=== PATIENT | female | born 1965 | race Caucasian/White ===

== ENCOUNTER 2016-12-22 22:51 | Emergency (ER) | payer MEDICAID ==
--- NOTE | 2016-12-22 22:54 | EDM.PDOC ---
ED HPI GENERAL MEDICAL PROBLEM - General Stated Complaint: PAIN LT EYE Time Seen by Provider: 12/22/16 23:05 Source of Information: Reports: Patient History Limitations: Reports: No Limitations - History of Present Illness INITIAL COMMENTS - FREE TEXT/NARRATIVE: HISTORY AND PHYSICAL: History of present illness: [51-year-old patient complaining of left eye foreign body sensation. She was driving earlier today when she opened a window and something flew in her eye. A cluster immediate discomfort and since that time has felt like something is in her eye. Tetanus is not up-to-date. She has normal vision changes at her baseline. No other complaint] Review of systems: As per history of present illness and below otherwise all systems reviewed and negative. Past medical history: As per history of present illness and as reviewed below otherwise noncontributory. Surgical history: As per history of present illness and as reviewed below otherwise noncontributory. Social history: No reported history of drug or alcohol abuse. Family history: As per history of present illness and as reviewed below otherwise noncontributory. Physical exam: Eye exam: Right eye normal. Left eye normal-appearing grossly. Normal anterior chamber. Pupils equally round reactive light accommodation. Positive relief with Alcaine. Floor seen dye applied with positive uptake upper medial quadrant of cornea. No dye uptake over the pupil. Normal anterior chamber with no hyphema. No visible foreign body. Lids everted with no foreign body or other visible abnormality HEENT: Normocephalic, atraumatic, pupils normal and symmetrical, supple neck, no meningismus, normal color Lungs: Normal and symmetrical chest wall excursion bilateral with no tachypnea or increased work of breathing, grossly normal chest exam Heart: No tachycardia in triage Abdomen: Normal-appearing, nondistended, no visible mass or asymmetry Pelvis: Normal-appearing Genitourinary: Deferred Rectal exam: Deferred Extremities: Atraumatic, normal use and range of motion, no visible evidence of gross neurovascular compromise Neuro: Awake, alert, oriented. Normal and appropriate mental status. Cranial nerves grossly unremarkable. Motor function normal. Nonfocal neurologic exam. Diagnostics: [] Therapeutics: [Erythromycin ophthalmic ointment instilled] Impression: [] Plan: [Signs and symptoms consistent with corneal abrasion confirmed by dye uptake and slit-lamp exam the ER M.D. No visible foreign body. Patient is aware the possibility of occult foreign body. Tetanus given. Patient will follow-up with ophthalmology use ointment as prescribed and return immediately for new severe or worsening symptoms.] Definitive disposition and diagnosis as appropriate pending reevaluation and review of above. Left Eye Pain Score (Numeric/FACES): 8 - Related Data Allergies Allergy/AdvReac Type Severity Reaction Status Date / Time amoxicillin [Amoxicillin] Allergy Hives Verified 12/22/16 23:00 fexofenadine HCl Allergy Hives Verified 12/22/16 23:00 [From Jesenia] loratadine [From Claritin] Allergy Hives Verified 12/22/16 23:00 naproxen sodium [From Aleve] Allergy Hives Verified 12/22/16 23:00 tramadol Allergy Hives Verified 12/22/16 23:00 Home Meds: Home Meds Montelukast [Singulair] 10 mg PO DAILY 11/15/13 [History] Omeprazole [Prilosec] 20 mg PO DAILY 11/15/13 [History] Pirbuterol [Maxair Autohaler] 14 gm IH ASDIRECTED PRN 11/15/13 [History] lamoTRIgine [LaMICtal] 150 mg PO BEDTIME 11/15/13 [History] Lurasidone HCl [Latuda] 80 mg PO DAILY 07/23/14 [History] Meloxicam 1 tab PO DAILY 05/20/15 [History] Levofloxacin [Levaquin] 250 mg PO Q24H #7 tablet 04/23/16 [Rx] Phenazopyridine HCl [Pyridium] 100 mg PO TID #9 tablet 04/23/16 [Rx] Erythromycin Base [Erythromycin 0.5% Ophth Oint] 1 applic OP Q4HR #1 tube [Rx] Past Medical History Other HEENT History: nasal reconstruction Genitourinary History: Reports: Urinary Incontinence, UTI, 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: Endocrine/Metabolic History: Reports: Diabetes, Type II - Past Surgical History GI Surgical History: Reports: Bariatric Procedure, Cholecystectomy Female Surgical History: Reports: Section Social & Family History - Family History Family Medical History: Noncontributory - Tobacco Use Smoking Status *Q: Never Smoker Years of Tobacco use: 1 Used Tobacco, but Quit: Yes Month Tobacco Last Used: 1984 Second Hand Smoke Exposure: No - Caffeine Use Caffeine Use: Reports: Coffee - Alcohol Use Days Per Week of Alcohol Use: 0 Number of Drinks Per Day: 3 Total Drinks Per Week: 0 - Recreational Drug Use Recreational Drug Use: No ED ROS GENERAL - Review of Systems Review Of Systems: See Below (History of present illness) ED EXAM, GENERAL - Physical Exam Exam: See Below (History of present illness) Course - Vital Signs Last Recorded V/S: Last Vital Signs Temp 36.6 C 12/22/16 23:00 Pulse 77 12/22/16 23:00 Resp 16 12/22/16 23:00 BP 122/51 L 12/22/16 23:00 Pulse Ox 99 12/22/16 23:00 - Orders/Labs/Meds Orders: Active Orders 24 hr Category Date Time Status Vaccines to be Administered [RC] PER UNIT ROUTINE Care 12/23/16 00:08 Active Meds: Medications Discontinued Medications Generic Name Dose Route Start Last Admin Trade Name Freq PRN Reason Stop Dose Admin Diphtheria/Tetanus/Acell Pertussis 0.5 ml 12/23/16 00:08 12/23/16 00:38 Adacel IM 12/23/16 00:09 0.5 ml .ONCE ONE Administration Erythromycin 1 gm 12/23/16 00:44 Erythromycin 0.5% Ophth Oint EYEBOTH 12/23/16 00:45 ONETIME ONE Proparacaine HCl 3 ml 12/22/16 23:19 12/22/16 23:44 Proparacaine 0.5% Ophth Soln EYELF 12/22/16 23:20 3 ml ONETIME ONE Administration Departure - Departure Time of Disposition: 00:34 Disposition: Home, Self-Care 01 Condition: Good Clinical Impression: Corneal abrasion, left, Tetanus-diphtheria vaccination administered at current visit - Discharge Information Prescriptions: Erythromycin Base [Erythromycin 0.5% Ophth Oint] 1 applic OP Q4HR #1 tube Instructions: Corneal Abrasion, [id number] Referrals: Jason Wick MD [Primary Care Provider] - Forms: ED Department Discharge Additional Instructions: You have suffered a corneal abrasion of your left eye today. Your tetanus shot has been updated. Use ointment 4 times a day and at bedtime as discussed. Follow -up with the eye doctor, Dr Red, as directed in one day. Take Motrin Tylenol as needed for pain and return immediately for new severe or worsening symptoms - My Orders Last 24 Hours: My Active Orders 12/23/16 00:08 Vaccines to be Administered [RC] PER UNIT ROUTINE - Assessment/Plan Last 24 Hours: My Active Orders 12/23/16 00:08 Vaccines to be Administered [RC] PER UNIT ROUTINE
[2016-12-22] MEDS ORDERED: Proparacaine 0.5% Ophth Soln 15 ML Bottle EYELF ONE (23:19)
[2016-12-23] MEDS ORDERED: Diphtheria,Pertussis(Acell),Tetanus Vaccine 0.5 ML Syringe IM ONE (00:08)
[2016-12-23] MEDS ORDERED: Erythromycin Base 0.5% Ophth Oint 1 GM Tube EYEBOTH ONE (00:44)
[2016-12-23 02:28] VITALS: BP 126/61
== END 2016-12-23 01:00 | disposition home or self-care (01) ==
LOC: MW.ED 22:51
DX: S05.02XA Injury of conjunctiva and corneal abrasion without foreign body, left eye, initial encounter (principal); E11.9 Type 2 diabetes mellitus without complications; Z90.49 Acquired absence of other specified parts of digestive tract; Z98.84 Bariatric surgery status; Z87.891 Personal history of nicotine dependence; Z79.899 Other long term (current) drug therapy; Z88.1 Allergy status to other antibiotic agents; Z88.5 Allergy status to narcotic agent; Z88.8 Allergy status to other drugs, medicaments and biological substances; X58.XXXA Exposure to other specified factors, initial encounter; Z23 Encounter for immunization
CPT/HCPCS: 90471; 90715; 99283; A9270

== ENCOUNTER 2017-04-12 20:46 | Emergency (ER) | payer MEDICAID ==
[2017-04-12] MEDS ORDERED: Sodium Chloride 0.9% 10 ML Syringe FLUSH PRN (21:18)
[2017-04-12] MEDS ORDERED: Sodium Chloride 0.9% 2.5 ML Syringe FLUSH PRN (21:18)
--- NOTE | 2017-04-12 21:21 | EDM.PDOC ---
ED HPI GENERAL MEDICAL PROBLEM - General Chief Complaint: ENT Problem Stated Complaint: PAIN THROAT/LT SIDE Time Seen by Provider: 04/12/17 21:13 Source of Information: Reports: Patient History Limitations: Reports: No Limitations - History of Present Illness INITIAL COMMENTS - FREE TEXT/NARRATIVE: HISTORY AND PHYSICAL: []52-year-old female presenting with left-sided neck pain extending down to her shoulder History of Present Illness: []Denies any injury she states this is the fourth time in a month she was seen by Dr. Wick and told it was a muscle. She is teary-eyed and worried that it's her heart. Patient has known history of diabetes mellitus UTI Cystitis Bipolar disorder Review of Systems: As per history of present illness and below otherwise all systems reviewed and negative. Past medical history: As per history of present illness and as reviewed below otherwise noncontributory. Surgical history: As per history of present illness and as reviewed below otherwise noncontributory. Social history: No reported history of drug or alcohol abuse. Family history: As per history of present illness and as reviewed below otherwise noncontributory. Physical exam: Alert and oriented female who speaks in full sentences without any difficulty she does have difficulty opening her mouth. She is nontoxic in appearance HEENT: Atraumatic, normocehpalic, pupils reactive, negative for conjunctival pallor or scleral icterus, mucous membranes moist, throat clear, neck supple, nontender, trachea midline. Edema is noted to the left lateral neck tender with palpation no bruit is noted. Lungs: Clear to auscultation, breath sounds equal bilaterally, chest non tender. Heart: S1S2, regular, negative for clicks, rubs, or JVD. Abdomen: Soft, nondistended, nontender. Negative for masses or hepatossplenmegaly. Negative for costovertebral tenderness. Pelvis: Stable nontender. Genitourinary: Deferred. Rectal: Deferred Extremities: Atraumatic, negative for cords or calf pain. Mild tenderness is noted to the anterior shoulder. No gross abnormalities were noted on examination full range of motion is noted. Neurovascular unremarkable. Neuro: Awake, alert, oriented. Cranial nerves II through XII unremarkable. Cerebellum unremarkable. Motor and sensory unremarkable throughout. Exam nonfocal. Diagnostics: [Carotid ultrasound] HCG urine Therapeutics: []Norflex Toradol Impression: []Neck pain/muscle strain Plan: [Discharged to home Tylenol for discomfort Warm packs to neck comfort follow up with Dr. Wick] Definitive disposition and diagnosis as appropriate pending reevaluation and review of above. Left Throat Pain Score (Numeric/FACES): 9 - Related Data Allergies Allergy/AdvReac Type Severity Reaction Status Date / Time amoxicillin [Amoxicillin] Allergy Hives Verified 12/22/16 23:00 fexofenadine HCl Allergy Hives Verified 12/22/16 23:00 [From Jesenia] loratadine [From Claritin] Allergy Hives Verified 12/22/16 23:00 naproxen sodium [From Aleve] Allergy Hives Verified 12/22/16 23:00 tramadol Allergy Hives Verified 12/22/16 23:00 Home Meds: Home Meds Montelukast [Singulair] 10 mg PO DAILY 11/15/13 [History] Pirbuterol [Maxair Autohaler] 14 gm IH ASDIRECTED PRN 11/15/13 [History] lamoTRIgine [LaMICtal] 75 mg PO BID 11/15/13 [History] Lurasidone HCl [Latuda] 80 mg PO DAILY 07/23/14 [History] Meloxicam 7.5 mg PO DAILY 05/20/15 [History] Pantoprazole [ProTONIX] 20 mg PO DAILY 04/12/17 [History] Past Medical History Other HEENT History: nasal reconstruction Genitourinary History: Reports: Urinary Incontinence, UTI, 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: Psychiatric History: Reports: None Endocrine/Metabolic History: Reports: Diabetes, Type II - Infectious Disease History Infectious Disease History: Reports: Chicken Pox - Past Surgical History GI Surgical History: Reports: Bariatric Procedure, Cholecystectomy Female Surgical History: Reports: Section Social & Family History - Family History Family Medical History: Noncontributory - Tobacco Use Smoking Status *Q: Never Smoker Years of Tobacco use: 1 Used Tobacco, but Quit: Yes Month Tobacco Last Used: 1984 Second Hand Smoke Exposure: No - Caffeine Use Caffeine Use: Reports: Coffee - Alcohol Use Days Per Week of Alcohol Use: 0 Number of Drinks Per Day: 3 Total Drinks Per Week: 0 - Recreational Drug Use Recreational Drug Use: No ED ROS ENT - Review of Systems Review Of Systems: ROS reveals no pertinent complaints other than HPI. ED EXAM, ENT - Physical Exam Exam: See Below (See dictation) Course - Vital Signs Last Recorded V/S: Last Vital Signs Temp 36.9 C 04/12/17 21:11 Pulse 70 04/12/17 21:11 Resp 18 04/12/17 21:11 BP 124/58 L 04/12/17 21:11 Pulse Ox 96 04/12/17 21:11 - Orders/Labs/Meds Orders: Active Orders 24 hr Category Date Time Status Carotid Blood Flow Comp [US] Stat Exams 04/12/17 21:18 Taken Orphenadrine [Norflex] Med 04/12/17 21:30 Active 60 mg IM Q12H Sodium Chloride 0.9% [Saline Flush] Med 04/12/17 21:18 Active 10 ml FLUSH ASDIRECTED PRN Sodium Chloride 0.9% [Saline Flush] Med 04/12/17 21:18 Active 2.5 ml FLUSH ASDIRECTED PRN Saline Lock Insert [OM.PC] Stat Oth 04/12/17 21:18 Ordered Medication Orders Orphenadrine Citrate (Norflex) 60 mg IM Q12H GEN Last Admin: 04/12/17 21:30 Dose: 60 mg Sodium Chloride (Saline Flush) 10 ml FLUSH ASDIRECTED PRN PRN Reason: Keep Vein Open Sodium Chloride (Saline Flush) 2.5 ml FLUSH ASDIRECTED PRN PRN Reason: Keep Vein Open Labs: Laboratory Tests 04/12/17 04/12/17 Range/Units 21:26 21:36 WBC 5.63 (4.0-11.0) K/uL RBC 4.32 (4.30-5.90) M/uL Hgb 10.5 L (12.0-16.0) g/dL Hct 34.1 L (36.0-46.0) % MCV 78.9 L (80.0-98.0) fL MCH 24.3 L (27.0-32.0) pg MCHC 30.8 L (31.0-37.0) g/dL RDW Std Deviation 46.2 (28.0-62.0) fl RDW Coeff of Haris 16 H (11.0-15.0) % Plt Count 268 (150-400) K/uL MPV 8.50 (7.40-12.00) fL Neut % (Auto) 57.9 (48.0-80.0) % Lymph % (Auto) 31.8 (16.0-40.0) % [place] % (Auto) 8.3 (0.0-15.0) % Eos % (Auto) 1.6 (0.0-7.0) % Baso % (Auto) 0.4 (0.0-1.5) % Neut # (Auto) 3.3 (1.4-5.7) K/uL Lymph # (Auto) 1.8 (0.6-2.4) K/uL [place]mer # (Auto) 0.5 (0.0-0.8) K/uL Eos # (Auto) 0.1 (0.0-0.7) K/uL Baso # (Auto) 0.0 (0.0-0.1) K/uL Nucleated RBC % 0.0 /100WBC Nucleated RBCs # 0 K/uL Urine Color YELLOW Urine Appearance CLEAR Urine pH 6.0 (5.0-8.0) Ur Specific [place] 1.015 (1.001-1.035) Urine Protein NEGATIVE (NEGATIVE) mg/dL Urine Glucose (UA) NEGATIVE (NEGATIVE) mg/dL Urine Ketones NEGATIVE (NEGATIVE) mg/dL Urine Occult Blood NEGATIVE (NEGATIVE) Urine Nitrite NEGATIVE (NEGATIVE) Urine Bilirubin NEGATIVE (NEGATIVE) Urine Urobilinogen 0.2 (<2.0) EU/dL Ur Leukocyte Esterase TRACE (NEGATIVE) Urine RBC 0-1 (0-2/HPF) Urine WBC 0-3 (0-5/HPF) Ur Epithelial Cells FEW (NONE-FEW) Urine Bacteria FEW (NEGATIVE) Meds: Medications Generic Name Dose Route Start Last Admin Trade Name Freq PRN Reason Stop Dose Admin Orphenadrine Citrate 60 mg 04/12/17 21:30 04/12/17 21:30 Norflex IM 60 mg Q12H GEN Administration Sodium Chloride 10 ml 04/12/17 21:18 Saline Flush FLUSH ASDIRECTED PRN Keep Vein Open Sodium Chloride 2.5 ml 04/12/17 21:18 Saline Flush FLUSH ASDIRECTED PRN Keep Vein Open Discontinued Medications Generic Name Dose Route Start Last Admin Trade Name Freq PRN Reason Stop Dose Admin Ketorolac Tromethamine 30 mg 04/12/17 21:24 04/12/17 21:31 Toradol IVPUSH 04/12/17 21:25 30 mg ONETIME ONE Administration Departure - Departure Time of Disposition: 22:06 Disposition: Home, Self-Care 01 Condition: Good Clinical Impression: Neck pain on left side - Discharge Information Referrals: Jason Wick MD [Primary Care Provider] - Forms: ED Department Discharge Additional Instructions: The following information is given to patients seen in the emergency department who are being discharged to home. This information is to outline your options for follow-up care. We provide all patients seen in our emergency department with a follow-up referral. The need for follow-up, as well as the timing and circumstances, are variable depending upon the specifics of your emergency department visit. If you don't have a primary care physician on staff, we will provide you with a referral. We always advise you to contact your personal physician following an emergency department visit to inform them of the circumstance of the visit and for follow-up with them and/or the need for any referrals to a consulting specialist. The emergency department will also refer you to a specialist when appropriate. This referral assures that you have the opportunity for followup care with a specialist. All of these measure are taken in an effort to provide you with optimal care, which includes your followup. Under all circumstances we always encourage you to contact your private physician who remains a resource for coordinating your care. When calling for followup care, please make the office aware that this follow-up is from your recent emergency room visit. If for any reason you are refused follow-up, please contact the [facility] emergency department at and asked to speak to the emergency department charge nurse. Warm packs for discomfort The counter Tylenol for pain Follow-up with Dr. Wick - My Orders Last 24 Hours: My Active Orders 04/12/17 21:18 Carotid Blood Flow Comp [US] Stat Sodium Chloride 0.9% [Saline Flush] 10 ml FLUSH ASDIRECTED PRN Sodium Chloride 0.9% [Saline Flush] 2.5 ml FLUSH ASDIRECTED PRN Saline Lock Insert [OM.PC] Stat 04/12/17 21:30 Orphenadrine [Norflex] 60 mg IM Q12H - Assessment/Plan Last 24 Hours: My Active Orders 04/12/17 21:18 Carotid Blood Flow Comp [US] Stat Sodium Chloride 0.9% [Saline Flush] 10 ml FLUSH ASDIRECTED PRN Sodium Chloride 0.9% [Saline Flush] 2.5 ml FLUSH ASDIRECTED PRN Saline Lock Insert [OM.PC] Stat 04/12/17 21:30 Orphenadrine [Norflex] 60 mg IM Q12H
[2017-04-12] MEDS ORDERED: Ketorolac 30 MG/ML SDV IVPUSH ONE (21:24)
[2017-04-12 22:46] VITALS: BP 113/74
--- NOTE | 2017-04-13 13:32 | US ---
EXAM DATE: 04/12/17 PATIENT'S AGE: 52 Patient: YUDY BROTHERS Facility: [place], [place] Site . Site : [id number] Study: US Neck Angio [id number] 10:00:46 PM Ordering Physician: Doctor Sparks Final Report: INDICATION: Neck pain. TECHNIQUE: Ultrasound carotid bilateral arterial duplex with dixon-scale imaging, color Doppler and spectral Doppler analysis. COMPARISON: None FINDINGS: RIGHT: The common carotid is normal on grayscale and color Doppler images. Duplex Doppler waveforms of the common carotid (CCA), internal carotid (ICA), and external carotid arteries (ECA) are normal in appearance. Normal anterograde flow is seen in the vertebral artery. The peak systolic velocity ( PSV) of the ICA is 124 cm/sec with ICA/CCA ratio of 1.3. The PSV of the ECA is within normal limits. LEFT: The common carotid is normal on grayscale and color Doppler images. Duplex Doppler waveforms of the common carotid (CCA), internal carotid (ICA), and external carotid arteries (ECA) are normal in appearance. Normal anterograde flow is seen in the vertebral artery. The peak systolic velocity ( PSV) of the ICA is 156 cm/sec with ICA/CCA ratio of 1.3. The PSV of the ECA is within normal limits. IMPRESSION: 1. No significant stenosis seen in the common or internal carotid arteries bilaterally. 2. Normal anterograde flow noted in the vertebral arteries. Dictated by Salvatore Myles MD @ 04/12/2017 10:29:25 PM Dictated by: Salvatore Myles MD @ 04/12/2017 22:29:31 (Electronic Signature) Report Signed by Proxy. ROMAN
== END 2017-04-12 22:43 | disposition home or self-care (01) ==
LOC: MW.ED 20:46
DX: S16.1XXA Strain of muscle, fascia and tendon at neck level, initial encounter (principal); E11.9 Type 2 diabetes mellitus without complications; Z87.440 Personal history of urinary (tract) infections; Z79.899 Other long term (current) drug therapy; Z88.1 Allergy status to other antibiotic agents; Z88.8 Allergy status to other drugs, medicaments and biological substances; Z88.5 Allergy status to narcotic agent; Z90.49 Acquired absence of other specified parts of digestive tract; Z87.891 Personal history of nicotine dependence
CPT/HCPCS: 36415; 81001; 85025; 93880; 96372; 96374; 99284; J1885; J2360; 99283

== ENCOUNTER 2017-06-30 20:53 | Emergency (ER) | payer MEDICAID ==
[2017-06-30 21:04] VITALS: BP 111/60
[2017-06-30] MEDS ORDERED: Ketorolac 60 MG/2 ML SDV IM ONE (21:09)
--- NOTE | 2017-06-30 21:18 | EDM.PDOC ---
ED HPI GENERAL MEDICAL PROBLEM - General Chief Complaint: Upper Extremity Injury/Pain Stated Complaint: HURT SHOULDER Time Seen by Provider: 06/30/17 20:58 Source of Information: Reports: Patient History Limitations: Reports: No Limitations - History of Present Illness INITIAL COMMENTS - FREE TEXT/NARRATIVE: HISTORY AND PHYSICAL: History of present illness: Patient is a 52-year-old female who presents to the emergency room today with complaints of left shoulder pain that started this morning. She states that she "might have slept on it wrong". Denies any recent injury or trauma. Denies any previous complications or surgeries without extremity. Denies any fever, chills, chest pain or shortness of breath. No numbness or tingling to the affected extremity. Reports increased pain with range of motion. Review of systems: As per history of present illness and below otherwise all systems reviewed and negative. Past medical history: As per history of present illness and as reviewed below otherwise noncontributory. Surgical history: As per history of present illness and as reviewed below otherwise noncontributory. Social history: No reported history of drug or alcohol abuse. Family history: As per history of present illness and as reviewed below otherwise noncontributory. Physical exam: General: Well-developed and well-nourished 52-year-old female. Alert and oriented. Flat affect, appears in no acute distress, nontoxic appearing. HEENT: Atraumatic, normocephalic, pupils reactive, negative for conjunctival pallor or scleral icterus, mucous membranes moist, throat clear, neck supple, nontender, trachea midline. Lungs: Clear to auscultation, breath sounds equal bilaterally, chest nontender. Heart: S1S2, regular rate and rhythm without overt murmurs Abdomen: Soft, nondistended, nontender. Negative for masses or hepatosplenomegaly. Negative for costovertebral tenderness. Pelvis: Stable nontender. Genitourinary: Deferred. Rectal: Deferred. Extremities: Atraumatic, moves all extremities per self. Increased pain with range of motion of the left shoulder. Negative supraspinatus exam/ empty can test. Strong radial pulses bilaterally. Capillary refill less than 3 seconds. Tenderness with palpation of the medial deltoid. No pain or tenderness with palpation of the clavicle, scapula, bicep, tricep, elbow, forearm, wrist or hand. Neurovascular unremarkable. Neuro: Awake, alert, oriented. Cranial nerves II through XII unremarkable. Cerebellum unremarkable. Motor and sensory unremarkable throughout. Exam nonfocal. Discussed with the patient the x-ray that will be ordered. Her physical exam and interview, the pain sounds muscular. Informed her that she will likely need a CT or MRI if she continues to have the worsening shoulder pain. Informed her she will need to follow-up with an orthopedic provider. She voices understanding and is agreeable to plan of care. Place the patient in a sling for comfort measures. Patient denies any further questions at this time. Diagnostics: X-ray Therapeutics: Toradol, sling Impression: Shoulder pain, Left Plan: 1. Please review the sling as needed for comfort. 2. Flexeril has been prescribed for night time use. May take Tylenol as needed for pain. Ice alternated with heat. 3. Follow-up with the orthopedic provider as we discussed. Please return to the ED as needed and as discussed. Definitive disposition and diagnosis as appropriate pending reevaluation and review of above. Onset: Today Duration: Hour(s): Location: Reports: Upper Extremity, Left Associated Symptoms: Reports: No Other Symptoms left shoulder Pain Score (Numeric/FACES): 10 - Related Data Allergies Allergy/AdvReac Type Severity Reaction Status Date / Time amoxicillin [Amoxicillin] Allergy Hives Verified 06/30/17 21:02 fexofenadine HCl Allergy Hives Verified 06/30/17 21:02 [From Jesenia] loratadine [From Claritin] Allergy Hives Verified 06/30/17 21:02 naproxen sodium [From Aleve] Allergy Hives Verified 06/30/17 21:02 tramadol Allergy Hives Verified 06/30/17 21:02 Home Meds: Home Meds Montelukast [Singulair] 10 mg PO DAILY 11/15/13 [History] Pirbuterol [Maxair Autohaler] 14 gm IH ASDIRECTED PRN 11/15/13 [History] lamoTRIgine [LaMICtal] 75 mg PO BID 11/15/13 [History] Lurasidone HCl [Latuda] 80 mg PO DAILY 07/23/14 [History] Meloxicam 7.5 mg PO DAILY 05/20/15 [History] Pantoprazole [ProTONIX] 20 mg PO DAILY 04/12/17 [History] Cyclobenzaprine [Flexeril] 10 mg PO BEDTIME PRN #10 tablet 06/30/17 [Rx] Past Medical History Other HEENT History: nasal reconstruction Cardiovascular History: Reports: None Respiratory History: Reports: Asthma Gastrointestinal History: Reports: None Genitourinary History: Reports: Urinary Incontinence, UTI, Recurrent 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: Musculoskeletal History: Reports: None Neurological History: Reports: None Psychiatric History: Reports: Anxiety, Depression Endocrine/Metabolic History: Reports: Diabetes, Type II Hematologic History: Reports: None Immunologic History: Reports: None Oncologic (Cancer) History: Reports: None Dermatologic History: Reports: None - Infectious Disease History Infectious Disease History: Reports: Chicken Pox Other Infectious Disease History: hay fever - Past Surgical History Respiratory Surgical History: Reports: None GI Surgical History: Reports: Bariatric Procedure, Cholecystectomy Female Surgical History: Reports: Section Other Musculoskeletal Surgeries/Procedures:: arm surgery Social & Family History - Family History Family Medical History: Noncontributory - Tobacco Use Smoking Status *Q: Never Smoker Years of Tobacco use: 1 Used Tobacco, but Quit: Yes Month Tobacco Last Used: 1984 Second Hand Smoke Exposure: No - Caffeine Use Caffeine Use: Reports: Coffee - Alcohol Use Days Per Week of Alcohol Use: 0 Number of Drinks Per Day: 3 Total Drinks Per Week: 0 - Recreational Drug Use Recreational Drug Use: No Review of Systems - Review of Systems Review Of Systems: ROS reveals no pertinent complaints other than HPI. ED EXAM, GENERAL - Physical Exam Exam: See Below (See dictation) Course - Vital Signs Last Recorded V/S: Last Vital Signs Temp 97.3 F 06/30/17 21:02 Pulse 66 06/30/17 21:02 Resp 18 06/30/17 21:02 BP 111/60 06/30/17 21:02 Pulse Ox 98 06/30/17 21:02 - Orders/Labs/Meds Orders: Active Orders 24 hr Category Date Time Status Shoulder Comp Lt [CR] Stat Exams 06/30/17 21:09 Ordered DME for Discharge [COMM] Stat Oth 06/30/17 21:09 Ordered Meds: Medications Discontinued Medications Generic Name Dose Route Start Last Admin Trade Name Freq PRN Reason Stop Dose Admin Ketorolac Tromethamine 60 mg 06/30/17 21:09 06/30/17 21:14 Toradol IM 06/30/17 21:10 60 mg ONETIME ONE Administration Departure - Departure Time of Disposition: 21:52 Disposition: Home, Self-Care 01 Clinical Impression: Shoulder pain, left Qualifiers: Chronicity: acute Qualified Code(s): M25.512 - Pain in left shoulder - Discharge Information Prescriptions: Cyclobenzaprine [Flexeril] 10 mg PO BEDTIME PRN #10 tablet PRN Reason: Muscle Spasm Referrals: Jason Wick MD [Primary Care Provider] - Forms: ED Department Discharge Additional Instructions: My general discharge The following information is given to patients seen in the emergency department who are being discharged to home. This information is to outline your options for follow-up care. We provide all patients seen in our emergency department with a follow-up referral. The need for follow-up, as well as the timing and circumstances, are variable depending upon the specifics of your emergency department visit. If you don't have a primary care physician on staff, we will provide you with a referral. We always advise you to contact your personal physician following an emergency department visit to inform them of the circumstance of the visit and for follow-up with them and/or the need for any referrals to a consulting specialist. The emergency department will also refer you to a specialist when appropriate. This referral assures that you have the opportunity for follow-up care with a specialist. All of these measure are taken in an effort to provide you with optimal care, which includes your follow-up. Under all circumstances we always encourage you to contact your private physician who remains a resource for coordinating your care. When calling for follow-up care, please make the office aware that this follow-up is from your recent emergency room visit. If for any reason you are refused follow-up, please contact the [facility] Emergency Department at and asked to speak to the emergency department charge nurse. [facility] - [facility] Professional Building [address] [place] [address], [address] [place] [address] 1. Please review the sling as needed for comfort. 2. Flexeril has been prescribed for night time use. May take Tylenol as needed for pain. Ice alternated with heat. 3. Follow-up with the orthopedic provider as we discussed. Please return to the ED as needed and as discussed. - My Orders Last 24 Hours: My Active Orders 06/30/17 21:09 Shoulder Comp Lt [CR] Stat DME for Discharge [COMM] Stat - Assessment/Plan Last 24 Hours: My Active Orders 06/30/17 21:09 Shoulder Comp Lt [CR] Stat DME for Discharge [COMM] Stat
--- NOTE | 2017-07-04 13:13 | CR ---
EXAM DATE: 06/30/17 PATIENT'S AGE: 52 Patient: YUDY BROTHERS Facility: [place], [place] Site . Site : 1965 Study: XRay Shoulder Left [id number] 9:47:52 PM Ordering Physician: Doctor Sparks Final Report: Indication: Pain Technique: Three views of the left shoulder Comparison: 01/10/2011 Findings: Bones: Alignment is normal. No fractures or bone lesions. Joint spaces: Unremarkable. Soft tissues: Unremarkable. Impression: Negative. Dictated by Viraj Yun MD @ 06/30/2017 10:22:59 PM Dictated by: Viraj Yun MD @ 06/30/2017 22:23:07 (Electronic Signature) Report Signed by Proxy. [facility]ITAL[facility]
== END 2017-06-30 22:20 | disposition home or self-care (01) ==
LOC: MW.ED 20:53
DX: M25.512 Pain in left shoulder (principal); F32.9 Major depressive disorder, single episode, unspecified; E11.9 Type 2 diabetes mellitus without complications; Z87.891 Personal history of nicotine dependence; Z79.899 Other long term (current) drug therapy; Z88.1 Allergy status to other antibiotic agents; Z88.5 Allergy status to narcotic agent; Z88.8 Allergy status to other drugs, medicaments and biological substances
CPT/HCPCS: 73030; 96372; 99283; J1885; A4566

== ENCOUNTER 2017-09-03 12:41 | Emergency (ER) | payer MEDICAID ==
--- NOTE | 2017-09-03 13:29 | EDM.PDOC ---
ED HPI GENERAL MEDICAL PROBLEM - General Stated Complaint: COLD Time Seen by Provider: 09/03/17 13:25 Source of Information: Reports: Patient History Limitations: Reports: No Limitations - History of Present Illness INITIAL COMMENTS - FREE TEXT/NARRATIVE: HISTORY AND PHYSICAL: []52-year-old female presenting with a cough for the last 2 days History of Present Illness: []She has had some chills Review of Systems: As per history of present illness and below otherwise all systems reviewed and negative. Past medical history: As per history of present illness and as reviewed below otherwise noncontributory. Surgical history: As per history of present illness and as reviewed below otherwise noncontributory. Social history: No reported history of drug or alcohol abuse. Family history: As per history of present illness and as reviewed below otherwise noncontributory. Physical exam: Alert and oriented female answering questions appropriately in full sentences but has to cough after speaking in summary words. SHe was pale hot and moist HEENT: Atraumatic, normocehpalic, pupils reactive, negative for conjunctival pallor or scleral icterus, mucous membranes moist, throat clear, neck supple, nontender, trachea midline. Dull light reflex to bilateral tympanic membranes Lungs: Mild crackles on auscultation, breath sounds equal bilaterally, chest non tender. Heart: S1S2, regular, negative for clicks, rubs, or JVD. Abdomen: Soft, nondistended, nontender. Negative for masses or hepatossplenmegaly. Negative for costovertebral tenderness. Pelvis: Stable nontender. Genitourinary: Deferred. Rectal: Deferred Extremities: Atraumatic, negative for cords or calf pain. Neurovascular unremarkable. Neuro: Awake, alert, oriented. Cranial nerves II through XII unremarkable. Cerebellum unremarkable. Motor and sensory unremarkable throughout. Exam nonfocal. His chest with the patient and her son the diagnosis and treatments they verbalized understanding. Diagnostics: [] Therapeutics: [] Impression: [Influenza] Plan: []Discharged to home Tamiflu 75 mg twice daily 5 days Tylenol for discomfort and fever Follow-up with your primary care in 2 days Definitive disposition and diagnosis as appropriate pending reevaluation and review of above. Onset: Sudden Duration: Day(s): (2) Location: Reports: Head, Chest - Related Data Allergies Allergy/AdvReac Type Severity Reaction Status Date / Time amoxicillin [Amoxicillin] Allergy Hives Verified 06/30/17 21:02 fexofenadine HCl Allergy Hives Verified 06/30/17 21:02 [From Jesenia] loratadine [From Claritin] Allergy Hives Verified 06/30/17 21:02 naproxen sodium [From Aleve] Allergy Hives Verified 06/30/17 21:02 tramadol Allergy Hives Verified 06/30/17 21:02 Home Meds: Home Meds Montelukast [Singulair] 10 mg PO DAILY 11/15/13 [History] Pirbuterol [Maxair Autohaler] 14 gm IH ASDIRECTED PRN 11/15/13 [History] lamoTRIgine [LaMICtal] 75 mg PO BID 11/15/13 [History] Lurasidone HCl [Latuda] 80 mg PO DAILY 07/23/14 [History] Meloxicam 7.5 mg PO DAILY 05/20/15 [History] Pantoprazole [ProTONIX] 20 mg PO DAILY 04/12/17 [History] Cyclobenzaprine [Flexeril] 10 mg PO BEDTIME PRN #10 tablet 06/30/17 [Rx] Oseltamivir [Tamiflu] 75 mg PO BID #10 cap 09/03/17 [Rx] Past Medical History Other HEENT History: nasal reconstruction Cardiovascular History: Reports: None Respiratory History: Reports: Asthma Gastrointestinal History: Reports: None Genitourinary History: Reports: Urinary Incontinence, UTI, Recurrent 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: Musculoskeletal History: Reports: None Neurological History: Reports: None Psychiatric History: Reports: Anxiety, Depression Endocrine/Metabolic History: Reports: Diabetes, Type II Hematologic History: Reports: None Immunologic History: Reports: None Oncologic (Cancer) History: Reports: None Dermatologic History: Reports: None - Infectious Disease History Infectious Disease History: Reports: Chicken Pox Other Infectious Disease History: hay fever - Past Surgical History Respiratory Surgical History: Reports: None GI Surgical History: Reports: Bariatric Procedure, Cholecystectomy Female Surgical History: Reports: Section Other Musculoskeletal Surgeries/Procedures:: arm surgery Social & Family History - Family History Family Medical History: Noncontributory - Tobacco Use Smoking Status *Q: Never Smoker Years of Tobacco use: 1 Used Tobacco, but Quit: Yes Month Tobacco Last Used: 1984 Second Hand Smoke Exposure: No - Caffeine Use Caffeine Use: Reports: Coffee - Alcohol Use Days Per Week of Alcohol Use: 0 Number of Drinks Per Day: 3 Total Drinks Per Week: 0 - Recreational Drug Use Recreational Drug Use: No ED ROS GENERAL - Review of Systems Review Of Systems: ROS reveals no pertinent complaints other than HPI. ED EXAM, GENERAL - Physical Exam Exam: See Below (see dictation) Departure - Departure Time of Disposition: 13:27 Disposition: Home, Self-Care 01 Condition: Good Clinical Impression: Influenza - Discharge Information Prescriptions: Oseltamivir [Tamiflu] 75 mg PO BID #10 cap Referrals: Jason Wick MD [Primary Care Provider] - Additional Instructions: The following information is given to patients seen in the emergency department who are being discharged to home. This information is to outline your options for follow-up care. We provide all patients seen in our emergency department with a follow-up referral. The need for follow-up, as well as the timing and circumstances, are variable depending upon the specifics of your emergency department visit. If you don't have a primary care physician on staff, we will provide you with a referral. We always advise you to contact your personal physician following an emergency department visit to inform them of the circumstance of the visit and for follow-up with them and/or the need for any referrals to a consulting specialist. The emergency department will also refer you to a specialist when appropriate. This referral assures that you have the opportunity for followup care with a specialist. All of these measure are taken in an effort to provide you with optimal care, which includes your followup. Under all circumstances we always encourage you to contact your private physician who remains a resource for coordinating your care. When calling for followup care, please make the office aware that this follow-up is from your recent emergency room visit. If for any reason you are refused follow-up, please contact the [facility] emergency department at and asked to speak to the emergency department charge nurse. Your found have the flu well in the emergency department You were prescribed Tamiflu 75 mg 1 capsule twice daily 5 days Tylenol for discomfort and fever Follow-up with your primary care in 2 days
[2017-09-03 16:56] VITALS: BP 133/58
== END 2017-09-03 14:15 | disposition home or self-care (01) ==
LOC: MW.ED 12:41
DX: J11.1 Influenza due to unidentified influenza virus with other respiratory manifestations (principal); J45.909 Unspecified asthma, uncomplicated; F32.9 Major depressive disorder, single episode, unspecified; E11.9 Type 2 diabetes mellitus without complications; Z87.891 Personal history of nicotine dependence; Z79.899 Other long term (current) drug therapy; Z88.5 Allergy status to narcotic agent; Z88.8 Allergy status to other drugs, medicaments and biological substances; Z88.1 Allergy status to other antibiotic agents
CPT/HCPCS: 99282

== ENCOUNTER 2017-12-26 21:17 | Emergency (ER) | payer MEDICAID ==
--- NOTE | 2017-12-26 21:31 | EDM.PDOC ---
ED HPI GENERAL MEDICAL PROBLEM - General Chief Complaint: Gastrointestinal Problem Stated Complaint: NAUSEOUS, ABDOMINAL PAIN Time Seen by Provider: 12/26/17 21:30 Source of Information: Reports: Patient History Limitations: Reports: No Limitations - History of Present Illness INITIAL COMMENTS - FREE TEXT/NARRATIVE: HISTORY AND PHYSICAL: History of present illness: 52-year-old female presenting to emergency department with nausea 3-4 days with past medical history of bipolar disorder and diabetes. Patient states that for the past 3-4 days she has had some nausea without vomiting, she is felt generally tired but today felt more weak and dizzy. States that she is keeping down fluids but has had a decreased appetite. She denies any diarrhea, fever, sore throat, chest pain, shortness of breath, syncopal episodes, or focal neurologic deficits. Did have some mild crampy abdominal pain generally but only intermittently and none today. Denies any bloody stool, dark tarry stool, recent foreign travel, recent camping, or change in diet. No other close contacts have similar symptoms. Review of systems: As per history of present illness and below otherwise all systems reviewed and negative. Past medical history: As per history of present illness and as reviewed below otherwise noncontributory. Surgical history: As per history of present illness and as reviewed below otherwise noncontributory. Social history: No reported history of drug or alcohol abuse. Family history: As per history of present illness and as reviewed below otherwise noncontributory. Physical exam: HEENT: Atraumatic, normocephalic, pupils reactive, negative for conjunctival pallor or scleral icterus, mucous membranes moist, throat clear, neck supple, nontender, trachea midline. Lungs: Clear to auscultation, breath sounds equal bilaterally, chest nontender. Heart: S1S2, regular, negative for clicks, rubs, or JVD. Abdomen: Soft, nondistended, nontender, obese. Negative for masses or hepatosplenomegaly. Negative for costovertebral tenderness. Pelvis: Stable nontender. Genitourinary: Deferred. Rectal: Deferred. Extremities: Atraumatic, negative for cords or calf pain. Neurovascular unremarkable. Neuro: Awake, alert, oriented. Cranial nerves II through XII unremarkable. Cerebellum unremarkable. Motor and sensory unremarkable throughout. Exam nonfocal. Diagnostics: UA/UC, urine hCG call Therapeutics: 1 L normal saline, Zofran IV 4 mg 1, Zofran ODT 4 mg by mouth every 6 hours when necessary nausea Impression: Viral gastroenteritis Nausea without vomiting Plan: Patient most likely has viral gastroenteritis. UA and urine hCG were unremarkable. Patient was instructed to follow-up with primary care provider and return to emergency department if she had any new or worsening symptoms. She should continue pushing fluids as well as slowly increase her diet from bland foods. - Related Data Allergies Allergy/AdvReac Type Severity Reaction Status Date / Time amoxicillin [Amoxicillin] Allergy Hives Verified 09/03/17 16:53 fexofenadine HCl Allergy Hives Verified 09/03/17 16:53 [From Jesenia] loratadine [From Claritin] Allergy Hives Verified 09/03/17 16:53 naproxen sodium [From Aleve] Allergy Hives Verified 09/03/17 16:53 tramadol Allergy Hives Verified 09/03/17 16:53 Home Meds: Home Meds Montelukast [Singulair] 10 mg PO DAILY 11/15/13 [History] Pirbuterol [Maxair Autohaler] 14 gm IH ASDIRECTED PRN 11/15/13 [History] lamoTRIgine [LaMICtal] 75 mg PO BID 11/15/13 [History] Lurasidone HCl [Latuda] 80 mg PO DAILY 07/23/14 [History] Meloxicam 7.5 mg PO DAILY 05/20/15 [History] Pantoprazole [ProTONIX] 20 mg PO DAILY 04/12/17 [History] Cyclobenzaprine [Flexeril] 10 mg PO BEDTIME PRN #10 tablet 06/30/17 [Rx] Oseltamivir [Tamiflu] 75 mg PO BID #10 cap 09/03/17 [Rx] Past Medical History HEENT History: Reports: Other (See Below) Other HEENT History: nasal reconstruction Cardiovascular History: Reports: None Respiratory History: Reports: Asthma Gastrointestinal History: Reports: None Genitourinary History: Reports: Urinary Incontinence, UTI, Recurrent SURGERY CONSULTANT History: Reports: Musculoskeletal History: Reports: None Neurological History: Reports: None Psychiatric History: Reports: Anxiety, Depression Endocrine/Metabolic History: Reports: Diabetes, Type II Hematologic History: Reports: None Immunologic History: Reports: None Oncologic (Cancer) History: Reports: None Dermatologic History: Reports: None - Infectious Disease History Infectious Disease History: Reports: Chicken Pox Other Infectious Disease History: hay fever - Past Surgical History Head Surgeries/Procedures: Reports: None HEENT Surgical History: Reports: None Cardiovascular Surgical History: Reports: None Respiratory Surgical History: Reports: None GI Surgical History: Reports: Bariatric Procedure, Cholecystectomy Female Surgical History: Reports: Section Other Musculoskeletal Surgeries/Procedures:: arm surgery Oncologic Surgical History: Reports: None Social & Family History - Family History Family Medical History: Noncontributory - Tobacco Use Smoking Status *Q: Never Smoker - Caffeine Use Caffeine Use: Reports: None - Recreational Drug Use Recreational Drug Use: No ED ROS GENERAL - Review of Systems Review Of Systems: ROS reveals no pertinent complaints other than HPI. ED EXAM, GENERAL - Physical Exam Exam: See Below Course - Vital Signs Last Recorded V/S: Last Vital Signs Temp 97.4 F 12/26/17 21:30 Pulse 82 12/26/17 21:30 Resp 18 12/26/17 21:30 BP 148/100 H 12/26/17 21:30 Pulse Ox 97 12/26/17 21:30 - Orders/Labs/Meds Orders: Active Orders 24 hr Category Date Time Status CULTURE URINE [RM] Stat Lab 12/26/17 21:35 Received HCG QUALITATIVE,URINE [URCHEM] Stat Lab 12/26/17 21:35 Ordered UA W/MICROSCOPIC [URIN] Stat Lab 12/26/17 21:35 Ordered Labs: Laboratory Tests 12/26/17 12/26/17 Range/Units 21:35 21:35 Urine Color YELLOW Urine Appearance CLEAR Urine pH 6.0 (5.0-8.0) Ur Specific [place] <= 1.005 (1.001-1.035) Urine Protein NEGATIVE (NEGATIVE) mg/dL Urine Glucose (UA) NEGATIVE (NEGATIVE) mg/dL Urine Ketones NEGATIVE (NEGATIVE) mg/dL Urine Occult Blood TRACE-LYSED (NEGATIVE) Urine Nitrite NEGATIVE (NEGATIVE) Urine Bilirubin NEGATIVE (NEGATIVE) Urine Urobilinogen 0.2 (<2.0) EU/dL Ur Leukocyte Esterase NEGATIVE (NEGATIVE) Urine RBC 0-2 (0-2/HPF) Urine WBC 0-2 (0-5/HPF) Ur Epithelial Cells OCCASIONAL (NONE-FEW) Urine Bacteria RARE (NEGATIVE) Urine HCG, Qual NEGATIVE (NEGATIVE) Meds: Medications Discontinued Medications Generic Name Dose Route Start Last Admin Trade Name Freq PRN Reason Stop Dose Admin Sodium Chloride 1,000 mls @ 999 mls/hr 12/26/17 22:04 12/26/17 22:06 Normal Saline IV 12/26/17 23:04 999 mls/hr .Bolus ONE Administration Ondansetron HCl 4 mg 12/26/17 22:12 12/26/17 22:33 Zofran IVPUSH 12/26/17 22:13 4 mg ONETIME ONE Administration Departure - Departure Time of Disposition: 23:06 Disposition: Home, Self-Care 01 Condition: Good Clinical Impression: Viral gastroenteritis - Discharge Information Referrals: Jason Wick MD [Primary Care Provider] - Forms: ED Department Discharge Additional Instructions: My general discharge The following information is given to patients seen in the emergency department who are being discharged to home. This information is to outline your options for follow-up care. We provide all patients seen in our emergency department with a follow-up referral. The need for follow-up, as well as the timing and circumstances, are variable depending upon the specifics of your emergency department visit. If you don't have a primary care physician on staff, we will provide you with a referral. We always advise you to contact your personal physician following an emergency department visit to inform them of the circumstance of the visit and for follow-up with them and/or the need for any referrals to a consulting specialist. The emergency department will also refer you to a specialist when appropriate. This referral assures that you have the opportunity for follow-up care with a specialist. All of these measure are taken in an effort to provide you with optimal care, which includes your follow-up. Under all circumstances we always encourage you to contact your private physician who remains a resource for coordinating your care. When calling for follow-up care, please make the office aware that this follow-up is from your recent emergency room visit. If for any reason you are refused follow-up, please contact the [facility] Emergency Department at and asked to speak to the emergency department charge nurse. [address] [address] Follow-up with her primary care provider Dr. Wick. Continue to push fluid intake as well as bland diet. Take medication as prescribed. Return emergency department if any new or worsening symptoms. - My Orders Last 24 Hours: My Active Orders 12/26/17 21:35 CULTURE URINE [RM] Stat HCG QUALITATIVE,URINE [URCHEM] Stat UA W/MICROSCOPIC [URIN] Stat - Assessment/Plan Last 24 Hours: My Active Orders 12/26/17 21:35 CULTURE URINE [RM] Stat HCG QUALITATIVE,URINE [URCHEM] Stat UA W/MICROSCOPIC [URIN] Stat
[2017-12-26] MEDS ORDERED: Sodium Chloride 0.9% 1,000 ML IV ONE (22:04)
[2017-12-26] MEDS ORDERED: Ondansetron 4 MG/2 ML SDV IVPUSH ONE (22:12)
[2017-12-26 23:29] VITALS: BP 135/61
== END 2017-12-26 23:27 | disposition home or self-care (01) ==
LOC: MW.ED 21:17
DX: A08.4 Viral intestinal infection, unspecified (principal); J45.909 Unspecified asthma, uncomplicated; F41.9 Anxiety disorder, unspecified; F32.9 Major depressive disorder, single episode, unspecified; Z79.899 Other long term (current) drug therapy; Z88.1 Allergy status to other antibiotic agents; Z88.5 Allergy status to narcotic agent; Z88.8 Allergy status to other drugs, medicaments and biological substances
CPT/HCPCS: 81001; 81025; 87086; 96361; 96374; 99283; J2405; J7040

== ENCOUNTER 2017-12-30 16:56 | Emergency (ER) | payer MEDICAID ==
[2017-12-30] MEDS ORDERED: Sodium Chloride 0.9% 10 ML Syringe FLUSH PRN (17:21)
[2017-12-30] MEDS ORDERED: Sodium Chloride 0.9% 1,000 ML IV ONE (17:21)
[2017-12-30] MEDS ORDERED: Sodium Chloride 0.9% 2.5 ML Syringe FLUSH PRN (17:21)
--- NOTE | 2017-12-30 17:21 | EDM.PDOC ---
ED HPI GENERAL MEDICAL PROBLEM - General Chief Complaint: Abdominal Pain Stated Complaint: STOMACH PAIN Time Seen by Provider: 12/30/17 17:01 Source of Information: Reports: Patient History Limitations: Reports: No Limitations - History of Present Illness INITIAL COMMENTS - FREE TEXT/NARRATIVE: HISTORY AND PHYSICAL: History of present illness: [Radha is a 52-year-old female here with complaint of headache and abdominal pain. She was in the ED 2 days ago for similar complaints. She states abdominal pain bothers her more than headache. She has history of migraines, states this headache is no worse than her usual headaches. She denies any photophobia/phonophobia, change in vision. She has some nausea but no vomiting. Pain in the abdomen is all over. No diarrhea, constipation, heartburn, blood in stool, dark/tarry stool, dysuria, hematuria. Past history of gastric bypass surgery and cholecystectomy. ] Review of systems: As per history of present illness and below otherwise all systems reviewed and negative. Past medical history: As per history of present illness and as reviewed below otherwise noncontributory. Surgical history: As per history of present illness and as reviewed below otherwise noncontributory. Social history: No reported history of drug or alcohol abuse. Family history: As per history of present illness and as reviewed below otherwise noncontributory. Physical exam: HEENT: Atraumatic, normocephalic, pupils reactive, negative for conjunctival pallor or scleral icterus, mucous membranes moist, throat clear, neck supple, nontender, trachea midline. Lungs: Clear to auscultation, breath sounds equal bilaterally, chest nontender. Heart: S1S2, regular, negative for clicks, rubs, or JVD. Abdomen: Mild, diffuse tenderness of the abdomen. Negative schwartz's, rovsings, mcburneys. Negative for masses or hepatosplenomegaly. Negative for costovertebral tenderness. Pelvis: Stable nontender. Genitourinary: Deferred. Rectal: Deferred. Extremities: Atraumatic, negative for cords or calf pain. Neurovascular unremarkable. Neuro: Awake, alert, oriented. Cranial nerves II through XII unremarkable. Cerebellum unremarkable. Motor and sensory unremarkable throughout. Exam nonfocal. Notes: Patient complained of worsening abdominal pain, located more periumbilical. CT scan of the abdomen ordered to r/o early appendicitis. Patient reports she has taken ketorolac in the past without any adverse reactions. 193: patient reports pain not much improved, now pointing to epigastric area. 30mg Ketorolac given along with famotidine 20mg. Diagnostics: [CBC, CMP, lipase, UA CT abdomen] Therapeutics: [IV fluids Ketorolac 30mg IV x 2 Famotidine 20mg IV ] Impression: [Abdominal pain] Plan: [CT abdomen and labs unremarkable. Advised patient to follow up with her primary care provider for further evaluation. Return to ED as needed as discussed. ] Definitive disposition and diagnosis as appropriate pending reevaluation and review of above. Abdominal Pain Score (Numeric/FACES): 9 headache Pain Score (Numeric/FACES): 10 - Related Data Allergies Allergy/AdvReac Type Severity Reaction Status Date / Time amoxicillin [Amoxicillin] Allergy Hives Verified 12/30/17 17:03 fexofenadine HCl Allergy Hives Verified 12/30/17 17:03 [From Jesenia] loratadine [From Claritin] Allergy Hives Verified 12/30/17 17:03 naproxen sodium [From Aleve] Allergy Hives Verified 12/30/17 17:03 tramadol Allergy Hives Verified 12/30/17 17:03 Home Meds: Home Meds Montelukast [Singulair] 10 mg PO DAILY 11/15/13 [History] Pirbuterol [Maxair Autohaler] 14 gm IH ASDIRECTED PRN 11/15/13 [History] lamoTRIgine [LaMICtal] 75 mg PO BID 11/15/13 [History] Lurasidone HCl [Latuda] 80 mg PO DAILY 07/23/14 [History] RX: Meloxicam 7.5 mg PO DAILY 05/20/15 [History] RX: Pantoprazole [ProTONIX] 20 mg PO DAILY 04/12/17 [History] Cyclobenzaprine [Flexeril] 10 mg PO BEDTIME PRN #10 tablet 06/30/17 [Rx] Dicyclomine [Bentyl] 20 mg PO TID #10 tablet 12/30/17 [Rx] RX: Benztropine [Cogentin] 0.5 mg PO DAILY 12/30/17 [History] buPROPion [Wellbutrin] 150 mg PO DAILY 12/30/17 [History] Past Medical History HEENT History: Reports: Other (See Below) Other HEENT History: nasal reconstruction Cardiovascular History: Reports: None Respiratory History: Reports: Asthma Gastrointestinal History: Reports: None Genitourinary History: Reports: Urinary Incontinence, UTI, Recurrent SIGHT EFFECTS SPECIALIST History: Reports: Musculoskeletal History: Reports: None Neurological History: Reports: None Psychiatric History: Reports: Anxiety, Depression Endocrine/Metabolic History: Reports: Diabetes, Type II Hematologic History: Reports: None Immunologic History: Reports: None Oncologic (Cancer) History: Reports: None Dermatologic History: Reports: None - Infectious Disease History Infectious Disease History: Reports: Chicken Pox Other Infectious Disease History: hay fever - Past Surgical History Head Surgeries/Procedures: Reports: None HEENT Surgical History: Reports: None Cardiovascular Surgical History: Reports: None Respiratory Surgical History: Reports: None GI Surgical History: Reports: Bariatric Procedure, Cholecystectomy Female Surgical History: Reports: Breast Reduction, Section, Cystectomy Musculoskeletal Surgical History: Reports: Other (See Below) Other Musculoskeletal Surgeries/Procedures:: arm surgery-plate left arm Oncologic Surgical History: Reports: None Social & Family History - Family History Family Medical History: Noncontributory - Tobacco Use Smoking Status *Q: Never Smoker Second Hand Smoke Exposure: No - Caffeine Use Caffeine Use: Reports: Coffee Caffeine Use Comment: 2 cups/day - Recreational Drug Use Recreational Drug Use: No ED ROS GENERAL - Review of Systems Review Of Systems: ROS reveals no pertinent complaints other than HPI. ED EXAM, GI/ABD - Physical Exam Exam: See Below (see dictation) Course - Vital Signs Last Recorded V/S: Last Vital Signs Temp 37.0 C 12/30/17 17:05 Pulse 79 12/30/17 17:05 Resp 16 12/30/17 17:05 BP 133/88 12/30/17 17:05 Pulse Ox 99 12/30/17 17:05 - Orders/Labs/Meds Orders: Active Orders 24 hr Category Date Time Status Abdomen Pelvis wo Cont [CT] Stat Exams 12/30/17 18:14 Taken HCG QUALITATIVE,URINE [URCHEM] Stat Lab 12/30/17 17:30 Ordered UA W/MICROSCOPIC [URIN] Stat Lab 12/30/17 17:30 Ordered Sodium Chloride 0.9% [Saline Flush] Med 12/30/17 17:21 Active 10 ml FLUSH ASDIRECTED PRN Sodium Chloride 0.9% [Saline Flush] Med 12/30/17 17:21 Active 2.5 ml FLUSH ASDIRECTED PRN Saline Lock Insert [OM.PC] Stat Oth 12/30/17 17:21 Ordered Medication Orders Sodium Chloride (Saline Flush) 10 ml FLUSH ASDIRECTED PRN PRN Reason: Keep Vein Open Sodium Chloride (Saline Flush) 2.5 ml FLUSH ASDIRECTED PRN PRN Reason: Keep Vein Open Labs: Laboratory Tests 12/30/17 12/30/17 12/30/17 Range/Units 17:30 17:30 17:30 WBC 7.80 (4.0-11.0) K/uL RBC 4.07 L (4.30-5.90) M/uL Hgb 11.7 L (12.0-16.0) g/dL Hct 36.3 (36.0-46.0) % MCV 89.2 (80.0-98.0) fL MCH 28.7 (27.0-32.0) pg MCHC 32.2 (31.0-37.0) g/dL RDW Std Deviation 49.9 (28.0-62.0) fl RDW Coeff of Haris 16 H (11.0-15.0) % Plt Count 284 (150-400) K/uL MPV 8.80 (7.40-12.00) fL Neut % (Auto) 67.8 (48.0-80.0) % Lymph % (Auto) 23.8 (16.0-40.0) % [place] % (Auto) 6.9 (0.0-15.0) % Eos % (Auto) 1.2 (0.0-7.0) % Baso % (Auto) 0.3 (0.0-1.5) % Neut # (Auto) 5.3 (1.4-5.7) K/uL Lymph # (Auto) 1.9 (0.6-2.4) K/uL [place] # (Auto) 0.5 (0.0-0.8) K/uL Eos # (Auto) 0.1 (0.0-0.7) K/uL Baso # (Auto) 0.0 (0.0-0.1) K/uL Nucleated RBC % 0.0 /100WBC Nucleated RBCs # 0 K/uL Sodium 139 (136-145) mmol/L Potassium 3.5 (3.5-5.1) mmol/L Chloride 104 (98-107) mmol/L Carbon Dioxide 24.7 (21.0-32.0) mmol/L BUN 11 (7.0-18.0) mg/dL Creatinine 1.2 H (0.6-1.0) mg/dL Est Cr Clr Drug Dosing 51.92 mL/min Estimated GFR (MDRD) 47.4 ml/min Glucose 111 H (74-106) mg/dL Calcium 8.1 L (8.5-10.1) mg/dL Total Bilirubin 0.3 (0.2-1.0) mg/dL AST 43 H (15-37) IU/L ALT 43 (14-63) IU/L Alkaline Phosphatase 91 (46-116) U/L Total Protein 7.0 (6.4-8.2) g/dL Albumin 3.4 (3.4-5.0) g/dL Globulin 3.6 H (2.0-3.5) g/dL Albumin/Globulin Ratio 0.9 L (1.3-2.8) Lipase 186 (73-393) U/L Urine Color YELLOW Urine Appearance CLEAR Urine pH 7.0 (5.0-8.0) Ur Specific [place] 1.015 (1.001-1.035) Urine Protein NEGATIVE (NEGATIVE) mg/dL Urine Glucose (UA) NEGATIVE (NEGATIVE) mg/dL Urine Ketones TRACE H (NEGATIVE) mg/dL Urine Occult Blood NEGATIVE (NEGATIVE) Urine Nitrite NEGATIVE (NEGATIVE) Urine Bilirubin NEGATIVE (NEGATIVE) Urine Urobilinogen 4.0 H (<2.0) EU/dL Ur Leukocyte Esterase NEGATIVE (NEGATIVE) Urine RBC 1-2 (0-2/HPF) Urine WBC 0-2 (0-5/HPF) Ur Epithelial Cells FEW (NONE-FEW) Urine Bacteria FEW (NEGATIVE) Urine HCG, Qual (NEGATIVE) 12/30/17 Range/Units 17:30 WBC (4.0-11.0) K/uL RBC (4.30-5.90) M/uL Hgb (12.0-16.0) g/dL Hct (36.0-46.0) % MCV (80.0-98.0) fL MCH (27.0-32.0) pg MCHC (31.0-37.0) g/dL RDW Std Deviation (28.0-62.0) fl RDW Coeff of Haris (11.0-15.0) % Plt Count (150-400) K/uL MPV (7.40-12.00) fL Neut % (Auto) (48.0-80.0) % Lymph % (Auto) (16.0-40.0) % [place] % (Auto) (0.0-15.0) % Eos % (Auto) (0.0-7.0) % Baso % (Auto) (0.0-1.5) % Neut # (Auto) (1.4-5.7) K/uL Lymph # (Auto) (0.6-2.4) K/uL [place] # (Auto) (0.0-0.8) K/uL Eos # (Auto) (0.0-0.7) K/uL Baso # (Auto) (0.0-0.1) K/uL Nucleated RBC % /100WBC Nucleated RBCs # K/uL Sodium (136-145) mmol/L Potassium (3.5-5.1) mmol/L Chloride (98-107) mmol/L Carbon Dioxide (21.0-32.0) mmol/L BUN (7.0-18.0) mg/dL Creatinine (0.6-1.0) mg/dL Est Cr Clr Drug Dosing mL/min Estimated GFR (MDRD) ml/min Glucose (74-106) mg/dL Calcium (8.5-10.1) mg/dL Total Bilirubin (0.2-1.0) mg/dL AST (15-37) IU/L ALT (14-63) IU/L Alkaline Phosphatase (46-116) U/L Total Protein (6.4-8.2) g/dL Albumin (3.4-5.0) g/dL Globulin (2.0-3.5) g/dL Albumin/Globulin Ratio (1.3-2.8) Lipase (73-393) U/L Urine Color Urine Appearance Urine pH (5.0-8.0) Ur Specific [place] (1.001-1.035) Urine Protein (NEGATIVE) mg/dL Urine Glucose (UA) (NEGATIVE) mg/dL Urine Ketones (NEGATIVE) mg/dL Urine Occult Blood (NEGATIVE) Urine Nitrite (NEGATIVE) Urine Bilirubin (NEGATIVE) Urine Urobilinogen (<2.0) EU/dL Ur Leukocyte Esterase (NEGATIVE) Urine RBC (0-2/HPF) Urine WBC (0-5/HPF) Ur Epithelial Cells (NONE-FEW) Urine Bacteria (NEGATIVE) Urine HCG, Qual NEGATIVE (NEGATIVE) Meds: Medications Generic Name Dose Route Start Last Admin Trade Name Freq PRN Reason Stop Dose Admin Sodium Chloride 10 ml 12/30/17 17:21 Saline Flush FLUSH ASDIRECTED PRN Keep Vein Open Sodium Chloride 2.5 ml 12/30/17 17:21 Saline Flush FLUSH ASDIRECTED PRN Keep Vein Open Discontinued Medications Generic Name Dose Route Start Last Admin Trade Name Freq PRN Reason Stop Dose Admin Famotidine 20 mg 12/30/17 19:34 Pepcid IVPUSH 12/30/17 19:35 ONETIME ONE Sodium Chloride 1,000 mls @ 999 mls/hr 12/30/17 17:21 12/30/17 17:40 Normal Saline IV 12/30/17 18:21 999 mls/hr STAT ONE Administration Ketorolac Tromethamine 30 mg 12/30/17 18:17 12/30/17 18:28 Toradol IVPUSH 12/30/17 18:18 30 mg ONETIME ONE Administration Ketorolac Tromethamine 30 mg 12/30/17 19:27 12/30/17 19:36 Toradol IVPUSH 12/30/17 19:28 30 mg ONETIME ONE Administration Departure - Departure Time of Disposition: 19:57 Disposition: Home, Self-Care 01 Condition: Good Clinical Impression: Abdominal pain - Discharge Information Prescriptions: Dicyclomine [Bentyl] 20 mg PO TID #10 tablet Referrals: PCP,None [Primary Care Provider] - Forms: ED Department Discharge Additional Instructions: The following information is given to patients seen in the emergency department who are being discharged to home. This information is to outline your options for follow-up care. We provide all patients seen in our emergency department with a follow-up referral. The need for follow-up, as well as the timing and circumstances, are variable depending upon the specifics of your emergency department visit. If you don't have a primary care physician on staff, we will provide you with a referral. We always advise you to contact your personal physician following an emergency department visit to inform them of the circumstance of the visit and for follow-up with them and/or the need for any referrals to a consulting specialist. The emergency department will also refer you to a specialist when appropriate. This referral assures that you have the opportunity for follow-up care with a specialist. All of these measure are taken in an effort to provide you with optimal care, which includes your follow-up. Under all circumstances we always encourage you to contact your private physician who remains a resource for coordinating your care. When calling for follow-up care, please make the office aware that this follow-up is from your recent emergency room visit. If for any reason you are refused follow-up, please contact the [facility] Emergency Department at and asked to speak to the emergency department charge nurse. [address] [address] #1 Take bentyl as prescribed for abdominal pain #2 Follow up with your primary care provider for further evaluation #3 Return to ED as needed as discussed - My Orders Last 24 Hours: My Active Orders 12/30/17 17:21 Sodium Chloride 0.9% [Saline Flush] 10 ml FLUSH ASDIRECTED PRN Sodium Chloride 0.9% [Saline Flush] 2.5 ml FLUSH ASDIRECTED PRN Saline Lock Insert [OM.PC] Stat 12/30/17 17:30 HCG QUALITATIVE,URINE [URCHEM] Stat UA W/MICROSCOPIC [URIN] Stat 12/30/17 18:14 Abdomen Pelvis wo Cont [CT] Stat - Assessment/Plan Last 24 Hours: My Active Orders 12/30/17 17:21 Sodium Chloride 0.9% [Saline Flush] 10 ml FLUSH ASDIRECTED PRN Sodium Chloride 0.9% [Saline Flush] 2.5 ml FLUSH ASDIRECTED PRN Saline Lock Insert [OM.PC] Stat 12/30/17 17:30 HCG QUALITATIVE,URINE [URCHEM] Stat UA W/MICROSCOPIC [URIN] Stat 12/30/17 18:14 Abdomen Pelvis wo Cont [CT] Stat
[2017-12-30] MEDS ORDERED: Ketorolac 30 MG/ML SDV IVPUSH ONE ×2 (18:17→19:27)
[2017-12-30] MEDS ORDERED: Famotidine 20 MG/2 ML SDV IVPUSH ONE (19:34)
[2017-12-30 20:26] VITALS: BP 128/64
--- NOTE | 2018-01-01 14:20 | CT ---
EXAM DATE: 12/30/17 PATIENT'S AGE: 52 Patient: YUDY BROTHERS Facility: [place], [place] Site . Site : [id number] Study: CT Abdomen/Pelvis WO CONT [id number] 7:09:43 PM Ordering Physician: Doctor Sparks Final Report: INDICATION: Abdominal pain. TECHNIQUE: CT of abdomen and pelvis performed without IV or oral contrast. COMPARISON: CT 07/01/2007. Findings : Mild scoliosis. Moderate degenerative changes in the spine. Postsurgical changes of gastric bypass surgery and cholecystectomy stable. Postsurgical changes involving the small bowel is stable and related to the gastric bypass surgery. Degenerative disc disease L5 interspace. Moderate osteopenia. Mild anterior subluxation of L4 on L5. Small bleb in the left lower lobe. The appendix is normal. Remainder negative. IMPRESSION: 1. No acute disease in abdomen or pelvis. 2. Postsurgical changes in the abdomen stable as described above. Other findings as above. Please note that all CT scans at this facility use dose modulation, iterative reconstruction, and/or weight-based dosing when appropriate to reduce radiation dose to as low as reasonably achievable. Dictated by John Tabor MD @ Dec 30 2017 7:21PM (Electronic Signature) Report Signed by Proxy. ROMAN
== END 2017-12-30 20:24 | disposition home or self-care (01) ==
LOC: MW.ED 16:56
DX: R10.9 Unspecified abdominal pain (principal); R51 Headache; E11.9 Type 2 diabetes mellitus without complications; Z88.1 Allergy status to other antibiotic agents; Z88.8 Allergy status to other drugs, medicaments and biological substances
CPT/HCPCS: 36415; 74176; 80053; 81001; 81025; 83690; 85025; 96361; 96374; 96375; 96376; 99284; J1885; J7040

== ENCOUNTER 2018-02-26 02:37 | Emergency (ER) | payer MEDICAID ==
[2018-02-26] MEDS ORDERED: Ondansetron 4 MG/2 ML SDV IVPUSH ONE (02:51)
--- NOTE | 2018-02-26 02:54 | EDM.PDOC ---
ED HPI GENERAL MEDICAL PROBLEM - General Chief Complaint: Chest Pain Stated Complaint: VOMITING, CHEST PAIN, LEFT ARM PAIN Time Seen by Provider: 02/26/18 02:52 - History of Present Illness INITIAL COMMENTS - FREE TEXT/NARRATIVE: HISTORY AND PHYSICAL: History of present illness: Patient 52-year-old white female percent since her chest pain is vaguely described without associated shortness of breath diaphoresis or palpitations patient did have nausea vomiting there is no clear palliating or aggravating factors. Review of systems: As per history of present illness and below otherwise all systems reviewed and negative. Past medical history: As per history of present illness and as reviewed below otherwise noncontributory. Surgical history: As per history of present illness and as reviewed below otherwise noncontributory. Social history: No reported history of drug or alcohol abuse. Family history: As per history of present illness and as reviewed below otherwise noncontributory. Physical exam: HEENT: Atraumatic, normocephalic, pupils reactive, negative for conjunctival pallor or scleral icterus, mucous membranes moist, throat clear, neck supple, nontender, trachea midline. Lungs: Clear to auscultation, breath sounds equal bilaterally, chest nontender. Heart: S1S2, regular, negative for clicks, rubs, or JVD. Abdomen: Soft, nondistended, nontender. Negative for masses or hepatosplenomegaly. Negative for costovertebral tenderness. Pelvis: Stable nontender. Genitourinary: Deferred. Rectal: Deferred. Extremities: Atraumatic, negative for cords or calf pain. Neurovascular unremarkable. Neuro: Awake, alert, oriented. Cranial nerves II through XII unremarkable. Cerebellum unremarkable. Motor and sensory unremarkable throughout. Exam nonfocal. Diagnostics: CBC CMP troponin PT/INR chest x-ray EKG Therapeutics: IV O2 monitor Zofran 4 mg IV Impression: #1 atypical chest pain #2 vomiting Definitive disposition and diagnosis as appropriate pending reevaluation and review of above. Chest Pain Score (Numeric/FACES): 8 - Related Data Allergies Allergy/AdvReac Type Severity Reaction Status Date / Time amoxicillin [Amoxicillin] Allergy Hives Verified 02/10/18 14:17 erythromycin base Allergy Hives Verified 02/26/18 02:46 fexofenadine HCl Allergy Hives Verified 02/10/18 14:17 [From Jesenia] loratadine [From Claritin] Allergy Hives Verified 02/10/18 14:17 naproxen sodium [From Aleve] Allergy Hives Verified 02/10/18 14:17 tramadol Allergy Hives Verified 02/10/18 14:17 Home Meds: Home Meds Montelukast [Singulair] 10 mg PO DAILY 11/15/13 [History] Pirbuterol [Maxair Autohaler] 14 gm IH ASDIRECTED PRN 11/15/13 [History] lamoTRIgine [LaMICtal] 75 mg PO BID 11/15/13 [History] Lurasidone HCl [Latuda] 80 mg PO DAILY 07/23/14 [History] Meloxicam 7.5 mg PO DAILY 05/20/15 [History] Pantoprazole [ProTONIX] 20 mg PO DAILY 04/12/17 [History] Cyclobenzaprine [Flexeril] 10 mg PO BEDTIME PRN #10 tablet 06/30/17 [Rx] Benztropine [Cogentin] 0.5 mg PO DAILY 12/30/17 [History] buPROPion [Wellbutrin] 150 mg PO DAILY 12/30/17 [History] Topiramate [Topamax] 50 mg PO BID 02/10/18 [History] Past Medical History HEENT History: Reports: Other (See Below) Other HEENT History: nasal reconstruction Cardiovascular History: Reports: None Respiratory History: Reports: Asthma Gastrointestinal History: Reports: None Genitourinary History: Reports: Urinary Incontinence, UTI, 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: Musculoskeletal History: Reports: None Neurological History: Reports: None Psychiatric History: Reports: Anxiety, Depression Endocrine/Metabolic History: Reports: Diabetes, Type II Hematologic History: Reports: None Immunologic History: Reports: None Oncologic (Cancer) History: Reports: None Dermatologic History: Reports: None - Infectious Disease History Infectious Disease History: Reports: Chicken Pox Other Infectious Disease History: hay fever - Past Surgical History Head Surgeries/Procedures: Reports: None HEENT Surgical History: Reports: None Cardiovascular Surgical History: Reports: None Respiratory Surgical History: Reports: None GI Surgical History: Reports: Bariatric Procedure, Cholecystectomy Female Surgical History: Reports: Breast Reduction, Section, Cystectomy Musculoskeletal Surgical History: Reports: Other (See Below) Other Musculoskeletal Surgeries/Procedures:: arm surgery-plate left arm Oncologic Surgical History: Reports: None Social & Family History - Family History Family Medical History: Noncontributory - Tobacco Use Smoking Status *Q: Former Smoker Used Tobacco, but Quit: Yes Month/Year Tobacco Last Used: 1984 - Caffeine Use Caffeine Use: Reports: Coffee Caffeine Use Comment: 2 cups/day - Recreational Drug Use Recreational Drug Use: No ED ROS GENERAL - Review of Systems Review Of Systems: ROS reveals no pertinent complaints other than HPI. ED EXAM, GENERAL - Physical Exam Exam: See Below (See dictation) Course - Vital Signs Text/Narrative:: Patient's emergency department course unremarkable I discussed with patient admission for observation patient finds be discharged home to follow-up with private medical doctor she is to return as needed as discussed Last Recorded V/S: Last Vital Signs Temp 36.1 C 02/26/18 02:42 Pulse 73 02/26/18 03:40 Resp 18 02/26/18 03:40 BP 107/62 02/26/18 03:40 Pulse Ox 98 02/26/18 03:40 - Orders/Labs/Meds Orders: Active Orders 24 hr Category Date Time Status EKG Documentation Completion [RC] STAT Care 02/26/18 02:51 Active Chest 1V Frontal [CR] Stat Exams 02/26/18 02:51 Taken Labs: Laboratory Tests 02/26/18 02/26/18 02/26/18 Range/Units 02:45 02:45 02:45 WBC 6.81 (4.0-11.0) K/uL RBC 4.43 (4.30-5.90) M/uL Hgb 13.0 (12.0-16.0) g/dL Hct 39.4 (36.0-46.0) % MCV 88.9 (80.0-98.0) fL MCH 29.3 (27.0-32.0) pg MCHC 33.0 (31.0-37.0) g/dL RDW Std Deviation 45.5 (28.0-62.0) fl RDW Coeff of Haris 14 (11.0-15.0) % Plt Count 276 (150-400) K/uL MPV 9.20 (7.40-12.00) fL Neut % (Auto) 60.4 (48.0-80.0) % Lymph % (Auto) 28.2 (16.0-40.0) % [place] % (Auto) 7.0 (0.0-15.0) % Eos % (Auto) 4.1 (0.0-7.0) % Baso % (Auto) 0.3 (0.0-1.5) % Neut # (Auto) 4.1 (1.4-5.7) K/uL Lymph # (Auto) 1.9 (0.6-2.4) K/uL [place] # (Auto) 0.5 (0.0-0.8) K/uL Eos # (Auto) 0.3 (0.0-0.7) K/uL Baso # (Auto) 0.0 (0.0-0.1) K/uL Nucleated RBC % 0.0 /100WBC Nucleated RBCs # 0 K/uL INR 1.02 Sodium 140 (136-145) mmol/L Potassium 3.6 (3.5-5.1) mmol/L Chloride 106 (98-107) mmol/L Carbon Dioxide 29.6 (21.0-32.0) mmol/L BUN 11 (7.0-18.0) mg/dL Creatinine 1.1 H (0.6-1.0) mg/dL Est Cr Clr Drug Dosing 56.64 mL/min Estimated GFR (MDRD) 52.4 ml/min Glucose 96 (74-106) mg/dL Calcium 8.8 (8.5-10.1) mg/dL Total Bilirubin 0.3 (0.2-1.0) mg/dL AST 43 H (15-37) IU/L ALT 61 (14-63) IU/L Alkaline Phosphatase 124 H (46-116) U/L Troponin I < 0.050 (0.000-0.056) ng/mL Total Protein 7.4 (6.4-8.2) g/dL Albumin 3.9 (3.4-5.0) g/dL Globulin 3.5 (2.0-3.5) g/dL Albumin/Globulin Ratio 1.1 L (1.3-2.8) Meds: Medications Discontinued Medications Generic Name Dose Route Start Last Admin Trade Name Freq PRN Reason Stop Dose Admin Ondansetron HCl 4 mg 02/26/18 02:51 02/26/18 02:55 Zofran IVPUSH 02/26/18 02:52 4 mg ONETIME ONE Administration Departure - Departure Time of Disposition: 03:45 Disposition: Home, Self-Care 01 Condition: Good Clinical Impression: Atypical chest pain - Discharge Information *PRESCRIPTION DRUG MONITORING PROGRAM REVIEWED*: Not Applicable *COPY OF PRESCRIPTION DRUG MONITORING REPORT IN PATIENT [place]: Not Applicable Referrals: PCP,None [Primary Care Provider] - Forms: ED Department Discharge Additional Instructions: The following information is given to patients seen in the emergency department who are being discharged to home. This information is to outline your options for follow-up care. We provide all patients seen in our emergency department with a follow-up referral. The need for follow-up, as well as the timing and circumstances, are variable depending upon the specifics of your emergency department visit. If you don't have a primary care physician on staff, we will provide you with a referral. We always advise you to contact your personal physician following an emergency department visit to inform them of the circumstance of the visit and for follow-up with them and/or the need for any referrals to a consulting specialist. The emergency department will also refer you to a specialist when appropriate. This referral assures that you have the opportunity for followup care with a specialist. All of these measure are taken in an effort to provide you with optimal care, which includes your followup. Under all circumstances we always encourage you to contact your private physician who remains a resource for coordinating your care. When calling for followup care, please make the office aware that this follow-up is from your recent emergency room visit. If for any reason you are refused follow-up, please contact the [facility] emergency department at and asked to speak to the emergency department charge nurse. [facility] [address] [place] [id number] Follow-up primary medical doctor and her clinical bulb as needed as discussed return as needed as discussed - My Orders Last 24 Hours: My Active Orders 02/26/18 02:51 EKG Documentation Completion [RC] STAT Chest 1V Frontal [CR] Stat - Assessment/Plan Last 24 Hours: My Active Orders 02/26/18 02:51 EKG Documentation Completion [RC] STAT Chest 1V Frontal [CR] Stat
[2018-02-26 03:15] LABS: CHLORIDE,CL 106 mmol/L (98-107); SODIUM,NA 140 mmol/L (136-145)
[2018-02-26 03:41] VITALS: BP 107/62
--- NOTE | 2018-02-26 14:54 | CR ---
EXAM DATE: 02/26/18 PATIENT'S AGE: 52 Patient: YUDY BROTHERS Facility: [place], [place] Site . Site : [id number] Study: XRay Chest [id number]/[id number] 3:25:49 AM Ordering Physician: Abel Varma Final Report: INDICATION: chest pain TECHNIQUE: Chest 1 view. COMPARISON: 05/20/15 FINDINGS: Cardiovascular and mediastinum: Heart size and vasculature are normal in caliber and appearance. Mediastinum is within normal limits. Lungs and pleural space: Lungs are clear. No sign of infiltrate or mass. No sign of pleural effusion. No pneumothorax. Bones and soft tissues: No significant findings. IMPRESSION: Unremarkable chest. Dictated by: Joce Monreal MD @ 02/26/2018 03:31:10 (Electronic Signature) Report Signed by Proxy. J[facility] CENTEREliz
== END 2018-02-26 03:59 | disposition home or self-care (01) ==
LOC: MW.ED 02:37
DX: R07.89 Other chest pain (principal); R11.2 Nausea with vomiting, unspecified; E11.9 Type 2 diabetes mellitus without complications; Z87.891 Personal history of nicotine dependence; Z88.1 Allergy status to other antibiotic agents; Z88.5 Allergy status to narcotic agent; Z88.8 Allergy status to other drugs, medicaments and biological substances; Z79.899 Other long term (current) drug therapy
CPT/HCPCS: 36415; 71045; 80053; 84484; 85025; 85610; 93005; 96374; 99285; J2405

== ENCOUNTER 2018-03-11 01:00 | Emergency (ER) | payer MEDICAID ==
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
[2018-03-11 01:34] VITALS: BP 136/84
== END 2018-03-11 01:34 | disposition home or self-care (01) ==
LOC: MW.ED 01:00
DX: S09.90XA Unspecified injury of head, initial encounter (principal); S50.812A Abrasion of left forearm, initial encounter; E11.9 Type 2 diabetes mellitus without complications; Z88.1 Allergy status to other antibiotic agents; Z88.5 Allergy status to narcotic agent; Z79.899 Other long term (current) drug therapy; Z87.891 Personal history of nicotine dependence; Z88.8 Allergy status to other drugs, medicaments and biological substances; Y04.2XXA Assault by strike against or bumped into by another person, initial encounter
CPT/HCPCS: 99284

== ENCOUNTER 2019-01-26 17:15 | Emergency (ER) | payer MEDICAID ==
--- NOTE | 2019-01-26 17:30 | EDM.PDOC ---
ED HPI GENERAL MEDICAL PROBLEM - General Chief Complaint: Lower Extremity Injury/Pain Stated Complaint: SWOLLEN FEET AND PAIN IN CALF Time Seen by Provider: 01/26/19 17:23 - History of Present Illness INITIAL COMMENTS - FREE TEXT/NARRATIVE: HISTORY AND PHYSICAL: History of present illness: Patient 53-year-old white female presents with a concern of lower extremity edema she's had no chest pain shortness of breath no history of DVT PE no trauma no fever chills nausea vomiting or other complaints. Review of systems: As per history of present illness and below otherwise all systems reviewed and negative. Past medical history: As per history of present illness and as reviewed below otherwise noncontributory. Surgical history: As per history of present illness and as reviewed below otherwise noncontributory. Social history: No reported history of drug or alcohol abuse. Family history: As per history of present illness and as reviewed below otherwise noncontributory. Physical exam: HEENT: Atraumatic, normocephalic, pupils reactive, negative for conjunctival pallor or scleral icterus, mucous membranes moist, throat clear, neck supple, nontender, trachea midline. Lungs: Clear to auscultation, breath sounds equal bilaterally, chest nontender. Heart: S1S2, regular, negative for clicks, rubs, or JVD. Abdomen: Soft, nondistended, nontender. Negative for masses or hepatosplenomegaly. Negative for costovertebral tenderness. Pelvis: Stable nontender. Genitourinary: Deferred. Rectal: Deferred. Extremities: Atraumatic, negative for cords or calf pain. Neurovascular unremarkable. Neuro: Awake, alert, oriented. Cranial nerves II through XII unremarkable. Cerebellum unremarkable. Motor and sensory unremarkable throughout. Exam nonfocal. Diagnostics: CBC CMP UA BNP Therapeutics: None Impression: #1 medical screening exam Definitive disposition and diagnosis as appropriate pending reevaluation and review of above. Bilateral Foot Pain Score (Numeric/FACES): 9 - Related Data Allergies Allergy/AdvReac Type Severity Reaction Status Date / Time amoxicillin [Amoxicillin] Allergy Hives Verified 01/26/19 17:25 erythromycin base Allergy Hives Verified 01/26/19 17:25 fexofenadine HCl Allergy Hives Verified 01/26/19 17:25 [From Jesenia] loratadine [From Claritin] Allergy Hives Verified 01/26/19 17:25 naproxen sodium [From Aleve] Allergy Hives Verified 01/26/19 17:25 tramadol Allergy Hives Verified 01/26/19 17:25 Home Meds: Home Meds Montelukast [Singulair] 10 mg PO DAILY 11/15/13 [History] Pirbuterol [Maxair Autohaler] 14 gm IH ASDIRECTED PRN 11/15/13 [History] lamoTRIgine [LaMICtal] 75 mg PO BID 11/15/13 [History] Lurasidone HCl [Latuda] 80 mg PO DAILY 07/23/14 [History] Meloxicam 15 mg PO DAILY 05/20/15 [History] Pantoprazole [ProTONIX] 20 mg PO DAILY 04/12/17 [History] Cyclobenzaprine [Flexeril] 10 mg PO BEDTIME PRN #10 tablet 06/30/17 [Rx] Benztropine [Cogentin] 0.5 mg PO DAILY 12/30/17 [History] buPROPion [Wellbutrin] 150 mg PO DAILY 12/30/17 [History] Topiramate [Topamax] 50 mg PO BID 02/10/18 [History] Past Medical History HEENT History: Reports: Other (See Below) Other HEENT History: nasal reconstruction Cardiovascular History: Reports: None Respiratory History: Reports: Asthma Gastrointestinal History: Reports: None Genitourinary History: Reports: Urinary Incontinence, UTI, Recurrent [employer] SECR[employer]ARY History: Reports: Musculoskeletal History: Reports: None Neurological History: Reports: None Psychiatric History: Reports: Anxiety, Depression Endocrine/Metabolic History: Reports: Diabetes, Type II Hematologic History: Reports: None Immunologic History: Reports: None Oncologic (Cancer) History: Reports: None Dermatologic History: Reports: None - Infectious Disease History Infectious Disease History: Reports: Chicken Pox Other Infectious Disease History: hay fever - Past Surgical History Head Surgeries/Procedures: Reports: None HEENT Surgical History: Reports: None Cardiovascular Surgical History: Reports: None Respiratory Surgical History: Reports: None GI Surgical History: Reports: Bariatric Procedure, Cholecystectomy Female Surgical History: Reports: Breast Reduction, Section, Cystectomy Musculoskeletal Surgical History: Reports: Other (See Below) Other Musculoskeletal Surgeries/Procedures:: arm surgery-plate left arm Oncologic Surgical History: Reports: None Social & Family History - Family History Family Medical History: Noncontributory - Caffeine Use Caffeine Use: Reports: Coffee Caffeine Use Comment: 2 cups/day Review of Systems - Review of Systems Review Of Systems: ROS reveals no pertinent complaints other than HPI. ED EXAM, GENERAL - Physical Exam Exam: See Below (See dictation) Course - Vital Signs Last Recorded V/S: Last Vital Signs Temp 36.8 C 01/26/19 17:24 Pulse 83 01/26/19 17:24 Resp 18 01/26/19 17:24 BP 91/45 L 01/26/19 17:24 Pulse Ox 99 01/26/19 17:24 - Orders/Labs/Meds Labs: Laboratory Tests 01/26/19 01/26/19 01/26/19 Range/Units 17:38 17:38 17:38 WBC 6.46 (4.0-11.0) K/uL RBC 4.39 (4.30-5.90) M/uL Hgb 13.0 (12.0-16.0) g/dL Hct 40.7 (36.0-46.0) % MCV 92.7 (80.0-98.0) fL MCH 29.6 (27.0-32.0) pg MCHC 31.9 (31.0-37.0) g/dL RDW Std Deviation 45.0 (28.0-62.0) fl RDW Coeff of Haris 13 (11.0-15.0) % Plt Count 227 (150-400) K/uL MPV 8.90 (7.40-12.00) fL Neut % (Auto) 67.9 (48.0-80.0) % Lymph % (Auto) 25.7 (16.0-40.0) % Travis % (Auto) 5.6 (0.0-15.0) % Eos % (Auto) 0.5 (0.0-7.0) % Baso % (Auto) 0.3 (0.0-1.5) % Neut # (Auto) 4.4 (1.4-5.7) K/uL Lymph # (Auto) 1.7 (0.6-2.4) K/uL Travis # (Auto) 0.4 (0.0-0.8) K/uL Eos # (Auto) 0.0 (0.0-0.7) K/uL Baso # (Auto) 0.0 (0.0-0.1) K/uL Nucleated RBC % 0.0 /100WBC Nucleated RBCs # 0 K/uL Sodium 141 (136-145) mmol/L Potassium 3.8 (3.5-5.1) mmol/L Chloride 107 (98-107) mmol/L Carbon Dioxide 27.6 (21.0-32.0) mmol/L BUN 10 (7.0-18.0) mg/dL Creatinine 1.0 (0.6-1.0) mg/dL Est Cr Clr Drug Dosing 61.61 mL/min Estimated GFR (MDRD) 58.2 ml/min Glucose 103 (74-106) mg/dL Calcium 9.2 (8.5-10.1) mg/dL Total Bilirubin 0.3 (0.2-1.0) mg/dL AST 51 H (15-37) IU/L ALT 80 H (14-63) IU/L Alkaline Phosphatase 166 H (46-116) U/L B-Natriuretic Peptide 14 (<100) PG/ML Total Protein 7.6 (6.4-8.2) g/dL Albumin 4.0 (3.4-5.0) g/dL Globulin 3.6 (2.6-4.0) g/dL Albumin/Globulin Ratio 1.1 (0.9-1.6) Urine Color Urine Appearance Urine pH (5.0-8.0) Ur Specific [place] (1.001-1.035) Urine Protein (NEGATIVE) mg/dL Urine Glucose (UA) (NEGATIVE) mg/dL Urine Ketones (NEGATIVE) mg/dL Urine Occult Blood (NEGATIVE) Urine Nitrite (NEGATIVE) Urine Bilirubin (NEGATIVE) Urine Urobilinogen (<2.0) EU/dL Ur Leukocyte Esterase (NEGATIVE) Urine RBC (0-2/HPF) Urine WBC (0-5/HPF) Ur Epithelial Cells (NONE-FEW) Urine Bacteria (NEGATIVE) 01/26/19 Range/Units 17:45 WBC (4.0-11.0) K/uL RBC (4.30-5.90) M/uL Hgb (12.0-16.0) g/dL Hct (36.0-46.0) % MCV (80.0-98.0) fL MCH (27.0-32.0) pg MCHC (31.0-37.0) g/dL RDW Std Deviation (28.0-62.0) fl RDW Coeff of Haris (11.0-15.0) % Plt Count (150-400) K/uL MPV (7.40-12.00) fL Neut % (Auto) (48.0-80.0) % Lymph % (Auto) (16.0-40.0) % Travis % (Auto) (0.0-15.0) % Eos % (Auto) (0.0-7.0) % Baso % (Auto) (0.0-1.5) % Neut # (Auto) (1.4-5.7) K/uL Lymph # (Auto) (0.6-2.4) K/uL Travis # (Auto) (0.0-0.8) K/uL Eos # (Auto) (0.0-0.7) K/uL Baso # (Auto) (0.0-0.1) K/uL Nucleated RBC % /100WBC Nucleated RBCs # K/uL Sodium (136-145) mmol/L Potassium (3.5-5.1) mmol/L Chloride (98-107) mmol/L Carbon Dioxide (21.0-32.0) mmol/L BUN (7.0-18.0) mg/dL Creatinine (0.6-1.0) mg/dL Est Cr Clr Drug Dosing mL/min Estimated GFR (MDRD) ml/min Glucose (74-106) mg/dL Calcium (8.5-10.1) mg/dL Total Bilirubin (0.2-1.0) mg/dL AST (15-37) IU/L ALT (14-63) IU/L Alkaline Phosphatase (46-116) U/L B-Natriuretic Peptide (<100) PG/ML Total Protein (6.4-8.2) g/dL Albumin (3.4-5.0) g/dL Globulin (2.6-4.0) g/dL Albumin/Globulin Ratio (0.9-1.6) Urine Color YELLOW Urine Appearance HAZY Urine pH 5.5 (5.0-8.0) Ur Specific [place] <= 1.005 (1.001-1.035) Urine Protein NEGATIVE (NEGATIVE) mg/dL Urine Glucose (UA) NEGATIVE (NEGATIVE) mg/dL Urine Ketones NEGATIVE (NEGATIVE) mg/dL Urine Occult Blood NEGATIVE (NEGATIVE) Urine Nitrite NEGATIVE (NEGATIVE) Urine Bilirubin NEGATIVE (NEGATIVE) Urine Urobilinogen 0.2 (<2.0) EU/dL Ur Leukocyte Esterase SMALL H (NEGATIVE) Urine RBC 0-2 (0-2/HPF) Urine WBC 0-3 (0-5/HPF) Ur Epithelial Cells FEW (NONE-FEW) Urine Bacteria FEW (NEGATIVE) Departure - Departure Time of Disposition: 18:31 Disposition: Home, Self-Care 01 Condition: Good Clinical Impression: Encounter for medical screening examination - Discharge Information Referrals: PCP,Unknown [Primary Care Provider] - Forms: ED Department Discharge Additional Instructions: The following information is given to patients seen in the emergency department who are being discharged to home. This information is to outline your options for follow-up care. We provide all patients seen in our emergency department with a follow-up referral. The need for follow-up, as well as the timing and circumstances, are variable depending upon the specifics of your emergency department visit. If you don't have a primary care physician on staff, we will provide you with a referral. We always advise you to contact your personal physician following an emergency department visit to inform them of the circumstance of the visit and for follow-up with them and/or the need for any referrals to a consulting specialist. The emergency department will also refer you to a specialist when appropriate. This referral assures that you have the opportunity for followup care with a specialist. All of these measure are taken in an effort to provide you with optimal care, which includes your followup. Under all circumstances we always encourage you to contact your private physician who remains a resource for coordinating your care. When calling for followup care, please make the office aware that this follow-up is from your recent emergency room visit. If for any reason you are refused follow-up, please contact the [facility] emergency department at and asked to speak to the emergency department charge nurse. Follow-up primary medical doctor as discussed return as needed as discussed
[2019-01-26 18:46] VITALS: BP 90/51
== END 2019-01-26 18:46 | disposition home or self-care (01) ==
LOC: MW.ED 17:15
DX: Z13.9 Encounter for screening, unspecified (principal); E11.9 Type 2 diabetes mellitus without complications; Z79.899 Other long term (current) drug therapy
CPT/HCPCS: 36415; 80053; 81001; 83880; 85025; 99283

== ENCOUNTER 2019-02-18 10:47 | Emergency (ER) | payer MEDICAID ==
--- NOTE | 2019-02-18 10:58 | EDM.PDOC ---
ED HPI GENERAL MEDICAL PROBLEM - General Chief Complaint: Genitourinary Problem Stated Complaint: UTI Time Seen by Provider: 02/18/19 10:48 Source of Information: Reports: Patient History Limitations: Reports: No Limitations - History of Present Illness INITIAL COMMENTS - FREE TEXT/NARRATIVE: HISTORY AND PHYSICAL: History of present illness: Patient is a 53-year-old female who presents to the emergency room with complaints of dysuria and frequency 4 days. Concerned she may have a urinary tract infection, as similar symptoms are noted from previous UTIs. She has been taking an [id number] medication to help alleviate her discomfort, but not finding any relief. Patient denies any fever, chills, headache, change in vision, syncope or near syncope. Denies any chest pain, back pain, shortness of breath or cough. Denies any abdominal pain, nausea, vomiting, diarrhea, constipation or blood in urine or stools. She denies any vaginal discharge or concerns of STDs. Patient has been eating and drinking appropriately. Review of systems: As per history of present illness and below otherwise all systems reviewed and negative. Past medical history: As per history of present illness and as reviewed below otherwise noncontributory. Surgical history: As per history of present illness and as reviewed below otherwise noncontributory. Social history: See social history for further information Family history: As per history of present illness and as reviewed below otherwise noncontributory. Physical exam: General: Well-developed and well-nourished 53-year-old female. Alert and oriented. Nontoxic appearing and in no acute distress. HEENT: Atraumatic, normocephalic, pupils equal and reactive bilaterally, negative for conjunctival pallor or scleral icterus, mucous membranes moist, trachea midline. No drooling or trismus noted. No meningeal signs. No hot potato voice noted. Lungs: Clear to auscultation, breath sounds equal bilaterally, chest nontender. Heart: S1S2, regular rate and rhythm without overt murmur Abdomen: Soft, nondistended, nontender. Negative for masses. Negative for costovertebral tenderness. Pelvis: Stable nontender. Genitourinary/Rectal: Deferred. Skin: Intact, warm, dry. No lesions or rashes noted. Extremities: Atraumatic, moves all extremities per self without difficulty or deficits. Neurovascular unremarkable. Neuro: Awake, alert, oriented. Cranial nerves II through XII unremarkable. Cerebellum unremarkable. Motor and sensory unremarkable throughout. Exam nonfocal. Notes: Urinalysis is negative. Supportive care measures were reviewed and discussed. Voices understanding and is agreeable to plan of care. Denies any further questions or concerns at this time. Diagnostics: UA Therapeutics: None Impression: Dysuria Plan: 1. Please take the antibiotic as prescribed 2. Increase your oral fluids. 3. Follow up with your primary care provider as discussed. Return to the ED as needed and as discussed. Definitive disposition and diagnosis as appropriate pending reevaluation and review of above. Lower Back Pain Score (Numeric/FACES): 9 - Related Data Allergies Allergy/AdvReac Type Severity Reaction Status Date / Time amoxicillin [Amoxicillin] Allergy Hives Verified 02/18/19 10:53 erythromycin base Allergy Hives Verified 02/18/19 10:53 fexofenadine HCl Allergy Hives Verified 02/18/19 10:53 [From Jesenia] loratadine [From Claritin] Allergy Hives Verified 02/18/19 10:53 naproxen sodium [From Aleve] Allergy Hives Verified 02/18/19 10:53 tramadol Allergy Hives Verified 02/18/19 10:53 Home Meds: Home Meds Montelukast [Singulair] 10 mg PO DAILY 11/15/13 [History] Pirbuterol [Maxair Autohaler] 14 gm IH ASDIRECTED PRN 11/15/13 [History] lamoTRIgine [LaMICtal] 75 mg PO BID 11/15/13 [History] Lurasidone HCl [Latuda] 80 mg PO DAILY 07/23/14 [History] Meloxicam 15 mg PO DAILY 05/20/15 [History] Pantoprazole [ProTONIX] 20 mg PO DAILY 04/12/17 [History] Cyclobenzaprine [Flexeril] 10 mg PO BEDTIME PRN #10 tablet 06/30/17 [Rx] Benztropine [Cogentin] 0.5 mg PO DAILY 12/30/17 [History] buPROPion [Wellbutrin] 150 mg PO DAILY 12/30/17 [History] Topiramate [Topamax] 50 mg PO BID 02/10/18 [History] Past Medical History HEENT History: Reports: Other (See Below) Other HEENT History: nasal reconstruction Cardiovascular History: Reports: None Respiratory History: Reports: Asthma Gastrointestinal History: Reports: None Genitourinary History: Reports: Urinary Incontinence, UTI, 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: Musculoskeletal History: Reports: None Neurological History: Reports: None Psychiatric History: Reports: Anxiety, Depression Endocrine/Metabolic History: Reports: Diabetes, Type II Hematologic History: Reports: None Immunologic History: Reports: None Oncologic (Cancer) History: Reports: None Dermatologic History: Reports: None - Infectious Disease History Infectious Disease History: Reports: Chicken Pox Other Infectious Disease History: hay fever - Past Surgical History Head Surgeries/Procedures: Reports: None HEENT Surgical History: Reports: None Cardiovascular Surgical History: Reports: None Respiratory Surgical History: Reports: None GI Surgical History: Reports: Bariatric Procedure, Cholecystectomy Female Surgical History: Reports: Breast Reduction, Section, Cystectomy Musculoskeletal Surgical History: Reports: Other (See Below) Other Musculoskeletal Surgeries/Procedures:: arm surgery-plate left arm Oncologic Surgical History: Reports: None Social & Family History - Family History Family Medical History: Noncontributory - Caffeine Use Caffeine Use: Reports: Coffee Caffeine Use Comment: 2 cups/day ED ROS GENERAL - Review of Systems Review Of Systems: ROS reveals no pertinent complaints other than HPI. ED EXAM, RENAL/ - Physical Exam Exam: See Below (See dictation) Course - Vital Signs Last Recorded V/S: Last Vital Signs Temp 97.2 F 02/18/19 10:53 Pulse 72 02/18/19 10:53 Resp 16 02/18/19 10:53 BP 107/73 02/18/19 10:53 Pulse Ox 97 02/18/19 10:53 - Orders/Labs/Meds Labs: Laboratory Tests 02/18/19 Range/Units 10:58 Urine Color YELLOW Urine Appearance CLEAR Urine pH 7.5 (5.0-8.0) Ur Specific [place] <= 1.005 (1.001-1.035) Urine Protein NEGATIVE (NEGATIVE) mg/dL Urine Glucose (UA) NEGATIVE (NEGATIVE) mg/dL Urine Ketones NEGATIVE (NEGATIVE) mg/dL Urine Occult Blood NEGATIVE (NEGATIVE) Urine Nitrite NEGATIVE (NEGATIVE) Urine Bilirubin NEGATIVE (NEGATIVE) Urine Urobilinogen 0.2 (<2.0) EU/dL Ur Leukocyte Esterase NEGATIVE (NEGATIVE) Departure - Departure Time of Disposition: 11:33 Disposition: Home, Self-Care 01 Clinical Impression: Dysuria - Discharge Information Instructions: Dysuria Referrals: PCP,Unknown [Primary Care Provider] - Forms: ED Department Discharge Additional Instructions: The following information is given to patients seen in the emergency department who are being discharged to home. This information is to outline your options for follow-up care. We provide all patients seen in our emergency department with a follow-up referral. The need for follow-up, as well as the timing and circumstances, are variable depending upon the specifics of your emergency department visit. If you don't have a primary care physician on staff, we will provide you with a referral. We always advise you to contact your personal physician following an emergency department visit to inform them of the circumstance of the visit and for follow-up with them and/or the need for any referrals to a consulting specialist. The emergency department will also refer you to a specialist when appropriate. This referral assures that you have the opportunity for follow-up care with a specialist. All of these measure are taken in an effort to provide you with optimal care, which includes your follow-up. Under all circumstances we always encourage you to contact your private physician who remains a resource for coordinating your care. When calling for follow-up care, please make the office aware that this follow-up is from your recent emergency room visit. If for any reason you are refused follow-up, please contact the [facility] Emergency Department at and asked to speak to the emergency department charge nurse. [facility] [address] [place] [id number] [facility] [address] [place] [id number] 1. Please take the antibiotic as prescribed 2. Increase your oral fluids. 3. Follow up with your primary care provider as discussed. Return to the ED as needed and as discussed.
[2019-02-18 11:49] VITALS: BP 104/66; PULSE 64
== END 2019-02-18 11:40 | disposition home or self-care (01) ==
LOC: MW.ED 10:47
DX: R30.0 Dysuria (principal); R35.0 Frequency of micturition; F41.9 Anxiety disorder, unspecified; F32.9 Major depressive disorder, single episode, unspecified; E11.9 Type 2 diabetes mellitus without complications; Z98.84 Bariatric surgery status; Z90.49 Acquired absence of other specified parts of digestive tract; Z88.1 Allergy status to other antibiotic agents; Z88.5 Allergy status to narcotic agent; Z79.899 Other long term (current) drug therapy
CPT/HCPCS: 81003; 99283

== ENCOUNTER 2019-03-28 07:06 | Emergency (ER) | payer MEDICAID ==
[2019-03-28] MEDS ORDERED: Ondansetron 4 MG Tab.DIS PO ONE (07:40)
[2019-03-28] MEDS ORDERED: Sodium Chloride 0.9% 1,000 ML IV ONE (07:41)
[2019-03-28] MEDS ORDERED: Sodium Chloride 0.9% 2.5 ML Syringe FLUSH PRN (07:41)
[2019-03-28] MEDS ORDERED: Sodium Chloride 0.9% 10 ML Syringe FLUSH PRN (07:41)
--- NOTE | 2019-03-28 07:45 | EDM.PDOC ---
ED HPI GENERAL MEDICAL PROBLEM - General Chief Complaint: Abdominal Pain Stated Complaint: ABD PAIN,DIZZINESS Time Seen by Provider: 03/28/19 07:16 Source of Information: Reports: Patient History Limitations: Reports: No Limitations - History of Present Illness INITIAL COMMENTS - FREE TEXT/NARRATIVE: History of present illness: []Patient was eating breakfast this morning and started having diffuse stomach pain with nausea, sweating and felt like she was given a pass out. Patient had had a normal bowel movement this morning states she does not have diarrhea, chest pain, shortness of breath, vomiting or headache. She has had gastric bypass approximately 12 years ago and does have a history of low blood sugar. She denies any recent illnesses. Review of systems: As per history of present illness and below otherwise all systems reviewed and negative. Past medical history: As per history of present illness and as reviewed below otherwise noncontributory. Surgical history: As per history of present illness and as reviewed below otherwise noncontributory. Social history: No reported history of drug or alcohol abuse. Family history: As per history of present illness and as reviewed below otherwise noncontributory. Physical exam: General: Well developed, well nourished in NAD HEENT: Atraumatic, normocephalic, pupils reactive, negative for conjunctival pallor or scleral icterus, mucous membranes moist, throat clear, neck supple, nontender, trachea midline. Lungs: Clear to auscultation, breath sounds equal bilaterally, chest nontender. Heart: S1S2, regular, negative for clicks, rubs, or JVD. Abdomen: NABS, Soft, nondistended, nontender. Negative for masses or hepatosplenomegaly. Negative for costovertebral tenderness. Pelvis: Stable nontender. Genitourinary: Deferred. Rectal: Deferred. Extremities: Atraumatic, negative for cords or calf pain. Neurovascular unremarkable. Neuro: Awake, alert, oriented. Cranial nerves II through XII unremarkable. Cerebellum unremarkable. Motor and sensory unremarkable throughout. Exam nonfocal. Skin:warm and dry Diagnostics: Bedside glucose 47, CBC, chemistry, UA Therapeutics: 50 g of D50, IV hydration and Zofran ED Course: Impression: Prescriptions: Plan: Definitive disposition and diagnosis as appropriate pending reevaluation and review of above. Abdominal Pain Score (Numeric/FACES): 10 - Related Data Allergies Allergy/AdvReac Type Severity Reaction Status Date / Time amoxicillin [Amoxicillin] Allergy Hives Verified 03/28/19 07:23 erythromycin base Allergy Hives Verified 03/28/19 07:23 fexofenadine HCl Allergy Hives Verified 03/28/19 07:23 [From Jesenia] loratadine [From Claritin] Allergy Hives Verified 03/28/19 07:23 naproxen sodium [From Aleve] Allergy Hives Verified 03/28/19 07:23 tramadol Allergy Hives Verified 03/28/19 07:23 Home Meds: Home Meds Montelukast [Singulair] 10 mg PO DAILY 11/15/13 [History] lamoTRIgine [LaMICtal] 50 mg PO BID 11/15/13 [History] Lurasidone HCl [Latuda] 40 mg PO BID 07/23/14 [History] Meloxicam 15 mg PO DAILY 05/20/15 [History] Pantoprazole [ProTONIX] 40 mg PO DAILY 04/12/17 [History] Benztropine [Cogentin] 0.5 mg PO DAILY 12/30/17 [History] buPROPion [Wellbutrin] 50 mg PO DAILY 12/30/17 [History] Topiramate [Topamax] 50 mg PO BID 02/10/18 [History] Cetirizine [ZyrTEC] 10 mg PO DAILY 03/28/19 [History] Ferrous Sulfate 325 mg PO DAILY 03/28/19 [History] Nortriptyline HCl [Pamelor] 25 mg PO DAILY 03/28/19 [History] Past Medical History HEENT History: Reports: Other (See Below) Other HEENT History: nasal reconstruction Cardiovascular History: Reports: None Respiratory History: Reports: Asthma Gastrointestinal History: Reports: None Genitourinary History: Reports: Urinary Incontinence, UTI, Recurrent ENDOSCOPY NURSE History: Reports: Musculoskeletal History: Reports: None Neurological History: Reports: None Psychiatric History: Reports: Anxiety, Depression Endocrine/Metabolic History: Reports: Diabetes, Type II Hematologic History: Reports: None Immunologic History: Reports: None Oncologic (Cancer) History: Reports: None Dermatologic History: Reports: None - Infectious Disease History Infectious Disease History: Reports: Chicken Pox, MRSA Other Infectious Disease History: hay fever - Past Surgical History Head Surgeries/Procedures: Reports: None HEENT Surgical History: Reports: None Cardiovascular Surgical History: Reports: None Respiratory Surgical History: Reports: None GI Surgical History: Reports: Bariatric Procedure, Cholecystectomy Female Surgical History: Reports: Breast Reduction, Section, Cystectomy Musculoskeletal Surgical History: Reports: Other (See Below) Other Musculoskeletal Surgeries/Procedures:: arm surgery-plate left arm Oncologic Surgical History: Reports: None Social & Family History - Family History Family Medical History: Noncontributory - Tobacco Use Smoking Status *Q: Never Smoker - Caffeine Use Caffeine Use: Reports: Coffee, Soda Caffeine Use Comment: 2 cups/day - Recreational Drug Use Recreational Drug Use: No ED ROS GENERAL - Review of Systems Review Of Systems: See Below ED EXAM, GI/ABD - Physical Exam Exam: See Below Course - Vital Signs Last Recorded V/S: Last Vital Signs Temp 97.2 F 03/28/19 07:20 Pulse 78 03/28/19 07:20 Resp 16 03/28/19 07:20 BP 106/59 L 03/28/19 07:20 Pulse Ox 97 03/28/19 07:20 - Orders/Labs/Meds Orders: Active Orders 24 hr Category Date Time Status Blood Glucose Check, Bedside [RC] ONETIME Care 03/28/19 07:40 Active Sodium Chloride 0.9% [Saline Flush] Med 03/28/19 07:41 Active 10 ml FLUSH ASDIRECTED PRN Sodium Chloride 0.9% [Saline Flush] Med 03/28/19 07:41 Active 2.5 ml FLUSH ASDIRECTED PRN Saline Lock Insert [OM.PC] Stat Oth 03/28/19 07:41 Ordered Medication Orders Sodium Chloride (Saline Flush) 10 ml FLUSH ASDIRECTED PRN PRN Reason: Keep Vein Open Sodium Chloride (Saline Flush) 2.5 ml FLUSH ASDIRECTED PRN PRN Reason: Keep Vein Open Labs: Laboratory Tests 03/28/19 03/28/19 03/28/19 Range/Units 07:50 08:00 08:00 WBC 5.35 (4.0-11.0) K/uL RBC 4.26 L (4.30-5.90) M/uL Hgb 12.8 (12.0-16.0) g/dL Hct 40.3 (36.0-46.0) % MCV 94.6 (80.0-98.0) fL MCH 30.0 (27.0-32.0) pg MCHC 31.8 (31.0-37.0) g/dL RDW Std Deviation 48.0 (28.0-62.0) fl RDW Coeff of Haris 14 (11.0-15.0) % Plt Count 239 (150-400) K/uL MPV 8.90 (7.40-12.00) fL Neut % (Auto) 71.3 (48.0-80.0) % Lymph % (Auto) 18.3 (16.0-40.0) % Dawson % (Auto) 7.9 (0.0-15.0) % Eos % (Auto) 2.1 (0.0-7.0) % Baso % (Auto) 0.4 (0.0-1.5) % Neut # (Auto) 3.8 (1.4-5.7) K/uL Lymph # (Auto) 1.0 (0.6-2.4) K/uL Dawson # (Auto) 0.4 (0.0-0.8) K/uL Eos # (Auto) 0.1 (0.0-0.7) K/uL Baso # (Auto) 0.0 (0.0-0.1) K/uL Nucleated RBC % 0.0 /100WBC Nucleated RBCs # 0 K/uL Sodium 142 (136-145) mmol/L Potassium 3.7 (3.5-5.1) mmol/L Chloride 106 (98-107) mmol/L Carbon Dioxide 26.7 (21.0-32.0) mmol/L BUN 8 (7.0-18.0) mg/dL Creatinine 1.0 (0.6-1.0) mg/dL Est Cr Clr Drug Dosing 59.22 mL/min Estimated GFR (MDRD) 58.2 ml/min Glucose 51 L (74-106) mg/dL POC Glucose (60-110) mg/dL Calcium 9.3 (8.5-10.1) mg/dL Total Bilirubin 0.4 (0.2-1.0) mg/dL AST 61 H (15-37) IU/L ALT 80 H (14-63) IU/L Alkaline Phosphatase 143 H (46-116) U/L Total Protein 7.2 (6.4-8.2) g/dL Albumin 3.8 (3.4-5.0) g/dL Globulin 3.4 (2.6-4.0) g/dL Albumin/Globulin Ratio 1.1 (0.9-1.6) Urine Color YELLOW Urine Appearance CLEAR Urine pH 6.0 (5.0-8.0) Ur Specific Pateros <= 1.005 (1.001-1.035) Urine Protein NEGATIVE (NEGATIVE) mg/dL Urine Glucose (UA) NEGATIVE (NEGATIVE) mg/dL Urine Ketones NEGATIVE (NEGATIVE) mg/dL Urine Occult Blood LARGE H (NEGATIVE) Urine Nitrite NEGATIVE (NEGATIVE) Urine Bilirubin NEGATIVE (NEGATIVE) Urine Urobilinogen 0.2 (<2.0) EU/dL Ur Leukocyte Esterase NEGATIVE (NEGATIVE) Urine RBC 0-3 (0-2/HPF) Urine WBC 0-2 (0-5/HPF) Ur Epithelial Cells OCCASIONAL (NONE-FEW) Urine Bacteria RARE (NEGATIVE) 03/28/19 03/28/19 Range/Units 08:02 08:31 WBC (4.0-11.0) K/uL RBC (4.30-5.90) M/uL Hgb (12.0-16.0) g/dL Hct (36.0-46.0) % MCV (80.0-98.0) fL MCH (27.0-32.0) pg MCHC (31.0-37.0) g/dL RDW Std Deviation (28.0-62.0) fl RDW Coeff of Haris (11.0-15.0) % Plt Count (150-400) K/uL MPV (7.40-12.00) fL Neut % (Auto) (48.0-80.0) % Lymph % (Auto) (16.0-40.0) % Dawson % (Auto) (0.0-15.0) % Eos % (Auto) (0.0-7.0) % Baso % (Auto) (0.0-1.5) % Neut # (Auto) (1.4-5.7) K/uL Lymph # (Auto) (0.6-2.4) K/uL Dawson # (Auto) (0.0-0.8) K/uL Eos # (Auto) (0.0-0.7) K/uL Baso # (Auto) (0.0-0.1) K/uL Nucleated RBC % /100WBC Nucleated RBCs # K/uL Sodium (136-145) mmol/L Potassium (3.5-5.1) mmol/L Chloride (98-107) mmol/L Carbon Dioxide (21.0-32.0) mmol/L BUN (7.0-18.0) mg/dL Creatinine (0.6-1.0) mg/dL Est Cr Clr Drug Dosing mL/min Estimated GFR (MDRD) ml/min Glucose (74-106) mg/dL POC Glucose 47 L 131 H (60-110) mg/dL Calcium (8.5-10.1) mg/dL Total Bilirubin (0.2-1.0) mg/dL AST (15-37) IU/L ALT (14-63) IU/L Alkaline Phosphatase (46-116) U/L Total Protein (6.4-8.2) g/dL Albumin (3.4-5.0) g/dL Globulin (2.6-4.0) g/dL Albumin/Globulin Ratio (0.9-1.6) Urine Color Urine Appearance Urine pH (5.0-8.0) Ur Specific Pateros (1.001-1.035) Urine Protein (NEGATIVE) mg/dL Urine Glucose (UA) (NEGATIVE) mg/dL Urine Ketones (NEGATIVE) mg/dL Urine Occult Blood (NEGATIVE) Urine Nitrite (NEGATIVE) Urine Bilirubin (NEGATIVE) Urine Urobilinogen (<2.0) EU/dL Ur Leukocyte Esterase (NEGATIVE) Urine RBC (0-2/HPF) Urine WBC (0-5/HPF) Ur Epithelial Cells (NONE-FEW) Urine Bacteria (NEGATIVE) Meds: Medications Generic Name Dose Route Start Last Admin Trade Name Freq PRN Reason Stop Dose Admin Sodium Chloride 10 ml 03/28/19 07:41 Saline Flush FLUSH ASDIRECTED PRN Keep Vein Open Sodium Chloride 2.5 ml 03/28/19 07:41 Saline Flush FLUSH ASDIRECTED PRN Keep Vein Open Discontinued Medications Generic Name Dose Route Start Last Admin Trade Name Freq PRN Reason Stop Dose Admin Dextrose/Water 50 ml 03/28/19 08:05 03/28/19 08:14 Dextrose 50% In Water IVPUSH 03/28/19 08:06 50 ml ONETIME ONE Administration Dextrose/Water Confirm 03/28/19 08:04 03/28/19 08:18 Dextrose 50% In Water Administered 03/28/19 08:05 Not Given Dose 50 ml .ROUTE .STK-MED ONE Sodium Chloride 1,000 mls @ 999 mls/hr 03/28/19 07:41 03/28/19 08:14 Normal Saline IV 03/28/19 08:41 999 mls/hr .Bolus ONE Administration Ondansetron HCl 4 mg 03/28/19 07:40 03/28/19 08:23 Zofran Odt PO 03/28/19 07:41 Not Given ONETIME ONE Ondansetron HCl 4 mg 03/28/19 07:52 03/28/19 08:14 Zofran IVPUSH 03/28/19 07:53 4 mg ONETIME ONE Administration Departure - Departure Time of Disposition: 09:11 Disposition: Home, Self-Care 01 Condition: Good Clinical Impression: Hypoglycemia, Chronic abdominal pain - Discharge Information *PRESCRIPTION DRUG MONITORING PROGRAM REVIEWED*: Not Applicable *COPY OF PRESCRIPTION DRUG MONITORING REPORT IN PATIENT MSAON: Not Applicable Referrals: Jason Wick MD [Primary Care Provider] - 1 Week (Please keep follow up appointment with Dr. Wick for MondayApril 03 at 2:00pm) Forms: ED Department Discharge Additional Instructions: The following information is given to patients seen in the emergency department who are being discharged to home. This information is to outline your options for follow-up care. We provide all patients seen in our emergency department with a follow-up referral. The need for follow-up, as well as the timing and circumstances, are variable depending upon the specifics of your emergency department visit. If you don't have a primary care physician on staff, we will provide you with a referral. We always advise you to contact your personal physician following an emergency department visit to inform them of the circumstance of the visit and for follow-up with them and/or the need for any referrals to a consulting specialist. The emergency department will also refer you to a specialist when appropriate. This referral assures that you have the opportunity for follow-up care with a specialist. All of these measure are taken in an effort to provide you with optimal care, which includes your follow-up. Under all circumstances we always encourage you to contact your private physician who remains a resource for coordinating your care. When calling for follow-up care, please make the office aware that this follow-up is from your recent emergency room visit. If for any reason you are refused follow-up, please contact the [facility] at and asked to speak to the emergency department charge nurse. Take meds as directed, follow up with your primary care physician, return to ER if symptoms worsen or change. [facility] [address] [place] [id number] - My Orders Last 24 Hours: My Active Orders 03/28/19 07:40 Blood Glucose Check, Bedside [RC] ONETIME 03/28/19 07:41 Sodium Chloride 0.9% [Saline Flush] 10 ml FLUSH ASDIRECTED PRN Sodium Chloride 0.9% [Saline Flush] 2.5 ml FLUSH ASDIRECTED PRN Saline Lock Insert [OM.PC] Stat - Assessment/Plan Last 24 Hours: My Active Orders 03/28/19 07:40 Blood Glucose Check, Bedside [RC] ONETIME 03/28/19 07:41 Sodium Chloride 0.9% [Saline Flush] 10 ml FLUSH ASDIRECTED PRN Sodium Chloride 0.9% [Saline Flush] 2.5 ml FLUSH ASDIRECTED PRN Saline Lock Insert [OM.PC] Stat
[2019-03-28] MEDS ORDERED: Ondansetron 4 MG/2 ML SDV IVPUSH ONE (07:52)
[2019-03-28] MEDS ORDERED: 50% Dextrose in Water 50 ML Syringe ONE (08:04)
[2019-03-28] MEDS ORDERED: 50% Dextrose in Water 50 ML Syringe IVPUSH ONE (08:05)
[2019-03-28 08:48] LABS: CARBON DIOXIDE,CO2 26.7 mmol/L (21.0-32.0); POTASSIUM,K 3.7 mmol/L (3.5-5.1)
[2019-03-28 09:37] VITALS: BP 114/72; PULSE 59
== END 2019-03-28 09:25 | disposition home or self-care (01) ==
LOC: MW.ED 07:06
DX: E11.649 Type 2 diabetes mellitus with hypoglycemia without coma (principal); R10.84 Generalized abdominal pain; F41.9 Anxiety disorder, unspecified; F32.9 Major depressive disorder, single episode, unspecified; J45.909 Unspecified asthma, uncomplicated; Z79.899 Other long term (current) drug therapy; Z88.1 Allergy status to other antibiotic agents; Z88.8 Allergy status to other drugs, medicaments and biological substances; Z88.6 Allergy status to analgesic agent
CPT/HCPCS: 36415; 80053; 81001; 82962; 85025; 96361; 96374; 99284; J2405; J7040; J7060

== ENCOUNTER 2019-08-17 20:02 | Emergency (ER) | payer MEDICAID ==
--- NOTE | 2019-08-17 21:05 | CR ---
Indication: Pain. Status post fall. Technique: Three views of the right knee. Comparison: None Findings: Moderate narrowing in the medial lateral compartments are identified. Spurring of the tibial spines identified. Narrowing of patellofemoral articulation is identified. A joint effusion is identified. A well corticated calcific density is identified within the joint effusion. Impression: Degenerative change. Dictated by Melly Darby MD @ Aug 17 2019 9:04PM Signed by Dr. Melly Darby @ Aug 17 2019 9:05PM
--- NOTE | 2019-08-17 21:11 | EDM.PDOC ---
ED HPI GENERAL MEDICAL PROBLEM - General Chief Complaint: Lower Extremity Injury/Pain Stated Complaint: RIGHT LEG PAIN FROM KNEE TO FOOT Time Seen by Provider: 08/17/19 20:02 - History of Present Illness INITIAL COMMENTS - FREE TEXT/NARRATIVE: HPI 54-year-old female with a history of DM, bipolar disorder, and chronic abdominal pain presents for evaluation of ~14 days of right knee pain that began when she bumped her knee on a piece of furniture home, pain worsened this evening when she was twisting/pushing her leg to operate the gas pedal in her car. ROS with no recent constitutional symptoms. Triage note: Pt states that she has had knee pain in her right knee for the last 14 days. Exam HR 76, RR 16, BP 124/72, T 35.9C, SaO2 99% on room air. Gen: Pleasant, nontoxic-appearing, resting comfortably. HEENT: NC, AT, PEERL, EOMI. Resp: Unlabored respirations with a normal work of breathing. Card: Extremities warm and well perfused. GI: Non-distended. : Deferred MSK: right knee with full functional range of motion, no tenderness to palpation over the patella, fibular head, or joint line. No MCL or LCL tenderness to palpation, negative Janna and posterior drawer test. No tenderness to palpation on the quadriceps or patellar tendon, both tendons intact on knee extension. No swelling, ecchymosis or effusion. Calf without visible or palpable trauma, muscle compartments soft and non-tender to palpation. Gait - Patient able to take four steps with a minimally antalgic gait. Both calves of equal size bilaterally without tenderness to palpation. Right popliteal area without tenderness palpation or swelling. Neuro: alert and oriented 3, no facial asymmetry, vision and hearing WNL. Heme/Lymph: Deferred Skin: Normal color with no visible lesions (other than noted above). Psych: markedly unusual mood and affect Imaging: XR R Knee: degenerative change. MDM Previous chart, nursing note, and vitals reviewed. A: 54-year-old female with a history of DM, bipolar disorder, and chronic abdominal pain presents for evaluation of ~14 days of right knee pain that began when she bumped her knee on a piece of furniture home, pain worsened this evening when she was twisting/pushing her leg to operate the gas pedal in her car. DDx & Evaluation: 1. Fracture no evidence by imaging or exam. 2. Ligamentous or meniscal injury no clinically significant ligamentous or meniscal injury appreciated on exam. 3. Arthropathy no effusion, erythema, fluctuance, or further features suggestive of a crystalline or bacterial process. 4. Bakers cyst no popliteal tenderness or swelling. 5. DVT - no suggestive features on history or exam to warrant further evaluation; consider this to be clinically excluded. 6. Contusion / Strain - history consistent with a contusion. Recommend trial of ibuprofen and acetaminophen, PCP follow-up in 3-4 days as needed. Impression: right knee contusion. Right Knee Pain Score (Numeric/FACES): 10 - Related Data Allergies Allergy/AdvReac Type Severity Reaction Status Date / Time amoxicillin [Amoxicillin] Allergy Hives Verified 08/17/19 20:13 erythromycin base Allergy Hives Verified 08/17/19 20:13 fexofenadine HCl Allergy Hives Verified 08/17/19 20:13 [From Jesenia] loratadine [From Claritin] Allergy Hives Verified 08/17/19 20:13 naproxen sodium [From Aleve] Allergy Hives Verified 08/17/19 20:13 tramadol Allergy Hives Verified 08/17/19 20:13 Home Meds: Home Meds Montelukast [Singulair] 10 mg PO DAILY 11/15/13 [History] lamoTRIgine [LaMICtal] 50 mg PO BID 11/15/13 [History] Lurasidone HCl [Latuda] 40 mg PO BID 07/23/14 [History] Meloxicam 15 mg PO DAILY 05/20/15 [History] Pantoprazole [ProTONIX] 40 mg PO DAILY 04/12/17 [History] Benztropine [Cogentin] 0.5 mg PO DAILY 12/30/17 [History] buPROPion [Wellbutrin] 50 mg PO DAILY 12/30/17 [History] Topiramate [Topamax] 50 mg PO BID 02/10/18 [History] Cetirizine [ZyrTEC] 10 mg PO DAILY 03/28/19 [History] Ferrous Sulfate 325 mg PO DAILY 03/28/19 [History] Nortriptyline HCl [Pamelor] 25 mg PO DAILY 03/28/19 [History] Past Medical History HEENT History: Reports: Other (See Below) Other HEENT History: nasal reconstruction Cardiovascular History: Reports: None Respiratory History: Reports: Asthma Gastrointestinal History: Reports: None Genitourinary History: Reports: Urinary Incontinence, UTI, 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: Musculoskeletal History: Reports: None Neurological History: Reports: None Psychiatric History: Reports: Anxiety, Depression Endocrine/Metabolic History: Reports: Diabetes, Type II Hematologic History: Reports: None Immunologic History: Reports: None Oncologic (Cancer) History: Reports: None Dermatologic History: Reports: None - Infectious Disease History Infectious Disease History: Reports: None Other Infectious Disease History: hay fever - Past Surgical History Head Surgeries/Procedures: Reports: None HEENT Surgical History: Reports: None Cardiovascular Surgical History: Reports: None Respiratory Surgical History: Reports: None GI Surgical History: Reports: Bariatric Procedure, Cholecystectomy Female Surgical History: Reports: Breast Reduction, Section, Cystectomy Musculoskeletal Surgical History: Reports: Other (See Below) Other Musculoskeletal Surgeries/Procedures:: arm surgery-plate left arm Oncologic Surgical History: Reports: None Social & Family History - Family History Family Medical History: Noncontributory - Tobacco Use Smoking Status *Q: Never Smoker Second Hand Smoke Exposure: No - Caffeine Use Caffeine Use: Reports: None Caffeine Use Comment: 2 cups/day - Recreational Drug Use Recreational Drug Use: No Review of Systems - Review of Systems Review Of Systems: See Below ED EXAM, GENERAL - Physical Exam Exam: See Below Course - Vital Signs Last Recorded V/S: Last Vital Signs Temp 35.9 C 08/17/19 20:13 Pulse 76 08/17/19 20:13 Resp 16 08/17/19 20:13 BP 124/72 08/17/19 20:13 Pulse Ox 99 08/17/19 20:13 Departure - Departure Time of Disposition: 21:11 Disposition: Home, Self-Care 01 Clinical Impression: Knee contusion - Discharge Information Referrals: Jason Wick MD [Primary Care Provider] - Additional Instructions: You were in seen in the [facility] Emergency Department for evaluation of right knee pain, the time of your evaluation your symptoms are believed to be due to a contusion of your knee. You may take ibuprofen and acetaminophen instructed below for treatment of pain. Please read and follow all of the instructions below. Please follow up with your primary care physician and 3-4 days if you have any further ongoing symptoms. When calling for follow-up care, please make the office aware that this follow-up is from your recent emergency room visit. If for any reason you are refused follow-up, please contact the [facility] Emergency Department at and asked to speak to the emergency department charge nurse. Your care today was limited to identifying and treating emergent medical problems only. Many people have subtle differences in their test results that require follow up with their outpatient physician(s) to correctly determine if this represents a normal variation or concerning abnormality with respect to your specific health. The care given to you today was limited to identifying and treating emergent medical problems - you need to request a copy of all of your medical records from today's visit and follow up with your outpatient physician(s) to review both today's visit and your overall health. If you have any new symptoms or if you are at all concerned about your health please return immediately to the emergency department. You make take over the counter Acetaminophen (Tylenol) and Ibuprofen (Motrin or Aleve) as directed below for relief of pain. Take 600 mg of ibuprofen (three 200 mg tablets) with a glass of water every 6-8 hours as needed for pain or fever. Do not take if you have ulcers, GI bleeding, are , or are allergic to ibuprofen. Take 1,000 mg of acetaminophen (two 500 mg tablets) with a glass of water every 6-8 hours as needed for pain. Do not take if you are allergic to acetaminophen. If you have liver disease, please reduce your dose to a maximum of 2,000 mg per day. You can take these medications at the same time or on separate schedules. Do not take for more than 10 days. Do not take with alcohol or other acetaminophen containing medications. This medication may cause a mildly upset stomach, if so take it with a small snack. Stop taking it if you have persistent abdominal pain, heartburn, or any stomach pain. Do not take this medication if you have known ulcers. Please read the warnings at the end of this document regarding these medications. IBUPROFEN WARNING: This drug may infrequently cause serious (rarely fatal) bleeding from the stomach or intestines. Also, related drugs rarely have caused blood clots to form, resulting in heart attacks and strokes. This medication might also rarely cause similar problems. Talk to your doctor or pharmacist about the benefits and risks of treatment, as well as other possible medication choices. If you notice any of the following rare but very serious side effects, stop taking ibuprofen and seek immediate medical attention: black stools, persistent stomach/abdominal pain, vomit that looks like coffee grounds, chest pain, weakness on one side of the body, sudden vision changes, slurred speech. IBUPROFEN SIDE EFFECTS: Upset stomach, nausea, vomiting, heartburn, headache, diarrhea, constipation, drowsiness, and dizziness may occur. If any of these effects persist or worsen, notify your doctor or pharmacist promptly. If your doctor has directed you to use this medication, remember that he or she has judged that the benefit to you is greater than the risk of side effects. Many people using this medication do not have serious side effects. Tell your doctor immediately if any of these serious side effects occur: stomach pain, swelling of the hands or feet, sudden or unexplained weight gain, ringing in the ears ( tinnitus). Tell your doctor immediately if any of these unlikely but serious side effects occur: vision changes, rapid or pounding heartbeat, easy bruising or bleeding, difficult/painful swallowing. Tell your doctor immediately if any of these highly unlikely but very serious side effects occur: change in amount of urine, severe headache, very stiff neck, mental/mood changes, persistent sore throat or fever. This drug may rarely cause serious (possibly fatal) liver disease. If you notice any of the following highly unlikely but very serious side effects, stop taking ibuprofen and consult your doctor or pharmacist immediately: yellowing eyes and skin, dark urine, unusual/extreme tiredness. An allergic reaction to this drug is unlikely, but seek immediate medical attention if it occurs. Symptoms of an allergic reaction include: rash, itching/ swelling (especially of the face/tongue/throat), severe dizziness, trouble breathing. This is not a complete list of possible side effects. ACETAMINOPHEN SIDE EFFECTS: This drug usually has no side effects. If you do not have liver problems, the maximum dose of acetaminophen for adults is 4 grams per day (4000 milligrams). Taking more than the maximum daily amount may cause serious (possibly fatal) liver damage. Get medical help right away if you have any of the following symptoms of liver damage: persistent nausea/vomiting, extreme tiredness, stomach/abdominal pain, yellowing eyes/skin, dark urine. If you have liver problems, consult your doctor or pharmacist for a safe dosage of this medication. A very serious allergic reaction to this drug is rare. However , get medical help right away if you notice any symptoms of a serious allergic reaction, including: rash, itching/swelling (especially of the face/tongue/ throat), severe dizziness, trouble breathing. This is not a complete list of possible side effects. If you notice other effects not listed above, contact your doctor or pharmacist. DRUG INTERACTIONS: Your healthcare professionals (e.g., doctor or pharmacist) may already be aware of any possible drug interactions and may be monitoring you for it. Do not start, stop or change the dosage of any medicine before checking with them first. This drug should not be used with the following medications because very serious interactions may occur: cidofovir, ketorolac. If you are currently using any of these medications listed above, tell your doctor or pharmacist before starting ibuprofen. Before using this medication, tell your doctor or pharmacist of all prescription and nonprescription/herbal products you may use, especially of: anti-platelet drugs (e.g., cilostazol, clopidogrel), oral bisphosphonates (e.g., alendronate), other medications for arthritis (e.g., aspirin, methotrexate), "blood thinners" (e.g., enoxaparin, heparin, warfarin), corticosteroids (e.g., prednisone), cyclosporine, desmopressin, high blood pressure drugs (including BHARAT inhibitors such as captopril, angiotensin II receptor antagonists such as losartan, and beta- blockers such as metoprolol), lithium, pemetrexed, "water pills" (diuretics such as furosemide, hydrochlorothiazide, triamterene). Check all prescription and nonprescription medicine labels carefully for other pain/fever drugs ( NSAIDs such as aspirin, celecoxib, naproxen). These drugs are similar to ibuprofen, so taking one of these drugs while also taking ibuprofen may increase your risk of side effects. Consult your doctor or pharmacist for more details. However, if your doctor has prescribed low doses of aspirin to prevent heart attack or stroke (usually at dosages of 81-325 milligrams a day), you should continue to take the aspirin. Daily use of ibuprofen may decrease aspirin 's ability to prevent heart attack/stroke. Talk to your doctor about using a different medication (e.g., acetaminophen) to treat pain/fever. If you must take ibuprofen, talk to your doctor about possibly taking immediate-release aspirin (not enteric-coated) while also taking the ibuprofen dose apart from your aspirin dose. Do not increase your daily dose of aspirin or change the way you take aspirin/other medications without your doctor's approval. This document does not contain all possible interactions. Therefore, before using this product, tell your doctor or pharmacist of all the products you use. Keep a list of all your medications with you, and share the list with your doctor and pharmacist. Prescriptions: If you are uninsured or have financial difficulties with filling your prescription(s), you may consider using a free pharmacy discount service such as [employer] ([employer]) or [employer] ([employer]). These services allow you to search for a medication on your phone (or computer) and obtain a coupon that usually has a significant discount from the list manjarrez at a pharmacy. Your physician as well as [facility] does not have a financial relationship with either of these services. You may also wish to speak with your physician to determine if lower cost prescriptions are possible. Obtaining primary care: 1. [facility] provides pediatrics (children), family medicine (children, adults, and some obstetrical care), and internal medicine (adults). Further specialty care is also available. Same day appointments are available. They may be contacted at [phone] and are open Monday through Monday 8 AM to [address] [facility] are located at [facility], [address] [place] [address]. 2. [facility] offers family medicine, internal medicine, womens health, and further specialty care. [facility] may be contacted at [phone]. [facility] is located at [facility] [place], [address]. 3. If you have health insurance, please also contact your insurer for a list of accepting providers under your policy, you may contact these providers for further health care. Occupational health: Work related injuries may consider following up with [facility], . Occupational health services are located at [address] [place] [address] and are open Monday through Monday from 7: 30 am to 5:00 pm. Obstetrical and Gynecological Care: [facility], , Monday through Monday 8 AM to 5 PM. [address], [place] [address]. Eyecare: If you have an eye injury you should follow up with your mechanic chief or with [facility], at [phone] or [phone] , they are located at [address] [place] [address]. Dental Care Roberto Carlos Maradiaga DDS. [address] [place], [place]. Ph. [phone] Carl Maradiaga DDS [place]. [address] [facility] [address], [place], [place]. Ph. Damion Darby DDS. 10 07/[address] [place] [address]. Ph. [phone] Butch Nolan DDS. [address] [facility] [address] [place], [place]. Ph. [phone] [facility]. [address] [facility] [address] [place], [place]. Ph. [phone] Jacob Booker DDS. [address] [facility]. Ph. [phone] [facility]. [address] [place], [place]. Ph. [phone] [facility]. [address] [place] [address], [place], [place]. Ph. [phone] [facility] [address] [place] [address]. Ph. [phone] [facility]. [address] [place] [address] [address] [place]. Ph. [phone] [facility]. [address] [place], [place]. Ph. Sepsis Event Note - Evaluation Sepsis Screening Result: No Definite Risk - Focused Exam Vital Signs: Vital Signs Temp Pulse Resp BP Pulse Ox 08/17/19 20:13 35.9 C 76 16 124/72 99 Date Exam was Performed: 08/17/19 Time Exam was Performed: 21:10
[2019-08-17 21:49] VITALS: BP 135/79; PULSE 68
== END 2019-08-17 21:41 | disposition home or self-care (01) ==
LOC: MW.ED 20:02
DX: S80.01XA Contusion of right knee, initial encounter (principal); E11.9 Type 2 diabetes mellitus without complications; I10 Essential (primary) hypertension; J45.909 Unspecified asthma, uncomplicated; F41.9 Anxiety disorder, unspecified; F31.9 Bipolar disorder, unspecified; Z79.899 Other long term (current) drug therapy; Z88.8 Allergy status to other drugs, medicaments and biological substances; Z88.1 Allergy status to other antibiotic agents; Z88.6 Allergy status to analgesic agent; W22.8XXA Striking against or struck by other objects, initial encounter
CPT/HCPCS: 73562-26-RT; 73562-RT; 99283; 99283-25

== ENCOUNTER 2020-01-29 19:55 | Emergency (ER) | payer MEDICAID ==
[2020-01-29 20:26] VITALS: BP 130/64; PULSE 76
--- NOTE | 2020-01-29 21:07 | EDM.PDOC ---
ED HPI GENERAL MEDICAL PROBLEM - General Chief Complaint: Skin Complaint Stated Complaint: POSSIBLE SPIDER BITE Time Seen by Provider: 01/29/20 20:51 - History of Present Illness INITIAL COMMENTS - FREE TEXT/NARRATIVE: History of present illness: Patient presents with a red area on her anterior abdomen that is been present for 3 days she thinks she may have been bit by some sort of insect she does not recall an insect she said started out itchy now is becoming somewhat painful there is a small punctate pustule with surrounding cellulitis no focal abscess no fluid collection she denies any fever chills there is not been any other symptoms nothing seems to make it better or worse. Review of systems: As per history of present illness and below otherwise all systems reviewed and negative. Past medical history: As per history of present illness and as reviewed below otherwise noncontributory. Surgical history: As per history of present illness and as reviewed below otherwise noncontributory. Social history: No reported history of drug or alcohol abuse. Family history: As per history of present illness and as reviewed below otherwise noncontributory. Physical exam: HEENT: Atraumatic, normocephalic, pupils reactive, negative for conjunctival pallor or scleral icterus, mucous membranes moist, throat clear, neck supple, nontender, trachea midline. Lungs: Clear to auscultation, breath sounds equal bilaterally, chest nontender. Heart: S1S2, regular, negative for clicks, rubs, or JVD. Abdomen: Soft, nondistended, nontender. Negative for masses or hepatosplenomegaly. Negative for costovertebral tenderness. Pelvis: Stable nontender. Genitourinary: Deferred. Rectal: Deferred. Extremities: Atraumatic, negative for cords or calf pain. Neurovascular unremarkable. Neuro: Awake, alert, oriented. Cranial nerves II through XII unremarkable. Cerebellum unremarkable. Motor and sensory unremarkable throughout. Exam nonfocal. Skin: 3 x 4 area of cellulitis that is not raised there is 1 pustule in the center of this lesion that does not present with any induration or fluid collection. Diagnostics: [] Therapeutics: [] Impression: Cellulitis [] Plan: The area will be dressed the lesion was unroofed gently bluntly she will be placed on Bactrim. [] Definitive disposition and diagnosis as appropriate pending reevaluation and review of above. left abdomen Pain Score (Numeric/FACES): 8 - Related Data Allergies Allergy/AdvReac Type Severity Reaction Status Date / Time amoxicillin [Amoxicillin] Allergy Hives Verified 01/29/20 20:24 erythromycin base Allergy Hives Verified 01/29/20 20:24 fexofenadine HCl Allergy Hives Verified 01/29/20 20:24 [From Jesenia] loratadine [From Claritin] Allergy Hives Verified 01/29/20 20:24 naproxen sodium [From Aleve] Allergy Hives Verified 01/29/20 20:24 tramadol Allergy Hives Verified 01/29/20 20:24 Home Meds: Home Meds Montelukast [Singulair] 10 mg PO DAILY 11/15/13 [History] lamoTRIgine [LaMICtal] 50 mg PO BID 11/15/13 [History] Lurasidone HCl [Latuda] 40 mg PO BID 07/23/14 [History] Meloxicam 15 mg PO DAILY 05/20/15 [History] Pantoprazole [ProTONIX] 40 mg PO DAILY 04/12/17 [History] Benztropine [Cogentin] 0.5 mg PO DAILY 12/30/17 [History] buPROPion [Wellbutrin] 50 mg PO DAILY 12/30/17 [History] Topiramate [Topamax] 50 mg PO BID 02/10/18 [History] Cetirizine [ZyrTEC] 10 mg PO DAILY 03/28/19 [History] Ferrous Sulfate 325 mg PO DAILY 03/28/19 [History] Nortriptyline HCl [Pamelor] 25 mg PO DAILY 03/28/19 [History] Sulfamethoxazole/Trimethoprim [Bactrim Ds Tablet] 1 each PO BID #20 tablet 01/29/20 [Rx] Past Medical History HEENT History: Reports: Other (See Below) Other HEENT History: nasal reconstruction Cardiovascular History: Reports: None Respiratory History: Reports: Asthma Gastrointestinal History: Reports: None Genitourinary History: Reports: Urinary Incontinence, UTI, Recurrent 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: Musculoskeletal History: Reports: None Neurological History: Reports: None Psychiatric History: Reports: Anxiety, Depression Endocrine/Metabolic History: Reports: Diabetes, Type II Insulin Pump Model and Drug Clerk: None Hematologic History: Reports: None Immunologic History: Reports: None Oncologic (Cancer) History: Reports: None Dermatologic History: Reports: None - Infectious Disease History Infectious Disease History: Reports: None Other Infectious Disease History: hay fever - Past Surgical History Head Surgeries/Procedures: Reports: None HEENT Surgical History: Reports: None Cardiovascular Surgical History: Reports: None Respiratory Surgical History: Reports: None GI Surgical History: Reports: Bariatric Procedure, Cholecystectomy Female Surgical History: Reports: Breast Reduction, Section, Cystectomy Musculoskeletal Surgical History: Reports: Other (See Below) Other Musculoskeletal Surgeries/Procedures:: arm surgery-plate left arm Oncologic Surgical History: Reports: None Social & Family History - Family History Family Medical History: Noncontributory - Tobacco Use Smoking Status *Q: Never Smoker - Caffeine Use Caffeine Use: Reports: Coffee Caffeine Use Comment: 2 cups/day - Recreational Drug Use Recreational Drug Use: No ED ROS GENERAL - Review of Systems Review Of Systems: See Below ED EXAM, SKIN/RASH Exam: See Below Course - Vital Signs Text/Narrative:: Patient is a small spot of cellulitis that could have been a bug bite or other injury no focal abscess is noted we will start her on some Bactrim due to her allergies follow-up with primary care. Last Recorded V/S: Last Vital Signs Temp 36.9 C 01/29/20 20:24 Pulse 76 01/29/20 20:24 Resp 18 01/29/20 20:24 BP 130/64 01/29/20 20:24 Pulse Ox 99 01/29/20 20:24 Departure - Departure Time of Disposition: 21:05 Disposition: Home, Self-Care 01 Condition: Good Clinical Impression: Cellulitis - Discharge Information *PRESCRIPTION DRUG MONITORING PROGRAM REVIEWED*: Not Applicable *COPY OF PRESCRIPTION DRUG MONITORING REPORT IN PATIENT [place]: Not Applicable Prescriptions: Sulfamethoxazole/Trimethoprim [Bactrim Ds Tablet] 1 each PO BID #20 tablet Instructions: Cellulitis, Adult Referrals: PCP,None [Primary Care Provider] - Additional Instructions: The following information is given to patients seen in the emergency department who are being discharged to home. This information is to outline your options for follow-up care. We provide all patients seen in our emergency department with a follow-up referral. The need for follow-up, as well as the timing and circumstances, are variable depending upon the specifics of your emergency department visit. If you don't have a primary care physician on staff, we will provide you with a referral. We always advise you to contact your personal physician following an emergency department visit to inform them of the circumstance of the visit and for follow-up with them and/or the need for any referrals to a consulting specialist. The emergency department will also refer you to a specialist when appropriate. This referral assures that you have the opportunity for follow-up care with a specialist. All of these measure are taken in an effort to provide you with optimal care, which includes your follow-up. Under all circumstances we always encourage you to contact your private physician who remains a resource for coordinating your care. When calling for follow-up care, please make the office aware that this follow-up is from your recent emergency room visit. If for any reason you are refused follow-up, please contact the [facility] Emergency Department at and asked to speak to the emergency department charge nurse. [facility] [address] [place] [id number] [facility] [address] [place] [id number] Sepsis Event Note (ED) - Evaluation Sepsis Screening Result: No Definite Risk - Focused Exam Vital Signs: Vital Signs Temp Pulse Resp BP Pulse Ox 01/29/20 20:24 36.9 C 76 18 130/64 99
== END 2020-01-29 21:15 | disposition home or self-care (01) ==
LOC: MW.ED 19:55
DX: L03.311 Cellulitis of abdominal wall (principal); J45.909 Unspecified asthma, uncomplicated; F41.9 Anxiety disorder, unspecified; F32.9 Major depressive disorder, single episode, unspecified; E11.9 Type 2 diabetes mellitus without complications; Z88.1 Allergy status to other antibiotic agents; Z88.8 Allergy status to other drugs, medicaments and biological substances; Z88.5 Allergy status to narcotic agent; Z79.899 Other long term (current) drug therapy
CPT/HCPCS: 99282; 99283

== ENCOUNTER 2020-06-24 06:36 | Inpatient (IN) | payer MEDICAID ==
[~2020-06-24 06:36] MED LIST: Famotidine 20 MG/2 ML SDV IVPUSH SCH; Ropivacaine 49.25 ML, Ketorolac 30 MG, EPINEPHrine 0.5 MG, cloNIDine 80 MCG in Sodium C... INJECT SCH; Scopolamine 1.5 MG Transdermal Patch TRDERM SCH
[2020-06-24] MEDS: Lactated Ringers 1,000 ML IV SCH ×2 (07:04→18:50)
[2020-06-24] MEDS ORDERED: Bupivacaine 0.5% 30 ML SDV ONE (07:10)
[2020-06-24] MEDS ORDERED: Ondansetron 4 MG/2 ML SDV ONE (07:12)
[2020-06-24] MEDS ORDERED: fentaNYL 100 MCG/2 ML SDV ONE (07:12)
[2020-06-24] MEDS ORDERED: Midazolam 1 MG/ML 2 ML SDV ONE (07:12)
[2020-06-24] MEDS ORDERED: Propofol 200 MG/20 ML SDV ONE ×3 (07:12→10:14)
[2020-06-24] MEDS ORDERED: ePHEDrine 50 MG/ML SDV ONE (07:13)
[2020-06-24] MEDS ORDERED: Dexamethasone 4 MG/ML 5 ML MDV ONE (07:13)
[2020-06-24] MEDS ORDERED: Sodium Chloride 0.9% 20 ML ONE (07:13)
--- NOTE | 2020-06-24 07:18 | PCM.PREANE ---
Preanesthetic Assessment - Anesthesia/Transfusion/Family Hx Anesthesia History: Prior Anesthesia Without Reaction Family History of Anesthesia Reaction: No Transfusion History: No Prior Transfusion(s) Intubation History: Unknown - Review of Systems General: No Symptoms Pulmonary: No Symptoms Cardiovascular: No Symptoms Gastrointestinal: No Symptoms Neurological: No Symptoms Other: Reports: None - Physical Assessment Height: 5 ft 4 in Weight: 108.862 kg ASA Class: 3 Mental Status: Alert & Oriented x3 Airway Class: Mallampati = 2 Dentition: Reports: Normal Dentition Thyro-Mental Finger Breadths: 3 Mouth Opening Finger Breadths: 3 ROM/Head Extension: Full Lungs: Clear to Auscultation, Normal Respiratory Effort Cardiovascular: Regular Rate, Regular Rhythm - Allergies Allergies/Adverse Reactions: Allergies Allergy/AdvReac Type Severity Reaction Status Date / Time amoxicillin [Amoxicillin] Allergy Hives Verified 06/18/20 08:35 erythromycin base Allergy Hives Verified 06/18/20 08:35 fexofenadine HCl Allergy Hives Verified 06/18/20 08:35 [From Jesenia] loratadine [From Claritin] Allergy Hives Verified 06/18/20 08:35 naproxen sodium [From Aleve] Allergy Hives Verified 06/18/20 08:35 tramadol Allergy Hives Verified 06/18/20 08:35 - Blood Blood Available: No - Anesthesia Plan Pre-Op Medication Ordered: None - Acknowledgements Anesthesia Type Planned: Spinal (general anesthesia back-up plan) Pt an Appropriate Candidate for the Planned Anesthesia: Yes Alternatives and Risks of Anesthesia Discussed w Pt/Guardian: Yes Pt/Guardian Understands and Agrees with Anesthesia Plan: Yes PreAnesthesia Questionnaire HEENT History: Reports: Other (See Below) Other HEENT History: nasal reconstruction Cardiovascular History: Reports: None Respiratory History: Reports: Asthma (moderate) Gastrointestinal History: Reports: GERD Other Gastrointestinal History: states has occasional heartburn Genitourinary History: Reports: Urinary Incontinence, UTI, Recurrent 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: Musculoskeletal History: Reports: Arthritis Other Musculoskeletal History: fractured left upper arm Neurological History: Reports: Migraines Psychiatric History: Reports: Anxiety, Bipolar, Depression, Schizophrenia Endocrine/Metabolic History: Reports: Diabetes, Type II (BMI 41.2) Other Endocrine/Metabolic History: hypoglycemia Hematologic History: Reports: None Immunologic History: Reports: None Other Immunologic History: states had MRSA in 2000 after alexa surgery but since has been cleared Oncologic (Cancer) History: Reports: None Dermatologic History: Reports: None - Infectious Disease History Infectious Disease History: Reports: None Other Infectious Disease History: hay fever - Past Surgical History HEENT Surgical History: Reports: Naso-Sinus Surgery GI Surgical History: Reports: Bariatric Procedure, Cholecystectomy Female Surgical History: Reports: Breast Reduction, Cystectomy, Section Other Musculoskeletal Surgeries/Procedures:: arm surgery-plate left arm Oncologic Surgical History: Reports: Other (See Below) (breast reduction) - SUBSTANCE USE Tobacco Use Status *Q: Former Tobacco User - HOME MEDS Home Medications: Home Meds Montelukast [Singulair] 10 mg PO DAILY 11/15/13 [History] lamoTRIgine [LaMICtal] 50 mg PO BID 11/15/13 [History] Lurasidone [Latuda] 40 mg PO BID 07/23/14 [History] Pantoprazole [ProTONIX] 40 mg PO DAILY 04/12/17 [History] Cetirizine [ZyrTEC] 10 mg PO DAILY 03/28/19 [History] Nortriptyline HCl [Pamelor] 25 mg PO DAILY 03/28/19 [History] Albuterol Sulfate [Proair Hfa] 2 puff INH ASDIRECTED PRN 06/18/20 [History] Benztropine Mesylate 1 tab PO DAILY 06/18/20 [History] Calc/D3/Mag/Zn/Last/[place] [Calcium 600 MG Plus Vit D] 1 tab PO DAILY 06/18/20 [History] Cyanocobalamin (Vitamin B-12) [Vitamin B-12] 1 tab PO ASDIRECTED 06/18/20 [History] Fluticasone Propionate [Flovent HFA 110 MCG] 2 puff INH BID 06/18/20 [History] Lactobacillus Acidophilus [Acidophilus] 1 tab PO DAILY 06/18/20 [History] Multivitamin [Multi-Vitamin Daily] 1 tab PO DAILY 06/18/20 [History] Rosuvastatin [Crestor] 1 tab PO DAILY 06/18/20 [History] - CURRENT (IN HOUSE) MEDS Current Meds: Current Medications Famotidine (Pepcid) 40 mg IVPUSH ONARRIVE GEN Tranexamic Acid 1,000 mg/ (Sodium Chloride) 110 mls @ 600 mls/hr IV ASDIRECTED ONE Stop: 06/24/20 08:10 Ropivacaine 49.25 ml/Ketorolac Tromethamine 30 mg/Epinephrine HCl 0.5 mg/Clonidine HCl 80 mcg/ Sodium Chloride 75 mls @ 50 mls/sec INJECT ASDIRECTED GEN Cefazolin Sodium/Dextrose 2 gm (/ Premix) 50 mls @ 100 mls/hr IV ONCALL GEN Lactated Ringer's (Ringers, Lactated) 1,000 mls @ 100 mls/hr IV ASDIRECTED GEN Last Admin: 06/24/20 07:04 Dose: 100 mls/hr Documented by: Scopolamine (Transderm-Scop) 1.5 mg TRDERM ONARRIVE [facility] Last Admin: 06/24/20 07:06 Dose: 1.5 mg Documented by: Discontinued Medications Bupivacaine HCl (Marcaine 0.5%) Confirm Administered Dose 30 ml .ROUTE .STK-MED ONE Stop: 06/24/20 07:11 Acetaminophen (Ofirmev) Confirm Administered Dose 100 mls @ as directed .ROUTE .STK-MED ONE Stop: 06/24/20 07:11
[2020-06-24] MEDS ORDERED: Clindamycin Phosphate in D5W 50 ML ONE (07:39)
[2020-06-24] MEDS ORDERED: Famotidine 20 MG/2 ML SDV IVPUSH ONE (07:45)
[2020-06-24] MEDS ORDERED: ceFAZolin 2 GM in Premix Bag 1 BAG IV SCH (08:00)
[2020-06-24] MEDS ORDERED: Tranexamic Acid 1,000 MG in Sodium Chloride 0.9% 100 ML IV ONE (08:00)
[2020-06-24] MEDS ORDERED: Vancomycin 1 GM SDV ONE (08:33)
[2020-06-24] MEDS ORDERED: Morphine 10 MG/ML Syringe IVPUSH ONE (09:48)
--- NOTE | 2020-06-24 11:44 | PCM.POSTAN ---
POST ANESTHESIA ASSESSMENT - MENTAL STATUS Mental Status: Alert, Oriented - VITAL SIGNS Vital Signs: Last Vital Signs Temp 36.5 C 06/24/20 11:00 Pulse 55 L 06/24/20 11:35 Resp 13 06/24/20 11:35 BP 94/51 L 06/24/20 11:35 Pulse Ox 97 06/24/20 11:35 - RESPIRATORY Respiratory Status: Respiratory Rate WNL, Airway Patent, O2 Saturation Stable - CARDIOVASCULAR CV Status: Pulse Rate WNL, Blood Pressure Stable - GASTROINTESTINAL GI Status: No Symptoms - PAIN Pain Score: 0 - POST OP HYDRATION Hydration Status: Adequate & Stable - OBSERVATIONS Free Text/Narrative:: No anesthesia problems
--- NOTE | 2020-06-24 12:27 | CR ---
Indication: Status post total knee arthroplasty Technique: Two views of the right knee were obtained Comparison: A preoperative study of September 24, 2019 Findings: Status post right knee arthroplasty. Impression: Expected immediate postoperative appearance of the right knee status post arthroplasty. There are no unexpected findings Dictated by Ranjith Ordoñez MD @ Jun 24 2020 12:25PM Signed by Dr. Ranjith Ordoñez @ Jun 24 2020 12:26PM
[2020-06-24] MEDS ORDERED: Albuterol HFA 18 Gm Inhaler INH PRN (12:55)
[2020-06-24] MEDS ORDERED: Albuterol/Ipratropium 3.0-0.5 MG/3 ML Neb Soln NEB PRN (12:57)
[2020-06-24] MEDS ORDERED: 50% Dextrose in Water 50 ML Syringe IV PRN (12:57)
[2020-06-24] MEDS ORDERED: Glucagon,Human Recombinant 1 MG Vial IM PRN (12:57)
--- NOTE | 2020-06-24 12:58 | PCM.CONS ---
H&P History of Present Illness - General Date of Service: 06/24/20 Admit Problem/Dx: Admission Diagnosis/Problem Admission Diagnosis/Problem Knee pain Source of Information: Patient History Limitations: Reports: No Limitations - History of Present Illness Initial Comments - Free Text/Narative: This 55-year-old female with past medical history of COPD/asthma, GERD, DM type II not currently treated, anxiety, bipolar disorder, and MATHIEU presented today for right TKA with Dr. Falcon. Hospitalist service consulted for management of comorbidities. Radha arrived to [facility], alert and oriented. Reports she is slowly regaining sensation to her right leg. She denies any chest pain shortness of breath or palpitations. No fevers chills cough or sinus congestion. She overall is feeling good. Denies any nausea vomiting. She reports she is doing well prior to surgery. Reports she has a history of significant hypoglycemia since having gastric bypass. She reports she terrance stically drops to the 30s becomes diaphoretic confused and shaky. She is very anxious about having snacks by her in this case she also has glucose tablets in the purse. She does not take any medications for diabetes any longer and has not for many years. She reports anxiety and bipolar disorder which she takes several psychiatric medications for. She denies history of schizophrenia. She also reports history of COPD/asthma and does take inhalers as needed. She denies any history of CAD or HTN. Does have a history of MATHIEU which is well controlled. Has had no history of difficulties with surgical procedures.\ PCP Dr. Wick - Related Data Allergies/Adverse Reactions: Allergies Allergy/AdvReac Type Severity Reaction Status Date / Time amoxicillin [Amoxicillin] Allergy Hives Verified 06/24/20 08:17 erythromycin base Allergy Hives Verified 06/24/20 08:17 fexofenadine HCl Allergy Hives Verified 06/24/20 08:17 [From Jesenia] loratadine [From Claritin] Allergy Hives Verified 06/24/20 08:17 naproxen sodium [From Aleve] Allergy Hives Verified 06/24/20 08:17 tramadol Allergy Hives Verified 06/24/20 08:17 Home Medications: Home Meds Montelukast [Singulair] 10 mg PO DAILY 11/15/13 [History] lamoTRIgine [LaMICtal] 50 mg PO BID 11/15/13 [History] Lurasidone [Latuda] 40 mg PO BID 07/23/14 [History] Pantoprazole [ProTONIX] 40 mg PO DAILY 04/12/17 [History] Cetirizine [ZyrTEC] 10 mg PO DAILY 03/28/19 [History] Nortriptyline HCl [Pamelor] 25 mg PO DAILY 03/28/19 [History] Albuterol Sulfate [Proair Hfa] 2 puff INH ASDIRECTED PRN 06/18/20 [History] Benztropine Mesylate 1 tab PO DAILY 06/18/20 [History] Calc/D3/Mag/Zn/Last/[place]/Falcon [Calcium 600 MG Plus Vit D] 1 tab PO DAILY 06/18/20 [History] Cyanocobalamin (Vitamin B-12) [Vitamin B-12] 1 tab PO ASDIRECTED 06/18/20 [History] Fluticasone Propionate [Flovent HFA 110 MCG] 2 puff INH BID 06/18/20 [History] Lactobacillus Acidophilus [Acidophilus] 1 tab PO DAILY 06/18/20 [History] Multivitamin [Multi-Vitamin Daily] 1 tab PO DAILY 06/18/20 [History] Rosuvastatin [Crestor] 1 tab PO DAILY 06/18/20 [History] Past Medical History HEENT History: Reports: Other (See Below) Other HEENT History: nasal reconstruction Cardiovascular History: Reports: None. Denies: CAD, Hypertension, [place] Respiratory History: Reports: Asthma (moderate), Sleep Apnea Gastrointestinal History: Reports: GERD Other Gastrointestinal History: states has occasional heartburn Genitourinary History: Reports: Urinary Incontinence, UTI, Recurrent NEWSPAPER JOURNALIST History: Reports: Musculoskeletal History: Reports: Arthritis Other Musculoskeletal History: fractured left upper arm Neurological History: Reports: Migraines Psychiatric History: Reports: Anxiety, Bipolar, Depression, Other (See Below) (Takes medications for tardive dyskinesia) Endocrine/Metabolic History: Reports: Diabetes, Type II (BMI 41.2) Other Endocrine/Metabolic History: hypoglycemia Insulin Pump Model and Horticulture Superintendent: None Hematologic History: Reports: None Immunologic History: Reports: None Other Immunologic History: states had MRSA in 1999 after alexa surgery but since has been cleared Oncologic (Cancer) History: Reports: None Dermatologic History: Reports: None - Infectious Disease History Infectious Disease History: Reports: None Other Infectious Disease History: hay fever - Past Surgical History HEENT Surgical History: Reports: Naso-Sinus Surgery GI Surgical History: Reports: Bariatric Procedure, Cholecystectomy Female Surgical History: Reports: Breast Reduction, Cystectomy, Section Other Musculoskeletal Surgeries/Procedures:: arm surgery-plate left arm Oncologic Surgical History: Reports: Other (See Below) (breast reduction) Social & Family History - Family History Family Medical History: No Pertinent Family History - Tobacco Use Tobacco Use Status *Q: Former Tobacco User Years of Tobacco use: 5 Used Tobacco, but Quit: Yes Month/Year Tobacco Last Used: states quit smoking 34 yrs ago - Caffeine Use Caffeine Use: Reports: Coffee Caffeine Use Comment: 2 cups/day - Alcohol Use Alcohol Use Frequency: Rarely, Socially - Recreational Drug Use Drug Use in Last 12 Months: No Recreational Drug Type: Reports: Marijuana/Hashish Recreational Drug Use Frequency: Rarely H&P Review of Systems - Review of Systems: Review Of Systems: See Below General: Reports: No Symptoms. Denies: Fever, Chills, Malaise, Weakness HEENT: Reports: No Symptoms. Denies: Headaches, Sinus Congestion, Vertigo Pulmonary: Reports: No Symptoms. Denies: Shortness of Breath Cardiovascular: Reports: No Symptoms. Denies: Chest Pain Gastrointestinal: Reports: No Symptoms. Denies: Abdominal Pain, Black Stool, Bloody Stool, Decreased Appetite, Distension, Nausea, Vomiting Genitourinary: Reports: No Symptoms. Denies: Dysuria, Frequency, Burning Skin: Reports: No Symptoms, Wound (Incision to right knee) Psychiatric: Reports: No Symptoms Neurological: Reports: No Symptoms Hematologic/Lymphatic: Reports: No Symptoms Immunologic: Reports: No Symptoms Exam - Exam Exam: See Below - Vital Signs Vital Signs: Last Vital Signs Temp 97.7 F 06/24/20 11:00 Pulse 55 L 06/24/20 11:35 Resp 13 06/24/20 11:35 BP 94/51 L 06/24/20 11:35 Pulse Ox 97 06/24/20 11:35 Weight: 108.862 kg - Exam Quality Assessment: Urinary Catheter, DVT Prophylaxis General: Alert, Oriented, Cooperative HEENT: Conjunctiva Clear, Mucosa Moist & [place], Posterior Pharynx Clear Lungs: Clear to Auscultation, Normal Respiratory Effort Cardiovascular: Regular Rate, Regular Rhythm, Normal S1, Normal S2. No: Systolic Murmur GI/Abdominal Exam: Normal Bowel Sounds, Soft, Non-Tender Back Exam: Normal Inspection, Full Range of Motion Extremities: Normal Inspection, Normal Range of Motion, Non-Tender, No Pedal Edema Skin: Incision (Right knee dressings intact Mateusz wrap and polar ice in place) Neuro Extensive - Mental Status: Alert, Oriented x3 Neuro Extensive - Motor, Sensory, Reflexes: CN II-XII Intact Psychiatric: Alert, Normal Affect, Anxious (Intermittently becomes anxious regarding chance of becoming hypoglycemic) - Patient Data Lab Results Last 24 hrs: Laboratory Results - last 24 hr 06/24/20 Range/Units 07:10 Blood Type A POSITIVE Antibody Screen NEGATIVE Result Diagrams: 06/24/20 13:08 06/24/20 13:08 Sepsis Event Note - Focused Exam Vital Signs: Vital Signs Temp Pulse Resp BP Pulse Ox 06/24/20 11:35 55 L 13 94/51 L 97 06/24/20 11:30 54 L 11 L 93/51 L 98 06/24/20 11:25 56 L 12 99/52 L 99 06/24/20 11:20 57 L 16 109/37 L 99 06/24/20 11:15 70 13 97/44 L 100 06/24/20 11:10 59 L 17 93/45 L 98 06/24/20 11:05 56 L 16 91/46 L 98 06/24/20 11:00 97.7 F 64 14 87/52 L 97 06/24/20 07:02 96.8 F L 72 16 121/67 99 Consult PN Assessment/Plan POD#: 0 Procedures: Procedures ASSAY OF AMYLASE (05/20/15) ASSAY OF LIPASE (12/30/17) ASSAY OF NATRIURETIC PEPTIDE (01/26/19) ASSAY OF TROPONIN QUANT (02/26/18) ASSAY THYROID STIM HORMONE (12/06/15) CHEST X-RAY 2VW FRONTAL&LATL (05/20/15) CHORIONIC GONADOTROPIN ASSAY (04/04/15) COMPLETE CBC W/AUTO DIFF WBC (03/28/19) COMPREHEN METABOLIC PANEL (03/28/19) CT ABD & PELVIS W/O CONTRAST (12/30/17) CT HEAD/BRAIN W/O DYE (12/06/15) CT NECK SPINE W/O DYE (11/15/13) ELECTROCARDIOGRAM TRACING (02/26/18) EMERGENCY DEPT VISIT (01/29/20) EMERGENCY DEPT VISIT (03/28/19) EMERGENCY DEPT VISIT (02/18/19) EMERGENCY DEPT VISIT (03/11/18) EMERGENCY DEPT VISIT (02/26/18) EMERGENCY DEPT VISIT (02/10/18) EMERGENCY DEPT VISIT (12/30/17) EMERGENCY DEPT VISIT (12/26/17) EMERGENCY DEPT VISIT (09/03/17) EMERGENCY DEPT VISIT (06/30/17) EMERGENCY DEPT VISIT (04/12/17) EMERGENCY DEPT VISIT (12/22/16) EMERGENCY DEPT VISIT (04/08/16) EMERGENCY DEPT VISIT (12/06/15) EMERGENCY DEPT VISIT (05/20/15) EMERGENCY DEPT VISIT (04/04/15) EMERGENCY DEPT VISIT (11/15/13) EMERGENCY DEPT VISIT (11/15/13) EMERGENCY DEPT VISIT (11/15/13) EXTRACRANIAL BILAT STUDY (04/12/17) GLUCOSE BLOOD TEST (03/28/19) HOT OR COLD PACKS THERAPY (03/18/14) HYDRATE IV INFUSION ADD-ON (03/28/19) HYDRATION IV INFUSION INIT (04/08/16) IMMUNIZATION ADMIN (12/22/16) INFLUENZA A/B AG IA (06/29/14) MANUAL THERAPY 1/> REGIONS (03/18/14) OT EVALUATION (02/06/14) PROTHROMBIN TIME (02/26/18) RANGE OF MOTION MEASUREMENTS (03/18/14) RANGE OF MOTION MEASUREMENTS (03/05/14) ROUTINE VENIPUNCTURE (03/28/19) SMEAR WET MOUNT SALINE/INK (04/04/15) TDAP VACCINE 7 YRS/> IM (12/22/16) THER/PROPH/DIAG INJ IV PUSH (03/28/19) THER/PROPH/DIAG INJ SC/IM (06/30/17) THERAPEUTIC EXERCISES (03/18/14) TX/PRO/DX INJ NEW DRUG ADDON (02/10/18) TX/PRO/DX INJ SAME DRUG TRUCK REPAIR 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 (12/30/17) URINALYSIS AUTO W/O SCOPE (02/18/19) URINALYSIS AUTO W/SCOPE (03/28/19) URINE CULTURE/COLONY COUNT (12/26/17) URINE TEST (02/10/18) X-RAY EXAM CHEST 1 VIEW (02/26/18) X-RAY EXAM KNEE 4 OR MORE (09/24/19) X-RAY EXAM OF ABDOMEN (05/20/15) X-RAY EXAM OF HAND (01/20/14) X-RAY EXAM OF KNEE 3 (08/17/19) X-RAY EXAM OF SHOULDER (06/30/17) X-RAY EXAM OF WRIST (11/15/13) (1) S/P total knee arthroplasty SNOMED Code(s): 4858492193816, 293506541, 6893123911719 Code(s): Z96.659 - PRESENCE OF UNSPECIFIED ARTIFICIAL KNEE JOINT Current Visit: Yes Qualifiers: Laterality: right Qualified Code(s): Z96.651 - Presence of right artificial knee joint (2) Anxiety SNOMED Code(s): 68395631 Code(s): F41.9 - ANXIETY DISORDER, UNSPECIFIED Current Visit: Yes (3) GERD (gastroesophageal reflux disease) SNOMED Code(s): 606823102 Code(s): K21.9 - GASTRO-ESOPHAGEAL REFLUX DISEASE WITHOUT ESOPHAGITIS Current Visit: Yes (4) MATHIEU (obstructive sleep apnea) SNOMED Code(s): 00195734 Code(s): G47.33 - OBSTRUCTIVE SLEEP APNEA (ADULT) (PEDIATRIC) Current Visit: Yes (5) Asthma SNOMED Code(s): 658877800 Code(s): J45.909 - UNSPECIFIED ASTHMA, UNCOMPLICATED Current Visit: Yes (6) Bipolar disorder SNOMED Code(s): 30823682 Code(s): F31.9 - BIPOLAR DISORDER, UNSPECIFIED Current Visit: No (7) Hypoglycemia SNOMED Code(s): 457506574 Code(s): E16.2 - HYPOGLYCEMIA, UNSPECIFIED Current Visit: No Problem List Initiated/Reviewed/Updated: Yes My Orders Last 24 Hours: My Active Orders 06/24/20 12:54 BASIC METABOLIC PANEL,BMP [CHEM] Routine CBC WITH AUTO DIFF [HEME] Routine MAGNESIUM [CHEM] Routine 06/24/20 12:55 Albuterol [Proventil HFA] 2 puff INH ASDIRECTED PRN 06/24/20 12:56 RT Post Treatment Assessment [RC] Click to Edit RT Pre-Treatment Assessment [RC] Click to Edit 06/24/20 12:57 Blood Glucose Check, Bedside [RC] TIDMEALS RT Aerosol Therapy [RC] ASDIRECTED Dextrose 50% in Water 50 ml IV ASDIRECTED PRN Glucagon,Human Recombinant [GlucaGen] 1 mg IM ASDIRECTED PRN 06/24/20 12:57 Albuterol/Ipratropium [DuoNeb 3.0-0.5 MG/3 ML] 3 ml NEB Q4HRRT PRN 06/24/20 17:00 Insulin Aspart [NovoLOG] See Protocol SUBCUT TIDAC 06/24/20 21:00 Fluticasone Propionate [Flovent HFA 110 MCG] 2 puff INH BID Lurasidone 40 mg PO BID lamoTRIgine [LaMICtal] 50 mg PO BID 06/25/20 09:00 Benztropine Mesylate [Benztropine Mesylate] 1 tab PO DAILY Cetirizine [ZyrTEC] 10 mg PO DAILY Lactobacillus Acidophilus [Acidophilus] 1 tab PO DAILY Montelukast [Singulair] 10 mg PO DAILY Nortriptyline 25 mg PO DAILY Pantoprazole 40 mg PO DAILY Rosuvastatin [Crestor] 10 mg PO DAILY Plan: This 55-year-old female admitted with right TKA hospitalist service consulted to manage medical comorbidities 1. Right TKA -Orders per orthopedics 2. DM type II/history of hypoglycemia -We will hold off on NovoLog sliding scale due to significant history of hypoglycemia -Monitor blood sugars closely -A1c 5.5 3. Anxiety/ bipolar -Continue home psychiatric medications -We will remove scopolamine patch due to risk of cognitive impairment. 4. Asthma -Continue inhaler as needed we will add DuoNebs as well -Encourage I-S every hour while awake VTE prophylaxis: Recommend when deemed appropriate by orthopedics CODE STATUS: Full code
[2020-06-24] MEDS ORDERED: Sodium Chloride 0.9% 10 ML Syringe FLUSH PRN (13:00)
[2020-06-24] MEDS ORDERED: Sodium Chloride 0.9% 2.5 ML Syringe FLUSH PRN (13:00)
[2020-06-24] MEDS ORDERED: Bisacodyl 10 MG Supp RECTAL PRN (13:00)
[2020-06-24] MEDS ORDERED: Aluminum Hydroxide/Magnesium Hydroxide/Simethicone Susp 30 ML Cup PO PRN (13:00)
[2020-06-24] MEDS ORDERED: Docusate Sodium 100 MG Cap PO PRN (13:00)
[2020-06-24] MEDS ORDERED: Ondansetron 4 MG/2 ML SDV IVPUSH PRN (13:00)
[2020-06-24 14:00] LABS: CARBON DIOXIDE,CO2 24.8 mmol/L (21.0-32.0)
[2020-06-24] MEDS: Ketorolac 15 MG/ML SDV IVPUSH SCH ×3 (14:06→23:49)
--- NOTE | 2020-06-24 14:06 | PCM.OPNOTE ---
- General Post-Op/Procedure Note Date of Surgery/Procedure: 06/24/20 Operative Procedure(s): right total knee arthroplasty Findings: right knee grade IV tibial chondromalacia medial compartment, grade 3 lateral compartment Pre Op Diagnosis: right knee oa Post-Op Diagnosis: Same Anesthesia Technique: Combo Spinal/Epidural, Regional Block Primary Surgeon: Ryley Falcon Anesthesia Provider: [facility] Physical Therapist: Svetlana Diallo EBL in mLs: 100 Complications: None Condition: Good Free Text/Narrative:: Intake & Output 06/23/20 06/24/20 06/24/20 22:59 06:59 14:59 Intake Total 1250 Output Total 700 Balance 550
[2020-06-24] MEDS: Acetaminophen/oxyCODONE 325-5 MG Tab PO PRN ×2 (15:02→22:18)
[2020-06-24] MEDS: Morphine 2 MG/ML SYRINGE IVPUSH PRN ×2 (16:30→21:06)
[2020-06-24] MEDS ORDERED: Insulin Aspart 100 Units/ML 3 ML Pen SUBCUT SCH (17:00)
--- NOTE | 2020-06-24 17:14 | OR ---
SURGEON: Ryley Falcon DATE OF PROCEDURE: 06/24/2020 PREOPERATIVE DIAGNOSIS: Right knee osteoarthritis. POSTOPERATIVE DIAGNOSIS: Right knee osteoarthritis. PROCEDURE: Right knee total knee arthroplasty. PRIMARY SURGEON: Ryley Falcon DO MERCHANDISE ADJUSTMENT CLERK: JANETH Can ROLE OF MERCHANDISE ADJUSTMENT CLERK: Nurse practitioner, JANETH Can, played an essential role in assisting in this case, helping to position the patient, retract structures as needed, as well as suturing and cutting sutures as indicated. Her presence improved patient's safety and decreased operative time. ANESTHESIA: Spinal plus regional block, [facility] CRNA FLUID: Lactated Ringer's solution. ESTIMATED BLOOD LOSS: 100 mL. COMPLICATIONS: None. SPECIMEN: None. DISCHARGE DISPOSITION: Stable to PACU. INSTRUMENTATION: DePuy Triathlon knee with size 6 femur, size 5 tibia; Triathlon polyethylene tibial insert with 29 mm asymmetrical dome polyethylene patella. HISTORY AND INDICATIONS FOR THE PROCEDURE: The patient was seen preoperatively in clinic. She failed nonoperative treatment. Preoperative imaging confirmed the above-mentioned diagnosis. Risks and goals of the procedure were explained to the patient. Informed consent was obtained. DETAILS OF PROCEDURE: The patient was seen preoperatively by myself and the Anesthesia staff in the preoperative holding where the operative site was marked. She was brought to the operative suite by Anesthesia staff where spinal plus regional block was performed. A well-padded tourniquet was placed on the right thigh. A sterile Liu catheter was placed. All extremities were found to be well padded. The right lower extremity was then prepped and draped in a sterile manner. Time-out was called identifying the correct patient, the correct procedure, the correct site, and that antibiotics were given in appropriate period of time. A midline incision was made four fingerbreadths proximal to the patella down to the level of tibial tubercle. Bleeding was controlled with Bovie electrocautery. The medial proximal tibia was then exposed using Bovie electrocautery. The knee was then taken into extension. A full synovectomy was performed. The patella was everted. The knee was flexed. Soft tissue from around the patella was then removed. Two freehand cuts were made in the patella for resurfacing. I then used the guide to drill three guiding holes and then placed my patella trial. We then flexed the knee again and then used a rongeur to expose an area just anterior to the notch and then reamed the distal femur and then placed the intramedullary guide with 8 mm distal cut, 5-degree valgus. We pinned this in place, removed the intramedullary portion of the guide and then made my two distal cuts while protecting soft tissues with Hohmann's. I then removed the guide and then placed my posterior condylar guide. I made that this was lining up with the epicondylar axis as this was a valgus knee. This measured a size 6 femur. I drilled the holes and then removed the posterior condylar guide and then placed my chamfer block and pinned it into position. I made my anterior, posterior, and chamfer cuts and then removed any excess bone present. After this had been performed, I then inserted my notch cutting guide and then used a reciprocating saw, removed bone from the notch. After this had been accomplished, I removed that guide and then focussed on tibial preparation. I used an extramedullary guide and protected the medial and lateral collateral ligaments with Hohmann's and then anteriorized the tibia with a pitchfork retractor. This was in line with the tibial tuberosity in the second metatarsal. I then pinned this guide in position and then made my proximal tibial cut. I then inserted my tibial base plate and then the femur and then trialed with the smallest polyethylene trial. I could get it into flexion, but not extension, so we removed that and then I took 2 mm more distal cut of the proximal tibia and then placed my tibial base plate and femoral component trials back on. This provided good range of motion and stability, but was a little tight in the lateral side, so I performed a lateral release, which provided good range of motion and stability. We then removed the components, and then I used interlaminar spreaders to remove the remainder of the medial and lateral meniscus. I removed some posterior osteophytes using a curved osteotome and controlled any small bleeders in the posterior capsule. We then copiously irrigated with saline and then cemented our final components into place. The knee was kept in full extension during the time with the polyethylene trial in place. After it had hardened, we then removed the polyethylene trial. I removed any extra cement and irrigated again and then placed my final polyethylene insert. This provided good range of motion and stability with range of motion from 0 to 125 degrees flexion. More flexion was not available secondary to the patient's body habitus. I then irrigated with Betadine infused irrigation. I then applied half a gram of vancomycin because the patient did have a history of MRSA. Then, we closed the capsule with two [id number] Ethibond sutures. I was concerned due to the patient's body habitus about the arthrotomy not holding, so I did an interlocking suture over the medial aspect of the capsulotomy. My assist then closed with #2 Stratafix for the arthrotomy and then closed subcutaneously with #1 Stratafix followed by skin guera. Half a gram of vancomycin was applied to the fascia after applying some more Betadine irrigation. The wound was then closed with an incisional wound VAC again because the patient had a history of MRSA. The patient was allowed to awaken from conscious sedation and then taken to the PACU in stable condition. [id number] / MODL /[id number]
[2020-06-24] MEDS: Clindamycin Phosphate in D5W 900 MG in Premix Bag 1 BAG IV SCH ×4 (17:20→23:50)
[2020-06-24] MEDS ORDERED: Montelukast 10 MG Tab PO SCH (21:00)
[2020-06-24] MEDS ORDERED: Rosuvastatin 10 MG Tab PO SCH (21:00)
[2020-06-24] MEDS: lamoTRIgine 25 MG Tab PO SCH (21:04)
[2020-06-24] MEDS: Apixaban 2.5 MG Tab PO SCH (21:04)
[2020-06-24] MEDS: Fluticasone Propionate 110 MCG/Puff 12 GM Inhaler INH SCH (21:16)
[2020-06-25] MEDS: Clindamycin Phosphate in D5W 900 MG in Premix Bag 1 BAG IV SCH ×2 (03:15)
[2020-06-25] MEDS: Morphine 2 MG/ML SYRINGE IVPUSH PRN (03:15)
[2020-06-25] MEDS: Ketorolac 15 MG/ML SDV IVPUSH SCH (03:15)
[2020-06-25] MEDS: Acetaminophen/oxyCODONE 325-5 MG Tab PO PRN ×3 (05:10→16:21)
[2020-06-25] MEDS: Lactated Ringers 1,000 ML IV SCH (05:10)
[2020-06-25 05:55] LABS: BLOOD UREA NITROGEN,BUN 12 mg/dL (7.0-18.0); CARBON DIOXIDE,CO2 25.8 mmol/L (21.0-32.0); CHLORIDE,CL 107 mmol/L (98-107); GLUCOSE RANDOM 143 mg/dL (74-106); SODIUM,NA 142 mmol/L (136-145)
[2020-06-25] MEDS: Famotidine 20 MG Tab PO SCH ×2 (06:27→09:19)
--- NOTE | 2020-06-25 07:15 | PCM48HPAN ---
Post Anesthesia Note - EVALUATION WITHIN 48HRS OF ANESTHETIC Vital Signs in Normal Range: Yes Patient Participated in Evaluation: Yes Respiratory Function Stable: Yes Airway Patent: Yes Cardiovascular Function Stable: Yes Hydration Status Stable: Yes Pain Control Satisfactory: Yes (Pain 2-3. Muscle cramps worst. Analgesics resolve.) Nausea and Vomiting Control Satisfactory: Yes Mental Status Recovered: Yes Vital Signs: Last Vital Signs Temp 36.2 C 06/25/20 02:55 Pulse 77 06/25/20 02:55 Resp 18 06/25/20 02:55 BP 107/55 L 06/25/20 02:55 Pulse Ox 97 06/25/20 02:55 - COMMENTS/OBSERVATIONS Free Text/Narrative:: Doing well. No problems noted.
--- NOTE | 2020-06-25 07:57 | PCM.CONSN ---
- General Info Date of Service: 06/25/20 Admission Dx/Problem (Free Text): Admission Diagnosis/Problem Admission Diagnosis/Problem Knee pain Subjective Update: Reports she is doing well today pain is controlled. She denies any chest pain shortness of breath or nausea. She is eager for discharge home no sensations of hypoglycemia noted overnight. Functional Status: Reports: Pain Controlled, Tolerating Diet, Ambulating, Urinating - Review of Systems General: Reports: No Symptoms. Denies: Weakness, Fatigue Pulmonary: Reports: No Symptoms. Denies: Shortness of Breath Cardiovascular: Reports: No Symptoms. Denies: Chest Pain Gastrointestinal: Reports: No Symptoms. Denies: Abdominal Pain, Nausea, Vomiting Musculoskeletal: Reports: Joint Pain (Right knee) Skin: Reports: No Symptoms Neurological: Reports: No Symptoms Psychiatric: Reports: No Symptoms ( well-controlled) - Patient Data Vitals - Most Recent: Last Vital Signs Temp 96.5 F L 06/25/20 07:35 Pulse 68 06/25/20 07:35 Resp 20 06/25/20 07:35 BP 116/68 06/25/20 07:35 Pulse Ox 100 06/25/20 07:35 Weight - Most Recent: 108.862 kg I&O - Last 24 Hours: Intake & Output 06/24/20 06/25/20 06/25/20 22:59 06:59 14:59 Intake Total 1727 1700 Output Total 1250 900 Balance 477 800 Lab Results Last 24 Hours: Laboratory Results - last 24 hr 06/24/20 06/24/20 06/24/20 Range/Units 07:10 13:08 13:08 WBC 7.23 (4.0-11.0) K/uL RBC 4.16 L (4.30-5.90) M/uL Hgb 12.2 (12.0-16.0) g/dL Hct 40.0 (36.0-46.0) % MCV 96.2 (80.0-98.0) fL MCH 29.3 (27.0-32.0) pg MCHC 30.5 L (31.0-37.0) g/dL RDW Std Deviation 50.9 (28.0-62.0) fl RDW Coeff of Haris 14 (11.0-15.0) % Plt Count 214 (150-400) K/uL MPV 9.00 (7.40-12.00) fL Neut % (Auto) 91.0 H (48.0-80.0) % Lymph % (Auto) 7.9 L (16.0-40.0) % [place] % (Auto) 0.7 (0.0-15.0) % Eos % (Auto) 0.3 (0.0-7.0) % Baso % (Auto) 0.1 (0.0-1.5) % Neut # (Auto) 6.6 H (1.4-5.7) K/uL Lymph # (Auto) 0.6 (0.6-2.4) K/uL [place] # (Auto) 0.1 (0.0-0.8) K/uL Eos # (Auto) 0.0 (0.0-0.7) K/uL Baso # (Auto) 0.0 (0.0-0.1) K/uL Nucleated RBC % 0.0 /100WBC Nucleated RBCs # 0 K/uL Sodium 141 (136-145) mmol/L Potassium 4.0 (3.5-5.1) mmol/L Chloride 106 (98-107) mmol/L Carbon Dioxide 24.8 (21.0-32.0) mmol/L BUN 10 (7.0-18.0) mg/dL Creatinine 1.1 H (0.6-1.0) mg/dL Est Cr Clr Drug Dosing 50.49 mL/min Estimated GFR (MDRD) 51.8 ml/min Glucose 258 H (74-106) mg/dL POC Glucose (60-110) mg/dL Calcium 9.1 (8.5-10.1) mg/dL Magnesium 2.0 (1.8-2.4) mg/dL Blood Type A POSITIVE Antibody Screen NEGATIVE 06/24/20 06/25/20 06/25/20 Range/Units 16:29 04:40 04:40 WBC (4.0-11.0) K/uL RBC (4.30-5.90) M/uL Hgb 10.0 L (12.0-16.0) g/dL Hct 31.5 L (36.0-46.0) % MCV (80.0-98.0) fL MCH (27.0-32.0) pg MCHC (31.0-37.0) g/dL RDW Std Deviation (28.0-62.0) fl RDW Coeff of Haris (11.0-15.0) % Plt Count (150-400) K/uL MPV (7.40-12.00) fL Neut % (Auto) (48.0-80.0) % Lymph % (Auto) (16.0-40.0) % [place] % (Auto) (0.0-15.0) % Eos % (Auto) (0.0-7.0) % Baso % (Auto) (0.0-1.5) % Neut # (Auto) (1.4-5.7) K/uL Lymph # (Auto) (0.6-2.4) K/uL [place] # (Auto) (0.0-0.8) K/uL Eos # (Auto) (0.0-0.7) K/uL Baso # (Auto) (0.0-0.1) K/uL Nucleated RBC % /100WBC Nucleated RBCs # K/uL Sodium 142 (136-145) mmol/L Potassium 4.0 (3.5-5.1) mmol/L Chloride 107 (98-107) mmol/L Carbon Dioxide 25.8 (21.0-32.0) mmol/L BUN 12 (7.0-18.0) mg/dL Creatinine 0.9 (0.6-1.0) mg/dL Est Cr Clr Drug Dosing 61.71 mL/min Estimated GFR (MDRD) > 60.0 ml/min Glucose 143 H (74-106) mg/dL POC Glucose 182 H (60-110) mg/dL Calcium 8.5 (8.5-10.1) mg/dL Magnesium 1.9 (1.8-2.4) mg/dL Blood Type Antibody Screen 06/25/20 Range/Units 06:26 WBC (4.0-11.0) K/uL RBC (4.30-5.90) M/uL Hgb (12.0-16.0) g/dL Hct (36.0-46.0) % MCV (80.0-98.0) fL MCH (27.0-32.0) pg MCHC (31.0-37.0) g/dL RDW Std Deviation (28.0-62.0) fl RDW Coeff of Haris (11.0-15.0) % Plt Count (150-400) K/uL MPV (7.40-12.00) fL Neut % (Auto) (48.0-80.0) % Lymph % (Auto) (16.0-40.0) % [place] % (Auto) (0.0-15.0) % Eos % (Auto) (0.0-7.0) % Baso % (Auto) (0.0-1.5) % Neut # (Auto) (1.4-5.7) K/uL Lymph # (Auto) (0.6-2.4) K/uL [place] # (Auto) (0.0-0.8) K/uL Eos # (Auto) (0.0-0.7) K/uL Baso # (Auto) (0.0-0.1) K/uL Nucleated RBC % /100WBC Nucleated RBCs # K/uL Sodium (136-145) mmol/L Potassium (3.5-5.1) mmol/L Chloride (98-107) mmol/L Carbon Dioxide (21.0-32.0) mmol/L BUN (7.0-18.0) mg/dL Creatinine (0.6-1.0) mg/dL Est Cr Clr Drug Dosing mL/min Estimated GFR (MDRD) ml/min Glucose (74-106) mg/dL POC Glucose 103 (60-110) mg/dL Calcium (8.5-10.1) mg/dL Magnesium (1.8-2.4) mg/dL Blood Type Antibody Screen Med Orders - Current: Current Medications Al Hydroxide/Mg Hydroxide (Mag-Al Plus) 30 ml PO Q4H PRN PRN Reason: Indigestion Albuterol (Ventolin Hfa) 0 gm INH Q4H PRN PRN Reason: Shortness of Breath Albuterol/Ipratropium (Duoneb 3.0-0.5 Mg/3 Ml) 3 ml NEB Q4HRRT PRN PRN Reason: dyspnea/wheezing Apixaban (Eliquis) 2.5 mg PO BID GEN Last Admin: 06/24/20 21:04 Dose: 2.5 mg Documented by: Benztropine Mesylate (Cogentin) 1 mg PO DAILY [facility] Bisacodyl (Dulcolax) 10 mg RECTAL DAILY PRN PRN Reason: Constipation Cetirizine HCl (Zyrtec) 10 mg PO DAILY [facility] Dextrose/Water (Dextrose 50% In Water) 50 ml IV ASDIRECTED PRN PRN Reason: Hypoglycemia Docusate Sodium (Colace) 100 mg PO BID PRN PRN Reason: Constipation Famotidine (Pepcid) 40 mg PO ACBREAKFAST [facility] Last Admin: 06/25/20 06:27 Dose: 40 mg Documented by: Fluticasone Propionate (Flovent Hfa 110 Mcg) 0 gm INH BID [facility] Last Admin: 06/24/20 21:16 Dose: Not Given Documented by: Glucagon (Glucagen) 1 mg IM ASDIRECTED PRN PRN Reason: Hypoglycemia Ropivacaine 49.25 ml/Ketorolac Tromethamine 30 mg/Epinephrine HCl 0.5 mg/Clonidine HCl 80 mcg/ Sodium Chloride 75 mls @ 50 mls/sec INJECT ASDIRECTED [facility] Cefazolin Sodium/Dextrose 2 gm (/ Premix) 50 mls @ 100 mls/hr IV ONCALL [facility] Lactated Ringer's (Ringers, Lactated) 1,000 mls @ 100 mls/hr IV ASDIRECTED [facility] Last Admin: 06/25/20 05:10 Dose: 100 mls/hr Documented by: Lamotrigine (Lamotrigine) 50 mg PO BID [facility] Last Admin: 06/24/20 21:04 Dose: 50 mg Documented by: Montelukast Sodium (Singulair) 10 mg PO BEDTIME [facility] Last Admin: 06/24/20 21:05 Dose: 10 mg Documented by: Morphine Sulfate (Morphine) 1 - 2 mg IVPUSH Q3H PRN PRN Reason: Pain Last Admin: 06/25/20 03:15 Dose: 2 mg Documented by: Nortriptyline HCl (Nortriptyline) 25 mg PO DAILY [facility] Ondansetron HCl (Zofran) 4 mg IVPUSH Q6H PRN PRN Reason: Nausea/Vomiting Oxycodone/Acetaminophen (Percocet 325-5 Mg) 1 - 2 tab PO Q4H PRN PRN Reason: Pain Last Admin: 06/25/20 05:10 Dose: 2 tab Documented by: Lactobacillus Acidophilus [ Acidophilus] 1 each PO DAILY [facility] Lurasidone 40 Mg 1 each PO BID GEN Last Admin: 06/24/20 21:16 Dose: Not Given Documented by: Polyethylene Glycol (Miralax) 17 gm PO DAILY GEN Rosuvastatin Calcium (Crestor) 10 mg PO BEDTIME GEN Last Admin: 06/24/20 21:04 Dose: 10 mg Documented by: Sodium Chloride (Saline Flush) 10 ml FLUSH ASDIRECTED PRN PRN Reason: Keep Vein Open Sodium Chloride (Saline Flush) 2.5 ml FLUSH ASDIRECTED PRN PRN Reason: Keep Vein Open Discontinued Medications Bupivacaine HCl (Marcaine 0.5%) Confirm Administered Dose 30 ml .ROUTE .STK-MED ONE Stop: 06/24/20 07:11 Dexamethasone (Dexamethasone) Confirm Administered Dose 20 mg .ROUTE .STK-MED ONE Stop: 06/24/20 07:14 Ephedrine Sulfate (Ephedrine Sulfate) Confirm Administered Dose 100 mg .ROUTE .STK-MED ONE Stop: 06/24/20 07:14 Famotidine (Pepcid) 40 mg IVPUSH ONETIME ONE Stop: 06/24/20 07:46 Last Admin: 06/24/20 07:45 Dose: 40 mg Documented by: Fentanyl (Sublimaze) Confirm Administered Dose 100 mcg .ROUTE .STK-MED ONE Stop: 06/24/20 07:13 Tranexamic Acid 1,000 mg/ (Sodium Chloride) 110 mls @ 600 mls/hr IV ASDIRECTED ONE Stop: 06/24/20 08:10 Last Admin: 06/24/20 21:14 Dose: Not Given Documented by: Acetaminophen (Ofirmev) Confirm Administered Dose 100 mls @ as directed .ROUTE .STK-MED ONE Stop: 06/24/20 07:11 Sodium Chloride (Normal Saline) Confirm Administered Dose 20 mls @ as directed .ROUTE .STK-MED ONE Stop: 06/24/20 07:14 Clindamycin Phosphate (Cleocin In D5w) Confirm Administered Dose 50 mls @ as directed .ROUTE .STK-MED ONE Stop: 06/24/20 07:40 Last Admin: 06/24/20 07:50 Dose: 50 mls/hr Documented by: Clindamycin Phosphate 900 mg/ (Premix) 50 mls @ 100 mls/hr IV Q8H [facility] Stop: 06/25/20 01:29 Last Admin: 06/25/20 03:15 Dose: Not Given Documented by: Insulin Aspart (Novolog) 0 unit SUBCUT TIDAC [facility]; Protocol Ketorolac Tromethamine (Toradol) 15 mg IVPUSH Q6H [facility] Stop: 06/25/20 05:00 Last Admin: 06/25/20 03:15 Dose: Not Given Documented by: Lidocaine HCl (Xylocaine-Mpf 1%) Confirm Administered Dose 5 ml .ROUTE .STK-MED ONE Stop: 06/24/20 07:13 Midazolam HCl (Versed 1 Mg/Ml) Confirm Administered Dose 2 mg .ROUTE .STK-MED ONE Stop: 06/24/20 07:13 Morphine Sulfate (Morphine) 8 mg IVPUSH ONETIME ONE Stop: 06/24/20 09:49 Non-Formulary Medication (Pantoprazole) 40 mg PO DAILY [facility] Ondansetron HCl (Zofran) Confirm Administered Dose 4 mg .ROUTE .STK-MED ONE Stop: 06/24/20 07:13 Propofol (Diprivan 20 Ml) Confirm Administered Dose 400 mg .ROUTE .STK-MED ONE Stop: 06/24/20 07:13 Propofol (Diprivan 20 Ml) Confirm Administered Dose 200 mg .ROUTE .STK-MED ONE Stop: 06/24/20 08:48 Propofol (Diprivan 20 Ml) Confirm Administered Dose 200 mg .ROUTE .STK-MED ONE Stop: 06/24/20 10:15 Scopolamine (Transderm-Scop) 1.5 mg TRDER ONARRIVE [facility] Last Admin: 06/24/20 07:06 Dose: 1.5 mg Documented by: Tranexamic Acid (Cyklokapron) Confirm Administered Dose 1,000 mg .ROUTE .STK-MED ONE Stop: 06/24/20 07:30 Vancomycin HCl (Vancomycin) Confirm Administered Dose 1 gm .ROUTE .STK-MED ONE Stop: 06/24/20 08:34 - Exam Quality Assessment: DVT Prophylaxis. No: Supplemental Oxygen General: Alert, Oriented, Cooperative, No Acute Distress Lungs: Clear to Auscultation, Normal Respiratory Effort Cardiovascular: Regular Rate, Regular Rhythm GI/Abdominal Exam: Normal Bowel Sounds, Soft, Non-Tender Extremities: Normal Inspection, Normal Range of Motion, Non-Tender, Pedal Edema (Mild edema noted to right leg likely secondary to postop.) Neurological: No New Focal Deficit Psy/Mental Status: Alert, Normal Affect, Normal Mood Sepsis Event Note - Evaluation Sepsis Screening Result: No Definite Risk - Focused Exam Vital Signs: Vital Signs Temp Pulse Resp BP Pulse Ox 06/25/20 07:35 96.5 F L 68 20 116/68 100 06/25/20 02:55 97.1 F 77 18 107/55 L 97 06/24/20 23:50 97.2 F 77 18 114/63 97 Consult PN Assessment/Plan POD#: 1 Procedures: Procedures ASSAY OF AMYLASE (05/20/15) ASSAY OF LIPASE (12/30/17) ASSAY OF NATRIURETIC PEPTIDE (01/26/19) ASSAY OF TROPONIN QUANT (02/26/18) ASSAY THYROID STIM HORMONE (12/06/15) CHEST X-RAY 2VW FRONTAL&LATL (05/20/15) CHORIONIC GONADOTROPIN ASSAY (04/04/15) COMPLETE CBC W/AUTO DIFF WBC (03/28/19) COMPREHEN METABOLIC PANEL (03/28/19) CT ABD & PELVIS W/O CONTRAST (12/30/17) CT HEAD/BRAIN W/O DYE (12/06/15) CT NECK SPINE W/O DYE (11/15/13) ELECTROCARDIOGRAM TRACING (02/26/18) EMERGENCY DEPT VISIT (01/29/20) EMERGENCY DEPT VISIT (03/28/19) EMERGENCY DEPT VISIT (02/18/19) EMERGENCY DEPT VISIT (03/11/18) EMERGENCY DEPT VISIT (02/26/18) EMERGENCY DEPT VISIT (02/10/18) EMERGENCY DEPT VISIT (12/30/17) EMERGENCY DEPT VISIT (12/26/17) EMERGENCY DEPT VISIT (09/03/17) EMERGENCY DEPT VISIT (06/30/17) EMERGENCY DEPT VISIT (04/12/17) EMERGENCY DEPT VISIT (12/22/16) EMERGENCY DEPT VISIT (04/08/16) EMERGENCY DEPT VISIT (12/06/15) EMERGENCY DEPT VISIT (05/20/15) EMERGENCY DEPT VISIT (04/04/15) EMERGENCY DEPT VISIT (11/15/13) EMERGENCY DEPT VISIT (11/15/13) EMERGENCY DEPT VISIT (11/15/13) EXTRACRANIAL BILAT STUDY (04/12/17) GLUCOSE BLOOD TEST (03/28/19) HOT OR COLD PACKS THERAPY (03/18/14) HYDRATE IV INFUSION ADD-ON (03/28/19) HYDRATION IV INFUSION INIT (04/08/16) IMMUNIZATION ADMIN (12/22/16) INFLUENZA A/B AG IA (06/29/14) MANUAL THERAPY 1/> REGIONS (03/18/14) OT EVALUATION (02/06/14) PROTHROMBIN TIME (02/26/18) RANGE OF MOTION MEASUREMENTS (03/18/14) RANGE OF MOTION MEASUREMENTS (03/05/14) ROUTINE VENIPUNCTURE (03/28/19) SARS-COV2 COVID-19 AMP PRB (06/22/20) SMEAR WET [place] SALINE/INK (04/04/15) TDAP VACCINE 7 YRS/> IM (12/22/16) THER/PROPH/DIAG INJ IV PUSH (03/28/19) THER/PROPH/DIAG INJ SC/IM (06/30/17) THERAPEUTIC EXERCISES (03/18/14) TX/PRO/DX INJ NEW DRUG ADDON (02/10/18) TX/PRO/DX INJ SAME DRUG WELDER 2ND SHIFT (12/30/17) URINALYSIS AUTO W/O SCOPE (02/18/19) URINALYSIS AUTO W/SCOPE (03/28/19) URINE CULTURE/COLONY COUNT (12/26/17) URINE TEST (02/10/18) X-RAY EXAM CHEST 1 VIEW (02/26/18) X-RAY EXAM KNEE 4 OR MORE (09/24/19) X-RAY EXAM OF ABDOMEN (05/20/15) X-RAY EXAM OF HAND (01/20/14) X-RAY EXAM OF KNEE 3 (08/17/19) X-RAY EXAM OF SHOULDER (06/30/17) X-RAY EXAM OF WRIST (11/15/13) (1) S/P total knee arthroplasty SNOMED Code(s): 7485161815533, 785076996, 3374354291934 Code(s): Z96.659 - PRESENCE OF UNSPECIFIED ARTIFICIAL KNEE JOINT Current Visit: Yes Qualifiers: Laterality: right Qualified Code(s): Z96.651 - Presence of right artificial knee joint (2) Anxiety SNOMED Code(s): 39400628 Code(s): F41.9 - ANXIETY DISORDER, UNSPECIFIED Current Visit: Yes (3) GERD (gastroesophageal reflux disease) SNOMED Code(s): 039501332 Code(s): K21.9 - GASTRO-ESOPHAGEAL REFLUX DISEASE WITHOUT ESOPHAGITIS Current Visit: Yes (4) MATHIEU (obstructive sleep apnea) SNOMED Code(s): 45884827 Code(s): G47.33 - OBSTRUCTIVE SLEEP APNEA (ADULT) (PEDIATRIC) Current Visit: Yes (5) Asthma SNOMED Code(s): 166708617 Code(s): J45.909 - UNSPECIFIED ASTHMA, UNCOMPLICATED Current Visit: Yes (6) Bipolar disorder SNOMED Code(s): 39732235 Code(s): F31.9 - BIPOLAR DISORDER, UNSPECIFIED Current Visit: No (7) Hypoglycemia SNOMED Code(s): 395076735 Code(s): E16.2 - HYPOGLYCEMIA, UNSPECIFIED Current Visit: No Problem List Initiated/Reviewed/Updated: Yes My Orders Last 24 Hours: My Active Orders 06/24/20 12:55 Albuterol [Ventolin HFA] 0 gm INH Q4H PRN 06/24/20 12:56 RT Post Treatment Assessment [RC] Click to Edit RT Pre-Treatment Assessment [RC] Click to Edit 06/24/20 12:57 Blood Glucose Check, Bedside [RC] TIDMEALS RT Aerosol Therapy [RC] ASDIRECTED Albuterol/Ipratropium [DuoNeb 3.0-0.5 MG/3 ML] 3 ml NEB Q4HRRT PRN Dextrose 50% in Water 50 ml IV ASDIRECTED PRN Glucagon,Human Recombinant [GlucaGen] 1 mg IM ASDIRECTED PRN 06/24/20 21:00 Fluticasone Propionate [Flovent HFA 110 MCG] 0 gm INH BID Montelukast [Singulair] 10 mg PO BEDTIME Patient's Own Medication [Ptom] 1 each PO BID Rosuvastatin [Crestor] 10 mg PO BEDTIME lamoTRIgine 50 mg PO BID 06/25/20 09:00 Benztropine [Cogentin] 1 mg PO DAILY Cetirizine [ZyrTEC] 10 mg PO DAILY Nortriptyline 25 mg PO DAILY Patient's Own Medication [Ptom] 1 each PO DAILY 06/26/20 05:11 BASIC METABOLIC PANEL,BMP [CHEM] AM MAGNESIUM [CHEM] AM 06/27/20 05:11 BASIC METABOLIC PANEL,BMP [CHEM] AM MAGNESIUM [CHEM] AM Plan: This 55-year-old female admitted with right TKA hospitalist service consulted to manage medical comorbidities 1. Right TKA -Orders per orthopedics 2. DM type II/history of hypoglycemia -stable -Monitor blood sugars closely -A1c 5.5 3. Anxiety/ bipolar -Continue home psychiatric medications -We will remove scopolamine patch due to risk of cognitive impairment. 4. Asthma -Continue inhaler as needed we will add DuoNebs as well -Encourage I-S every hour while awake VTE prophylaxis: Recommend when deemed appropriate by orthopedics CODE STATUS: Full code Dispo. medically stable agree with discharge if Ortho feels that is appropriate. Restart all medications are previously taking.
[2020-06-25] MEDS ORDERED: Cetirizine 10 MG Tab PO SCH (09:00)
[2020-06-25] MEDS ORDERED: PANTOPRAZOLE 40 MG PO SCH (09:00)
[2020-06-25] MEDS ORDERED: Benztropine 1 MG Tab PO SCH (09:00)
[2020-06-25] MEDS ORDERED: Nortriptyline 25 MG Cap PO SCH (09:00)
[2020-06-25] MEDS ORDERED: LACTOBACILLUS ACIDOPHILUS PO SCH (09:00)
[2020-06-25] MEDS ORDERED: Polyethylene Glycol 3350 Powder 17 GM Packet PO SCH (09:00)
[2020-06-25] MEDS: lamoTRIgine 25 MG Tab PO SCH (09:09)
[2020-06-25] MEDS: Apixaban 2.5 MG Tab PO SCH (09:10)
[2020-06-25] MEDS: Fluticasone Propionate 110 MCG/Puff 12 GM Inhaler INH SCH (11:15)
[2020-06-25 11:38] VITALS: BP 119/81; PULSE 73
--- NOTE | 2020-06-25 13:04 | PCM.SURGPN ---
- General Info Date of Service: 06/25/20 (0800) Date of Surgery/Procedure: 06/24/20 (s/p Right TKA) POD#: 1 Admission Diagnosis/Problem: Knee pain Functional Status: Reports: Pain Controlled, Tolerating Diet (denies n/v Just ate breakfast). Denies: Ambulating (did not ambulate yesterday with therapy as 'my legs stiff felt wobbly' ), Urinating (catheter was just removed 0600. Has not voided yet) - Review of Systems General: Denies: Fever Gastrointestinal: Denies: Nausea, Vomiting Musculoskeletal: Reports: Joint Pain (post-surgical knee pain) Neurological: Denies: No Symptoms Psychiatric: Denies: No Symptoms - Patient Data Vitals - Most Recent: Last Vital Signs Temp 35.6 C L 06/25/20 11:36 Pulse 73 06/25/20 11:36 Resp 22 H 06/25/20 11:36 BP 119/81 06/25/20 11:36 Pulse Ox 99 06/25/20 11:36 Weight - Most Recent: 108.862 kg I&O - Last 24 Hours: Intake & Output 06/24/20 06/25/20 06/25/20 22:59 06:59 14:59 Intake Total 1727 1700 Output Total 1250 900 Balance 477 800 Lab Results Last 24 Hrs: Laboratory Results - last 24 hr 06/24/20 06/24/20 06/24/20 Range/Units 07:10 13:08 13:08 WBC 7.23 (4.0-11.0) K/uL RBC 4.16 L (4.30-5.90) M/uL Hgb 12.2 (12.0-16.0) g/dL Hct 40.0 (36.0-46.0) % MCV 96.2 (80.0-98.0) fL MCH 29.3 (27.0-32.0) pg MCHC 30.5 L (31.0-37.0) g/dL RDW Std Deviation 50.9 (28.0-62.0) fl RDW Coeff of Haris 14 (11.0-15.0) % Plt Count 214 (150-400) K/uL MPV 9.00 (7.40-12.00) fL Neut % (Auto) 91.0 H (48.0-80.0) % Lymph % (Auto) 7.9 L (16.0-40.0) % [place] % (Auto) 0.7 (0.0-15.0) % Eos % (Auto) 0.3 (0.0-7.0) % Baso % (Auto) 0.1 (0.0-1.5) % Neut # (Auto) 6.6 H (1.4-5.7) K/uL Lymph # (Auto) 0.6 (0.6-2.4) K/uL [place] # (Auto) 0.1 (0.0-0.8) K/uL Eos # (Auto) 0.0 (0.0-0.7) K/uL Baso # (Auto) 0.0 (0.0-0.1) K/uL Nucleated RBC % 0.0 /100WBC Nucleated RBCs # 0 K/uL Sodium 141 (136-145) mmol/L Potassium 4.0 (3.5-5.1) mmol/L Chloride 106 (98-107) mmol/L Carbon Dioxide 24.8 (21.0-32.0) mmol/L BUN 10 (7.0-18.0) mg/dL Creatinine 1.1 H (0.6-1.0) mg/dL Est Cr Clr Drug Dosing 50.49 mL/min Estimated GFR (MDRD) 51.8 ml/min Glucose 258 H (74-106) mg/dL POC Glucose (60-110) mg/dL Calcium 9.1 (8.5-10.1) mg/dL Magnesium 2.0 (1.8-2.4) mg/dL Antibody Screen NEGATIVE 06/24/20 06/25/20 06/25/20 Range/Units 16:29 04:40 04:40 WBC (4.0-11.0) K/uL RBC (4.30-5.90) M/uL Hgb 10.0 L (12.0-16.0) g/dL Hct 31.5 L (36.0-46.0) % MCV (80.0-98.0) fL MCH (27.0-32.0) pg MCHC (31.0-37.0) g/dL RDW Std Deviation (28.0-62.0) fl RDW Coeff of Haris (11.0-15.0) % Plt Count (150-400) K/uL MPV (7.40-12.00) fL Neut % (Auto) (48.0-80.0) % Lymph % (Auto) (16.0-40.0) % [place] % (Auto) (0.0-15.0) % Eos % (Auto) (0.0-7.0) % Baso % (Auto) (0.0-1.5) % Neut # (Auto) (1.4-5.7) K/uL Lymph # (Auto) (0.6-2.4) K/uL [place] # (Auto) (0.0-0.8) K/uL Eos # (Auto) (0.0-0.7) K/uL Baso # (Auto) (0.0-0.1) K/uL Nucleated RBC % /100WBC Nucleated RBCs # K/uL Sodium 142 (136-145) mmol/L Potassium 4.0 (3.5-5.1) mmol/L Chloride 107 (98-107) mmol/L Carbon Dioxide 25.8 (21.0-32.0) mmol/L BUN 12 (7.0-18.0) mg/dL Creatinine 0.9 (0.6-1.0) mg/dL Est Cr Clr Drug Dosing 61.71 mL/min Estimated GFR (MDRD) > 60.0 ml/min Glucose 143 H (74-106) mg/dL POC Glucose 182 H (60-110) mg/dL Calcium 8.5 (8.5-10.1) mg/dL Magnesium 1.9 (1.8-2.4) mg/dL Antibody Screen 06/25/20 Range/Units 06:26 WBC (4.0-11.0) K/uL RBC (4.30-5.90) M/uL Hgb (12.0-16.0) g/dL Hct (36.0-46.0) % MCV (80.0-98.0) fL MCH (27.0-32.0) pg MCHC (31.0-37.0) g/dL RDW Std Deviation (28.0-62.0) fl RDW Coeff of Haris (11.0-15.0) % Plt Count (150-400) K/uL MPV (7.40-12.00) fL Neut % (Auto) (48.0-80.0) % Lymph % (Auto) (16.0-40.0) % [place] % (Auto) (0.0-15.0) % Eos % (Auto) (0.0-7.0) % Baso % (Auto) (0.0-1.5) % Neut # (Auto) (1.4-5.7) K/uL Lymph # (Auto) (0.6-2.4) K/uL [place] # (Auto) (0.0-0.8) K/uL Eos # (Auto) (0.0-0.7) K/uL Baso # (Auto) (0.0-0.1) K/uL Nucleated RBC % /100WBC Nucleated RBCs # K/uL Sodium (136-145) mmol/L Potassium (3.5-5.1) mmol/L Chloride (98-107) mmol/L Carbon Dioxide (21.0-32.0) mmol/L BUN (7.0-18.0) mg/dL Creatinine (0.6-1.0) mg/dL Est Cr Clr Drug Dosing mL/min Estimated GFR (MDRD) ml/min Glucose (74-106) mg/dL POC Glucose 103 (60-110) mg/dL Calcium (8.5-10.1) mg/dL Magnesium (1.8-2.4) mg/dL Antibody Screen Med Orders - Current: Current Medications Al Hydroxide/Mg Hydroxide (Mag-Al Plus) 30 ml PO Q4H PRN PRN Reason: Indigestion Albuterol (Ventolin Hfa) 0 gm INH Q4H PRN PRN Reason: Shortness of Breath Albuterol/Ipratropium (Duoneb 3.0-0.5 Mg/3 Ml) 3 ml NEB Q4HRRT PRN PRN Reason: dyspnea/wheezing Apixaban (Eliquis) 2.5 mg PO BID [facility] Last Admin: 06/25/20 09:10 Dose: 2.5 mg Documented by: Benztropine Mesylate (Cogentin) 1 mg PO DAILY [facility] Last Admin: 06/25/20 09:11 Dose: 1 mg Documented by: Bisacodyl (Dulcolax) 10 mg RECTAL DAILY PRN PRN Reason: Constipation Cetirizine HCl (Zyrtec) 10 mg PO DAILY [facility] Last Admin: 06/25/20 09:10 Dose: 10 mg Documented by: Dextrose/Water (Dextrose 50% In Water) 50 ml IV ASDIRECTED PRN PRN Reason: Hypoglycemia Docusate Sodium (Colace) 100 mg PO BID PRN PRN Reason: Constipation Famotidine (Pepcid) 40 mg PO ACBREAKFAST [facility] Last Admin: 06/25/20 09:19 Dose: Not Given Documented by: Fluticasone Propionate (Flovent Hfa 110 Mcg) 0 gm INH BID [facility] Last Admin: 06/25/20 11:15 Dose: 2 puff Documented by: Glucagon (Glucagen) 1 mg IM ASDIRECTED PRN PRN Reason: Hypoglycemia Ropivacaine 49.25 ml/Ketorolac Tromethamine 30 mg/Epinephrine HCl 0.5 mg/Clonidine HCl 80 mcg/ Sodium Chloride 75 mls @ 50 mls/sec INJECT ASDIRECTED [facility] Cefazolin Sodium/Dextrose 2 gm (/ Premix) 50 mls @ 100 mls/hr IV ONCALL [facility] Lactated Ringer's (Ringers, Lactated) 1,000 mls @ 100 mls/hr IV ASDIRECTED [facility] Last Admin: 06/25/20 05:10 Dose: 100 mls/hr Documented by: Lamotrigine (Lamotrigine) 50 mg PO BID [facility] Last Admin: 06/25/20 09:09 Dose: 50 mg Documented by: Montelukast Sodium (Singulair) 10 mg PO BEDTIME [facility] Last Admin: 06/24/20 21:05 Dose: 10 mg Documented by: Morphine Sulfate (Morphine) 1 - 2 mg IVPUSH Q3H PRN PRN Reason: Pain Last Admin: 06/25/20 03:15 Dose: 2 mg Documented by: Nortriptyline HCl (Nortriptyline) 25 mg PO DAILY [facility] Last Admin: 06/25/20 11:16 Dose: 25 mg Documented by: Ondansetron HCl (Zofran) 4 mg IVPUSH Q6H PRN PRN Reason: Nausea/Vomiting Oxycodone/Acetaminophen (Percocet 325-5 Mg) 1 - 2 tab PO Q4H PRN PRN Reason: Pain Last Admin: 06/25/20 09:31 Dose: 2 tab Documented by: Lactobacillus Acidophilus [ Acidophilus] 1 each PO DAILY [facility] Last Admin: 06/25/20 09:13 Dose: Not Given Documented by: Lurasidone 40 Mg 1 each PO BID [facility] Last Admin: 06/25/20 09:14 Dose: Not Given Documented by: Polyethylene Glycol (Miralax) 17 gm PO DAILY [facility] Last Admin: 06/25/20 09:12 Dose: 17 gm Documented by: Rosuvastatin Calcium (Crestor) 10 mg PO BEDTIME [facility] Last Admin: 06/24/20 21:04 Dose: 10 mg Documented by: Sodium Chloride (Saline Flush) 10 ml FLUSH ASDIRECTED PRN PRN Reason: Keep Vein Open Sodium Chloride (Saline Flush) 2.5 ml FLUSH ASDIRECTED PRN PRN Reason: Keep Vein Open Discontinued Medications Bupivacaine HCl (Marcaine 0.5%) Confirm Administered Dose 30 ml .ROUTE .STK-MED ONE Stop: 06/24/20 07:11 Dexamethasone (Dexamethasone) Confirm Administered Dose 20 mg .ROUTE .STK-MED ONE Stop: 06/24/20 07:14 Ephedrine Sulfate (Ephedrine Sulfate) Confirm Administered Dose 100 mg .ROUTE .STK-MED ONE Stop: 06/24/20 07:14 Famotidine (Pepcid) 40 mg IVPUSH ONETIME ONE Stop: 06/24/20 07:46 Last Admin: 06/24/20 07:45 Dose: 40 mg Documented by: Fentanyl (Sublimaze) Confirm Administered Dose 100 mcg .ROUTE .STK-MED ONE Stop: 06/24/20 07:13 Tranexamic Acid 1,000 mg/ (Sodium Chloride) 110 mls @ 600 mls/hr IV ASDIRECTED ONE Stop: 06/24/20 08:10 Last Admin: 06/24/20 21:14 Dose: Not Given Documented by: Acetaminophen (Ofirmev) Confirm Administered Dose 100 mls @ as directed .ROUTE .STK-MED ONE Stop: 06/24/20 07:11 Sodium Chloride (Normal Saline) Confirm Administered Dose 20 mls @ as directed .ROUTE .STK-MED ONE Stop: 06/24/20 07:14 Clindamycin Phosphate (Cleocin In D5w) Confirm Administered Dose 50 mls @ as directed .ROUTE .STK-MED ONE Stop: 06/24/20 07:40 Last Admin: 06/24/20 07:50 Dose: 50 mls/hr Documented by: Clindamycin Phosphate 900 mg/ (Premix) 50 mls @ 100 mls/hr IV Q8H [facility] Stop: 06/25/20 01:29 Last Admin: 06/25/20 03:15 Dose: Not Given Documented by: Insulin Aspart (Novolog) 0 unit SUBCUT TIDAC [facility]; Protocol Ketorolac Tromethamine (Toradol) 15 mg IVPUSH Q6H [facility] Stop: 06/25/20 05:00 Last Admin: 06/25/20 03:15 Dose: Not Given Documented by: Lidocaine HCl (Xylocaine-Mpf 1%) Confirm Administered Dose 5 ml .ROUTE .STK-MED ONE Stop: 06/24/20 07:13 Midazolam HCl (Versed 1 Mg/Ml) Confirm Administered Dose 2 mg .ROUTE .STK-MED ONE Stop: 06/24/20 07:13 Morphine Sulfate (Morphine) 8 mg IVPUSH ONETIME ONE Stop: 06/24/20 09:49 Last Admin: 06/25/20 10:34 Dose: Not Given Documented by: Non-Formulary Medication (Pantoprazole) 40 mg PO DAILY [facility] Ondansetron HCl (Zofran) Confirm Administered Dose 4 mg .ROUTE .STK-MED ONE Stop: 06/24/20 07:13 Propofol (Diprivan 20 Ml) Confirm Administered Dose 400 mg .ROUTE .STK-MED ONE Stop: 06/24/20 07:13 Propofol (Diprivan 20 Ml) Confirm Administered Dose 200 mg .ROUTE .STK-MED ONE Stop: 06/24/20 08:48 Propofol (Diprivan 20 Ml) Confirm Administered Dose 200 mg .ROUTE .STK-MED ONE Stop: 06/24/20 10:15 Scopolamine (Transderm-Scop) 1.5 mg TRDERM ONARRIVE [facility] Last Admin: 06/24/20 07:06 Dose: 1.5 mg Documented by: Tranexamic Acid (Cyklokapron) Confirm Administered Dose 1,000 mg .ROUTE .STK-MED ONE Stop: 06/24/20 07:30 Vancomycin HCl (Vancomycin) Confirm Administered Dose 1 gm .ROUTE .STK-MED ONE Stop: 06/24/20 08:34 - Exam Wound/Incisions: Dressing Dry and Intact (MELANIA dressing right knee CDI, blinking green 'ok' indicator). No: Erythema Quality Assessment: DVT Prophylaxis (Eliquis, SCDs bilaterally) General: Alert, Oriented, Cooperative, No Acute Distress HEENT: Pupils Equal Extremities: No Pedal Edema, Other (sensation intact to RLE. PP2+) Skin: Warm, Dry Neurological: Normal Speech Psy/Mental Status: Alert, Normal Affect, Normal Mood Sepsis Event Note - Evaluation Sepsis Screening Result: No Definite Risk - Focused Exam Vital Signs: Vital Signs Temp Pulse Resp BP Pulse Ox 06/25/20 11:36 35.6 C L 73 22 H 119/81 99 06/25/20 07:35 35.8 C L 68 20 116/68 100 06/25/20 02:55 36.2 C 77 18 107/55 L 97 - Problem List Review Problem List Initiated/Reviewed/Updated: Yes - My Orders Last 24 Hours: Active Orders 24 hr Category Date Time Status Blood Glucose Check, Bedside [RC] TIDMEALS Care 06/24/20 12:57 Active Communication Order [RC] PRN Care 06/24/20 13:01 Active Communication Order [RC] PRN Care 06/24/20 13:01 Active Cooling Warming Measures [RC] ASDIRECTED Care 06/24/20 13:02 Active Neurovascular Check [RC] Q2HR Care 06/24/20 13:01 Active Notify Provider Consults [RC] ASDIRECTED Care 06/24/20 13:07 Active Notify Provider Vital Signs [RC] ASDIRECTED Care 06/24/20 13:01 Active RT Aerosol Therapy [RC] ASDIRECTED Care 06/24/20 12:57 Active RT Incentive Spirometry [RC] Q1HWA Care 06/24/20 13:01 Active RT Post Treatment Assessment [RC] Click to Edit Care 06/24/20 12:56 Active RT Pre-Treatment Assessment [RC] Click to Edit Care 06/24/20 12:56 Active Ready for Discharge [RC] PER UNIT ROUTINE Care 06/25/20 09:08 Active Urinary Catheter Removal [RC] ASDIRECTED Care 06/25/20 13:01 Active Vital Signs [RC] Q4H Care 06/24/20 13:01 Active Wound Care [RC] DAILY Care 06/24/20 13:01 Active Consult to Physician [CONS] Routine Cons 06/24/20 13:00 Active PT Evaluation and Treatment [CONS] Routine Cons 06/24/20 13:01 Active [place] Diet [DIET] Diet 06/24/20 Dinner Active BASIC METABOLIC PANEL,BMP [CHEM] AM Lab 06/26/20 05:11 Ordered BASIC METABOLIC PANEL,BMP [CHEM] AM Lab 06/27/20 05:11 Ordered HEMOGLOBIN/HEMATOCRIT,HH [HEME] DAILY Lab 06/26/20 06:00 Ordered MAGNESIUM [CHEM] AM Lab 06/26/20 05:11 Ordered MAGNESIUM [CHEM] AM Lab 06/27/20 05:11 Ordered Acetaminophen/oxyCODONE [Percocet 325-5 MG] Med 06/24/20 13:00 Active 1 - 2 tab PO Q4H PRN Albuterol [Ventolin HFA] Med 06/24/20 12:55 Active 0 gm INH Q4H PRN Albuterol/Ipratropium [DuoNeb 3.0-0.5 MG/3 ML] Med 06/24/20 12:57 Active 3 ml NEB Q4HRRT PRN Alum Hydrox/Mag Hydrox/Simeth [Mag-Al Plus] Med 06/24/20 13:00 Active 30 ml PO Q4H PRN Apixaban [Eliquis] Med 06/24/20 21:00 Active 2.5 mg PO BID Benztropine [Cogentin] Med 06/25/20 09:00 Active 1 mg PO DAILY Cetirizine [ZyrTEC] Med 06/25/20 09:00 Active 10 mg PO DAILY Dextrose 50% in Water Med 06/24/20 12:57 Active 50 ml IV ASDIRECTED PRN Docusate Sodium [Colace] Med 06/24/20 13:00 Active 100 mg PO BID PRN Famotidine [Pepcid] Med 06/25/20 07:30 Active 40 mg PO ACBREAKFAST Fluticasone Propionate [Flovent HFA 110 MCG] Med 06/24/20 21:00 Active 0 gm INH BID Glucagon,Human Recombinant [GlucaGen] Med 06/24/20 12:57 Active 1 mg IM ASDIRECTED PRN Montelukast [Singulair] Med 06/24/20 21:00 Active 10 mg PO BEDTIME Morphine Med 06/24/20 13:00 Active 1 - 2 mg IVPUSH Q3H PRN Nortriptyline Med 06/25/20 09:00 Active 25 mg PO DAILY Ondansetron [Zofran] Med 06/24/20 13:00 Active 4 mg IVPUSH Q6H PRN Patient's Own Medication [Ptom] Med 06/24/20 21:00 Active 1 each PO BID Patient's Own Medication [Ptom] Med 06/25/20 09:00 Active 1 each PO DAILY Rosuvastatin [Crestor] Med 06/24/20 21:00 Active 10 mg PO BEDTIME Sodium Chloride 0.9% [Saline Flush] Med 06/24/20 13:00 Active 10 ml FLUSH ASDIRECTED PRN Sodium Chloride 0.9% [Saline Flush] Med 06/24/20 13:00 Active 2.5 ml FLUSH ASDIRECTED PRN bisacodyL [Dulcolax] Med 06/24/20 13:00 Active 10 mg RECTAL DAILY PRN lamoTRIgine Med 06/24/20 21:00 Active 50 mg PO BID polyethylene glycoL 3350 [MiraLAX] Med 06/25/20 09:00 Active 17 gm PO DAILY Convert IV to Saline Lock [OM.PC] PRN Oth 06/24/20 13:15 Ordered Convert IV to Saline Lock [OM.PC] PRN Oth 06/25/20 13:15 Ordered Ice Therapy [OM.PC] Routine Oth 06/24/20 13:01 Ordered Medication Orders Al Hydroxide/Mg Hydroxide (Mag-Al Plus) 30 ml PO Q4H PRN PRN Reason: Indigestion Albuterol (Ventolin Hfa) 0 gm INH Q4H PRN PRN Reason: Shortness of Breath Albuterol/Ipratropium (Duoneb 3.0-0.5 Mg/3 Ml) 3 ml NEB Q4HRRT PRN PRN Reason: dyspnea/wheezing Apixaban (Eliquis) 2.5 mg PO BID [facility] Last Admin: 06/25/20 09:10 Dose: 2.5 mg Documented by: Admin: 06/24/20 21:04 Dose: 2.5 mg Documented by: SARAHI Benztropine Mesylate (Cogentin) 1 mg PO DAILY [facility] Last Admin: 06/25/20 09:11 Dose: 1 mg Documented by: HAYDEN Bisacodyl (Dulcolax) 10 mg RECTAL DAILY PRN PRN Reason: Constipation Cetirizine HCl (Zyrtec) 10 mg PO DAILY [facility] Last Admin: 06/25/20 09:10 Dose: 10 mg Documented by: HAYDEN Dextrose/Water (Dextrose 50% In Water) 50 ml IV ASDIRECTED PRN PRN Reason: Hypoglycemia Docusate Sodium (Colace) 100 mg PO BID PRN PRN Reason: Constipation Famotidine (Pepcid) 40 mg PO ACBREAKFAST [facility] Last Admin: 06/25/20 09:19 Dose: Not Given Documented by: Admin: 06/25/20 06:27 Dose: 40 mg Documented by: SARAHI Fluticasone Propionate (Flovent Hfa 110 Mcg) 0 gm INH BID [facility] Last Admin: 06/25/20 11:15 Dose: 2 puff Documented by: Admin: 06/24/20 21:16 Dose: Not Given Documented by: SARAHI Glucagon (Glucagen) 1 mg IM ASDIRECTED PRN PRN Reason: Hypoglycemia Ropivacaine 49.25 ml/Ketorolac Tromethamine 30 mg/Epinephrine HCl 0.5 mg/Clonidine HCl 80 mcg/ Sodium Chloride 75 mls @ 50 mls/sec INJECT ASDIRECTED [facility] Cefazolin Sodium/Dextrose 2 gm (/ Premix) 50 mls @ 100 mls/hr IV ONCALL [facility] Lactated Ringer's (Ringers, Lactated) 1,000 mls @ 100 mls/hr IV ASDIRECTED [facility] Last Admin: 06/25/20 05:10 Dose: 100 mls/hr Documented by: Infusion: 06/25/20 04:50 Dose: 100 mls/hr Documented by: Admin: 06/24/20 18:50 Dose: 100 mls/hr Documented by: Infusion: 06/24/20 17:04 Dose: 100 mls/hr Documented by: Admin: 06/24/20 07:04 Dose: 100 mls/hr Documented by: EMI Lamotrigine (Lamotrigine) 50 mg PO BID [facility] Last Admin: 06/25/20 09:09 Dose: 50 mg Documented by: Admin: 06/24/20 21:04 Dose: 50 mg Documented by: SARAHI Montelukast Sodium (Singulair) 10 mg PO BEDTIME [facility] Last Admin: 06/24/20 21:05 Dose: 10 mg Documented by: SARAHI Morphine Sulfate (Morphine) 1 - 2 mg IVPUSH Q3H PRN PRN Reason: Pain Last Admin: 06/25/20 03:15 Dose: 2 mg Documented by: Admin: 06/24/20 21:06 Dose: 2 mg Documented by: Admin: 06/24/20 16:30 Dose: 2 mg Documented by: RAF Nortriptyline HCl (Nortriptyline) 25 mg PO DAILY [facility] Last Admin: 06/25/20 11:16 Dose: 25 mg Documented by: HAYDEN Ondansetron HCl (Zofran) 4 mg IVPUSH Q6H PRN PRN Reason: Nausea/Vomiting Oxycodone/Acetaminophen (Percocet 325-5 Mg) 1 - 2 tab PO Q4H PRN PRN Reason: Pain Last Admin: 06/25/20 09:31 Dose: 2 tab Documented by: Admin: 06/25/20 05:10 Dose: 2 tab Documented by: Admin: 06/24/20 22:18 Dose: 2 tab Documented by: Admin: 06/24/20 15:02 Dose: 2 tab Documented by: RAF Lactobacillus Acidophilus [ Acidophilus] 1 each PO DAILY [facility] Last Admin: 06/25/20 09:13 Dose: Not Given Documented by: HAYDEN Lurasidone 40 Mg 1 each PO BID [facility] Last Admin: 06/25/20 09:14 Dose: Not Given Documented by: Admin: 06/24/20 21:16 Dose: Not Given Documented by: SARAHI Polyethylene Glycol (Miralax) 17 gm PO DAILY [facility] Last Admin: 06/25/20 09:12 Dose: 17 gm Documented by: HAYDEN Rosuvastatin Calcium (Crestor) 10 mg PO BEDTIME [facility] Last Admin: 06/24/20 21:04 Dose: 10 mg Documented by: SARAHI Sodium Chloride (Saline Flush) 10 ml FLUSH ASDIRECTED PRN PRN Reason: Keep Vein Open Sodium Chloride (Saline Flush) 2.5 ml FLUSH ASDIRECTED PRN PRN Reason: Keep Vein Open - Assessment Assessment (Free Text/Narrative):: 1) s/p Right TKA 2) post-surgical anemia - Plan Plan (Free Text/Narrative):: Overall, Radha is doing well. Afebrile. Tolerating food/fluids without N/V. Just finished eating breakfast. Liu catheter removed at 0600. Has not voided yet. Pain controlled overnight with Toradol. MELANIA dressing CDI. After she is seen by PT, she feels ready to be discharged home. She lives in an apt with her sons, who will be available to help her the first 2 weeks. Rx written for walker. I discussed with her taking Eliquis for DVT prophylaxis. [facility] care ice machine will be sent home with her. She will also be sent home with 2 AquaCell bandages, with instructions written out on discharge paperwork as to when to change. She will be receiving PT at the [facility]. In case she has questions, she can have the therapist consult with providers there. Discussed pain management with Percocet for moderate pain, Tylenol for mild p ain, as she is unable to take NSAIDS d/t history of gastric bypass surgery. She will also be discharged with Rx of Bactrim for 1 week d/t h/o MRSA. Radha had no additional questions. Hospitalist services were appreciated for her medical management.
== END 2020-06-25 16:45 | disposition home or self-care (01) | DRG 470 ==
LOC: MW.SDS 06:36 → MW.MS 11:22
PROVIDERS: ADMIT Orthopaedic Surgery; ATTEND Orthopaedic Surgery
PROC: 0SRC0J9 Replacement of Right Knee Joint with Synthetic Substitute, Cemented, Open Approach (ICD-10-PCS; principal; 2020-06-24)
DX: M17.11 Unilateral primary osteoarthritis, right knee (principal); D64.9 Anemia, unspecified; J44.9 Chronic obstructive pulmonary disease, unspecified; E78.5 Hyperlipidemia, unspecified; K21.9 Gastro-esophageal reflux disease without esophagitis; M79.7 Fibromyalgia; F31.9 Bipolar disorder, unspecified; G47.33 Obstructive sleep apnea (adult) (pediatric); F41.9 Anxiety disorder, unspecified; E11.649 Type 2 diabetes mellitus with hypoglycemia without coma; Z88.0 Allergy status to penicillin; Z88.5 Allergy status to narcotic agent; Z88.8 Allergy status to other drugs, medicaments and biological substances; Z79.899 Other long term (current) drug therapy; Z90.49 Acquired absence of other specified parts of digestive tract; Z87.891 Personal history of nicotine dependence
CPT/HCPCS: 01402; 36415; 73560-26-RT; 73560-RT; 80048; 82962; 83735; 85014; 85018; 85025; 86850; 86900; 86901; 97161-GP; 97530-GP; A9270-GY; J0131; J1100; J1885; J2001; J2250; J2270; J2405; J2704; J3010; J3370; J3490; J7120

== ENCOUNTER 2020-06-28 20:04 | Emergency (ER) | payer MEDICAID ==
[2020-06-28] MEDS ORDERED: Sodium Chloride 0.9% 10 ML Syringe FLUSH PRN (20:11)
[2020-06-28] MEDS ORDERED: fentaNYL 50 MCG/ML SDV IVPUSH ONE ×2 (20:11→21:03)
[2020-06-28] MEDS ORDERED: Sodium Chloride 0.9% 2.5 ML Syringe FLUSH PRN (20:11)
[2020-06-28] MEDS ORDERED: cefTRIAXone 1 GM in Premix Bag 1 BAG IV ONE (20:16)
[2020-06-28] MEDS ORDERED: Vancomycin 2 GM in Sodium Chloride 0.9% 500 ML IV ONE (20:16)
[2020-06-28] MEDS ORDERED: Sodium Chloride 0.9% 10 ML SDV IV ONE (20:18)
--- NOTE | 2020-06-28 20:20 | EDM.PDOC ---
ED HPI GENERAL MEDICAL PROBLEM - General Chief Complaint: Skin Complaint Stated Complaint: FEVER Time Seen by Provider: 06/28/20 20:10 Source of Information: Reports: Patient, Old Records History Limitations: Reports: No Limitations - History of Present Illness INITIAL COMMENTS - FREE TEXT/NARRATIVE: This is a 55-year-old female with a past medical history of diabetes mellitus, bipolar disorder, fibromyalgia, chronic abdominal pain, MATHIEU, asthma, and anxiety, recently status post right total knee replacement on 06/24/[address] Guicho Falcon. This evening she presents to the ER by ambulance. Reports a 1 day history of subjective fever, chills, increasing swelling and pain to the right lower extremity. She states she has been performing dressing changes and the dressin gs look clean. She has been able to bear some weight but this is become increasingly painful over the past day or so. She is concerned that her right leg may be infected. Denies nausea, vomiting, diarrhea. ROS: A 10-point review of systems was negative, except as noted in the HPI (or in the ROS section of this note). Past medical history: Reviewed, no additional pertinent history. Surgical history: Reviewed in system, no additional pertinent history. Social history: Reviewed in system, no additional pertinent history. Family history: Reviewed in system, no additional pertinent history. PHYSICAL EXAM Vital signs reviewed. Nursing notes reviewed. Constitutional: Awake, alert, appears uncomfortable. Head: Normocephalic, atraumatic. Eyes: EOMI, conjunctiva normal, no discharge, no scleral icterus. Ears, Nose, Throat: External ears and nose normal, moist oral mucosa. Cardiovascular: Tachycardic, 2+ right DP pulse, capillary refill less than 2 seconds. Pulmonary: normal work of breathing, no accessory muscle use. Abdomen/GI: Obese, soft, nontender, nondistended, no guarding or rigidity, no masses. Musculoskeletal: No deformities. There are guera in place over the right total knee replacement incision site, the surgical incision itself appears clean and is not draining. The dressings appear clean. Integumentary: Appropriate color for ethnicity, warm, dry, no pallor or jaundice, no rash. The the right thigh is swollen compared to left and appears more erythematous and has areas of violaceous discoloration, it also feels warmer to palpation in the left lower extremity. Neurologic: Alert, answering questions appropriately, normal speech, no facial droop, moving all extremities well. Psychiatric: Appropriate mood and affect, normal thought process. This patient was seen and evaluated during the 2019 SARS-CoV-2 novel coronavirus pandemic period. Community viral transmission is ongoing at time of this encounter and the emergency department is operating under pandemic response procedures. right leg Pain Score (Numeric/FACES): 10 - Related Data Allergies Allergy/AdvReac Type Severity Reaction Status Date / Time amoxicillin [Amoxicillin] Allergy Hives Verified 06/28/20 20:05 erythromycin base Allergy Hives Verified 06/28/20 20:05 fexofenadine HCl Allergy Hives Verified 06/28/20 20:05 [From Jesenia] loratadine [From Claritin] Allergy Hives Verified 06/28/20 20:05 naproxen sodium [From Aleve] Allergy Hives Verified 06/28/20 20:05 tramadol Allergy Hives Verified 06/28/20 20:05 Home Meds: Home Meds Montelukast [Singulair] 10 mg PO DAILY 11/15/13 [History] lamoTRIgine [LaMICtal] 50 mg PO BID 11/15/13 [History] Lurasidone [Latuda] 40 mg PO BID 07/23/14 [History] Pantoprazole [ProTONIX] 40 mg PO DAILY 04/12/17 [History] Cetirizine [ZyrTEC] 10 mg PO DAILY 03/28/19 [History] Nortriptyline HCl [Pamelor] 25 mg PO DAILY 03/28/19 [History] Albuterol Sulfate [Proair Hfa] 2 puff INH ASDIRECTED PRN 06/18/20 [History] Benztropine Mesylate 1 tab PO BEDTIME 06/18/20 [History] Calc/D3/Mag/Zn/Last/[place]/Severy [Calcium 600 MG Plus Vit D] 1 tab PO DAILY 06/18/20 [History] Cyanocobalamin (Vitamin B-12) [Vitamin B-12] 1 tab PO ASDIRECTED 06/18/20 [History] Fluticasone Propionate [Flovent HFA 110 MCG] 2 puff INH BID 06/18/20 [History] Lactobacillus Acidophilus [Acidophilus] 1 tab PO DAILY 06/18/20 [History] Multivitamin [Multi-Vitamin Daily] 1 tab PO DAILY 06/18/20 [History] Acetaminophen/oxyCODONE [Percocet 325-5 MG] 1 - 2 tab PO Q8HR PRN #40 tablet 06/25/20 [Rx] Apixaban [Eliquis] 2.5 mg PO BID #60 tablet 06/25/20 [Rx] Cyclobenzaprine [Flexeril] 5 mg PO BEDTIME PRN #10 tab 06/25/20 [Rx] Docusate Sodium [Colace] 100 mg PO BID PRN #1 bottle 06/25/20 [Rx] Sulfamethoxazole/Trimethoprim [Bactrim Ds Tablet] 1 each PO BID 7 Days #14 tablet 06/25/20 [Rx] polyethylene glycoL 3350 [MiraLAX] 17 gm PO DAILY #1 bottle 06/25/20 [Rx] Benztropine Mesylate 0.5 mg PO BEDTIME 06/28/20 [History] Ferrous Sulfate 1 tab PO DAILY 06/28/20 [History] Meloxicam 15 mg PO DAILY 06/28/20 [History] Rosuvastatin [Crestor] 5 mg PO DAILY 06/28/20 [History] Topiramate 50 mg PO BID 06/28/20 [History] buPROPion [Wellbutrin SR] 150 mg PO DAILY 06/28/20 [History] cephALEXin [Cephalexin] 500 mg PO QID 10 Days #40 capsule 06/28/20 [Rx] hydrOXYzine HCL [Atarax] 25 mg PO Q6H PRN #20 tab 06/28/20 [Rx] Past Medical History HEENT History: Reports: Impaired Vision, Other (See Below) Other HEENT History: nasal reconstruction, wears glasses Cardiovascular History: Reports: High Cholesterol Respiratory History: Reports: Asthma, Sleep Apnea Gastrointestinal History: Reports: GERD Other Gastrointestinal History: states has occasional heartburn Genitourinary History: Reports: None 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 LOADER 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: Reports: Musculoskeletal History: Reports: Arthritis, Osteoarthritis Other Musculoskeletal History: fractured left upper arm Neurological History: Reports: Migraines Psychiatric History: Reports: Anxiety, Bipolar, Depression, Other (See Below) Endocrine/Metabolic History: Reports: Obesity/BMI 30+, Other (See Below) Other Endocrine/Metabolic History: hypoglycemia Insulin Pump Model and Special Events Director: None Hematologic History: Reports: None Immunologic History: Reports: Other (See Below) Other Immunologic History: states had MRSA in 1999 after alexa surgery but since has been cleared Oncologic (Cancer) History: Reports: None Dermatologic History: Reports: None - Infectious Disease History Infectious Disease History: Reports: Chicken Pox, MRSA Other Infectious Disease History: states had chicken pox when a child; states had MRSA in 1999 after alexa surgery but since has been cleared - Past Surgical History Head Surgeries/Procedures: Reports: None HEENT Surgical History: Reports: Naso-Sinus Surgery Cardiovascular Surgical History: Reports: None Respiratory Surgical History: Reports: None GI Surgical History: Reports: Bariatric Procedure, Cholecystectomy, Other (See Below) Other GI Surgeries/Procedures: states had a laparotomy for gastric biopsy Female Surgical History: Reports: Breast Reduction, Section Endocrine Surgical History: Reports: None Neurological Surgical History: Reports: None Musculoskeletal Surgical History: Reports: Knee Replacement, Other (See Below) Other Musculoskeletal Surgeries/Procedures:: upper left arm surgery-plate left arm Oncologic Surgical History: Reports: Other (See Below) Dermatological Surgical History: Reports: None Social & Family History - Family History Family Medical History: No Pertinent Family History - Tobacco Use Tobacco Use Status *Q: Former Tobacco User Used Tobacco, but Quit: No - Caffeine Use Caffeine Use: Reports: Coffee Caffeine Use Comment: 2 cups/day - Recreational Drug Use Recreational Drug Use: No ED ROS GENERAL - Review of Systems Review Of Systems: See Below ED EXAM, GENERAL - Physical Exam Exam: See Below Course - Vital Signs Text/Narrative:: 55-year-old female presenting with increasing right lower extremity pain, subjective fever, and chills, recently status post right knee replacement. Differential diagnosis includes but is not limited to: Cellulitis, sepsis, septic arthritis, postoperative pain, DVT, and many others. I was initially concerned for cellulitis given the patient's report of subjective fever and chills and tachycardia on arrival. The right lower extremity is edematous and warm to palpation. We did send off blood cultures and labs and I did initially order vancomycin and ceftriaxone out of concern for cellulitis. The surgical incision site appears clean. We did obtain x-rays of the right knee which did not show joint effusion and show postoperative changes from the knee replacement. Labs show stable normocytic anemia, no leukocytosis, normal platelet count. INR and lactate are normal. Glucose is 150 but other metabolic markers are reassuring. Alkaline phosphatase mildly elevated at 186. CRP elevated 27.50, ESR elevated at 69. Right lower extremity DVT ultrasound study was limited due to patient's inability to cooperate due to pain, but the radiologist states that the portion of the limited examination was normal. Given her recent postoperative status, I did consult the on-call orthopedic surgeon Dr. Óscar Dickerson who evaluated the patient in the emergency department. He believes that the edema and warmth and skin changes are consistent with an expected postoperative state. He is not concerned for cellulitis or septic arthritis. He recommended outpatient treatment with cephalexin and pain medication such as oxycodone and we will plan to have the patient follow-up with Dr. Guicho Falcon in the clinic on June 30. Dr. Dickerson did write a prescription for oxycodone. He provided the patient with instructions about dressing changes and wound care and wrapped the right lower extremity in Mateusz wraps from foot to thigh for swelling. Dr. Dickerson also recommended hydroxyzine for muscle spasms. 10:52 PM: We did offer crutches to the patient, which she is declining. She has a walker at home and would rather use this. We are planning to discharge her home when her vancomycin infusion is finished. We will have her follow-up closely with the orthopedic surgery clinic in 2 days time. Discharged in good condition. Plan: Patient is stable to discharge home with outpatient orthopedic surgery clinic follow-up. Strict emergency department return precautions were provided, patient indicated understanding. All questions were answered prior to departure. Discharged in good condition. Last Recorded V/S: Last Vital Signs Temp 36.0 C L 06/28/20 21:45 Pulse 105 H 06/28/20 22:11 Resp 18 06/28/20 22:11 BP 114/64 06/28/20 22:11 Pulse Ox 99 06/28/20 22:11 - Orders/Labs/Meds Orders: Active Orders 24 hr Category Date Time Status Cardiac Monitoring [RC] CONTINUOUS Care 06/28/20 20:12 Active Notify Provider Consults [RC] ASDIRECTED Care 06/28/20 21:03 Active Overnight Pulse Oximetry [RC] Click to Edit Care 06/28/20 20:12 Active Consult to Orthopedics [CONS] Routine Cons 06/28/20 21:00 Ordered Nothing Per Oral Diet [DIET] Diet 06/28/20 Dinner Active CULTURE BLOOD [BC] Stat Lab 06/28/20 20:05 Received CULTURE BLOOD [BC] Stat Lab 06/28/20 20:35 Results Sodium Chloride 0.9% [Saline Flush] Med 06/28/20 20:11 Active 10 ml FLUSH ASDIRECTED PRN Sodium Chloride 0.9% [Saline Flush] Med 06/28/20 20:11 Active 2.5 ml FLUSH ASDIRECTED PRN Blood Culture x2 Reflex Set [OM.PC] Stat Oth 06/28/20 20:11 Ordered Pulse Oximetry Continuous Monitoring [OM.PC] Routine Oth 06/28/20 20:11 Ordered Saline Lock Insert [OM.PC] Stat Oth 06/28/20 20:11 Ordered Medication Orders Sodium Chloride (Saline Flush) 10 ml FLUSH ASDIRECTED PRN PRN Reason: Keep Vein Open Last Admin: 06/28/20 20:23 Dose: 10 ml Documented by: LETI Sodium Chloride (Saline Flush) 2.5 ml FLUSH ASDIRECTED PRN PRN Reason: Keep Vein Open Last Admin: 06/28/20 20:23 Dose: 2.5 ml Documented by: LETI Labs: Laboratory Tests 06/28/20 06/28/20 06/28/20 Range/Units 20:05 20:05 20:05 WBC 8.77 (4.0-11.0) K/uL RBC 3.37 L (4.30-5.90) M/uL Hgb 9.9 L (12.0-16.0) g/dL Hct 31.3 L (36.0-46.0) % MCV 92.9 (80.0-98.0) fL MCH 29.4 (27.0-32.0) pg MCHC 31.6 (31.0-37.0) g/dL RDW Std Deviation 47.4 (28.0-62.0) fl RDW Coeff of Haris 14 (11.0-15.0) % Plt Count 287 (150-400) K/uL MPV 8.60 (7.40-12.00) fL Neut % (Auto) 79.5 (48.0-80.0) % Lymph % (Auto) 10.4 L (16.0-40.0) % Potter % (Auto) 6.5 (0.0-15.0) % Eos % (Auto) 3.5 (0.0-7.0) % Baso % (Auto) 0.1 (0.0-1.5) % Neut # (Auto) 7.0 H (1.4-5.7) K/uL Lymph # (Auto) 0.9 (0.6-2.4) K/uL Potter # (Auto) 0.6 (0.0-0.8) K/uL Eos # (Auto) 0.3 (0.0-0.7) K/uL Baso # (Auto) 0.0 (0.0-0.1) K/uL Nucleated RBC % 0.0 /100WBC Nucleated RBCs # 0 K/uL ESR (0-29) mm/hr INR 1.03 Lactate 1.9 (0.20-2.00) mmol/L Sodium (136-145) mmol/L Potassium (3.5-5.1) mmol/L Chloride (98-107) mmol/L Carbon Dioxide (21.0-32.0) mmol/L BUN (7.0-18.0) mg/dL Creatinine (0.6-1.0) mg/dL Est Cr Clr Drug Dosing mL/min Estimated GFR (MDRD) ml/min Glucose (74-106) mg/dL Calcium (8.5-10.1) mg/dL Total Bilirubin (0.2-1.0) mg/dL AST (15-37) IU/L ALT (14-63) IU/L Alkaline Phosphatase (46-116) U/L Troponin I (0.000-0.056) ng/mL C-Reactive Protein (0.00-0.90) mg/dL Total Protein (6.4-8.2) g/dL Albumin (3.4-5.0) g/dL Globulin (2.6-4.0) g/dL Albumin/Globulin Ratio (0.9-1.6) 06/28/20 06/28/20 Range/Units 20:05 20:05 WBC (4.0-11.0) K/uL RBC (4.30-5.90) M/uL Hgb (12.0-16.0) g/dL Hct (36.0-46.0) % MCV (80.0-98.0) fL MCH (27.0-32.0) pg MCHC (31.0-37.0) g/dL RDW Std Deviation (28.0-62.0) fl RDW Coeff of Haris (11.0-15.0) % Plt Count (150-400) K/uL MPV (7.40-12.00) fL Neut % (Auto) (48.0-80.0) % Lymph % (Auto) (16.0-40.0) % Potter % (Auto) (0.0-15.0) % Eos % (Auto) (0.0-7.0) % Baso % (Auto) (0.0-1.5) % Neut # (Auto) (1.4-5.7) K/uL Lymph # (Auto) (0.6-2.4) K/uL Potter # (Auto) (0.0-0.8) K/uL Eos # (Auto) (0.0-0.7) K/uL Baso # (Auto) (0.0-0.1) K/uL Nucleated RBC % /100WBC Nucleated RBCs # K/uL ESR 69 H (0-29) mm/hr INR Lactate (0.20-2.00) mmol/L Sodium 137 (136-145) mmol/L Potassium 3.6 (3.5-5.1) mmol/L Chloride 100 (98-107) mmol/L Carbon Dioxide 23.6 (21.0-32.0) mmol/L BUN 9 (7.0-18.0) mg/dL Creatinine 1.0 (0.6-1.0) mg/dL Est Cr Clr Drug Dosing 55.54 mL/min Estimated GFR (MDRD) 57.8 ml/min Glucose 150 H (74-106) mg/dL Calcium 8.7 (8.5-10.1) mg/dL Total Bilirubin 0.6 (0.2-1.0) mg/dL AST 43 H (15-37) IU/L ALT 55 (14-63) IU/L Alkaline Phosphatase 186 H (46-116) U/L Troponin I < 0.050 (0.000-0.056) ng/mL C-Reactive Protein 27.50 H (0.00-0.90) mg/dL Total Protein 7.1 (6.4-8.2) g/dL Albumin 3.2 L (3.4-5.0) g/dL Globulin 3.9 (2.6-4.0) g/dL Albumin/Globulin Ratio 0.8 L (0.9-1.6) Meds: Medications Generic Name Dose Route Start Last Admin Trade Name Freq PRN Reason Stop Dose Admin Sodium Chloride 10 ml 06/28/20 20:11 06/28/20 20:23 Saline Flush FLUSH 10 ml ASDIRECTED PRN Administration Keep Vein Open Sodium Chloride 2.5 ml 06/28/20 20:11 06/28/20 20:23 Saline Flush FLUSH 2.5 ml ASDIRECTED PRN Administration Keep Vein Open Discontinued Medications Generic Name Dose Route Start Last Admin Trade Name Freq PRN Reason Stop Dose Admin Fentanyl 100 mcg 06/28/20 20:11 06/28/20 20:21 Fentanyl IVPUSH 06/28/20 20:12 100 mcg ONETIME ONE Administration Fentanyl 100 mcg 06/28/20 21:03 06/28/20 21:09 Fentanyl IVPUSH 06/28/20 21:04 100 mcg ONETIME ONE Administration Vancomycin HCl 2 gm/ Sodium 500 mls @ 333 mls/hr 06/28/20 20:16 06/28/20 20:36 Chloride IV 06/28/20 21:46 Not Given ONETIME ONE Ceftriaxone Sodium/Dextrose 1 50 mls @ 100 mls/hr 06/28/20 20:16 06/28/20 20:21 gm/ Premix IV 06/28/20 20:45 100 mls/hr ONETIME ONE Administration Sodium Chloride 1,000 mls @ 999 mls/hr 06/28/20 20:24 06/28/20 20:25 Normal Saline IV 06/28/20 21:24 999 mls/hr .Bolus ONE Administration Vancomycin HCl 2 gm/ Premix 400 mls @ 200 mls/hr 06/28/20 20:45 06/28/20 20:43 IV 06/28/20 22:44 200 mls/hr ONETIME ONE Administration Sodium Chloride 1,000 ml 06/28/20 20:18 06/28/20 20:24 Normal Saline IV 06/28/20 20:19 Not Given ONETIME ONE Departure - Departure Time of Disposition: 22:52 Disposition: Home, Self-Care 01 Condition: Good Clinical Impression: Post-operative pain S/P total knee replacement Qualifiers: Laterality: right Qualified Code(s): Z96.651 - Presence of right artificial knee joint - Discharge Information *PRESCRIPTION DRUG MONITORING PROGRAM REVIEWED*: Not Applicable *COPY OF PRESCRIPTION DRUG MONITORING REPORT IN PATIENT [place]: Not Applicable Prescriptions: cephALEXin [Cephalexin] 500 mg PO QID 10 Days #40 capsule hydrOXYzine HCL [Atarax] 25 mg PO Q6H PRN #20 tab PRN Reason: Spasms Instructions: Pain Medicine Instructions, Acute Pain, Adult Referrals: [facility] - Orthopaedics [Provider Group] - 2 Days (Follow-up with Dr. Falcon on 04/30/2020) Forms: ED Department Discharge Additional Instructions: You were seen in the emergency department for leg pain and swelling. At this point Dr. Dickerson the orthopedic surgeon does not believe there is an infection of the skin of your leg or your surgical site. We are going to discharge you home with a prescription for antibiotics and pain medication and medicine for muscle spasm. You have a follow-up appointment with Dr. Falcon on 06/30/2020, please attend this follow-up appointment. Warning signs to come back to the ER include: Severe pain, fever, chills, worsening symptoms or swelling, or any other new or concerning symptoms. Please return the emergency department immediately if your symptoms worsen or if you feel worse. Thank you for choosing the [facility] emergency department in [place] for your medical needs today. It was a pleasure caring for you. The following information is given to patients seen in the emergency department who are being discharged. This information is to outline your options for follow-up care. We provide all patients seen in our emergency department with a follow-up referral. The need for follow-up, as well as the timing and circumstances, are variable depending upon the specifics of your emergency department visit. If you don't have a primary care physician on staff, we will provide you with a referral. We always advise you to contact your personal physician following an emergency department visit to inform them of the circumstance of the visit and for follow-up with them and/or the need for any referrals to a consulting specialist. The emergency department will also refer you to a specialist when appropriate. This referral assures that you have the opportunity for follow-up care with a specialist. All of these measure are taken in an effort to provide you with optimal care, which includes your follow-up. Under all circumstances we always encourage you to contact your private physician who remains a resource for coordinating your care. When calling for follow-up care, please make the office aware that this follow-up is from your recent emergency room visit. If for any reason you are refused follow-up, please contact the [facility] Emergency Department at and asked to speak to the emergency department charge nurse. If you do not have a primary care physician that is caring for you, you can contact these clinics below to set up an appointment to establish care: [facility] - Primary Care [address] [place] [id number] [address] Sepsis Event Note (ED) - Evaluation Sepsis Screening Result: No Definite Risk - Focused Exam Vital Signs: Vital Signs Temp Temp Pulse Resp BP Pulse Ox 06/28/20 22:11 105 H 18 114/64 99 06/28/20 21:45 36.0 C L 97 18 128/70 100 06/28/20 21:13 36.0 C L 92 18 110/58 L 100 06/28/20 20:37 37.1 C 36.0 C L 99 20 127/75 100 06/28/20 20:05 35.9 C L 110 H 18 135/62 100 - My Orders Last 24 Hours: My Active Orders 06/28/20 Dinner Nothing Per Oral Diet [DIET] 06/28/20 20:05 CULTURE BLOOD [BC] Stat 06/28/20 20:11 Sodium Chloride 0.9% [Saline Flush] 10 ml FLUSH ASDIRECTED PRN Sodium Chloride 0.9% [Saline Flush] 2.5 ml FLUSH ASDIRECTED PRN Blood Culture x2 Reflex Set [OM.PC] Stat Pulse Oximetry Continuous Monitoring [OM.PC] Routine Saline Lock Insert [OM.PC] Stat 06/28/20 20:12 Cardiac Monitoring [RC] CONTINUOUS Overnight Pulse Oximetry [RC] Click to Edit 06/28/20 20:35 CULTURE BLOOD [BC] Stat 06/28/20 21:00 Consult to Orthopedics [CONS] Routine 06/28/20 21:03 Notify Provider Consults [RC] ASDIRECTED - Assessment/Plan Last 24 Hours: My Active Orders 06/28/20 Dinner Nothing Per Oral Diet [DIET] 06/28/20 20:05 CULTURE BLOOD [BC] Stat 06/28/20 20:11 Sodium Chloride 0.9% [Saline Flush] 10 ml FLUSH ASDIRECTED PRN Sodium Chloride 0.9% [Saline Flush] 2.5 ml FLUSH ASDIRECTED PRN Blood Culture x2 Reflex Set [OM.PC] Stat Pulse Oximetry Continuous Monitoring [OM.PC] Routine Saline Lock Insert [OM.PC] Stat 06/28/20 20:12 Cardiac Monitoring [RC] CONTINUOUS Overnight Pulse Oximetry [RC] Click to Edit 06/28/20 20:35 CULTURE BLOOD [BC] Stat 06/28/20 21:00 Consult to Orthopedics [CONS] Routine 06/28/20 21:03 Notify Provider Consults [RC] ASDIRECTED
[2020-06-28] MEDS ORDERED: Sodium Chloride 0.9% 1,000 ML IV ONE (20:24)
[2020-06-28 20:42] LABS: BLOOD UREA NITROGEN,BUN 9 mg/dL (7.0-18.0); CARBON DIOXIDE,CO2 23.6 mmol/L (21.0-32.0); CHLORIDE,CL 100 mmol/L (98-107); GLUCOSE RANDOM 150 mg/dL (74-106); POTASSIUM,K 3.6 mmol/L (3.5-5.1); SODIUM,NA 137 mmol/L (136-145)
[2020-06-28] MEDS ORDERED: Vancomycin/Water for INJ (PEG) 2 GM in Premix Bag 1 BAG IV ONE (20:45)
--- NOTE | 2020-06-28 20:46 | CR ---
Indication: Pain and swelling. Technique: Two views of the right knee. Comparison: June 24, 2020. Findings: A knee replacement is identified. A significant joint effusion is not appreciated. Surgical guera are identified along the anterior skin line. Impression: No significant joint effusion. Postoperative changes of a right knee replacement Dictated by Melly Darby MD @ Jun 28 2020 8:41PM Signed by Dr. Melly Darby @ Jun 28 2020 8:44PM
--- NOTE | 2020-06-28 21:07 | PCM.CONS ---
H&P History of Present Illness - General Date of Service: 06/28/20 Source of Information: Patient, Provider, RN History Limitations: Reports: No Limitations - History of Present Illness Initial Comments - Free Text/Narative: 55 year old female had right TKA on 06/24/20. Came to ER today with primary complaints of pain. States she had fevers and chills but temp 97 at home and 98.7 oral in ER tonight. In addition to pain, c/o muscle spasms. Significant swelling. MELANIA dressing not attached to vacuum. Reports unable to take NSAIDs due to prior bariatric surgery. right leg Pain Score (Numeric/FACES): 10 - Related Data Allergies/Adverse Reactions: Allergies Allergy/AdvReac Type Severity Reaction Status Date / Time amoxicillin [Amoxicillin] Allergy Hives Verified 06/28/20 20:05 erythromycin base Allergy Hives Verified 06/28/20 20:05 fexofenadine HCl Allergy Hives Verified 06/28/20 20:05 [From Jesenia] loratadine [From Claritin] Allergy Hives Verified 06/28/20 20:05 naproxen sodium [From Aleve] Allergy Hives Verified 06/28/20 20:05 tramadol Allergy Hives Verified 06/28/20 20:05 Home Medications: Home Meds Montelukast [Singulair] 10 mg PO DAILY 11/15/13 [History] lamoTRIgine [LaMICtal] 50 mg PO BID 11/15/13 [History] Lurasidone [Latuda] 40 mg PO BID 07/23/14 [History] Pantoprazole [ProTONIX] 40 mg PO DAILY 04/12/17 [History] Cetirizine [ZyrTEC] 10 mg PO DAILY 03/28/19 [History] Nortriptyline HCl [Pamelor] 25 mg PO DAILY 03/28/19 [History] Albuterol Sulfate [Proair Hfa] 2 puff INH ASDIRECTED PRN 06/18/20 [History] Benztropine Mesylate 1 tab PO BEDTIME 06/18/20 [History] Calc/D3/Mag/Zn/Last/[place] [Calcium 600 MG Plus Vit D] 1 tab PO DAILY 06/18/20 [History] Cyanocobalamin (Vitamin B-12) [Vitamin B-12] 1 tab PO ASDIRECTED 06/18/20 [History] Fluticasone Propionate [Flovent HFA 110 MCG] 2 puff INH BID 06/18/20 [History] Lactobacillus Acidophilus [Acidophilus] 1 tab PO DAILY 06/18/20 [History] Multivitamin [Multi-Vitamin Daily] 1 tab PO DAILY 06/18/20 [History] Acetaminophen/oxyCODONE [Percocet 325-5 MG] 1 - 2 tab PO Q8HR PRN #40 tablet 06/25/20 [Rx] Apixaban [Eliquis] 2.5 mg PO BID #60 tablet 06/25/20 [Rx] Cyclobenzaprine [Flexeril] 5 mg PO BEDTIME PRN #10 tab 06/25/20 [Rx] Docusate Sodium [Colace] 100 mg PO BID PRN #1 bottle 06/25/20 [Rx] Sulfamethoxazole/Trimethoprim [Bactrim Ds Tablet] 1 each PO BID 7 Days #14 tablet 06/25/20 [Rx] polyethylene glycoL 3350 [MiraLAX] 17 gm PO DAILY #1 bottle 06/25/20 [Rx] Benztropine Mesylate 0.5 mg PO BEDTIME 06/28/20 [History] Ferrous Sulfate 1 tab PO DAILY 06/28/20 [History] Meloxicam 15 mg PO DAILY 06/28/20 [History] Rosuvastatin [Crestor] 5 mg PO DAILY 06/28/20 [History] Topiramate 50 mg PO BID 06/28/20 [History] buPROPion [Wellbutrin SR] 150 mg PO DAILY 06/28/20 [History] Past Medical History HEENT History: Reports: Impaired Vision, Other (See Below) Other HEENT History: nasal reconstruction, wears glasses Cardiovascular History: Reports: High Cholesterol Respiratory History: Reports: Asthma, Sleep Apnea Gastrointestinal History: Reports: GERD Other Gastrointestinal History: states has occasional heartburn Genitourinary History: Reports: None 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: Reports: Musculoskeletal History: Reports: Arthritis, Osteoarthritis Other Musculoskeletal History: fractured left upper arm Neurological History: Reports: Migraines Psychiatric History: Reports: Anxiety, Bipolar, Depression, Other (See Below) Endocrine/Metabolic History: Reports: Obesity/BMI 30+, Other (See Below) Other Endocrine/Metabolic History: hypoglycemia Insulin Pump Model and Screw Eye Assembler: None Hematologic History: Reports: None Immunologic History: Reports: Other (See Below) Other Immunologic History: states had MRSA in 1999 after alexa surgery but since has been cleared Oncologic (Cancer) History: Reports: None Dermatologic History: Reports: None - Infectious Disease History Infectious Disease History: Reports: Chicken Pox, MRSA Other Infectious Disease History: states had chicken pox when a child; states had MRSA in 1999 after alexa surgery but since has been cleared - Past Surgical History Head Surgeries/Procedures: Reports: None HEENT Surgical History: Reports: Naso-Sinus Surgery Cardiovascular Surgical History: Reports: None Respiratory Surgical History: Reports: None GI Surgical History: Reports: Bariatric Procedure, Cholecystectomy, Other (See Below) Other GI Surgeries/Procedures: states had a laparotomy for gastric biopsy Female Surgical History: Reports: Breast Reduction, Section Endocrine Surgical History: Reports: None Neurological Surgical History: Reports: None Musculoskeletal Surgical History: Reports: Knee Replacement, Other (See Below) Other Musculoskeletal Surgeries/Procedures:: upper left arm surgery-plate left arm Oncologic Surgical History: Reports: Other (See Below) Dermatological Surgical History: Reports: None Social & Family History - Family History Family Medical History: No Pertinent Family History - Tobacco Use Tobacco Use Status *Q: Former Tobacco User Used Tobacco, but Quit: No - Caffeine Use Caffeine Use: Reports: Coffee Caffeine Use Comment: 2 cups/day - Recreational Drug Use Recreational Drug Use: No H&P Review of Systems - Review of Systems: Review Of Systems: See Below Musculoskeletal: Reports: Other (knee pain, swelling, muscle spasms) Exam - Vital Signs Vital Signs: Last Vital Signs Temp 96.8 F L 06/28/20 20:37 Pulse 99 06/28/20 20:37 Resp 20 06/28/20 20:37 BP 127/75 06/28/20 20:37 Pulse Ox 100 06/28/20 20:37 Weight: 240 lb - Exam Physical Exam Comments:: Incision intact Minimal serous drainage inferior incision Significant swelling knee and leg Ecchymosis but no sign on cellulitis - Patient Data Lab Results Last 24 hrs: Laboratory Results - last 24 hr 06/28/20 06/28/20 06/28/20 Range/Units 20:05 20:05 20:05 WBC 8.77 (4.0-11.0) K/uL RBC 3.37 L (4.30-5.90) M/uL Hgb 9.9 L (12.0-16.0) g/dL Hct 31.3 L (36.0-46.0) % MCV 92.9 (80.0-98.0) fL MCH 29.4 (27.0-32.0) pg MCHC 31.6 (31.0-37.0) g/dL RDW Std Deviation 47.4 (28.0-62.0) fl RDW Coeff of Haris 14 (11.0-15.0) % Plt Count 287 (150-400) K/uL MPV 8.60 (7.40-12.00) fL Neut % (Auto) 79.5 (48.0-80.0) % Lymph % (Auto) 10.4 L (16.0-40.0) % [place] % (Auto) 6.5 (0.0-15.0) % Eos % (Auto) 3.5 (0.0-7.0) % Baso % (Auto) 0.1 (0.0-1.5) % Neut # (Auto) 7.0 H (1.4-5.7) K/uL Lymph # (Auto) 0.9 (0.6-2.4) K/uL [place] # (Auto) 0.6 (0.0-0.8) K/uL Eos # (Auto) 0.3 (0.0-0.7) K/uL Baso # (Auto) 0.0 (0.0-0.1) K/uL Nucleated RBC % 0.0 /100WBC Nucleated RBCs # 0 K/uL ESR (0-29) mm/hr INR 1.03 Lactate 1.9 (0.20-2.00) mmol/L Sodium (136-145) mmol/L Potassium (3.5-5.1) mmol/L Chloride (98-107) mmol/L Carbon Dioxide (21.0-32.0) mmol/L BUN (7.0-18.0) mg/dL Creatinine (0.6-1.0) mg/dL Est Cr Clr Drug Dosing mL/min Estimated GFR (MDRD) ml/min Glucose (74-106) mg/dL Calcium (8.5-10.1) mg/dL Total Bilirubin (0.2-1.0) mg/dL AST (15-37) IU/L ALT (14-63) IU/L Alkaline Phosphatase (46-116) U/L Troponin I (0.000-0.056) ng/mL Total Protein (6.4-8.2) g/dL Albumin (3.4-5.0) g/dL Globulin (2.6-4.0) g/dL Albumin/Globulin Ratio (0.9-1.6) 06/28/20 06/28/20 Range/Units 20:05 20:05 WBC (4.0-11.0) K/uL RBC (4.30-5.90) M/uL Hgb (12.0-16.0) g/dL Hct (36.0-46.0) % MCV (80.0-98.0) fL MCH (27.0-32.0) pg MCHC (31.0-37.0) g/dL RDW Std Deviation (28.0-62.0) fl RDW Coeff of Haris (11.0-15.0) % Plt Count (150-400) K/uL MPV (7.40-12.00) fL Neut % (Auto) (48.0-80.0) % Lymph % (Auto) (16.0-40.0) % [place] % (Auto) (0.0-15.0) % Eos % (Auto) (0.0-7.0) % Baso % (Auto) (0.0-1.5) % Neut # (Auto) (1.4-5.7) K/uL Lymph # (Auto) (0.6-2.4) K/uL [place] # (Auto) (0.0-0.8) K/uL Eos # (Auto) (0.0-0.7) K/uL Baso # (Auto) (0.0-0.1) K/uL Nucleated RBC % /100WBC Nucleated RBCs # K/uL ESR 69 H (0-29) mm/hr INR Lactate (0.20-2.00) mmol/L Sodium 137 (136-145) mmol/L Potassium 3.6 (3.5-5.1) mmol/L Chloride 100 (98-107) mmol/L Carbon Dioxide 23.6 (21.0-32.0) mmol/L BUN 9 (7.0-18.0) mg/dL Creatinine 1.0 (0.6-1.0) mg/dL Est Cr Clr Drug Dosing 55.54 mL/min Estimated GFR (MDRD) 57.8 ml/min Glucose 150 H (74-106) mg/dL Calcium 8.7 (8.5-10.1) mg/dL Total Bilirubin 0.6 (0.2-1.0) mg/dL AST 43 H (15-37) IU/L ALT 55 (14-63) IU/L Alkaline Phosphatase 186 H (46-116) U/L Troponin I < 0.050 (0.000-0.056) ng/mL Total Protein 7.1 (6.4-8.2) g/dL Albumin 3.2 L (3.4-5.0) g/dL Globulin 3.9 (2.6-4.0) g/dL Albumin/Globulin Ratio 0.8 L (0.9-1.6) Result Diagrams: 06/28/20 20:05 06/28/20 20:05 Teddy Results Last 24 hrs: Microbiology 06/28/20 20:35 Anaerobic Blood Culture - Final Blood - Venous - Lab Draw Sepsis Event Note - Evaluation Sepsis Screening Result: No Definite Risk - Focused Exam Vital Signs: Vital Signs Temp Temp Pulse Resp BP Pulse Ox 06/28/20 20:37 98.7 F 96.8 F L 99 20 127/75 100 06/28/20 20:05 96.6 F L 110 H 18 135/62 100 Consult PN Assessment/Plan Procedures: Procedures ASSAY OF AMYLASE (05/20/15) ASSAY OF LIPASE (12/30/17) ASSAY OF MAGNESIUM (06/24/20) ASSAY OF NATRIURETIC PEPTIDE (01/26/19) ASSAY OF TROPONIN QUANT (02/26/18) ASSAY THYROID STIM HORMONE (12/06/15) CHEST X-RAY 2VW FRONTAL&LATL (05/20/15) CHORIONIC GONADOTROPIN ASSAY (04/04/15) COMPLETE CBC W/AUTO DIFF WBC (06/24/20) COMPREHEN METABOLIC PANEL (03/28/19) CT ABD & PELVIS W/O CONTRAST (12/30/17) CT HEAD/BRAIN W/O DYE (12/06/15) CT NECK SPINE W/O DYE (11/15/13) ELECTROCARDIOGRAM TRACING (02/26/18) EMERGENCY DEPT VISIT (01/29/20) EMERGENCY DEPT VISIT (03/28/19) EMERGENCY DEPT VISIT (02/18/19) EMERGENCY DEPT VISIT (03/11/18) EMERGENCY DEPT VISIT (02/26/18) EMERGENCY DEPT VISIT (02/10/18) EMERGENCY DEPT VISIT (12/30/17) EMERGENCY DEPT VISIT (12/26/17) EMERGENCY DEPT VISIT (09/03/17) EMERGENCY DEPT VISIT (06/30/17) EMERGENCY DEPT VISIT (04/12/17) EMERGENCY DEPT VISIT (12/22/16) EMERGENCY DEPT VISIT (04/08/16) EMERGENCY DEPT VISIT (12/06/15) EMERGENCY DEPT VISIT (05/20/15) EMERGENCY DEPT VISIT (04/04/15) EMERGENCY DEPT VISIT (11/15/13) EMERGENCY DEPT VISIT (11/15/13) EMERGENCY DEPT VISIT (11/15/13) EXTRACRANIAL BILAT STUDY (04/12/17) GLUCOSE BLOOD TEST (06/24/20) HEMATOCRIT (06/24/20) HEMOGLOBIN (06/24/20) HOT OR COLD PACKS THERAPY (03/18/14) HYDRATE IV INFUSION ADD-ON (03/28/19) HYDRATION IV INFUSION INIT (04/08/16) IMMUNIZATION ADMIN (12/22/16) INFLUENZA A/B AG IA (06/29/14) MANUAL THERAPY 1/> REGIONS (03/18/14) METABOLIC PANEL TOTAL CA (06/24/20) OT EVALUATION (02/06/14) PROTHROMBIN TIME (02/26/18) PT EVAL LOW COMPLEX 20 MIN (06/24/20) RANGE OF MOTION MEASUREMENTS (03/18/14) RANGE OF MOTION MEASUREMENTS (03/05/14) ROUTINE VENIPUNCTURE (06/24/20) SARS-COV2 COVID-19 AMP PRB (06/22/20) SMEAR WET [place] SALINE/INK (04/04/15) TDAP VACCINE 7 YRS/> IM (12/22/16) THER/PROPH/DIAG INJ IV PUSH (03/28/19) THER/PROPH/DIAG INJ SC/IM (06/30/17) THERAPEUTIC ACTIVITIES (06/24/20) THERAPEUTIC EXERCISES (03/18/14) TX/PRO/DX INJ NEW DRUG ADDON (02/10/18) TX/PRO/DX INJ SAME DRUG ORACLE FUSION MIDDLEWARE ARCHITECT (12/30/17) URINALYSIS AUTO W/O SCOPE (02/18/19) URINALYSIS AUTO W/SCOPE (03/28/19) URINE CULTURE/COLONY COUNT (12/26/17) URINE TEST (02/10/18) X-RAY EXAM CHEST 1 VIEW (02/26/18) X-RAY EXAM KNEE 4 OR MORE (09/24/19) X-RAY EXAM OF ABDOMEN (05/20/15) X-RAY EXAM OF HAND (01/20/14) X-RAY EXAM OF KNEE 3 (08/17/19) X-RAY EXAM OF SHOULDER (06/30/17) X-RAY EXAM OF WRIST (11/15/13) Problem List Initiated/Reviewed/Updated: Yes Plan: Discussed with Dr. Falcon Given normal WBC 8.77 and afebrile, no evidence of infection US negative, no DVT Oxycocone for pain (rx written by me) Hydroxyzine for muscle spasms DC MELANIA and switch to Aquacel dressing 4" and 6" Mateusz wraps foot to thigh Discussed discharge to home with patient and she feels this is possible with hydroxyzine Keflex 500 mg qid x 1 week Follow-up with Dr. Falcon on June 30 in clinic
--- NOTE | 2020-06-28 21:48 | US ---
INDICATION: Right leg pain. Edema COMPARISON: None. TECHNIQUE: A compression venous ultrasound exam was performed of the right lower extremity using dixon-scale imaging, color Doppler and spectral Doppler analysis. FINDINGS: Sonographic imaging of the right lower extremity demonstrates normal compressibility and color Doppler venous blood flow within the common femoral vein, deep femoral vein, and the proximal greater saphenous vein. Within the thigh, the femoral vein is patent and compressible. At a lower level, the popliteal and posterior tibial veins also show normal compressibility and color Doppler venous blood flow. Limited exam due to patient`s inability to cooperate, Limited imaging of the contralateral groin demonstrates a normal spectral waveform and color Doppler venous blood flow within the left common femoral vein. IMPRESSION: Normal venous ultrasound exam. No evidence of deep vein thrombosis within the right lower extremity. Dictated by Melly Darby MD @ Jun 28 2020 9:34PM Signed by Dr. Melly Darby @ Jun 28 2020 9:45PM
[2020-06-28 23:40] VITALS: BP 129/81; PULSE 98
== END 2020-06-28 23:30 | disposition home or self-care (01) ==
LOC: MW.ED 20:04
DX: G89.18 Other acute postprocedural pain (principal); E11.9 Type 2 diabetes mellitus without complications; F31.9 Bipolar disorder, unspecified; J45.909 Unspecified asthma, uncomplicated; F41.9 Anxiety disorder, unspecified; E78.00 Pure hypercholesterolemia, unspecified; K21.9 Gastro-esophageal reflux disease without esophagitis; M19.90 Unspecified osteoarthritis, unspecified site; E66.9 Obesity, unspecified; Z68.41 Body mass index [BMI] 40.0-44.9, adult; Z96.651 Presence of right artificial knee joint; Z79.01 Long term (current) use of anticoagulants; Z79.899 Other long term (current) drug therapy; Z88.1 Allergy status to other antibiotic agents; Z88.8 Allergy status to other drugs, medicaments and biological substances; Z88.5 Allergy status to narcotic agent
CPT/HCPCS: 36415; 73560; 80053; 83605; 84484; 85025; 85610; 85652; 86140; 87040; 93971; 96365; 96367; 96375; 96376; 99284; J0696; J3010; J3370; J7030; 99283

== ENCOUNTER 2021-04-16 22:54 | Emergency (ER) | payer MEDICAID ==
[2021-04-16] MEDS ORDERED: Sodium Chloride 0.9% 10 ML Syringe FLUSH PRN (23:01)
[2021-04-16] MEDS ORDERED: Lactated Ringers 1,000 ML IV ONE (23:01)
[2021-04-16] MEDS ORDERED: Sodium Chloride 0.9% 2.5 ML Syringe FLUSH PRN (23:01)
--- NOTE | 2021-04-16 23:18 | EDM.PDOC ---
ED HPI GENERAL MEDICAL PROBLEM - General Chief Complaint: Behavioral/Psych Stated Complaint: EMS Time Seen by Provider: 04/16/21 23:00 Source of Information: Reports: Patient, EMS History Limitations: Reports: No Limitations - History of Present Illness INITIAL COMMENTS - FREE TEXT/NARRATIVE: 56-year-old female with history of bipolar disorder, and diabetes, hypoglycemia, UTI, anxiety was brought in by EMS after the son called stating that she was hallucinating. Her son states that over the past 2 to 3 days she has been acting bizarre, she threw a glass against the wall, she refused to eat and refused to sleep, and she also peed on herself. Her blood glucose = 99 in the ER. She denies trauma, fever, chills, vomiting or diarrhea, chest pain, shortness of breath, abdominal pain, headache, SI/HI/VH/AH. ROS: A 10-point review of systems, other than pertinent positives and negatives as stated per HPI, is otherwise negative Past medical history: No additional pertinent history Past Surgical history: No additional pertinent history Social history: No additional pertinent history Family history: No additional pertinent history PHYSICAL EXAM General: AOx4, GCS = 15, No distress HEENT: dry mucous membrane Neck: supple, no meningismus, no Kernig or Brudzinski Cardiac: S1S2 RRR Respiratory: CTAB, no crackles or rales, no wheezing Abdomen: Soft, nontender, no rebound or guarding, nondistended, no pulsatile mass. Back: nontender Musculoskeletal: NVI distally, no deformity Neuro: No focal deficits, CN 2 - 12 WNL. Psychiatric: No SI or HI or hallucination. - Related Data Allergies Allergy/AdvReac Type Severity Reaction Status Date / Time amoxicillin [Amoxicillin] Allergy Hives Verified 04/16/21 22:57 erythromycin base Allergy Hives Verified 04/16/21 22:57 fexofenadine HCl Allergy Hives Verified 04/16/21 22:57 [From Jesenia] loratadine [From Claritin] Allergy Hives Verified 04/16/21 22:57 naproxen sodium [From Aleve] Allergy Hives Verified 04/16/21 22:57 tramadol Allergy Hives Verified 04/16/21 22:57 Home Meds: Home Meds Montelukast [Singulair] 10 mg PO DAILY 11/15/13 [History] lamoTRIgine [LaMICtal] 50 mg PO BID 11/15/13 [History] Lurasidone [Latuda] 40 mg PO BID 07/23/14 [History] Pantoprazole [ProTONIX] 40 mg PO DAILY 04/12/17 [History] Cetirizine [ZyrTEC] 10 mg PO DAILY 03/28/19 [History] Nortriptyline HCl [Pamelor] 25 mg PO DAILY 03/28/19 [History] Albuterol Sulfate [Proair Hfa] 2 puff INH ASDIRECTED PRN 06/18/20 [History] Benztropine Mesylate 1 tab PO BEDTIME 06/18/20 [History] Calc/D3/Mag/Zn/Last/[place] [Calcium 600 MG Plus Vit D] 1 tab PO DAILY [History] Cyanocobalamin (Vitamin B-12) [Vitamin B-12] 1 tab PO ASDIRECTED 06/18/20 [History] Fluticasone Propionate [Flovent HFA 110 MCG] 2 puff INH BID 06/18/20 [History] Lactobacillus Acidophilus [Acidophilus] 1 tab PO DAILY 06/18/20 [History] Multivitamin [Multi-Vitamin Daily] 1 tab PO DAILY 06/18/20 [History] Acetaminophen/oxyCODONE [Percocet 325-5 MG] 1 - 2 tab PO Q8HR PRN #40 tablet 06/25/20 [Rx] Apixaban [Eliquis] 2.5 mg PO BID #60 tablet 06/25/20 [Rx] Cyclobenzaprine [Flexeril] 5 mg PO BEDTIME PRN #10 tab 06/25/20 [Rx] Docusate Sodium [Colace] 100 mg PO BID PRN #1 bottle 06/25/20 [Rx] Sulfamethoxazole/Trimethoprim [Bactrim Ds Tablet] 1 each PO BID 7 Days #14 tablet 06/25/20 [Rx] polyethylene glycoL 3350 [MiraLAX] 17 gm PO DAILY #1 bottle 06/25/20 [Rx] Benztropine Mesylate 0.5 mg PO BEDTIME 06/28/20 [History] Ferrous Sulfate 1 tab PO DAILY 06/28/20 [History] Meloxicam 15 mg PO DAILY 06/28/20 [History] Rosuvastatin [Crestor] 5 mg PO DAILY 06/28/20 [History] Topiramate 50 mg PO BID 06/28/20 [History] buPROPion [Wellbutrin SR] 150 mg PO DAILY 06/28/20 [History] cephALEXin [Cephalexin] 500 mg PO QID 10 Days #40 capsule 06/28/20 [Rx] hydrOXYzine HCL [Atarax] 25 mg PO Q6H PRN #20 tab 06/28/20 [Rx] Past Medical History HEENT History: Reports: Impaired Vision, Other (See Below) Other HEENT History: nasal reconstruction, wears glasses Cardiovascular History: Reports: High Cholesterol Respiratory History: Reports: Asthma, Sleep Apnea Gastrointestinal History: Reports: GERD Other Gastrointestinal History: states has occasional heartburn Genitourinary History: Reports: None ACADEMIC ADMINISTRATOR History: Reports: Musculoskeletal History: Reports: Arthritis, Osteoarthritis Other Musculoskeletal History: fractured left upper arm Neurological History: Reports: Migraines Psychiatric History: Reports: Anxiety, Bipolar, Depression, Other (See Below) Endocrine/Metabolic History: Reports: Obesity/BMI 30+, Other (See Below) Other Endocrine/Metabolic History: hypoglycemia Insulin Pump Model and Dba Manager: None Hematologic History: Reports: None Immunologic History: Reports: Other (See Below) Other Immunologic History: states had MRSA in 1999 after alexa surgery but since has been cleared Oncologic (Cancer) History: Reports: None Dermatologic History: Reports: None - Infectious Disease History Infectious Disease History: Reports: Chicken Pox, MRSA Other Infectious Disease History: states had chicken pox when a child; states had MRSA in 1999 after alexa surgery but since has been cleared - Past Surgical History Head Surgeries/Procedures: Reports: None HEENT Surgical History: Reports: Naso-Sinus Surgery Cardiovascular Surgical History: Reports: None Respiratory Surgical History: Reports: None GI Surgical History: Reports: Bariatric Procedure, Cholecystectomy, Other (See Below) Other GI Surgeries/Procedures: states had a laparotomy for gastric biopsy Female Surgical History: Reports: Breast Reduction, Section Endocrine Surgical History: Reports: None Neurological Surgical History: Reports: None Musculoskeletal Surgical History: Reports: Knee Replacement, Other (See Below) Other Musculoskeletal Surgeries/Procedures:: upper left arm surgery-plate left arm Oncologic Surgical History: Reports: Other (See Below) Dermatological Surgical History: Reports: None Social & Family History - Family History Family Medical History: No Pertinent Family History - Caffeine Use Caffeine Use: Reports: Coffee Caffeine Use Comment: 2 cups/day ED ROS GENERAL - Review of Systems Review Of Systems: See Below (see dictation) ED EXAM, GENERAL - Physical Exam Exam: See Below (see dictation) #1 Interpretation EKG Interpretation Comments: Heart rate = 102 bpm, sinus tachycardia, normal QRS interval, QTc 543, no STEMI. EKG and rhythm strip interpreted by me at 2307 Course - Vital Signs Last Recorded V/S: Last Vital Signs Temp 96.8 F L 04/16/21 22:55 Pulse 88 04/17/21 04:43 Resp 18 04/17/21 04:43 BP 144/77 H 04/17/21 04:43 Pulse Ox 97 04/17/21 04:43 - Orders/Labs/Meds Orders: Active Orders 24 hr Category Date Time Status Cardiac Monitoring [RC] . DIRECTED Care 04/16/21 23:01 Active Pulse Oximetry [RC] ASDIRECTED Care 04/16/21 23:01 Active PROCALCITONIN [REF] Stat Lab 04/16/21 23:44 Received Sodium Chloride 0.9% [Saline Flush] Med 04/16/21 23:01 Active 10 ml FLUSH ASDIRECTED PRN Sodium Chloride 0.9% [Saline Flush] Med 04/16/21 23:01 Active 2.5 ml FLUSH ASDIRECTED PRN Saline Lock Insert [OM.PC] Stat Oth 04/16/21 23:02 Ordered Medication Orders Sodium Chloride (Sodium Chloride 0.9% 10 Ml Syringe) 10 ml FLUSH ASDIRECTED PRN PRN Reason: Keep Vein Open Sodium Chloride (Sodium Chloride 0.9% 2.5 Ml Syringe) 2.5 ml FLUSH ASDIRECTED PRN PRN Reason: Keep Vein Open Labs: Laboratory Tests 04/16/21 04/16/21 04/16/21 Range/Units 23:03 23:20 23:44 WBC (4.0-11.0) K/uL RBC (4.30-5.90) M/uL Hgb (12.0-16.0) g/dL Hct (36.0-46.0) % MCV (80.0-98.0) fL MCH (27.0-32.0) pg MCHC (31.0-37.0) g/dL RDW Std Deviation (28.0-62.0) fl RDW Coeff of Haris (11.0-15.0) % Plt Count (150-400) K/uL MPV (7.40-12.00) fL Neut % (Auto) (48.0-80.0) % Lymph % (Auto) (16.0-40.0) % [place] % (Auto) (0.0-15.0) % Eos % (Auto) (0.0-7.0) % Baso % (Auto) (0.0-1.5) % Neut # (Auto) (1.4-5.7) K/uL Lymph # (Auto) (0.6-2.4) K/uL [place] # (Auto) (0.0-0.8) K/uL Eos # (Auto) (0.0-0.7) K/uL Baso # (Auto) (0.0-0.1) K/uL Nucleated RBC % /100WBC Nucleated RBCs # K/uL INR APTT (18.6-31.3) SEC Sodium 141 (136-145) mmol/L Potassium 3.8 (3.5-5.1) mmol/L Chloride 104 (98-107) mmol/L Carbon Dioxide 24.4 (21.0-32.0) mmol/L BUN 9 (7.0-18.0) mg/dL Creatinine 0.9 (0.6-1.0) mg/dL Est Cr Clr Drug Dosing 66.12 mL/min Estimated GFR (MDRD) > 60.0 ml/min Glucose 120 H (74-106) mg/dL POC Glucose 99 (70-99) mg/dL Lactic Acid (0.4-2.0) mmol/L Calcium 8.2 L (8.5-10.1) mg/dL Phosphorus 3.1 (2.6-4.7) mg/dL Magnesium 1.8 (1.8-2.4) mg/dL Total Bilirubin 0.4 (0.2-1.0) mg/dL AST 32 (15-37) IU/L ALT 36 (14-63) IU/L Alkaline Phosphatase 153 H (46-116) U/L Ammonia (19-54) ug/dL Troponin I < 0.050 (0.000-0.056) ng/mL Total Protein 6.6 (6.4-8.2) g/dL Albumin 3.5 (3.4-5.0) g/dL Globulin 3.1 (2.6-4.0) g/dL Albumin/Globulin Ratio 1.1 (0.9-1.6) TSH, Ultra Sensitive 2.03 (0.36-3.74) uIU/mL Urine Color Urine Appearance Urine pH (5.0-8.0) Ur Specific [place] (1.001-1.035) Urine Protein (NEGATIVE) mg/dL Urine Glucose (UA) (NEGATIVE) mg/dL Urine Ketones (NEGATIVE) mg/dL Urine Occult Blood (NEGATIVE) Urine Nitrite (NEGATIVE) Urine Bilirubin (NEGATIVE) Urine Urobilinogen (<2.0) EU/dL Ur Leukocyte Esterase (NEGATIVE) Urine Opiates Screen (NEGATIVE) Ur Oxycodone Screen (NEGATIVE) Urine Methadone Screen (NEGATIVE) Ur Barbiturates Screen (NEGATIVE) Ur Phencyclidine Scrn (NEGATIVE) Ur Amphetamine Screen (NEGATIVE) U Methamphetamines Scrn (NEGATIVE) U Benzodiazepines Scrn (NEGATIVE) U Cocaine Metab Screen (NEGATIVE) U Marijuana (THC) Screen (NEGATIVE) Ethyl Alcohol < 3.0 mg/dL SARS-CoV-2 RNA (GIOVANNA) NEGATIVE (NEGATIVE) 04/16/21 04/16/21 04/16/21 Range/Units 23:44 23:44 23:44 WBC 7.52 (4.0-11.0) K/uL RBC 3.97 L (4.30-5.90) M/uL Hgb 12.1 (12.0-16.0) g/dL Hct 36.9 (36.0-46.0) % MCV 92.9 (80.0-98.0) fL MCH 30.5 (27.0-32.0) pg MCHC 32.8 (31.0-37.0) g/dL RDW Std Deviation 46.7 (28.0-62.0) fl RDW Coeff of Haris 14 (11.0-15.0) % Plt Count 279 (150-400) K/uL MPV 9.20 (7.40-12.00) fL Neut % (Auto) 72.6 (48.0-80.0) % Lymph % (Auto) 16.8 (16.0-40.0) % [place] % (Auto) 8.8 (0.0-15.0) % Eos % (Auto) 1.7 (0.0-7.0) % Baso % (Auto) 0.1 (0.0-1.5) % Neut # (Auto) 5.5 (1.4-5.7) K/uL Lymph # (Auto) 1.3 (0.6-2.4) K/uL [place] # (Auto) 0.7 (0.0-0.8) K/uL Eos # (Auto) 0.1 (0.0-0.7) K/uL Baso # (Auto) 0.0 (0.0-0.1) K/uL Nucleated RBC % 0.0 /100WBC Nucleated RBCs # 0 K/uL INR 1.07 APTT 28.1 (18.6-31.3) SEC Sodium (136-145) mmol/L Potassium (3.5-5.1) mmol/L Chloride (98-107) mmol/L Carbon Dioxide (21.0-32.0) mmol/L BUN (7.0-18.0) mg/dL Creatinine (0.6-1.0) mg/dL Est Cr Clr Drug Dosing mL/min Estimated GFR (MDRD) ml/min Glucose (74-106) mg/dL POC Glucose (70-99) mg/dL Lactic Acid 1.3 (0.4-2.0) mmol/L Calcium (8.5-10.1) mg/dL Phosphorus (2.6-4.7) mg/dL Magnesium (1.8-2.4) mg/dL Total Bilirubin (0.2-1.0) mg/dL AST (15-37) IU/L ALT (14-63) IU/L Alkaline Phosphatase (46-116) U/L Ammonia (19-54) ug/dL Troponin I (0.000-0.056) ng/mL Total Protein (6.4-8.2) g/dL Albumin (3.4-5.0) g/dL Globulin (2.6-4.0) g/dL Albumin/Globulin Ratio (0.9-1.6) TSH, Ultra Sensitive (0.36-3.74) uIU/mL Urine Color Urine Appearance Urine pH (5.0-8.0) Ur Specific [place] (1.001-1.035) Urine Protein (NEGATIVE) mg/dL Urine Glucose (UA) (NEGATIVE) mg/dL Urine Ketones (NEGATIVE) mg/dL Urine Occult Blood (NEGATIVE) Urine Nitrite (NEGATIVE) Urine Bilirubin (NEGATIVE) Urine Urobilinogen (<2.0) EU/dL Ur Leukocyte Esterase (NEGATIVE) Urine Opiates Screen (NEGATIVE) Ur Oxycodone Screen (NEGATIVE) Urine Methadone Screen (NEGATIVE) Ur Barbiturates Screen (NEGATIVE) Ur Phencyclidine Scrn (NEGATIVE) Ur Amphetamine Screen (NEGATIVE) U Methamphetamines Scrn (NEGATIVE) U Benzodiazepines Scrn (NEGATIVE) U Cocaine Metab Screen (NEGATIVE) U Marijuana (THC) Screen (NEGATIVE) Ethyl Alcohol mg/dL SARS-CoV-2 RNA (GIOVANNA) (NEGATIVE) 04/16/21 04/17/21 04/17/21 Range/Units 23:44 02:11 02:11 WBC (4.0-11.0) K/uL RBC (4.30-5.90) M/uL Hgb (12.0-16.0) g/dL Hct (36.0-46.0) % MCV (80.0-98.0) fL MCH (27.0-32.0) pg MCHC (31.0-37.0) g/dL RDW Std Deviation (28.0-62.0) fl RDW Coeff of Haris (11.0-15.0) % Plt Count (150-400) K/uL MPV (7.40-12.00) fL Neut % (Auto) (48.0-80.0) % Lymph % (Auto) (16.0-40.0) % [place] % (Auto) (0.0-15.0) % Eos % (Auto) (0.0-7.0) % Baso % (Auto) (0.0-1.5) % Neut # (Auto) (1.4-5.7) K/uL Lymph # (Auto) (0.6-2.4) K/uL [place] # (Auto) (0.0-0.8) K/uL Eos # (Auto) (0.0-0.7) K/uL Baso # (Auto) (0.0-0.1) K/uL Nucleated RBC % /100WBC Nucleated RBCs # K/uL INR APTT (18.6-31.3) SEC Sodium (136-145) mmol/L Potassium (3.5-5.1) mmol/L Chloride (98-107) mmol/L Carbon Dioxide (21.0-32.0) mmol/L BUN (7.0-18.0) mg/dL Creatinine (0.6-1.0) mg/dL Est Cr Clr Drug Dosing mL/min Estimated GFR (MDRD) ml/min Glucose (74-106) mg/dL POC Glucose (70-99) mg/dL Lactic Acid (0.4-2.0) mmol/L Calcium (8.5-10.1) mg/dL Phosphorus (2.6-4.7) mg/dL Magnesium (1.8-2.4) mg/dL Total Bilirubin (0.2-1.0) mg/dL AST (15-37) IU/L ALT (14-63) IU/L Alkaline Phosphatase (46-116) U/L Ammonia <17 L (19-54) ug/dL Troponin I (0.000-0.056) ng/mL Total Protein (6.4-8.2) g/dL Albumin (3.4-5.0) g/dL Globulin (2.6-4.0) g/dL Albumin/Globulin Ratio (0.9-1.6) TSH, Ultra Sensitive (0.36-3.74) uIU/mL Urine Color YELLOW Urine Appearance CLEAR Urine pH 6.5 (5.0-8.0) Ur Specific [place] <= 1.005 (1.001-1.035) Urine Protein NEGATIVE (NEGATIVE) mg/dL Urine Glucose (UA) NEGATIVE (NEGATIVE) mg/dL Urine Ketones 15 H (NEGATIVE) mg/dL Urine Occult Blood NEGATIVE (NEGATIVE) Urine Nitrite NEGATIVE (NEGATIVE) Urine Bilirubin NEGATIVE (NEGATIVE) Urine Urobilinogen 0.2 (<2.0) EU/dL Ur Leukocyte Esterase NEGATIVE (NEGATIVE) Urine Opiates Screen NEGATIVE (NEGATIVE) Ur Oxycodone Screen NEGATIVE (NEGATIVE) Urine Methadone Screen NEGATIVE (NEGATIVE) Ur Barbiturates Screen NEGATIVE (NEGATIVE) Ur Phencyclidine Scrn NEGATIVE (NEGATIVE) Ur Amphetamine Screen NEGATIVE (NEGATIVE) U Methamphetamines Scrn NEGATIVE (NEGATIVE) U Benzodiazepines Scrn NEGATIVE (NEGATIVE) U Cocaine Metab Screen NEGATIVE (NEGATIVE) U Marijuana (THC) Screen NEGATIVE (NEGATIVE) Ethyl Alcohol mg/dL SARS-CoV-2 RNA (GIOVANNA) (NEGATIVE) Meds: Medications Generic Name Dose Route Start Last Admin Trade Name Freq PRN Reason Stop Dose Admin Sodium Chloride 10 ml 04/16/21 23:01 Sodium Chloride 0.9% 10 Ml Syringe FLUSH ASDIRECTED PRN Keep Vein Open Sodium Chloride 2.5 ml 04/16/21 23:01 Sodium Chloride 0.9% 2.5 Ml Syringe FLUSH ASDIRECTED PRN Keep Vein Open Discontinued Medications Generic Name Dose Route Start Last Admin Trade Name Freq PRN Reason Stop Dose Admin Lactated Ringer's 1,000 mls @ 999 mls/hr 04/16/21 23:01 04/16/21 23:17 Ringers, Lactated IV 04/17/21 00:01 999 mls/hr .BOLUS ONE Administration Lorazepam 1 mg 04/16/21 23:23 04/16/21 23:24 Lorazepam 2 Mg/Ml Sdv IVPUSH 04/16/21 23:24 1 mg ONETIME ONE Administration Lorazepam Confirm 04/16/21 23:22 04/17/21 00:09 Lorazepam 2 Mg/Ml Sdv Administered 04/16/21 23:23 Not Given Dose 2 mg .ROUTE .[facility] - Re-Assessments/Exams Free Text/Narrative Re-Assessment/Exam: 04/17/21 05:53 After prolonged observation in the ER, the patient improved and is currently stable for discharge. I performed a repeat exam and did not appreciate new ab normal findings. She denies headache, focal numbness or weakness, auditory or visual hallucination, suicidal or homicidal ideation. She is calm and easily redirectable. I do not suspect need for psychiatric hold. Patient exhibits normal vital signs and has a normal gait on road test. I advised the patient to return to the ER for reevaluation if symptoms worsened, including fever, worsening pain, or any other worrisome symptoms. Patient already has an appointment to follow-up with [facility] with her therapist on Monday at 1:30 PM. MEDICAL DECISION MAKING: I reviewed the patients past medical records, lab and radiographic findings. I discussed the case with the patient. My differential diagnosis included: Electrolyte abnormality, delirium, psychosis, hypoglycemia. Electrolytes were unremarkable, patient was not hypoglycemic, no uremia. TSH unremarkable, do not suspect thyroid storm or thyrotoxicosis. CT head unremarkable, no space-occupying lesion or signs of infarct. UA unremarkable for UTI. Urine drug screen unremarkable. She was not intoxicated. I do not suspect organic cause for her chief complaint. Upon recheck after prolonged observation, patient is lucid and calmly communicative with no hallucinations or suicidal or homicidal ideations. I do not suspect need for psychiatric hold. I think she is stable for outpatient follow-up with her therapist. She already has an appointment scheduled for Monday at 1:30 PM with [facility]. Departure - Departure Time of Disposition: 05:52 Disposition: Home, Self-Care 01 Condition: Good Clinical Impression: Bipolar disease, manic - Discharge Information *PRESCRIPTION DRUG MONITORING PROGRAM REVIEWED*: Not Applicable *COPY OF PRESCRIPTION DRUG MONITORING REPORT IN PATIENT [place]: Not Applicable Instructions: Managing Bipolar Disorder, [place] Referrals: Zully Oseguera NP [Ordering Only Provider] - 04/19/21 Forms: ED Department Discharge Additional Instructions: The need for follow-up, as well as the timing and circumstances, are variable depending upon the specifics of your emergency department visit. If you don't have a primary care physician on staff, we will provide you with a referral. We always advise you to contact your personal physician following an emergency department visit to inform them of the circumstance of the visit and for follow-up with them and/or the need for any referrals to a consulting specialist. The emergency department will also refer you to a specialist when appropriate. This referral assures that you have the opportunity for follow-up care with a specialist. All of these measure are taken in an effort to provide you with optimal care, which includes your follow-up. Under all circumstances we always encourage you to contact your private phys ician who remains a resource for coordinating your care. When calling for follow-up care, please make the office aware that this follow-up is from your recent emergency room visit. If for any reason you are refused follow-up, please contact the [facility] Emergency Department at and asked to speak to the emergency department charge nurse. Please follow-up with Zully Oseguera, your psychiatric nurse practitioner on Monday as previously appointed. If you do not have a primary care doctor, please follow up with the clinics below within 3-5 days. [facility] - Primary Care [address] [place] [id number] [address] Sepsis Event Note (ED) - Focused Exam Vital Signs: Vital Signs Temp Pulse Resp BP Pulse Ox 04/17/21 04:43 88 18 144/77 H 97 04/17/21 00:50 81 16 119/55 L 93 L 04/16/21 22:55 96.8 F L 73 18 138/73 98 - My Orders Last 24 Hours: My Active Orders 04/16/21 23:01 Cardiac Monitoring [RC] . DIRECTED Pulse Oximetry [RC] ASDIRECTED Sodium Chloride 0.9% [Saline Flush] 10 ml FLUSH ASDIRECTED PRN Sodium Chloride 0.9% [Saline Flush] 2.5 ml FLUSH ASDIRECTED PRN 04/16/21 23:02 Saline Lock Insert [OM.PC] Stat 04/16/21 23:44 PROCALCITONIN [REF] Stat - Assessment/Plan Last 24 Hours: My Active Orders 04/16/21 23:01 Cardiac Monitoring [RC] . DIRECTED Pulse Oximetry [RC] ASDIRECTED Sodium Chloride 0.9% [Saline Flush] 10 ml FLUSH ASDIRECTED PRN Sodium Chloride 0.9% [Saline Flush] 2.5 ml FLUSH ASDIRECTED PRN 04/16/21 23:02 Saline Lock Insert [OM.PC] Stat 04/16/21 23:44 PROCALCITONIN [REF] Stat
[2021-04-16] MEDS ORDERED: LORazepam 2 MG/ML SDV ONE (23:22)
[2021-04-16] MEDS ORDERED: LORazepam 2 MG/ML SDV IVPUSH ONE (23:23)
[2021-04-17 00:44] LABS: BLOOD UREA NITROGEN,BUN 9 mg/dL (7.0-18.0); CARBON DIOXIDE,CO2 24.4 mmol/L (21.0-32.0); CHLORIDE,CL 104 mmol/L (98-107); GLUCOSE RANDOM 120 mg/dL (74-106); POTASSIUM,K 3.8 mmol/L (3.5-5.1); SODIUM,NA 141 mmol/L (136-145)
--- NOTE | 2021-04-17 01:23 | CT ---
INDICATION: Transient alteration of awareness TECHNIQUE: CT Head without i.v. contrast. Coronal and sagittal reformats were obtained. COMPARISON: 12/06/2015 FINDINGS: CSF space: The ventricles are normal for age. Brain: No evidence of mass, acute infarction or hemorrhage is seen. No mass-effect or midline shift is seen. The brain parenchyma is otherwise normal in appearance with preservation of the dixon-white matter junction. Calvarium: Mucosal thickening is seen in the maxillary sinuses bilaterally with a small right maxillary sinus air-fluid level seen. Bilateral nasal antral windows are noted. The mastoid air cells are clear. The visualized orbits are grossly unremarkable. The calvarium is unremarkable in appearance with no fractures identified. IMPRESSION: 1. No evidence of acute infarction, intracranial hemorrhage, or mass-effect seen. Dictated by Salvatore Myles MD @ 04/17/2021 1:20:37 AM Please note that all CT scans at this facility use dose modulation, iterative reconstruction, and/or weight-based dosing when appropriate to reduce radiation dose to as low as reasonably achievable. Dictated by: Salvatore Myles MD @ 04/17/2021 01:20:41 (Electronically Signed)
[2021-04-17 04:44] VITALS: BP 144/77; PULSE 88
--- NOTE | 2021-04-17 05:11 | CR ---
Indication: Chest pain Technique: Chest 1 view Comparison: February 26, 2018 Findings/Impression: Cardiovascular and mediastinum: Heart size and vasculature are normal in caliber and appearance. Mediastinum is within normal limits. Lungs and pleural space: Lungs are clear. No sign of infiltrate or mass. No sign of pleural effusion. No pneumothorax. Bones and soft tissues: No significant findings. Dictated by Zoe Cantu MD @ 04/17/2021 5:09:06 AM (Electronically Signed)
== END 2021-04-17 08:34 | disposition home or self-care (01) ==
LOC: MW.ED 22:54
DX: F31.9 Bipolar disorder, unspecified (principal); E78.00 Pure hypercholesterolemia, unspecified; J45.909 Unspecified asthma, uncomplicated; K21.9 Gastro-esophageal reflux disease without esophagitis; M19.90 Unspecified osteoarthritis, unspecified site; E11.9 Type 2 diabetes mellitus without complications; R00.0 Tachycardia, unspecified; E66.9 Obesity, unspecified; Z68.25 Body mass index [BMI] 25.0-25.9, adult; Z88.0 Allergy status to penicillin; Z88.1 Allergy status to other antibiotic agents; Z88.5 Allergy status to narcotic agent; Z88.8 Allergy status to other drugs, medicaments and biological substances; Z79.01 Long term (current) use of anticoagulants; Z79.899 Other long term (current) drug therapy; Z20.822 Contact with and (suspected) exposure to COVID-19
CPT/HCPCS: 36415; 70450; 71045; 80053; 80305; 80307; 81003; 82140; 82947; 83605; 83735; 84100; 84145; 84443; 84484; 85025; 85610; 85730; 87635; 93005; 96374; 99285; J2060; J7120; U0002

== ENCOUNTER 2021-04-17 16:39 | Emergency (ER) | payer MEDICAID ==
[2021-04-17] MEDS ORDERED: Haloperidol Lactate 5 MG/ML SDV IM ONE ×2 (17:39→18:47)
[2021-04-17] MEDS ORDERED: diphenhydrAMINE 50 MG/ML SDV IVPUSH ONE (17:41)
[2021-04-17] MEDS ORDERED: LORazepam 2 MG/ML SDV IVPUSH ONE ×3 (17:41→19:54)
--- NOTE | 2021-04-17 17:45 | EDM.PDOC ---
ED HPI GENERAL MEDICAL PROBLEM - General Chief Complaint: Behavioral/Psych Stated Complaint: EMS ARRIVAL Time Seen by Provider: 04/17/21 16:51 - History of Present Illness INITIAL COMMENTS - FREE TEXT/NARRATIVE: History of present illness: [] The patient says she feels all right. However she does say that she was brought by her family because they think she is crazy and may call the police on her. They want to listen to her when she wants to get up to go to the bathroom and she says the yell at her. Therefore she does not get up. She urinates on herself. She says she supposed to go to a wedding tonight casually mentions that it is her wedding she is marrying a dayanara named Robinson. Patient says the family will not let her go to the wedding. She is angry with them. She denies being harmful to them or anyone else. She nonchalantly listens to the description of her self is having wet her pants and says that is because people do not want her to get up to go to the bathroom. She denies that she has any loss of control. I spoke with Du the son. He said that she is acting somewhat bizarre and urinating on herself. He said when she had psychiatric problems in the past this happened. Day after tomorrow she has an appointment to [facility] for psychiatric evaluation and follow-up care. The family is uncomfortable taking care of her because of her bizarre behavior now. The son Du says he knows the dayanara Robinson. He does not think Robinson is quite right either. He does not know how reliable either them are. He cannot flat out the night if they must have been planning to get but apparently did not have any plans to actually go through with the process properly. The patient says she is urinated on herself and her psychiatric conditions out of control and he thinks it is attention-getting. The patient came in last night was worked up by my partner and after observation in the emergency room her behavior became normal. Her CT was unremarkable. Her urinalysis failed to show any infection. Review of systems: As per history of present illness and below otherwise all systems reviewed and negative. Past medical history: As per history of present illness and as reviewed below otherwise noncontributory. Surgical history: As per history of present illness and as reviewed below otherwise noncontributory. Social history: No reported history of drug or alcohol abuse. Family history: As per history of present illness and as reviewed below otherwise noncontributory. Physical exam: Constitutional - well developed, well-nourished and in no acute distress HEENT - normocephalic, no evidence of trauma - external nose and mouth normal - no mass in neck and no JVD - mucosae moist EYES - full EOM, PERRL, no icterus - no evidence of inflammation, injection, or drainage Respiratory - no respiratory distress, equal bilateral expansion, lungs clear to auscultation and no abnormal lung sounds Cardiovascular - Regular Rhythm with S1 and S2 appreciated and no murmur, gallop or rub. GI - abdomen soft without distension or organomegaly - normal bowel sounds - no guard or rebound Musculoskeletal no gross deformity of long bones or joints - no tenderness, swe lling or edema Neurologic - Alert and oriented times four - CN II-XII grossly intact - motor sensory and coordination symmetrically normal Psychiatric -nonchalant about her circumstances and flat affect with normal thought content except for the fact that I cannot verify with the family any plans that she really had to get or that anyone is actually yelling at her keeping her in bed. Hematologic - No petechiae or purpura - mucosa appropriate color and sclera not pale - normal nail bed color and refill Integument - no rash or evidence of trauma - normal turgor Diagnostics: [] Therapeutics: [] Impression: [] Plan: [] Definitive disposition and diagnosis as appropriate pending reevaluation and review of above. - Related Data Allergies Allergy/AdvReac Type Severity Reaction Status Date / Time amoxicillin [Amoxicillin] Allergy Hives Verified 04/16/21 22:57 erythromycin base Allergy Hives Verified 04/16/21 22:57 fexofenadine HCl Allergy Hives Verified 04/16/21 22:57 [From Jesenia] loratadine [From Claritin] Allergy Hives Verified 04/16/21 22:57 naproxen sodium [From Aleve] Allergy Hives Verified 04/16/21 22:57 tramadol Allergy Hives Verified 04/16/21 22:57 Home Meds: Home Meds Montelukast [Singulair] 10 mg PO DAILY 11/15/13 [History] lamoTRIgine [LaMICtal] 50 mg PO BID 11/15/13 [History] Lurasidone [Latuda] 40 mg PO BID 07/23/14 [History] Pantoprazole [ProTONIX] 40 mg PO DAILY 04/12/17 [History] Cetirizine [ZyrTEC] 10 mg PO DAILY 03/28/19 [History] Nortriptyline HCl [Pamelor] 25 mg PO DAILY 03/28/19 [History] Albuterol Sulfate [Proair Hfa] 2 puff INH ASDIRECTED PRN 06/18/20 [History] Benztropine Mesylate 1 tab PO BEDTIME 06/18/20 [History] Calc/D3/Mag/Zn/Last/[place] [Calcium 600 MG Plus Vit D] 1 tab PO DAILY 06/18/20 [History] Cyanocobalamin (Vitamin B-12) [Vitamin B-12] 1 tab PO ASDIRECTED 06/18/20 [History] Fluticasone Propionate [Flovent HFA 110 MCG] 2 puff INH BID 06/18/20 [History] Lactobacillus Acidophilus [Acidophilus] 1 tab PO DAILY 06/18/20 [History] Multivitamin [Multi-Vitamin Daily] 1 tab PO DAILY 06/18/20 [History] Acetaminophen/oxyCODONE [Percocet 325-5 MG] 1 - 2 tab PO Q8HR PRN #40 tablet 06/25/20 [Rx] Apixaban [Eliquis] 2.5 mg PO BID #60 tablet 06/25/20 [Rx] Cyclobenzaprine [Flexeril] 5 mg PO BEDTIME PRN #10 tab 06/25/20 [Rx] Docusate Sodium [Colace] 100 mg PO BID PRN #1 bottle 06/25/20 [Rx] Sulfamethoxazole/Trimethoprim [Bactrim Ds Tablet] 1 each PO BID 7 Days #14 tablet 06/25/20 [Rx] polyethylene glycoL 3350 [MiraLAX] 17 gm PO DAILY #1 bottle 06/25/20 [Rx] Benztropine Mesylate 0.5 mg PO BEDTIME 06/28/20 [History] Ferrous Sulfate 1 tab PO DAILY 06/28/20 [History] Meloxicam 15 mg PO DAILY 06/28/20 [History] Rosuvastatin [Crestor] 5 mg PO DAILY 06/28/20 [History] Topiramate 50 mg PO BID 06/28/20 [History] buPROPion [Wellbutrin SR] 150 mg PO DAILY 06/28/20 [History] cephALEXin [Cephalexin] 500 mg PO QID 10 Days #40 capsule 06/28/20 [Rx] hydrOXYzine HCL [Atarax] 25 mg PO Q6H PRN #20 tab 06/28/20 [Rx] Past Medical History HEENT History: Reports: Impaired Vision, Other (See Below) Other HEENT History: nasal reconstruction, wears glasses Cardiovascular History: Reports: High Cholesterol Respiratory History: Reports: Asthma, Sleep Apnea Gastrointestinal History: Reports: GERD Other Gastrointestinal History: states has occasional heartburn Genitourinary History: Reports: None 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: Musculoskeletal History: Reports: Arthritis, Osteoarthritis Other Musculoskeletal History: fractured left upper arm Neurological History: Reports: Migraines Psychiatric History: Reports: Anxiety, Bipolar, Depression Endocrine/Metabolic History: Reports: Obesity/BMI 30+ Other Endocrine/Metabolic History: hypoglycemia Insulin Pump Model and Raw Finish Mill Operator: None Hematologic History: Reports: None Immunologic History: Reports: None Other Immunologic History: states had MRSA in 1999 after alexa surgery but since has been cleared Oncologic (Cancer) History: Reports: None Dermatologic History: Reports: None - Infectious Disease History Infectious Disease History: Reports: Chicken Pox, MRSA Other Infectious Disease History: states had chicken pox when a child; states had MRSA in 1999 after alexa surgery but since has been cleared - Past Surgical History Head Surgeries/Procedures: Reports: None HEENT Surgical History: Reports: Naso-Sinus Surgery Cardiovascular Surgical History: Reports: None Respiratory Surgical History: Reports: None GI Surgical History: Reports: Bariatric Procedure, Cholecystectomy, Other (See Below) Other GI Surgeries/Procedures: states had a laparotomy for gastric biopsy Female Surgical History: Reports: Breast Reduction, Section Endocrine Surgical History: Reports: None Neurological Surgical History: Reports: None Musculoskeletal Surgical History: Reports: Knee Replacement, Other (See Below) Other Musculoskeletal Surgeries/Procedures:: upper left arm surgery-plate left arm Oncologic Surgical History: Reports: Other (See Below) Dermatological Surgical History: Reports: None Social & Family History - Family History Family Medical History: No Pertinent Family History - Tobacco Use Tobacco Use Status *Q: Never Tobacco User - Caffeine Use Caffeine Use: Reports: None Caffeine Use Comment: 2 cups/day - Recreational Drug Use Recreational Drug Use: No ED ROS GENERAL - Review of Systems Review Of Systems: Comprehensive ROS is negative, except as noted in HPI. ED EXAM, GENERAL - Physical Exam Exam: See Below Free Text/Narrative:: My physical exam is in the HPI Course - Vital Signs Text/Narrative:: 1758 patient refused IV or medication. Patient is coherent at this time. Patient is oriented x4. Patient is not expressing any intent to harm herself or anyone else. I have no reason to detain her. I have no legal way to take away her rights as she is not harmful to herself or anyone else. She has an appointment with her mental health professional Monday which is 2 days from now. All discharge in satisfactory condition. Last Recorded V/S: Last Vital Signs Temp 36.7 C 04/17/21 16:46 Pulse 80 04/17/21 17:54 Resp 15 04/17/21 17:54 BP 157/68 H 04/17/21 17:54 Pulse Ox 99 04/17/21 17:54 - Orders/Labs/Meds Meds: Medications Discontinued Medications Generic Name Dose Route Start Last Admin Trade Name Freq PRN Reason Stop Dose Admin Diphenhydramine HCl 25 mg 04/17/21 17:41 Diphenhydramine 50 Mg/Ml Sdv IVPUSH 04/17/21 17:42 ONETIME ONE Haloperidol Lactate 2 mg 04/17/21 17:39 Haloperidol Lactate 5 Mg/Ml Sdv IM 04/17/21 17:40 ONETIME ONE Lorazepam 1 mg 04/17/21 17:41 Lorazepam 2 Mg/Ml Sdv IVPUSH 04/17/21 17:42 ONETIME ONE Departure - Departure Time of Disposition: 17:59 Disposition: Home, Self-Care 01 Condition: Good Clinical Impression: Behavior disorder, Urinary incontinence - Discharge Information Instructions: Urinary Incontinence, Managing Schizoaffective Disorder Referrals: PCP,None [Primary Care Provider] - Forms: ED Department Discharge Additional Instructions: [facility] Address: [address] [place] [address] [place] [address] Hours: walk in 9 AM M-F The following information is given to patients seen in the emergency department who are being discharged to home. This information is to outline your options for follow-up care. We provide all patients seen in our emergency department with a follow-up referral. The need for follow-up, as well as the timing and circumstances, are variable depending upon the specifics of your emergency department visit. If you don't have a primary care physician on staff, we will provide you with a referral. We always advise you to contact your personal physician following an emergency department visit to inform them of the circumstance of the visit and for follow-up with them and/or the need for any referrals to a consulting specialist. The emergency department will also refer you to a specialist when appropriate. This referral assures that you have the opportunity for follow-up care with a specialist. All of these measure are taken in an effort to provide you with optimal care, which includes your follow-up. Under all circumstances we always encourage you to contact your private physician who remains a resource for coordinating your care. When calling for follow-up care, please make the office aware that this follow-up is from your recent emergency room visit. If for any reason you are refused follow-up, please contact the [facility] Emergency Department at and asked to speak to the emergency department charge nurse. Sepsis Event Note (ED) - Focused Exam Vital Signs: Vital Signs Temp Pulse Resp BP Pulse Ox 04/17/21 17:54 80 15 157/68 H 99 04/17/21 16:46 36.7 C 75 15 146/76 H 100
[2021-04-17] MEDS ORDERED: diphenhydrAMINE 50 MG/ML SDV IM ONE (18:47)
[2021-04-17] MEDS ORDERED: LORazepam 2 MG/ML SDV ONE (19:56)
[2021-04-18] MEDS: LORazepam 2 MG/ML SDV IVPUSH PRN ×2 (00:58→08:36)
[2021-04-18] MEDS: diphenhydrAMINE 50 MG/ML SDV IVPUSH ONE ×2 (03:10)
[2021-04-18] MEDS: OLANZapine 10 MG in Water For Injection, Sterile 2.1 ML IM ONE ×3 (03:10)
[2021-04-18 07:37] VITALS: BP 115/68; PULSE 77
== END 2021-04-18 08:42 | disposition home or self-care (01) ==
LOC: MW.ED 16:39
DX: F91.9 Conduct disorder, unspecified (principal); R32 Unspecified urinary incontinence; E78.00 Pure hypercholesterolemia, unspecified; J45.909 Unspecified asthma, uncomplicated; K21.9 Gastro-esophageal reflux disease without esophagitis; M19.90 Unspecified osteoarthritis, unspecified site; E66.9 Obesity, unspecified; Z88.0 Allergy status to penicillin; Z88.1 Allergy status to other antibiotic agents; Z88.6 Allergy status to analgesic agent; Z88.5 Allergy status to narcotic agent; Z88.8 Allergy status to other drugs, medicaments and biological substances; Z79.01 Long term (current) use of anticoagulants; Z79.899 Other long term (current) drug therapy
CPT/HCPCS: 36415; 84439; 84481; 96372; 96374; 96376; 99285; J1200; J1630; J2060

== ENCOUNTER 2021-04-23 15:27 | Emergency (ER) | payer MEDICAID ==
--- NOTE | 2021-04-23 17:09 | EDM.PDOC ---
ED HPI GENERAL MEDICAL PROBLEM - General Chief Complaint: General Stated Complaint: MEDICAL CLEARANCE Time Seen by Provider: 04/23/21 15:27 Source of Information: Reports: Patient, Police, Other (Involuntary Petition Form) History Limitations: Reports: No Limitations - History of Present Illness INITIAL COMMENTS - FREE TEXT/NARRATIVE: HISTORY AND PHYSICAL: History of present illness: Patient is a 56-year-old female who is brought to the emergency room by the [facility] department for medical clearance to be involuntary committed for mental health issues. Patient has a past medical history of bipolar disorder, PTSD, and alcohol abuse. Family member had called the [facility] department as the patient was running into the street without looking, she was yelling and screaming. She has been making statements to family members that she wants to hurt herself and others. Family is unsure if she is taking her medications as directed. Patient denies any fever, chills, headache, change in vision, syncope or near syncope. Denies any chest pain, back pain, shortness of breath or cough. Denies any abdominal pain, nausea, vomiting, diarrhea, constipation or dysuria. Has not noted any blood in urine or stool. Patient has been eating and drinking appropriately. No recent travel or sick contacts. Review of systems: As per history of present illness and below otherwise all systems reviewed and negative. Past medical history: As per history of present illness and as reviewed below otherwise noncontributory. Surgical history: As per history of present illness and as reviewed below otherwise noncontributory. Social history: See social history for further information Family history: As per history of present illness and as reviewed below otherwise noncontribu tory. Physical exam: General: Well developed and well nourished. Alert and orientated x 3. Nontoxic in appearance and in no acute distress. Vital signs are stable and have been reviewed by me. Nursing notes were reviewed. HEENT: Atraumatic, normocephalic, pupils equal and reactive bilaterally, negative for conjunctival pallor or scleral icterus, mucous membranes moist, TMs normal bilaterally, throat clear, neck supple, nontender, trachea midline. No drooling or trismus noted. No meningeal signs. No hot potato voice noted. Lungs: Clear to auscultation bilaterally. No wheezes, rales, or rhonchi. Chest nontender. Normal work of breathing, no accessory muscles used. Heart: S1S2, regular rate and rhythm without overt murmur, gallops, or rubs. No JVD. No peripheral edema Abdomen: Soft, nondistended, nontender. Normoactive bowel sounds. Negative for masses or costovertebral tenderness. Skin: Intact, warm, dry. No lesions or rashes noted. Hematologic: No petechiae or purpra. Mucosa appropriate color and normal nail bed color and refill. Extremities: Atraumatic, moves all extremities per self without difficulty or deficits, negative for cords or calf pain. Neurovascular unremarkable. Neuro: Awake, alert, oriented. Cranial nerves II through XII unremarkable. Cerebellum unremarkable. Motor and sensory unremarkable throughout. Exam nonfocal. Psychiatric: Mood and affect are appropriate. Normal thought process. Answering questions appropriately. Please note that the patient was seen and evaluated during the 2019 SARS-CoV-2 novel coronavirus pandemic period. Community viral transmission is ongoing at time of this encounter and the emergency department is operating under pandemic response procedures. Medical Decision Making: Petition for involuntary committal states that the patient has been making statements of wanting to harm herself and others. There is concerned she has access to weapons. Family states that she is having paranoia and hallucinations. My physical exam is unremarkable. Patient is alert, oriented and cooperative. She did recently have lab work done on 04/17/2021, all of which were normal. We will repeat the psychiatric panel today. I have talked with the patient about today's findings, in addition to providing specific details for plan of care. Reassessment at the time of disposition demonstrates that the patient is in no acute distress. Law enforcement will transport this patient to whichever facility does have bed availability. Spoke with Dr. Lane, psychiatrist at [facility], they do have bed availability. I will wait for all labs to return. [facility] will [facility] department. Patient is currently eating a meal tray, vital signs are stable, she is aware of what is going on. All lab work is unremarkable. Patient is alert, oriented and cooperative with cares. Patient will be transferred via Program Director/Traffic Director's department to [facility] in [place]. We did call and update [facility] with lab results. Patient is medically cleared on an emergency room standpoint and will be discharged into [facility] custody[facility]care. Diagnostics: CBC, CMP, COVID, drug screen, EtOH, salicylate, acetaminophen, TSH, UA, urine Therapeutics: None Prescription: None Impression: Encounter for medical screening exam Psychiatric problem Plan: 1. You were evaluated today on an emergent basis. You have been accepted by Dr. Lane at [facility] in [place]. Please present directly to their emergency room for further care and management. 2. If your symptoms should worsen, new symptoms develop or any of the signs and symptoms we discussed should arise please return to the emergency room or call 911 (if needed). Definitive disposition and diagnosis as appropriate pending reevaluation and review of above. - Related Data Allergies Allergy/AdvReac Type Severity Reaction Status Date / Time amoxicillin [Amoxicillin] Allergy Hives Verified 04/16/21 22:57 erythromycin base Allergy Hives Verified 04/16/21 22:57 fexofenadine HCl Allergy Hives Verified 04/16/21 22:57 [From Jesenia] loratadine [From Claritin] Allergy Hives Verified 04/16/21 22:57 naproxen sodium [From Aleve] Allergy Hives Verified 04/16/21 22:57 tramadol Allergy Hives Verified 04/16/21 22:57 Home Meds: Home Meds Montelukast [Singulair] 10 mg PO DAILY 11/15/13 [History] lamoTRIgine [LaMICtal] 50 mg PO BID 11/15/13 [History] Lurasidone [Latuda] 40 mg PO BID 07/23/14 [History] Pantoprazole [ProTONIX] 40 mg PO DAILY 04/12/17 [History] Cetirizine [ZyrTEC] 10 mg PO DAILY 03/28/19 [History] Nortriptyline HCl [Pamelor] 25 mg PO DAILY 03/28/19 [History] Albuterol Sulfate [Proair Hfa] 2 puff INH ASDIRECTED PRN 06/18/20 [History] Benztropine Mesylate 1 tab PO BEDTIME 06/18/20 [History] Calc/D3/Mag/Zn/Last/[place]/Butler [Calcium 600 MG Plus Vit D] 1 tab PO DAILY 06/18/20 [History] Cyanocobalamin (Vitamin B-12) [Vitamin B-12] 1 tab PO ASDIRECTED 06/18/20 [History] Fluticasone Propionate [Flovent HFA 110 MCG] 2 puff INH BID 06/18/20 [History] Lactobacillus Acidophilus [Acidophilus] 1 tab PO DAILY 06/18/20 [History] Multivitamin [Multi-Vitamin Daily] 1 tab PO DAILY 06/18/20 [History] Acetaminophen/oxyCODONE [Percocet 325-5 MG] 1 - 2 tab PO Q8HR PRN #40 tablet 06/25/20 [Rx] Apixaban [Eliquis] 2.5 mg PO BID #60 tablet 06/25/20 [Rx] Cyclobenzaprine [Flexeril] 5 mg PO BEDTIME PRN #10 tab 06/25/20 [Rx] Docusate Sodium [Colace] 100 mg PO BID PRN #1 bottle 06/25/20 [Rx] Sulfamethoxazole/Trimethoprim [Bactrim Ds Tablet] 1 each PO BID 7 Days #14 tablet 06/25/20 [Rx] polyethylene glycoL 3350 [MiraLAX] 17 gm PO DAILY #1 bottle 06/25/20 [Rx] Benztropine Mesylate 0.5 mg PO BEDTIME 06/28/20 [History] Ferrous Sulfate 1 tab PO DAILY 06/28/20 [History] Meloxicam 15 mg PO DAILY 06/28/20 [History] Rosuvastatin [Crestor] 5 mg PO DAILY 06/28/20 [History] Topiramate 50 mg PO BID 06/28/20 [History] buPROPion [Wellbutrin SR] 150 mg PO DAILY 06/28/20 [History] cephALEXin [Cephalexin] 500 mg PO QID 10 Days #40 capsule 06/28/20 [Rx] hydrOXYzine HCL [Atarax] 25 mg PO Q6H PRN #20 tab 06/28/20 [Rx] Past Medical History HEENT History: Reports: Impaired Vision, Other (See Below) Other HEENT History: nasal reconstruction, wears glasses Cardiovascular History: Reports: High Cholesterol Respiratory History: Reports: Asthma, Sleep Apnea Gastrointestinal History: Reports: GERD Other Gastrointestinal History: states has occasional heartburn Genitourinary History: Reports: None PROCESS CONSULTANT History: Reports: Musculoskeletal History: Reports: Arthritis, Osteoarthritis Other Musculoskeletal History: fractured left upper arm Neurological History: Reports: Migraines Psychiatric History: Reports: Anxiety, Bipolar, Depression Endocrine/Metabolic History: Reports: Obesity/BMI 30+ Other Endocrine/Metabolic History: hypoglycemia Insulin Pump Model and Forms Builder: None Hematologic History: Reports: None Immunologic History: Reports: None Other Immunologic History: states had MRSA in 1999 after alexa surgery but since has been cleared Oncologic (Cancer) History: Reports: None Dermatologic History: Reports: None - Infectious Disease History Infectious Disease History: Reports: Chicken Pox, MRSA Other Infectious Disease History: states had chicken pox when a child; states had MRSA in 1999 after alexa surgery but since has been cleared - Past Surgical History Head Surgeries/Procedures: Reports: None HEENT Surgical History: Reports: Naso-Sinus Surgery Cardiovascular Surgical History: Reports: None Respiratory Surgical History: Reports: None GI Surgical History: Reports: Bariatric Procedure, Cholecystectomy, Other (See Below) Other GI Surgeries/Procedures: states had a laparotomy for gastric biopsy Female Surgical History: Reports: Breast Reduction, Section Endocrine Surgical History: Reports: None Neurological Surgical History: Reports: None Musculoskeletal Surgical History: Reports: Knee Replacement, Other (See Below) Other Musculoskeletal Surgeries/Procedures:: upper left arm surgery-plate left arm Oncologic Surgical History: Reports: Other (See Below) Dermatological Surgical History: Reports: None Social & Family History - Family History Family Medical History: No Pertinent Family History - Caffeine Use Caffeine Use: Reports: None Caffeine Use Comment: 2 cups/day ED ROS GENERAL - Review of Systems Review Of Systems: Comprehensive ROS is negative, except as noted in HPI. ED EXAM, GENERAL - Physical Exam Exam: See Below (See dictation) Course - Vital Signs Last Recorded V/S: Last Vital Signs Temp 97.8 F 04/23/21 16:27 Pulse 68 04/23/21 16:27 Resp 18 04/23/21 16:27 BP 143/78 H 04/23/21 16:27 Pulse Ox 98 04/23/21 16:27 - Orders/Labs/Meds Orders: Active Orders 24 hr Category Date Time Status CULTURE URINE [MREF] Stat Lab 04/23/21 17:15 Received Labs: Laboratory Tests 04/23/21 04/23/21 04/23/21 Range/Units 16:46 16:46 17:15 WBC 9.00 (4.0-11.0) K/uL RBC 4.07 L (4.30-5.90) M/uL Hgb 12.3 (12.0-16.0) g/dL Hct 37.3 (36.0-46.0) % MCV 91.6 (80.0-98.0) fL MCH 30.2 (27.0-32.0) pg MCHC 33.0 (31.0-37.0) g/dL RDW Std Deviation 45.2 (28.0-62.0) fl RDW Coeff of Haris 14 (11.0-15.0) % Plt Count 293 (150-400) K/uL MPV 9.10 (7.40-12.00) fL Neut % (Auto) 80.8 H (48.0-80.0) % Lymph % (Auto) 10.9 L (16.0-40.0) % Atkinson % (Auto) 7.1 (0.0-15.0) % Eos % (Auto) 1.1 (0.0-7.0) % Baso % (Auto) 0.1 (0.0-1.5) % Neut # (Auto) 7.3 H (1.4-5.7) K/uL Lymph # (Auto) 1.0 (0.6-2.4) K/uL Atkinson # (Auto) 0.6 (0.0-0.8) K/uL Eos # (Auto) 0.1 (0.0-0.7) K/uL Baso # (Auto) 0.0 (0.0-0.1) K/uL Nucleated RBC % 0.0 /100WBC Nucleated RBCs # 0 K/uL Sodium 143 (136-145) mmol/L Potassium 3.6 (3.5-5.1) mmol/L Chloride 106 (98-107) mmol/L Carbon Dioxide 26.0 (21.0-32.0) mmol/L BUN 6 L (7.0-18.0) mg/dL Creatinine 0.9 (0.6-1.0) mg/dL Est Cr Clr Drug Dosing TNP Estimated GFR (MDRD) > 60.0 ml/min Glucose 97 (74-106) mg/dL Calcium 8.3 L (8.5-10.1) mg/dL Total Bilirubin 0.6 (0.2-1.0) mg/dL AST 58 H (15-37) IU/L ALT 48 (14-63) IU/L Alkaline Phosphatase 155 H (46-116) U/L Total Protein 6.8 (6.4-8.2) g/dL Albumin 3.7 (3.4-5.0) g/dL Globulin 3.1 (2.6-4.0) g/dL Albumin/Globulin Ratio 1.2 (0.9-1.6) TSH, Ultra Sensitive 1.65 (0.36-3.74) uIU/mL Urine Color YELLOW Urine Appearance CLEAR Urine pH 7.0 (5.0-8.0) Ur Specific Salem <= 1.005 (1.001-1.035) Urine Protein NEGATIVE (NEGATIVE) mg/dL Urine Glucose (UA) 100 H (NEGATIVE) mg/dL Urine Ketones NEGATIVE (NEGATIVE) mg/dL Urine Occult Blood NEGATIVE (NEGATIVE) Urine Nitrite NEGATIVE (NEGATIVE) Urine Bilirubin NEGATIVE (NEGATIVE) Urine Urobilinogen 0.2 (<2.0) EU/dL Ur Leukocyte Esterase TRACE H (NEGATIVE) Urine RBC NONE SEEN (0-2/HPF) Urine WBC 0-5 (0-5/HPF) Ur Epithelial Cells RARE (NONE-FEW) Urine Bacteria NOT SEEN (NEGATIVE) Urine HCG, Qual (NEGATIVE) Salicylates 0.5 (0-20) mg/dL Urine Opiates Screen (NEGATIVE) Ur Oxycodone Screen (NEGATIVE) Urine Methadone Screen (NEGATIVE) Acetaminophen <2.0 ug/mL Ur Barbiturates Screen (NEGATIVE) Ur Phencyclidine Scrn (NEGATIVE) Ur Amphetamine Screen (NEGATIVE) U Methamphetamines Scrn (NEGATIVE) U Benzodiazepines Scrn (NEGATIVE) U Cocaine Metab Screen (NEGATIVE) U Marijuana (THC) Screen (NEGATIVE) Ethyl Alcohol < 3.0 mg/dL SARS-CoV-2 RNA (GIOVANNA) (NEGATIVE) 04/23/21 04/23/21 04/23/21 Range/Units 17:15 17:15 17:20 WBC (4.0-11.0) K/uL RBC (4.30-5.90) M/uL Hgb (12.0-16.0) g/dL Hct (36.0-46.0) % MCV (80.0-98.0) fL MCH (27.0-32.0) pg MCHC (31.0-37.0) g/dL RDW Std Deviation (28.0-62.0) fl RDW Coeff of Haris (11.0-15.0) % Plt Count (150-400) K/uL MPV (7.40-12.00) fL Neut % (Auto) (48.0-80.0) % Lymph % (Auto) (16.0-40.0) % Atkinson % (Auto) (0.0-15.0) % Eos % (Auto) (0.0-7.0) % Baso % (Auto) (0.0-1.5) % Neut # (Auto) (1.4-5.7) K/uL Lymph # (Auto) (0.6-2.4) K/uL Atkinson # (Auto) (0.0-0.8) K/uL Eos # (Auto) (0.0-0.7) K/uL Baso # (Auto) (0.0-0.1) K/uL Nucleated RBC % /100WBC Nucleated RBCs # K/uL Sodium (136-145) mmol/L Potassium (3.5-5.1) mmol/L Chloride (98-107) mmol/L Carbon Dioxide (21.0-32.0) mmol/L BUN (7.0-18.0) mg/dL Creatinine (0.6-1.0) mg/dL Est Cr Clr Drug Dosing Estimated GFR (MDRD) ml/min Glucose (74-106) mg/dL Calcium (8.5-10.1) mg/dL Total Bilirubin (0.2-1.0) mg/dL AST (15-37) IU/L ALT (14-63) IU/L Alkaline Phosphatase (46-116) U/L Total Protein (6.4-8.2) g/dL Albumin (3.4-5.0) g/dL Globulin (2.6-4.0) g/dL Albumin/Globulin Ratio (0.9-1.6) TSH, Ultra Sensitive (0.36-3.74) uIU/mL Urine Color Urine Appearance Urine pH (5.0-8.0) Ur Specific Salem (1.001-1.035) Urine Protein (NEGATIVE) mg/dL Urine Glucose (UA) (NEGATIVE) mg/dL Urine Ketones (NEGATIVE) mg/dL Urine Occult Blood (NEGATIVE) Urine Nitrite (NEGATIVE) Urine Bilirubin (NEGATIVE) Urine Urobilinogen (<2.0) EU/dL Ur Leukocyte Esterase (NEGATIVE) Urine RBC (0-2/HPF) Urine WBC (0-5/HPF) Ur Epithelial Cells (NONE-FEW) Urine Bacteria (NEGATIVE) Urine HCG, Qual NEGATIVE (NEGATIVE) Salicylates (0-20) mg/dL Urine Opiates Screen NEGATIVE (NEGATIVE) Ur Oxycodone Screen NEGATIVE (NEGATIVE) Urine Methadone Screen NEGATIVE (NEGATIVE) Acetaminophen ug/mL Ur Barbiturates Screen NEGATIVE (NEGATIVE) Ur Phencyclidine Scrn NEGATIVE (NEGATIVE) Ur Amphetamine Screen NEGATIVE (NEGATIVE) U Methamphetamines Scrn NEGATIVE (NEGATIVE) U Benzodiazepines Scrn NEGATIVE (NEGATIVE) U Cocaine Metab Screen NEGATIVE (NEGATIVE) U Marijuana (THC) Screen NEGATIVE (NEGATIVE) Ethyl Alcohol mg/dL SARS-CoV-2 RNA (GIOVANNA) NEGATIVE (NEGATIVE) Departure - Departure Time of Disposition: 17:14 Disposition: Home, Self-Care 01 Clinical Impression: Psychiatric problem - Discharge Information Referrals: PCP,None [Primary Care Provider] - Forms: ED Department Discharge Additional Instructions: The following information is given to patients seen in the emergency department who are being discharged to home. This information is to outline your options for follow-up care. We provide all patients seen in our emergency department with a follow-up referral. The need for follow-up, as well as the timing and circumstances, are variable depending upon the specifics of your emergency department visit. If you don't have a primary care physician on staff, we will provide you with a referral. We always advise you to contact your personal physician following an emergency department visit to inform them of the circumstance of the visit and for follow-up with them and/or the need for any referrals to a consulting specialist. The emergency department will also refer you to a specialist when appropriate. This referral assures that you have the opportunity for follow-up care with a specialist. All of these measure are taken in an effort to provide you with optimal care, which includes your follow-up. Under all circumstances we always encourage you to contact your private physician who remains a resource for coordinating your care. When calling for follow-up care, please make the office aware that this follow-up is from your recent emergency room visit. If for any reason you are refused follow-up, please contact the [facility] Emergency Department at and asked to speak to the emergency department charge nurse. [facility] [address] [place] [address] [facility] [address] [place] [address] Thank you for choosing the [facility] emergency department in [place] for your medical needs today. It was a pleasure caring for you. Today you were seen in the emergency department for medical clearance for psychiatric hold at [facility]. 1. You were evaluated today on an emergent basis. You have been accepted by Dr. Lane at [facility] in [place]. Please present directly to their emergency room for further care and management. 2. If your symptoms should worsen, new symptoms develop or any of the signs and symptoms we discussed should arise please return to the emergency room or call 911 (if needed). Sepsis Event Note (ED) - Evaluation Sepsis Screening Result: No Definite Risk - Focused Exam Vital Signs: Vital Signs Temp Pulse Resp BP Pulse Ox 04/23/21 16:27 97.8 F 68 18 143/78 H 98 - My Orders Last 24 Hours: My Active Orders 04/23/21 17:15 CULTURE URINE [MREF] Stat - Assessment/Plan Last 24 Hours: My Active Orders 04/23/21 17:15 CULTURE URINE [MREF] Stat
[2021-04-23 17:34] LABS: ACETAMINOPHEN <2.0 ug/mL; BLOOD UREA NITROGEN,BUN 6 mg/dL (7.0-18.0); CHLORIDE,CL 106 mmol/L (98-107); GLUCOSE RANDOM 97 mg/dL (74-106); POTASSIUM,K 3.6 mmol/L (3.5-5.1); SODIUM,NA 143 mmol/L (136-145)
[2021-04-23 18:55] VITALS: BP 126/78; PULSE 73
== END 2021-04-23 18:57 | disposition home or self-care (01) ==
LOC: MW.ED 15:27
DX: F99 Mental disorder, not otherwise specified (principal); E78.00 Pure hypercholesterolemia, unspecified; J45.909 Unspecified asthma, uncomplicated; K21.9 Gastro-esophageal reflux disease without esophagitis; M19.90 Unspecified osteoarthritis, unspecified site; Z88.0 Allergy status to penicillin; Z88.1 Allergy status to other antibiotic agents; Z88.8 Allergy status to other drugs, medicaments and biological substances; Z88.5 Allergy status to narcotic agent; Z79.01 Long term (current) use of anticoagulants; Z79.899 Other long term (current) drug therapy; Z20.822 Contact with and (suspected) exposure to COVID-19
CPT/HCPCS: 36415; 80053; 80143; 80179; 80305-QW; 80307; 81001; 81025; 84443; 85025; 87086; 87088; 87186; 99285; U0002

== ENCOUNTER 2021-11-10 17:12 | Emergency (ER) | payer MEDICAID ==
[2021-11-10] MEDS ORDERED: Sodium Chloride 0.9% 1,000 ML IV ONE (17:33)
[2021-11-10] MEDS ORDERED: Ondansetron 4 MG/2 ML SDV IVPUSH ONE (17:33)
[2021-11-10 18:15] LABS: BLOOD UREA NITROGEN,BUN 10 mg/dL (7.0-18.0); CARBON DIOXIDE,CO2 27.6 mmol/L (21.0-32.0); CHLORIDE,CL 104 mmol/L (98-107); GLUCOSE RANDOM 182 mg/dL (74-106); POTASSIUM,K 4.4 mmol/L (3.5-5.1); SODIUM,NA 139 mmol/L (136-145)
[2021-11-10 19:58] VITALS: BP 121/64; PULSE 66
== END 2021-11-10 20:05 | disposition home or self-care (01) ==
LOC: MW.ED 17:12
DX: E16.2 Hypoglycemia, unspecified (principal); E78.00 Pure hypercholesterolemia, unspecified; K21.9 Gastro-esophageal reflux disease without esophagitis; E66.9 Obesity, unspecified; Z68.38 Body mass index [BMI] 38.0-38.9, adult; Z88.0 Allergy status to penicillin; Z88.1 Allergy status to other antibiotic agents; Z88.5 Allergy status to narcotic agent; Z88.8 Allergy status to other drugs, medicaments and biological substances; Z79.01 Long term (current) use of anticoagulants; Z79.899 Other long term (current) drug therapy
CPT/HCPCS: 36415; 80053; 81001; 83735; 84443; 84484; 85025; 93005; 96374; 99285; J2405; J7030

== ENCOUNTER 2021-11-25 14:27 | Emergency (ER) | payer MEDICAID ==
[2021-11-25 16:23] VITALS: BP 111/78; PULSE 72
[2021-11-25 17:24] LABS: CARBON DIOXIDE,CO2 28.9 mmol/L (21.0-32.0); POTASSIUM,K 4.4 mmol/L (3.5-5.1)
[2021-11-25 17:38] LABS: CORONAVIRUS COVID-19 NAA NEGATIVE (NEGATIVE); INFLUENZA A NAA NEGATIVE (NEGATIVE); INFLUENZA B NAA NEGATIVE (NEGATIVE)
== END 2021-11-25 19:45 | disposition home or self-care (01) ==
LOC: MW.ED 14:27
DX: J40 Bronchitis, not specified as acute or chronic (principal); B34.9 Viral infection, unspecified; R74.01 Elevation of levels of liver transaminase levels; E66.9 Obesity, unspecified; Z20.822 Contact with and (suspected) exposure to COVID-19; Z88.0 Allergy status to penicillin; Z88.1 Allergy status to other antibiotic agents; Z88.5 Allergy status to narcotic agent; Z88.8 Allergy status to other drugs, medicaments and biological substances; Z79.01 Long term (current) use of anticoagulants; Z79.899 Other long term (current) drug therapy; Z68.39 Body mass index [BMI] 39.0-39.9, adult
CPT/HCPCS: 0240U; 36415; 71046; 80053; 81001; 84484; 85025; 87086; 93005; 99284

== ENCOUNTER 2022-01-31 15:26 | Emergency (ER) | payer MEDICAID ==
[2022-01-31] MEDS ORDERED: Sodium Chloride 0.9% 2.5 ML Syringe FLUSH PRN (15:33)
[2022-01-31] MEDS ORDERED: Sodium Chloride 0.9% 1,000 ML IV ONE (15:33)
[2022-01-31] MEDS ORDERED: Sodium Chloride 0.9% 10 ML Syringe FLUSH PRN (15:33)
[2022-01-31 17:24] LABS: BLOOD UREA NITROGEN,BUN 18 mg/dL (7.0-18.0); CHLORIDE,CL 106 mmol/L (98-107); GLUCOSE RANDOM 76 mg/dL (74-106); POTASSIUM,K 4.4 mmol/L (3.5-5.1); SODIUM,NA 142 mmol/L (136-145)
[2022-01-31] MEDS ORDERED: Metoprolol Succinate 50 MG Tab.ER PO ONE (17:27)
[2022-01-31] MEDS ORDERED: Nitrofurantoin Monohydrate/Macrocrystalline 100 MG Cap PO ONE ×2 (17:31→18:21)
[2022-01-31 17:32] LABS: ESTIMATED GFR 76 mL/min (>60)
[2022-01-31 17:36] LABS: CARBON DIOXIDE,CO2 26.5 mmol/L (21.0-32.0)
[2022-01-31 18:16] LABS: CORONAVIRUS COVID-19 NAA NEGATIVE (NEGATIVE); INFLUENZA A NAA NEGATIVE (NEGATIVE); INFLUENZA B NAA NEGATIVE (NEGATIVE)
[2022-01-31] MEDS ORDERED: Nitrofurantoin Monohydrate/Macrocrystalline 100 MG Cap ONE (18:23)
[2022-02-01 03:42] VITALS: BP 132/75; PULSE 77
== END 2022-01-31 18:27 | disposition home or self-care (01) ==
LOC: MW.ED 15:26
DX: N39.0 Urinary tract infection, site not specified (principal); E78.00 Pure hypercholesterolemia, unspecified; K21.9 Gastro-esophageal reflux disease without esophagitis; M19.90 Unspecified osteoarthritis, unspecified site; E66.9 Obesity, unspecified; Z68.38 Body mass index [BMI] 38.0-38.9, adult; Z88.5 Allergy status to narcotic agent; Z88.0 Allergy status to penicillin; Z88.8 Allergy status to other drugs, medicaments and biological substances; Z79.01 Long term (current) use of anticoagulants; Z79.899 Other long term (current) drug therapy; Z20.822 Contact with and (suspected) exposure to COVID-19
CPT/HCPCS: 0240U; 36415; 80053; 81001; 85025; 87086; 93005; 96360; 99284; A9270; J3490; J7030; 99283

== ENCOUNTER 2022-09-14 00:03 | Emergency (ER) | payer MEDICAID ==
[2022-09-14] MEDS ORDERED: fentaNYL 50 MCG/ML SDV ONE (00:06)
[2022-09-14] MEDS ORDERED: Diphtheria,Pertussis(Acell),Tetanus Vaccine 0.5 ML Syringe ONE (00:07)
[2022-09-14] MEDS ORDERED: Sodium Chloride 0.9% 10 ML Syringe FLUSH PRN (00:19)
[2022-09-14] MEDS ORDERED: Sodium Chloride 0.9% 2.5 ML Syringe FLUSH PRN (00:19)
[2022-09-14] MEDS: Sodium Chloride 0.9% 1,000 ML IV ONE ×2 (00:36→00:53)
[2022-09-14] MEDS ORDERED: fentaNYL 50 MCG/ML SDV IVPUSH ONE ×2 (00:38→00:58)
[2022-09-14] MEDS ORDERED: Diphtheria,Pertussis(Acell),Tetanus Vaccine 0.5 ML Syringe IM ONE (00:39)
[2022-09-14] MEDS ORDERED: ceFAZolin 2 GM in Premix Bag 1 BAG IV SCH (00:45)
[2022-09-14 00:46] LABS: BLOOD UREA NITROGEN,BUN 7 mg/dL (7.0-18.0); CARBON DIOXIDE,CO2 24.5 mmol/L (21.0-32.0); CHLORIDE,CL 104 mmol/L (98-107); GLUCOSE RANDOM 157 mg/dL (74-106); POTASSIUM,K 4.1 mmol/L (3.5-5.1); SODIUM,NA 141 mmol/L (136-145)
[2022-09-14 00:49] LABS: ESTIMATED GFR 66 mL/min (>60)
[2022-09-14] MEDS ORDERED: Metoclopramide 10 MG/2 ML SDV IVPUSH ONE (00:53)
[2022-09-14] MEDS ORDERED: Lactated Ringers 1,000 ML IV STA (00:53)
[2022-09-14] MEDS ORDERED: Metoclopramide 10 MG/2 ML SDV ONE (00:55)
[2022-09-14 01:10] VITALS: BP 143/68; PULSE 108
[2022-09-14] MEDS ORDERED: HYDROmorphone 2 MG/ML Syringe IVPUSH ONE (01:37)
[2022-09-14] MEDS ORDERED: HYDROmorphone 1 MG/ML Syringe ONE (01:41)
[2022-09-14] MEDS ORDERED: HYDROmorphone 1 MG/ML Syringe IVPUSH ONE (01:44)
== END 2022-09-14 02:30 ==
LOC: MW.ED 00:03
DX: S06.0X0A Concussion without loss of consciousness, initial encounter (principal); S31.119A Laceration without foreign body of abdominal wall, unspecified quadrant without penetration into peritoneal cavity, initial encounter; S21.119A Laceration without foreign body of unspecified front wall of thorax without penetration into thoracic cavity, initial encounter; S00.83XA Contusion of other part of head, initial encounter; J45.909 Unspecified asthma, uncomplicated; K21.9 Gastro-esophageal reflux disease without esophagitis; E78.00 Pure hypercholesterolemia, unspecified; E66.9 Obesity, unspecified; Z68.30 Body mass index [BMI] 30.0-30.9, adult; Z88.0 Allergy status to penicillin; Z88.5 Allergy status to narcotic agent; Z88.1 Allergy status to other antibiotic agents; Z79.01 Long term (current) use of anticoagulants; Z79.899 Other long term (current) drug therapy; Z23 Encounter for immunization; W26.9XXA Contact with unspecified sharp object(s), initial encounter
CPT/HCPCS: 36415; 36430; 51702; 70450; 70486; 71045; 71260; 72125; 72170; 74177; 80053; 80305; 80307; 82947; 84702; 85025; 85610; 85730; 86850; 86900; 86901; 86920; 90471; 90715; 96365; 96375; 96376; 99285; J0690; J1170; J2765; J3010; J7120; P9016

== ENCOUNTER 2023-02-08 20:21 | Emergency (ER) | payer MEDICAID ==
[2023-02-08] MEDS ORDERED: Sodium Chloride 0.9% 1,000 ML IV ONE (22:25)
[2023-02-08] MEDS ORDERED: Morphine 4 MG/ML Syringe IVPUSH ONE (22:25)
[2023-02-08] MEDS ORDERED: Ondansetron 4 MG/2 ML SDV IVPUSH ONE (22:25)
[2023-02-08 22:33] LABS: BILIRUBIN,URINE NEGATIVE (NEGATIVE); COLOR,URINE YELLOW; GLUCOSE,URINE NEGATIVE (NEGATIVE); KETONES,URINE NEGATIVE (NEGATIVE); LEUKOCYTE ESTERASE,URINE SMALL (NEGATIVE); NITRITE,URINE NEGATIVE (NEGATIVE); OCCULT BLOOD,URINE NEGATIVE (NEGATIVE); PROTEIN,URINE NEGATIVE (NEGATIVE); UROBILINOGEN,URINE 0.2 EU/dL (<2.0)
[2023-02-08 22:37] LABS: BASOPHILS PERCENT AUTO 0.3 % (0.0-1.5); HEMATOCRIT 42.4 % (36.0-46.0); LYMPHOCYTES ABSOLUTE AUTO 1.6 K/uL (0.6-2.4); LYMPHOCYTES PERCENT AUTO 22.5 % (16.0-40.0); MEAN CORPUSCULAR HEMOGLOBIN 29.9 pg (27.0-32.0); MEAN CORPUSCULAR VOLUME 90.4 fL (80.0-98.0); MONOCYTES ABSOLUTE AUTO 0.5 K/uL (0.0-0.8); MONOCYTES PERCENT AUTO 6.5 % (0.0-15.0); NEUTROPHILS PERCENT AUTO 70.7 % (48.0-80.0); NRBC ABSOLUTE 0 K/uL; PLATELET COUNT,PLT 229 K/uL (150-400); RED BLOOD CELL COUNT 4.69 M/uL (4.30-5.90); WHITE BLOOD CELL COUNT,WBC 7.07 K/uL (4.0-11.0)
[2023-02-08 22:50] LABS: APPEARANCE,URINE HAZY; RBC,URINE 0-2 (0-2/HPF)
[2023-02-08 22:51] LABS: BACTERIA,URINE FEW (NEGATIVE); EPITHELIAL CELLS,URINE OCCASIONAL (NONE-FEW)
[2023-02-08 22:59] LABS: AMPHETAMINES SCREEN, URINE NEGATIVE (CUTOFF=500); BARBITURATE SCREEN,URINE NEGATIVE (CUTOFF=200); BENZODIAZEPINES SCREEN,URINE NEGATIVE (CUTOFF=150); BUPRENORPHINE SCREEN,URINE NEGATIVE (CUTOFF=10); METHADONE SCREEN, URINE NEGATIVE (CUTOFF=200); METHAMPHETAMINES SCREEN, URINE NEGATIVE (CUTOFF=500); OXYCODONE SCREEN,URINE NEGATIVE (CUT0FF=100); PCP SCREEN,URINE NEGATIVE (CUTOFF=25); PROPOXYPHENE SCREEN,URINE NEGATIVE (CUTOFF=300); THC SCREEN,URINE 20 NG/ML NEGATIVE (CUTOFF=50)
[2023-02-08 23:54] LABS: A/G RATIO 1.1 (0.9-1.6); ALBUMIN 3.8 g/dL (3.4-5.0); BILIRUBIN TOTAL 0.3 mg/dL (0.2-1.0); CARBON DIOXIDE,CO2 28.6 mmol/L (21.0-32.0); CREATININE 0.9 mg/dL (0.6-1.0); EST CRCL DRUG DOSING (CG) 65.34 mL/min; MAGNESIUM 2.2 mg/dL (1.8-2.4); POTASSIUM,K 4.3 mmol/L (3.5-5.1); PROTEIN TOTAL,TP 7.4 g/dL (6.4-8.2)
[2023-02-09] MEDS ORDERED: Iopamidol 755 MG/ML 500 ML Multipack Bottle IVPUSH ONE (00:06)
[2023-02-09 01:46] VITALS: BP 137/90
[2023-02-09 01:48] VITALS: PULSE 78
== END 2023-02-09 01:46 | disposition home or self-care (01) ==
LOC: MW.ED 20:21
DX: R10.84 Generalized abdominal pain (principal); E78.00 Pure hypercholesterolemia, unspecified; J45.909 Unspecified asthma, uncomplicated; K21.9 Gastro-esophageal reflux disease without esophagitis; E66.9 Obesity, unspecified; Z68.41 Body mass index [BMI] 40.0-44.9, adult; Z79.01 Long term (current) use of anticoagulants; Z79.899 Other long term (current) drug therapy; Z88.1 Allergy status to other antibiotic agents; Z88.5 Allergy status to narcotic agent; Z88.8 Allergy status to other drugs, medicaments and biological substances
CPT/HCPCS: 36415; 74177; 80053; 80305; 81001; 83690; 83735; 85025; 96361; 96374; 96375; 99284; J2270; J2405; J7030; Q9967

== ENCOUNTER 2023-03-05 17:20 | Emergency (ER) | payer MEDICAID ==
[2023-03-05] MEDS ORDERED: Sodium Chloride 0.9% 10 ML Syringe FLUSH PRN (20:03)
[2023-03-05] MEDS ORDERED: Sodium Chloride 0.9% 2.5 ML Syringe FLUSH PRN (20:03)
[2023-03-05] MEDS ORDERED: Sodium Chloride 0.9% 1,000 ML IV ONE (20:03)
[2023-03-05 20:22] LABS: BASOPHILS PERCENT AUTO 0.1 % (0.0-1.5); HEMATOCRIT 43.6 % (36.0-46.0); HEMOGLOBIN 13.9 g/dL (12.0-16.0); LYMPHOCYTES ABSOLUTE AUTO 1.4 K/uL (0.6-2.4); MEAN CORPUSCULAR HEMOGLOBIN 29.4 pg (27.0-32.0); MEAN CORPUSCULAR HGB CONC 31.9 g/dL (31.0-37.0); MEAN CORPUSCULAR VOLUME 92.2 fL (80.0-98.0); MONOCYTES ABSOLUTE AUTO 0.5 K/uL (0.0-0.8); NEUTROPHILS ABSOLUTE AUTO 4.8 K/uL (1.4-5.7); NEUTROPHILS PERCENT AUTO 71.9 % (48.0-80.0); NRBC ABSOLUTE 0 K/uL; PLATELET COUNT,PLT 220 K/uL (150-400); RED BLOOD CELL COUNT 4.73 M/uL (4.30-5.90); WHITE BLOOD CELL COUNT,WBC 6.72 K/uL (4.0-11.0)
[2023-03-05 20:33] LABS: APPEARANCE,URINE CLEAR; BILIRUBIN,URINE NEGATIVE (NEGATIVE); COLOR,URINE YELLOW; GLUCOSE,URINE 250 mg/dL (NEGATIVE); KETONES,URINE NEGATIVE (NEGATIVE); LEUKOCYTE ESTERASE,URINE SMALL (NEGATIVE); NITRITE,URINE NEGATIVE (NEGATIVE); OCCULT BLOOD,URINE NEGATIVE (NEGATIVE); PROTEIN,URINE NEGATIVE (NEGATIVE); UROBILINOGEN,URINE 0.2 EU/dL (<2.0)
[2023-03-05 20:57] LABS: EPITHELIAL CELLS,URINE FEW (NONE-FEW); RBC,URINE 0-1 (0-2/HPF)
[2023-03-05 20:58] LABS: BACTERIA,URINE FEW (NEGATIVE); MUCUS,URINE LIGHT (NONE-MOD)
[2023-03-05 21:02] LABS: ALBUMIN 3.7 g/dL (3.4-5.0); BILIRUBIN TOTAL 0.3 mg/dL (0.2-1.0); CALCIUM 8.8 mg/dL (8.5-10.1); CARBON DIOXIDE,CO2 25.5 mmol/L (21.0-32.0); CREATININE 0.9 mg/dL (0.6-1.0); EST CRCL DRUG DOSING (CG) 60.27 mL/min; PROTEIN TOTAL,TP 7.3 g/dL (6.4-8.2)
[2023-03-05 21:43] VITALS: BP 166/95; PULSE 66
== END 2023-03-05 21:43 | disposition home or self-care (01) ==
LOC: MW.ED 17:20
DX: N39.0 Urinary tract infection, site not specified (principal); R42 Dizziness and giddiness; E78.00 Pure hypercholesterolemia, unspecified; J45.909 Unspecified asthma, uncomplicated; K21.9 Gastro-esophageal reflux disease without esophagitis; M19.90 Unspecified osteoarthritis, unspecified site; E66.9 Obesity, unspecified; Z68.41 Body mass index [BMI] 40.0-44.9, adult; Z98.890 Other specified postprocedural states; Z88.8 Allergy status to other drugs, medicaments and biological substances; Z88.0 Allergy status to penicillin; Z88.5 Allergy status to narcotic agent; Z88.1 Allergy status to other antibiotic agents; Z79.899 Other long term (current) drug therapy; Z79.01 Long term (current) use of anticoagulants
CPT/HCPCS: 36415; 80053; 81001; 85025; 87086; 93005; 96360; 99285; J3490; J7030; 93010; 99283

== ENCOUNTER 2023-03-24 17:42 | Emergency (ER) | payer MEDICAID ==
[2023-03-24 18:32] LABS: APPEARANCE,URINE CLEAR; BILIRUBIN,URINE NEGATIVE (NEGATIVE); COLOR,URINE YELLOW; GLUCOSE,URINE NEGATIVE (NEGATIVE); KETONES,URINE NEGATIVE (NEGATIVE); LEUKOCYTE ESTERASE,URINE SMALL (NEGATIVE); NITRITE,URINE NEGATIVE (NEGATIVE); OCCULT BLOOD,URINE NEGATIVE (NEGATIVE); PROTEIN,URINE NEGATIVE (NEGATIVE); UROBILINOGEN,URINE 0.2 EU/dL (<2.0)
[2023-03-24] MEDS ORDERED: Sodium Chloride 0.9% 10 ML Syringe FLUSH PRN (18:36)
[2023-03-24] MEDS ORDERED: Sodium Chloride 0.9% 2.5 ML Syringe FLUSH PRN (18:36)
[2023-03-24] MEDS ORDERED: Sodium Chloride 0.9% 1,000 ML IV ONE (18:37)
[2023-03-24] MEDS ORDERED: Ondansetron 4 MG/2 ML SDV IVPUSH ONE (18:37)
[2023-03-24 18:48] LABS: BACTERIA,URINE NOT SEEN (NEGATIVE); EPITHELIAL CELLS,URINE RARE (NONE-FEW); RBC,URINE NONE SEEN (0-2/HPF)
[2023-03-24 19:20] LABS: BASOPHILS PERCENT AUTO 0.3 % (0.0-1.5); HEMATOCRIT 41.5 % (36.0-46.0); HEMOGLOBIN 13.6 g/dL (12.0-16.0); LYMPHOCYTES ABSOLUTE AUTO 1.3 K/uL (0.6-2.4); LYMPHOCYTES PERCENT AUTO 21.7 % (16.0-40.0); MEAN CORPUSCULAR HGB CONC 32.8 g/dL (31.0-37.0); MEAN CORPUSCULAR VOLUME 91.6 fL (80.0-98.0); MONOCYTES ABSOLUTE AUTO 0.4 K/uL (0.0-0.8); MONOCYTES PERCENT AUTO 5.7 % (0.0-15.0); NEUTROPHILS ABSOLUTE AUTO 4.4 K/uL (1.4-5.7); NEUTROPHILS PERCENT AUTO 72.3 % (48.0-80.0); NRBC ABSOLUTE 0 K/uL; PLATELET COUNT,PLT 241 K/uL (150-400); RED BLOOD CELL COUNT 4.53 M/uL (4.30-5.90); WHITE BLOOD CELL COUNT,WBC 6.09 K/uL (4.0-11.0)
[2023-03-24 19:54] LABS: ALBUMIN 3.9 g/dL (3.4-5.0); BILIRUBIN TOTAL 0.3 mg/dL (0.2-1.0); CALCIUM 8.7 mg/dL (8.5-10.1); CARBON DIOXIDE,CO2 28.4 mmol/L (21.0-32.0); CREATININE 0.9 mg/dL (0.6-1.0); EST CRCL DRUG DOSING (CG) 60.27 mL/min; POTASSIUM,K 4.3 mmol/L (3.5-5.1); PROTEIN TOTAL,TP 7.7 g/dL (6.4-8.2)
[2023-03-24] MEDS ORDERED: Acetaminophen/HYDROcodone 325-5 MG Tab PO ONE (20:42)
[2023-03-24 22:07] VITALS: BP 135/88; PULSE 88
== END 2023-03-24 22:07 | disposition home or self-care (01) ==
LOC: MW.ED 17:42
DX: R10.84 Generalized abdominal pain (principal); E78.00 Pure hypercholesterolemia, unspecified; J45.909 Unspecified asthma, uncomplicated; K21.9 Gastro-esophageal reflux disease without esophagitis; M19.90 Unspecified osteoarthritis, unspecified site; E66.9 Obesity, unspecified; Z68.42 Body mass index [BMI] 45.0-49.9, adult; Z98.890 Other specified postprocedural states; Z90.49 Acquired absence of other specified parts of digestive tract; Z88.8 Allergy status to other drugs, medicaments and biological substances; Z88.0 Allergy status to penicillin; Z88.5 Allergy status to narcotic agent; Z88.1 Allergy status to other antibiotic agents; Z79.899 Other long term (current) drug therapy; Z79.01 Long term (current) use of anticoagulants
CPT/HCPCS: 36415; 74176; 80053; 81001; 85025; 96361; 96374; 99284; A9270; J2405; J3490; J7030

== ENCOUNTER 2023-04-22 04:04 | Emergency (ER) | payer MEDICAID ==
[2023-04-22] MEDS ORDERED: Sodium Chloride 0.9% 10 ML Syringe FLUSH PRN (04:32)
[2023-04-22] MEDS ORDERED: Sodium Chloride 0.9% 2.5 ML Syringe FLUSH PRN (04:32)
[2023-04-22] MEDS ORDERED: Iopamidol 755 MG/ML 500 ML Multipack Bottle IVPUSH ONE (04:38)
[2023-04-22 04:45] LABS: INR 0.97 (0.86-1.11)
[2023-04-22 04:53] LABS: A/G RATIO 1.1 (0.9-1.6); ALANINE AMINOTRANSFERASE,ALT 50 IU/L (14-63); ALBUMIN 3.7 g/dL (3.4-5.0); ALKALINE PHOSPHATASE 170 U/L (46-116); ASPARTATE AMNIOTRANSFERASE,AST 33 IU/L (15-37); BILIRUBIN TOTAL 0.3 mg/dL (0.2-1.0); BLOOD UREA NITROGEN,BUN 4 mg/dL (7.0-18.0); CALCIUM 8.6 mg/dL (8.5-10.1); CARBON DIOXIDE,CO2 25.5 mmol/L (21.0-32.0); CHLORIDE,CL 105 mmol/L (98-107); CREATININE 1.1 mg/dL (0.6-1.0); EST CRCL DRUG DOSING (CG) 48.73 mL/min; GLUCOSE RANDOM 204 mg/dL (74-106); LIPASE 35 U/L (16-77); POTASSIUM,K 3.2 mmol/L (3.5-5.1); PROTEIN TOTAL,TP 7.2 g/dL (6.4-8.2); SODIUM,NA 141 mmol/L (136-145)
[2023-04-22 04:54] LABS: ESTIMATED GFR 59 mL/min (>60); ETHANOL BLOOD MEDICAL < 3.0 mg/dL
[2023-04-22 05:02] LABS: HEMATOCRIT 39.3 % (37.0-47.0); HEMOGLOBIN 13.1 g/dL (12.0-16.0); MEAN CORPUSCULAR HGB CONC 33.3 g/dL (32.0-36.0); MEAN CORPUSCULAR VOLUME 89.9 fL (83.0-99.0); RED BLOOD CELL COUNT 4.37 M/uL (4.10-5.30); WHITE BLOOD CELL COUNT,WBC 7.19 K/uL (3.9-11.3)
[2023-04-22 05:03] LABS: BASOPHILS ABSOLUTE AUTO 0.03 K/uL (0.00-0.20); BASOPHILS PERCENT AUTO 0.4 % (0.0-1.0); IMMATURE GRAN ABSOLUTE AUTO 0.01 K/uL (0.00-0.05); IMMATURE GRAN PERCENT AUTO 0.1 % (0.0-0.4); LYMPHOCYTES ABSOLUTE AUTO 1.85 K/uL (1.00-4.80); LYMPHOCYTES PERCENT AUTO 25.7 % (24.0-44.0); MEAN PLATELET VOLUME 9.2 fL (9.4-12.3); MONOCYTES ABSOLUTE AUTO 0.51 K/uL (0.00-0.80); MONOCYTES PERCENT AUTO 7.1 % (0.0-8.0); NEUTROPHILS ABSOLUTE AUTO 4.79 K/uL (1.80-7.70); NEUTROPHILS PERCENT AUTO 66.7 % (41.0-71.0); PLATELET COUNT,PLT 219 K/uL (150-400)
[2023-04-22] MEDS ORDERED: Potassium Chloride 20 MEQ Tab.ER PO STA (06:11)
[2023-04-22 06:27] VITALS: BP 145/85
[2023-04-22 07:13] VITALS: PULSE 75
== END 2023-04-22 07:13 | disposition home or self-care (01) ==
LOC: MW.ED 04:04
DX: R07.9 Chest pain, unspecified (principal); E78.00 Pure hypercholesterolemia, unspecified; K21.9 Gastro-esophageal reflux disease without esophagitis; J45.909 Unspecified asthma, uncomplicated; E66.9 Obesity, unspecified; Z68.43 Body mass index [BMI] 50.0-59.9, adult; Z88.0 Allergy status to penicillin; Z88.1 Allergy status to other antibiotic agents; Z88.5 Allergy status to narcotic agent; Z88.8 Allergy status to other drugs, medicaments and biological substances
CPT/HCPCS: 36415; 70450; 71045; 71275; 80053; 80307; 83690; 84484; 85025; 85610; 93005; 99285; A9270; J3490; Q9967; 93010; 99284

== ENCOUNTER 2023-04-26 14:55 | Emergency (ER) | payer MEDICAID ==
[2023-04-26 15:20] VITALS: BP 139/91; PULSE 80
[2023-04-26] MEDS ORDERED: Acetaminophen/HYDROcodone 325-10 MG Tab PO ONE (15:31)
[2023-04-26] MEDS ORDERED: Clindamycin HCl 150 MG Cap PO ONE (15:32)
== END 2023-04-26 15:57 | disposition home or self-care (01) ==
LOC: MW.ED 14:55
DX: K04.7 Periapical abscess without sinus (principal); E78.00 Pure hypercholesterolemia, unspecified; J45.909 Unspecified asthma, uncomplicated; K21.9 Gastro-esophageal reflux disease without esophagitis; M19.90 Unspecified osteoarthritis, unspecified site; E66.9 Obesity, unspecified; Z68.42 Body mass index [BMI] 45.0-49.9, adult; Z88.8 Allergy status to other drugs, medicaments and biological substances; Z88.0 Allergy status to penicillin; Z88.5 Allergy status to narcotic agent; Z88.1 Allergy status to other antibiotic agents; Z79.899 Other long term (current) drug therapy
CPT/HCPCS: 99282; A9270

== ENCOUNTER 2023-06-07 13:05 | Emergency (ER) | payer MEDICAID ==
[2023-06-07 13:25] LABS: APPEARANCE,URINE HAZY; BILIRUBIN,URINE NEGATIVE (NEGATIVE); COLOR,URINE YELLOW; GLUCOSE,URINE >=1000 mg/dL (NEGATIVE); KETONES,URINE NEGATIVE (NEGATIVE); LEUKOCYTE ESTERASE,URINE SMALL (NEGATIVE); NITRITE,URINE NEGATIVE (NEGATIVE); OCCULT BLOOD,URINE NEGATIVE (NEGATIVE); PROTEIN,URINE NEGATIVE (NEGATIVE); UROBILINOGEN,URINE 0.2 EU/dL (<2.0)
[2023-06-07 13:30] LABS: BACTERIA,URINE RARE (NEGATIVE); EPITHELIAL CELLS,URINE FEW (NONE-FEW); RBC,URINE 0-2 (0-2/HPF)
[2023-06-07] MEDS ORDERED: Ondansetron 4 MG/2 ML SDV IVPUSH ONE (13:41)
[2023-06-07] MEDS ORDERED: Sodium Chloride 0.9% 2.5 ML Syringe FLUSH PRN (13:41)
[2023-06-07] MEDS ORDERED: Morphine 4 MG/ML Syringe IVPUSH ONE ×2 (13:41→16:02)
[2023-06-07] MEDS ORDERED: Sodium Chloride 0.9% 10 ML Syringe FLUSH PRN (13:41)
[2023-06-07] MEDS ORDERED: Sodium Chloride 0.9% 1,000 ML IV ONE (13:42)
[2023-06-07 13:53] LABS: BASOPHILS ABSOLUTE AUTO 0.03 K/uL (0.00-0.20); BASOPHILS PERCENT AUTO 0.6 % (0.0-1.0); HEMOGLOBIN 13.7 g/dL (12.0-16.0); IMMATURE GRAN ABSOLUTE AUTO 0.01 K/uL (0.00-0.05); IMMATURE GRAN PERCENT AUTO 0.2 % (0.0-0.4); LYMPHOCYTES ABSOLUTE AUTO 1.03 K/uL (1.00-4.80); LYMPHOCYTES PERCENT AUTO 19.6 % (24.0-44.0); MEAN CORPUSCULAR HGB CONC 33.4 g/dL (32.0-36.0); MEAN CORPUSCULAR VOLUME 89.7 fL (83.0-99.0); MEAN PLATELET VOLUME 8.6 fL (9.4-12.3); MONOCYTES ABSOLUTE AUTO 0.27 K/uL (0.00-0.80); MONOCYTES PERCENT AUTO 5.1 % (0.0-8.0); NEUTROPHILS ABSOLUTE AUTO 3.91 K/uL (1.80-7.70); NEUTROPHILS PERCENT AUTO 74.5 % (41.0-71.0); PLATELET COUNT,PLT 216 K/uL (150-400); RED BLOOD CELL COUNT 4.57 M/uL (4.10-5.30); WHITE BLOOD CELL COUNT,WBC 5.25 K/uL (3.9-11.3)
[2023-06-07 14:24] LABS: ALBUMIN 3.7 g/dL (3.4-5.0); BILIRUBIN TOTAL 0.3 mg/dL (0.2-1.0); CALCIUM 9.4 mg/dL (8.5-10.1); EST CRCL DRUG DOSING (CG) 53.6 mL/min; PROTEIN TOTAL,TP 7.3 g/dL (6.4-8.2)
[2023-06-07] MEDS ORDERED: Iopamidol 755 MG/ML 500 ML Multipack Bottle IVPUSH STA (14:49)
[2023-06-07 16:56] VITALS: BP 135/88; PULSE 75
== END 2023-06-07 16:54 | disposition home or self-care (01) ==
LOC: MW.ED 13:05
DX: N39.0 Urinary tract infection, site not specified (principal); E78.00 Pure hypercholesterolemia, unspecified; J45.909 Unspecified asthma, uncomplicated; K21.9 Gastro-esophageal reflux disease without esophagitis; E66.9 Obesity, unspecified; Z90.49 Acquired absence of other specified parts of digestive tract; Z79.899 Other long term (current) drug therapy; Z88.5 Allergy status to narcotic agent; Z88.0 Allergy status to penicillin; Z88.1 Allergy status to other antibiotic agents; Z88.8 Allergy status to other drugs, medicaments and biological substances; Z68.42 Body mass index [BMI] 45.0-49.9, adult
CPT/HCPCS: 36415; 74177; 80053; 81001; 81025; 83690; 85025; 96361; 96374; 96375; 96376; 99284; J2270; J2405; J3490; J7030; Q9967

== ENCOUNTER 2023-08-17 16:26 | Emergency (ER) | payer MEDICAID ==
[2023-08-17 17:49] VITALS: BP 123/76; PULSE 75
== END 2023-08-17 17:48 | disposition home or self-care (01) ==
LOC: MW.ED 16:26
DX: K04.7 Periapical abscess without sinus (principal); E78.00 Pure hypercholesterolemia, unspecified; K21.9 Gastro-esophageal reflux disease without esophagitis; E66.9 Obesity, unspecified; Z90.49 Acquired absence of other specified parts of digestive tract; Z79.899 Other long term (current) drug therapy; Z88.8 Allergy status to other drugs, medicaments and biological substances; Z88.5 Allergy status to narcotic agent; Z88.0 Allergy status to penicillin; Z68.42 Body mass index [BMI] 45.0-49.9, adult
CPT/HCPCS: 99282; 99283

== ENCOUNTER 2023-08-20 12:01 | Emergency (ER) | payer MEDICAID ==
[2023-08-20 13:50] VITALS: BP 130/76; PULSE 75
== END 2023-08-20 14:04 | disposition home or self-care (01) ==
LOC: MW.ED 12:01
DX: K08.89 Other specified disorders of teeth and supporting structures (principal); K21.9 Gastro-esophageal reflux disease without esophagitis; E78.00 Pure hypercholesterolemia, unspecified; E66.9 Obesity, unspecified; Z79.899 Other long term (current) drug therapy; Z88.8 Allergy status to other drugs, medicaments and biological substances; Z88.5 Allergy status to narcotic agent; Z88.1 Allergy status to other antibiotic agents; Z88.0 Allergy status to penicillin; Z68.42 Body mass index [BMI] 45.0-49.9, adult
CPT/HCPCS: 99282; 99283

== ENCOUNTER 2023-08-26 15:13 | Emergency (ER) | payer MEDICAID ==
[2023-08-26 16:11] VITALS: BP 128/84; PULSE 85
[2023-08-26] MEDS: Lidocaine 2% Viscous Solution 15 ML UD PO ONE (16:31)
[2023-08-26] MEDS: Benzocaine 20% Topical Spray UD MUCMEM ONE (16:31)
== END 2023-08-26 16:35 | disposition home or self-care (01) ==
LOC: MW.ED 15:13
DX: K08.89 Other specified disorders of teeth and supporting structures (principal); E78.00 Pure hypercholesterolemia, unspecified; J45.909 Unspecified asthma, uncomplicated; K21.9 Gastro-esophageal reflux disease without esophagitis; Z88.0 Allergy status to penicillin; Z88.1 Allergy status to other antibiotic agents; Z88.5 Allergy status to narcotic agent; Z88.8 Allergy status to other drugs, medicaments and biological substances; Z79.899 Other long term (current) drug therapy
CPT/HCPCS: 99282; A9270; 99283

== ENCOUNTER 2023-10-11 17:40 | Emergency (ER) | payer MEDICAID ==
[2023-10-11 18:11] LABS: APPEARANCE,URINE CLEAR; BILIRUBIN,URINE NEGATIVE (NEGATIVE); COLOR,URINE YELLOW; GLUCOSE,URINE NEGATIVE (NEGATIVE); KETONES,URINE NEGATIVE (NEGATIVE); LEUKOCYTE ESTERASE,URINE NEGATIVE (NEGATIVE); NITRITE,URINE NEGATIVE (NEGATIVE); OCCULT BLOOD,URINE NEGATIVE (NEGATIVE); PROTEIN,URINE NEGATIVE (NEGATIVE); UROBILINOGEN,URINE 0.2 EU/dL (<2.0)
[2023-10-11] MEDS: LORazepam 2 MG/ML SDV IVPUSH ONE (18:18)
[2023-10-11] MEDS: Ondansetron 4 MG/2 ML SDV IVPUSH ONE (18:18)
[2023-10-11] MEDS: Ketorolac 30 MG/ML SDV IVPUSH ONE (18:18)
[2023-10-11] MEDS: Sodium Chloride 0.9% 1,000 ML IV ONE (18:18)
[2023-10-11 18:25] LABS: BASOPHILS ABSOLUTE AUTO 0.03 K/uL (0.00-0.20); BASOPHILS PERCENT AUTO 0.4 % (0.0-1.0); HEMATOCRIT 37.4 % (37.0-47.0); HEMOGLOBIN 12.6 g/dL (12.0-16.0); IMMATURE GRAN ABSOLUTE AUTO 0.01 K/uL (0.00-0.05); IMMATURE GRAN PERCENT AUTO 0.1 % (0.0-0.4); LYMPHOCYTES ABSOLUTE AUTO 1.28 K/uL (1.00-4.80); LYMPHOCYTES PERCENT AUTO 17.5 % (24.0-44.0); MEAN CORPUSCULAR HEMOGLOBIN 29.9 pg (28.0-32.0); MEAN CORPUSCULAR HGB CONC 33.7 g/dL (32.0-36.0); MEAN CORPUSCULAR VOLUME 88.6 fL (83.0-99.0); MEAN PLATELET VOLUME 8.6 fL (9.4-12.3); MONOCYTES PERCENT AUTO 5.5 % (0.0-8.0); NEUTROPHILS ABSOLUTE AUTO 5.58 K/uL (1.80-7.70); NEUTROPHILS PERCENT AUTO 76.5 % (41.0-71.0); PLATELET COUNT,PLT 240 K/uL (150-400); RED BLOOD CELL COUNT 4.22 M/uL (4.10-5.30)
[2023-10-11 18:55] LABS: A/G RATIO 1.1 (0.9-1.6); ALBUMIN 3.6 g/dL (3.4-5.0); BILIRUBIN TOTAL 0.4 mg/dL (0.2-1.0); CALCIUM 8.8 mg/dL (8.5-10.1); CARBON DIOXIDE,CO2 22.1 mmol/L (21.0-32.0); CREATININE 1.1 mg/dL (0.6-1.0); EST CRCL DRUG DOSING (CG) 48.73 mL/min; POTASSIUM,K 3.5 mmol/L (3.5-5.1)
[2023-10-11 19:26] VITALS: BP 140/82; PULSE 90
== END 2023-10-11 19:25 | disposition home or self-care (01) ==
LOC: MW.ED 17:40
DX: K52.9 Noninfective gastroenteritis and colitis, unspecified (principal); G43.909 Migraine, unspecified, not intractable, without status migrainosus; E78.00 Pure hypercholesterolemia, unspecified; K21.9 Gastro-esophageal reflux disease without esophagitis; J45.909 Unspecified asthma, uncomplicated; E66.9 Obesity, unspecified; Z79.899 Other long term (current) drug therapy; Z86.19 Personal history of other infectious and parasitic diseases; Z86.16 Personal history of COVID-19; Z90.49 Acquired absence of other specified parts of digestive tract; Z87.891 Personal history of nicotine dependence; Z68.42 Body mass index [BMI] 45.0-49.9, adult
CPT/HCPCS: 36415; 80053; 81003; 83690; 85025; 96361; 96374; 96375; 99284; J1885; J2060; J2405; J7030

== ENCOUNTER 2023-11-18 14:59 | Emergency (ER) | payer MEDICAID ==
[2023-11-18] MEDS: Acetaminophen 500 MG Tab PO ONE (17:36)
[2023-11-18 19:34] VITALS: BP 125/63; PULSE 85
== END 2023-11-18 19:33 | disposition home or self-care (01) ==
LOC: MW.ED 14:59
DX: M79.662 Pain in left lower leg (principal); E78.00 Pure hypercholesterolemia, unspecified; K21.9 Gastro-esophageal reflux disease without esophagitis; E66.9 Obesity, unspecified; Z75.8 Other problems related to medical facilities and other health care; Z88.8 Allergy status to other drugs, medicaments and biological substances; Z88.1 Allergy status to other antibiotic agents; Z88.5 Allergy status to narcotic agent; Z88.6 Allergy status to analgesic agent; Z79.899 Other long term (current) drug therapy; Z90.49 Acquired absence of other specified parts of digestive tract; Z68.42 Body mass index [BMI] 45.0-49.9, adult
CPT/HCPCS: 93970; 99283; A9270

== ENCOUNTER 2023-11-25 18:24 | Emergency (ER) | payer MEDICAID ==
[2023-11-25 19:14] LABS: APPEARANCE,URINE CLEAR; BILIRUBIN,URINE NEGATIVE (NEGATIVE); COLOR,URINE YELLOW; GLUCOSE,URINE NEGATIVE (NEGATIVE); KETONES,URINE NEGATIVE (NEGATIVE); LEUKOCYTE ESTERASE,URINE NEGATIVE (NEGATIVE); NITRITE,URINE NEGATIVE (NEGATIVE); OCCULT BLOOD,URINE NEGATIVE (NEGATIVE); PROTEIN,URINE NEGATIVE (NEGATIVE); UROBILINOGEN,URINE 0.2 EU/dL (<2.0)
[2023-11-25] MEDS ORDERED: Sodium Chloride 0.9% 2.5 ML Syringe FLUSH PRN (19:16)
[2023-11-25] MEDS ORDERED: Sodium Chloride 0.9% 10 ML Syringe FLUSH PRN (19:16)
[2023-11-25] MEDS: Ondansetron 4 MG/2 ML SDV IVPUSH ONE (19:23)
[2023-11-25] MEDS: Sodium Chloride 0.9% 1,000 ML IV ONE (19:23)
[2023-11-25 19:41] LABS: BASOPHILS ABSOLUTE AUTO 0.02 K/uL (0.00-0.20); BASOPHILS PERCENT AUTO 0.3 % (0.0-1.0); HEMATOCRIT 42.9 % (37.0-47.0); HEMOGLOBIN 14.1 g/dL (12.0-16.0); IMMATURE GRAN ABSOLUTE AUTO 0.01 K/uL (0.00-0.05); IMMATURE GRAN PERCENT AUTO 0.1 % (0.0-0.4); LYMPHOCYTES ABSOLUTE AUTO 1.31 K/uL (1.00-4.80); LYMPHOCYTES PERCENT AUTO 18.7 % (24.0-44.0); MEAN CORPUSCULAR HEMOGLOBIN 29.7 pg (28.0-32.0); MEAN CORPUSCULAR HGB CONC 32.9 g/dL (32.0-36.0); MEAN CORPUSCULAR VOLUME 90.5 fL (83.0-99.0); MEAN PLATELET VOLUME 8.5 fL (9.4-12.3); MONOCYTES ABSOLUTE AUTO 0.41 K/uL (0.00-0.80); MONOCYTES PERCENT AUTO 5.8 % (0.0-8.0); NEUTROPHILS ABSOLUTE AUTO 5.26 K/uL (1.80-7.70); NEUTROPHILS PERCENT AUTO 75.1 % (41.0-71.0); PLATELET COUNT,PLT 252 K/uL (150-400); RED BLOOD CELL COUNT 4.74 M/uL (4.10-5.30); WHITE BLOOD CELL COUNT,WBC 7.01 K/uL (3.9-11.3)
[2023-11-25 20:13] LABS: A/G RATIO 1.1 (0.9-1.6); ALBUMIN 3.9 g/dL (3.4-5.0); BILIRUBIN TOTAL 0.4 mg/dL (0.2-1.0); CALCIUM 9.4 mg/dL (8.5-10.1); CARBON DIOXIDE,CO2 26.9 mmol/L (21.0-32.0); EST CRCL DRUG DOSING (CG) 53.6 mL/min; POTASSIUM,K 3.4 mmol/L (3.5-5.1); PROTEIN TOTAL,TP 7.6 g/dL (6.4-8.2)
[2023-11-25 22:45] VITALS: BP 145/79; PULSE 8
[2023-11-27] MEDS: Iopamidol 755 MG/ML 500 ML Multipack Bottle IVPUSH STA (07:09)
== END 2023-11-25 22:45 | disposition home or self-care (01) ==
LOC: MW.ED 18:24
DX: R10.31 Right lower quadrant pain (principal); R11.2 Nausea with vomiting, unspecified; E78.00 Pure hypercholesterolemia, unspecified; J45.909 Unspecified asthma, uncomplicated; K21.9 Gastro-esophageal reflux disease without esophagitis; E66.9 Obesity, unspecified; Z68.42 Body mass index [BMI] 45.0-49.9, adult; Z86.16 Personal history of COVID-19; Z90.49 Acquired absence of other specified parts of digestive tract
CPT/HCPCS: 36415; 74177; 80053; 81003; 83690; 85025; 93005; 96361; 96374; 99284; J2405; J7030; 93010; Q9967

== ENCOUNTER 2024-01-20 19:40 | Emergency (ER) | payer MEDICAID ==
[2024-01-20 20:22] LABS: BASOPHILS ABSOLUTE AUTO 0.03 K/uL (0.00-0.20); BASOPHILS PERCENT AUTO 0.5 % (0.0-1.0); HEMATOCRIT 38.9 % (37.0-47.0); HEMOGLOBIN 12.8 g/dL (12.0-16.0); IMMATURE GRAN ABSOLUTE AUTO 0.01 K/uL (0.00-0.05); IMMATURE GRAN PERCENT AUTO 0.2 % (0.0-0.4); LYMPHOCYTES ABSOLUTE AUTO 1.34 K/uL (1.00-4.80); LYMPHOCYTES PERCENT AUTO 22.7 % (24.0-44.0); MEAN CORPUSCULAR HEMOGLOBIN 29.6 pg (28.0-32.0); MEAN CORPUSCULAR HGB CONC 32.9 g/dL (32.0-36.0); MEAN PLATELET VOLUME 8.9 fL (9.4-12.3); MONOCYTES ABSOLUTE AUTO 0.32 K/uL (0.00-0.80); MONOCYTES PERCENT AUTO 5.4 % (0.0-8.0); NEUTROPHILS PERCENT AUTO 71.2 % (41.0-71.0); PLATELET COUNT,PLT 227 K/uL (150-400); RED BLOOD CELL COUNT 4.32 M/uL (4.10-5.30)
[2024-01-20 20:35] LABS: APPEARANCE,URINE CLEAR; BILIRUBIN,URINE NEGATIVE (NEGATIVE); COLOR,URINE YELLOW; GLUCOSE,URINE NEGATIVE (NEGATIVE); KETONES,URINE NEGATIVE (NEGATIVE); LEUKOCYTE ESTERASE,URINE TRACE (NEGATIVE); NITRITE,URINE NEGATIVE (NEGATIVE); OCCULT BLOOD,URINE NEGATIVE (NEGATIVE); PROTEIN,URINE NEGATIVE (NEGATIVE)
[2024-01-20 20:40] LABS: RBC,URINE 0-2 (0-2/HPF); WBC,URINE 0-2 (0-5/HPF)
[2024-01-20 20:41] LABS: BACTERIA,URINE FEW (NEGATIVE); EPITHELIAL CELLS,URINE MODERATE (NONE-FEW); MUCUS,URINE LIGHT (NONE-MOD)
[2024-01-20 20:50] LABS: A/G RATIO 1.2 (0.9-1.6); ALANINE AMINOTRANSFERASE,ALT 56 IU/L (14-63); ALBUMIN 3.7 g/dL (3.4-5.0); ALKALINE PHOSPHATASE 167 U/L (46-116); ASPARTATE AMNIOTRANSFERASE,AST 36 IU/L (15-37); BILIRUBIN TOTAL 0.3 mg/dL (0.2-1.0); BLOOD UREA NITROGEN,BUN 7 mg/dL (7.0-18.0); CALCIUM 8.8 mg/dL (8.5-10.1); CHLORIDE,CL 107 mmol/L (98-107); GLUCOSE RANDOM 140 mg/dL (74-106); LIPASE 59 U/L (16-77); POTASSIUM,K 4.1 mmol/L (3.5-5.1); PROTEIN TOTAL,TP 6.8 g/dL (6.4-8.2); SODIUM,NA 141 mmol/L (136-145)
[2024-01-20 20:53] LABS: ESTIMATED GFR 66 mL/min (>60)
[2024-01-20] MEDS: Ondansetron 4 MG/2 ML SDV IVPUSH ONE (21:15)
[2024-01-20] MEDS: Pantoprazole 80 MG in Sodium Chloride 0.9% 10 ML IVPUSH ONE (21:15)
[2024-01-20] MEDS: Sodium Chloride 0.9% 2.5 ML Syringe FLUSH PRN (21:15)
[2024-01-20] MEDS: Sodium Chloride 0.9% 10 ML Syringe FLUSH PRN (21:15)
[2024-01-20] MEDS: Iopamidol 755 MG/ML 500 ML Multipack Bottle IVPUSH ONE (21:36)
[2024-01-20] MEDS: Sucralfate Suspension 1 GM/10 ML Cup PO ONE (22:41)
[2024-01-20] MEDS: Dicyclomine 10 MG Cap PO ONE (22:41)
[2024-01-20 22:42] VITALS: BP 137/81; PULSE 75
[2024-01-20] MEDS: Cefdinir 300 MG Cap PO ONE (23:02)
[2024-01-21] MEDS ORDERED: Sucralfate Suspension 1 GM/10 ML Cup PO SCH (07:30)
== END 2024-01-20 23:05 | disposition home or self-care (01) ==
LOC: MW.ED 19:40
DX: N39.0 Urinary tract infection, site not specified (principal); Z98.84 Bariatric surgery status; E78.00 Pure hypercholesterolemia, unspecified; J45.909 Unspecified asthma, uncomplicated; E66.9 Obesity, unspecified; K21.9 Gastro-esophageal reflux disease without esophagitis; Z88.8 Allergy status to other drugs, medicaments and biological substances; Z88.6 Allergy status to analgesic agent; Z88.1 Allergy status to other antibiotic agents; Z88.0 Allergy status to penicillin; Z79.899 Other long term (current) drug therapy; Z90.49 Acquired absence of other specified parts of digestive tract
CPT/HCPCS: 36415; 74177; 80053; 81001; 83690; 84484; 85025; 86850; 86900; 86901; 87086; 93005; 96374; 96375; 99284; A9270; J2405; J2470; J3490; Q9967; 93010

== ENCOUNTER 2024-02-22 14:28 | Emergency (ER) | payer MEDICAID ==
[2024-02-22 16:01] LABS: BILIRUBIN,URINE NEGATIVE (NEGATIVE); COLOR,URINE YELLOW; GLUCOSE,URINE NEGATIVE (NEGATIVE); KETONES,URINE NEGATIVE (NEGATIVE); LEUKOCYTE ESTERASE,URINE SMALL (NEGATIVE); NITRITE,URINE NEGATIVE (NEGATIVE); OCCULT BLOOD,URINE NEGATIVE (NEGATIVE); PROTEIN,URINE NEGATIVE (NEGATIVE); UROBILINOGEN,URINE 0.2 EU/dL (<2.0)
[2024-02-22 16:04] LABS: APPEARANCE,URINE HAZY
[2024-02-22 16:19] LABS: BACTERIA,URINE FEW (NEGATIVE); EPITHELIAL CELLS,URINE FEW (NONE-FEW); RBC,URINE 0-1 (0-2/HPF); WBC,URINE 0-5 (0-5/HPF)
[2024-02-22] MEDS ORDERED: Sodium Chloride 0.9% 10 ML Syringe FLUSH PRN (16:36)
[2024-02-22] MEDS ORDERED: Sodium Chloride 0.9% 2.5 ML Syringe FLUSH PRN (16:36)
[2024-02-22 16:55] LABS: BASOPHILS ABSOLUTE AUTO 0.02 K/uL (0.00-0.20); BASOPHILS PERCENT AUTO 0.2 % (0.0-1.0); HEMATOCRIT 41.5 % (37.0-47.0); HEMOGLOBIN 13.7 g/dL (12.0-16.0); IMMATURE GRAN ABSOLUTE AUTO 0.03 K/uL (0.00-0.05); IMMATURE GRAN PERCENT AUTO 0.3 % (0.0-0.4); LYMPHOCYTES ABSOLUTE AUTO 0.74 K/uL (1.00-4.80); MEAN CORPUSCULAR HEMOGLOBIN 29.4 pg (28.0-32.0); MEAN CORPUSCULAR VOLUME 89.1 fL (83.0-99.0); MEAN PLATELET VOLUME 8.5 fL (9.4-12.3); MONOCYTES ABSOLUTE AUTO 0.24 K/uL (0.00-0.80); MONOCYTES PERCENT AUTO 2.6 % (0.0-8.0); NEUTROPHILS ABSOLUTE AUTO 8.18 K/uL (1.80-7.70); NEUTROPHILS PERCENT AUTO 88.9 % (41.0-71.0); PLATELET COUNT,PLT 212 K/uL (150-400); RED BLOOD CELL COUNT 4.66 M/uL (4.10-5.30); WHITE BLOOD CELL COUNT,WBC 9.21 K/uL (3.9-11.3)
[2024-02-22] MEDS: Ondansetron 4 MG/2 ML SDV IVPUSH STA (16:58)
[2024-02-22] MEDS: Sodium Chloride 0.9% 1,000 ML IV STA (16:58)
[2024-02-22] MEDS: Morphine 4 MG/ML Syringe IVPUSH STA (16:58)
[2024-02-22 17:18] LABS: A/G RATIO 1.1 (0.9-1.6); ALBUMIN 3.7 g/dL (3.4-5.0); BILIRUBIN TOTAL 0.5 mg/dL (0.2-1.0); CARBON DIOXIDE,CO2 24.6 mmol/L (21.0-32.0); CREATININE 1.1 mg/dL (0.6-1.0); EST CRCL DRUG DOSING (CG) 48.73 mL/min; POTASSIUM,K 4.4 mmol/L (3.5-5.1); PROTEIN TOTAL,TP 7.1 g/dL (6.4-8.2)
[2024-02-22] MEDS: Iopamidol 755 MG/ML 500 ML Multipack Bottle IVPUSH STA (18:36)
[2024-02-22 20:05] VITALS: BP 126/69; PULSE 67
== END 2024-02-22 20:04 | disposition home or self-care (01) ==
LOC: MW.ED 14:28
DX: R10.84 Generalized abdominal pain (principal); E78.00 Pure hypercholesterolemia, unspecified; K21.9 Gastro-esophageal reflux disease without esophagitis; Z75.8 Other problems related to medical facilities and other health care; Z90.49 Acquired absence of other specified parts of digestive tract; Z88.8 Allergy status to other drugs, medicaments and biological substances; Z88.5 Allergy status to narcotic agent; Z88.1 Allergy status to other antibiotic agents; Z79.899 Other long term (current) drug therapy
CPT/HCPCS: 36415; 74177; 80053; 81001; 82947; 83690; 85025; 87086; 96361; 96374; 96375; 99284; J2270; J2405; J7030; Q9967

== ENCOUNTER 2024-02-26 17:10 | Emergency (ER) | payer MEDICAID ==
[2024-02-26 18:17] LABS: BASOPHILS ABSOLUTE AUTO 0.02 K/uL (0.00-0.20); BASOPHILS PERCENT AUTO 0.2 % (0.0-1.0); HEMATOCRIT 41.3 % (37.0-47.0); HEMOGLOBIN 13.6 g/dL (12.0-16.0); IMMATURE GRAN ABSOLUTE AUTO 0.02 K/uL (0.00-0.05); IMMATURE GRAN PERCENT AUTO 0.2 % (0.0-0.4); LYMPHOCYTES ABSOLUTE AUTO 0.95 K/uL (1.00-4.80); LYMPHOCYTES PERCENT AUTO 9.7 % (24.0-44.0); MEAN CORPUSCULAR HEMOGLOBIN 29.5 pg (28.0-32.0); MEAN CORPUSCULAR HGB CONC 32.9 g/dL (32.0-36.0); MEAN CORPUSCULAR VOLUME 89.6 fL (83.0-99.0); MEAN PLATELET VOLUME 8.8 fL (9.4-12.3); MONOCYTES ABSOLUTE AUTO 0.46 K/uL (0.00-0.80); MONOCYTES PERCENT AUTO 4.7 % (0.0-8.0); NEUTROPHILS ABSOLUTE AUTO 8.34 K/uL (1.80-7.70); NEUTROPHILS PERCENT AUTO 85.2 % (41.0-71.0); PLATELET COUNT,PLT 201 K/uL (150-400); RED BLOOD CELL COUNT 4.61 M/uL (4.10-5.30); WHITE BLOOD CELL COUNT,WBC 9.79 K/uL (3.9-11.3)
[2024-02-26 18:25] LABS: INR 1.02 (0.86-1.11); PTT,PARTIAL THROMBOPLSTIN TIME 28.1 SEC (23.9-30.7)
[2024-02-26] MEDS: Sodium Chloride 0.9% 1,000 ML IV ONE (18:27)
[2024-02-26] MEDS: Ketorolac 30 MG/ML SDV IVPUSH ONE (18:27)
[2024-02-26 18:43] LABS: A/G RATIO 1.3 (0.9-1.6); ALBUMIN 3.9 g/dL (3.4-5.0); BILIRUBIN TOTAL 0.4 mg/dL (0.2-1.0); CALCIUM 9.3 mg/dL (8.5-10.1); CARBON DIOXIDE,CO2 25.5 mmol/L (21.0-32.0); CREATININE 1.1 mg/dL (0.6-1.0); EST CRCL DRUG DOSING (CG) 50.77 mL/min; POTASSIUM,K 4.3 mmol/L (3.5-5.1); PROTEIN TOTAL,TP 6.9 g/dL (6.4-8.2)
[2024-02-26 18:57] LABS: CORONAVIRUS COVID-19 NAA POSITIVE (NEGATIVE); INFLUENZA A NAA NEGATIVE (NEGATIVE); INFLUENZA B NAA NEGATIVE (NEGATIVE); RESPIRATORY SYNCYTIAL VIR NAA NEGATIVE (NEGATIVE)
[2024-02-26 19:46] VITALS: BP 122/86; PULSE 83
== END 2024-02-26 19:45 | disposition home or self-care (01) ==
LOC: MW.ED 17:10
DX: U07.1 COVID-19 (principal); E78.00 Pure hypercholesterolemia, unspecified; K21.9 Gastro-esophageal reflux disease without esophagitis; Z90.49 Acquired absence of other specified parts of digestive tract; Z75.8 Other problems related to medical facilities and other health care; Z88.8 Allergy status to other drugs, medicaments and biological substances; Z88.5 Allergy status to narcotic agent; Z88.1 Allergy status to other antibiotic agents; Z79.899 Other long term (current) drug therapy
CPT/HCPCS: 0241U; 36415; 71045; 80053; 84484; 85025; 85610; 85730; 93005; 96361; 96374; 99285; J1885; J7030; 93010

== ENCOUNTER 2024-02-27 18:04 | Emergency (ER) | payer MEDICAID ==
[2024-02-27 18:14] VITALS: BP 113/70; PULSE 89
== END 2024-02-27 18:39 | disposition home or self-care (01) ==
LOC: MW.ED 18:04
DX: U07.1 COVID-19 (principal); E78.00 Pure hypercholesterolemia, unspecified; K21.9 Gastro-esophageal reflux disease without esophagitis; E66.9 Obesity, unspecified; Z90.49 Acquired absence of other specified parts of digestive tract; Z79.899 Other long term (current) drug therapy; Z88.5 Allergy status to narcotic agent; Z88.8 Allergy status to other drugs, medicaments and biological substances; Z88.0 Allergy status to penicillin; Z88.1 Allergy status to other antibiotic agents; Z75.8 Other problems related to medical facilities and other health care; Z68.42 Body mass index [BMI] 45.0-49.9, adult
CPT/HCPCS: 99283

== ENCOUNTER 2024-03-12 18:25 | Emergency (ER) | payer MEDICAID ==
[2024-03-12 20:08] LABS: BASOPHILS ABSOLUTE AUTO 0.02 K/uL (0.00-0.20); BASOPHILS PERCENT AUTO 0.3 % (0.0-1.0); HEMATOCRIT 39.8 % (37.0-47.0); IMMATURE GRAN ABSOLUTE AUTO 0.02 K/uL (0.00-0.05); IMMATURE GRAN PERCENT AUTO 0.3 % (0.0-0.4); LYMPHOCYTES ABSOLUTE AUTO 1.46 K/uL (1.00-4.80); LYMPHOCYTES PERCENT AUTO 24.9 % (24.0-44.0); MEAN CORPUSCULAR HEMOGLOBIN 29.4 pg (28.0-32.0); MEAN CORPUSCULAR HGB CONC 32.7 g/dL (32.0-36.0); MEAN PLATELET VOLUME 8.7 fL (9.4-12.3); MONOCYTES ABSOLUTE AUTO 0.37 K/uL (0.00-0.80); MONOCYTES PERCENT AUTO 6.3 % (0.0-8.0); NEUTROPHILS ABSOLUTE AUTO 3.99 K/uL (1.80-7.70); NEUTROPHILS PERCENT AUTO 68.2 % (41.0-71.0); PLATELET COUNT,PLT 211 K/uL (150-400); RED BLOOD CELL COUNT 4.42 M/uL (4.10-5.30); WHITE BLOOD CELL COUNT,WBC 5.86 K/uL (3.9-11.3)
[2024-03-12 20:45] LABS: A/G RATIO 1.2 (0.9-1.6); ALBUMIN 3.9 g/dL (3.4-5.0); BILIRUBIN TOTAL 0.4 mg/dL (0.2-1.0); CALCIUM 9.2 mg/dL (8.5-10.1); CARBON DIOXIDE,CO2 27.5 mmol/L (21.0-32.0); CREATININE 1.1 mg/dL (0.6-1.0); EST CRCL DRUG DOSING (CG) 50.77 mL/min; MAGNESIUM 2.1 mg/dL (1.8-2.4); POTASSIUM,K 3.8 mmol/L (3.5-5.1); PROTEIN TOTAL,TP 7.1 g/dL (6.4-8.2)
[2024-03-12] MEDS: Prochlorperazine 10 MG Tab PO ONE (23:09)
[2024-03-12] MEDS: Ondansetron 4 MG Tab.DIS PO ONE (23:09)
[2024-03-13 01:04] VITALS: BP 120/61; PULSE 64
== END 2024-03-13 01:04 | disposition home or self-care (01) ==
LOC: MW.ED 18:25
DX: M79.604 Pain in right leg (principal); M79.605 Pain in left leg; R11.0 Nausea; K59.00 Constipation, unspecified; E78.00 Pure hypercholesterolemia, unspecified; J45.909 Unspecified asthma, uncomplicated; K21.9 Gastro-esophageal reflux disease without esophagitis; E66.9 Obesity, unspecified; Z68.41 Body mass index [BMI] 40.0-44.9, adult; Z90.49 Acquired absence of other specified parts of digestive tract; Z79.899 Other long term (current) drug therapy; Z88.9 Allergy status to unspecified drugs, medicaments and biological substances; Z88.1 Allergy status to other antibiotic agents; Z75.8 Other problems related to medical facilities and other health care
CPT/HCPCS: 36415; 74018; 80053; 83690; 83735; 85025; 93005; 99284; A9270; Q0164; 93010

== ENCOUNTER 2024-05-05 18:27 | Emergency (ER) | payer MEDICAID ==
[2024-05-05 18:56] LABS: BASOPHILS ABSOLUTE AUTO 0.03 K/uL (0.00-0.20); BASOPHILS PERCENT AUTO 0.5 % (0.0-1.0); HEMATOCRIT 39.3 % (37.0-47.0); HEMOGLOBIN 12.8 g/dL (12.0-16.0); IMMATURE GRAN ABSOLUTE AUTO 0.01 K/uL (0.00-0.05); IMMATURE GRAN PERCENT AUTO 0.2 % (0.0-0.4); LYMPHOCYTES ABSOLUTE AUTO 1.36 K/uL (1.00-4.80); LYMPHOCYTES PERCENT AUTO 22.6 % (24.0-44.0); MEAN CORPUSCULAR HEMOGLOBIN 29.2 pg (28.0-32.0); MEAN CORPUSCULAR HGB CONC 32.6 g/dL (32.0-36.0); MEAN CORPUSCULAR VOLUME 89.5 fL (83.0-99.0); MEAN PLATELET VOLUME 8.9 fL (9.4-12.3); MONOCYTES ABSOLUTE AUTO 0.45 K/uL (0.00-0.80); MONOCYTES PERCENT AUTO 7.5 % (0.0-8.0); NEUTROPHILS ABSOLUTE AUTO 4.17 K/uL (1.80-7.70); NEUTROPHILS PERCENT AUTO 69.2 % (41.0-71.0); PLATELET COUNT,PLT 188 K/uL (150-400); RED BLOOD CELL COUNT 4.39 M/uL (4.10-5.30); WHITE BLOOD CELL COUNT,WBC 6.02 K/uL (3.9-11.3)
[2024-05-05 19:18] LABS: A/G RATIO 1.2 (0.9-1.6); ALBUMIN 3.7 g/dL (3.4-5.0); BILIRUBIN TOTAL 0.3 mg/dL (0.2-1.0); CALCIUM 8.5 mg/dL (8.5-10.1); CREATININE 1.3 mg/dL (0.6-1.0); EST CRCL DRUG DOSING (CG) 40.73 mL/min; PROTEIN TOTAL,TP 6.7 g/dL (6.4-8.2)
[2024-05-05] MEDS: Sodium Chloride 0.9% 1,000 ML IV ONE (19:24)
[2024-05-05] MEDS: Acetaminophen 500 MG Tab PO ONE (19:35)
[2024-05-05] MEDS: Ondansetron 4 MG/2 ML SDV IVPUSH ONE (19:36)
[2024-05-05 19:57] LABS: BILIRUBIN,URINE NEGATIVE (NEGATIVE); COLOR,URINE YELLOW; GLUCOSE,URINE NEGATIVE (NEGATIVE); KETONES,URINE NEGATIVE (NEGATIVE); LEUKOCYTE ESTERASE,URINE TRACE (NEGATIVE); NITRITE,URINE NEGATIVE (NEGATIVE); OCCULT BLOOD,URINE NEGATIVE (NEGATIVE); PH,URINE 5.5 (5.0-8.0); PROTEIN,URINE NEGATIVE (NEGATIVE)
[2024-05-05 20:18] LABS: APPEARANCE,URINE HAZY
[2024-05-05 20:34] LABS: BACTERIA,URINE FEW (NEGATIVE); EPITHELIAL CELLS,URINE FEW (NONE-FEW); MUCUS,URINE OCCASIONAL (NONE-MOD); RBC,URINE 0-1 (0-2/HPF)
[2024-05-05 20:53] VITALS: BP 114/78
[2024-05-05] MEDS: Cefdinir 300 MG Cap PO ONE (20:54)
[2024-05-05 23:42] VITALS: PULSE 76
== END 2024-05-05 22:15 | disposition home or self-care (01) ==
LOC: MW.ED 18:27
DX: A08.4 Viral intestinal infection, unspecified (principal); N39.0 Urinary tract infection, site not specified; K21.9 Gastro-esophageal reflux disease without esophagitis; E78.00 Pure hypercholesterolemia, unspecified; E66.9 Obesity, unspecified; Z88.0 Allergy status to penicillin; Z88.8 Allergy status to other drugs, medicaments and biological substances; Z79.899 Other long term (current) drug therapy; Z90.49 Acquired absence of other specified parts of digestive tract; Z68.42 Body mass index [BMI] 45.0-49.9, adult; Z75.8 Other problems related to medical facilities and other health care
CPT/HCPCS: 36415; 80053; 81001; 83690; 83735; 85025; 87086; 96361; 96374; 99284; A9270; J2405; J7030

== ENCOUNTER 2024-06-19 16:52 | Emergency (ER) | payer MEDICAID ==
[2024-06-19] MEDS: traMADol 50 MG Tab PO STA (17:44)
[2024-06-19] MEDS: Meclizine 25 MG Tab PO STA (17:44)
[2024-06-19 18:39] LABS: BASOPHILS ABSOLUTE AUTO 0.03 K/uL (0.00-0.20); BASOPHILS PERCENT AUTO 0.5 % (0.0-1.0); EOSINOPHILS ABSOLUTE AUTO 0.14 K/uL (0.00-0.45); EOSINOPHILS PERCENT AUTO 2.2 % (0.0-6.0); HEMATOCRIT 43.2 % (37.0-47.0); HEMOGLOBIN 13.7 g/dL (12.0-16.0); IMMATURE GRAN ABSOLUTE AUTO 0.01 K/uL (0.00-0.05); IMMATURE GRAN PERCENT AUTO 0.2 % (0.0-0.4); LYMPHOCYTES ABSOLUTE AUTO 1.36 K/uL (1.00-4.80); LYMPHOCYTES PERCENT AUTO 21.4 % (24.0-44.0); MEAN CORPUSCULAR HEMOGLOBIN 29.1 pg (28.0-32.0); MEAN CORPUSCULAR HGB CONC 31.7 g/dL (32.0-36.0); MEAN CORPUSCULAR VOLUME 91.7 fL (83.0-99.0); MEAN PLATELET VOLUME 8.6 fL (9.4-12.3); MONOCYTES ABSOLUTE AUTO 0.38 K/uL (0.00-0.80); NEUTROPHILS ABSOLUTE AUTO 4.45 K/uL (1.80-7.70); NEUTROPHILS PERCENT AUTO 69.7 % (41.0-71.0); PLATELET COUNT,PLT 221 K/uL (150-400); RED BLOOD CELL COUNT 4.71 M/uL (4.10-5.30); WHITE BLOOD CELL COUNT,WBC 6.37 K/uL (3.9-11.3)
[2024-06-19 19:10] LABS: A/G RATIO 1.4 (0.9-1.6); ALBUMIN 4.3 g/dL (3.4-5.0); BILIRUBIN TOTAL 0.5 mg/dL (0.2-1.0); CALCIUM 9.4 mg/dL (8.5-10.1); CARBON DIOXIDE,CO2 29.7 mmol/L (21.0-32.0); CREATININE 1.1 mg/dL (0.6-1.0); EST CRCL DRUG DOSING (CG) 50.16 mL/min; MAGNESIUM 2.3 mg/dL (1.8-2.4); PROTEIN TOTAL,TP 7.3 g/dL (6.4-8.2)
[2024-06-19 21:04] VITALS: BP 130/91; PULSE 71
== END 2024-06-19 21:03 | disposition home or self-care (01) ==
LOC: MW.ED 16:52
DX: R07.89 Other chest pain (principal); R42 Dizziness and giddiness; J45.909 Unspecified asthma, uncomplicated; E78.00 Pure hypercholesterolemia, unspecified; E66.9 Obesity, unspecified; Z90.49 Acquired absence of other specified parts of digestive tract; Z98.84 Bariatric surgery status; Z96.659 Presence of unspecified artificial knee joint; Z88.5 Allergy status to narcotic agent; Z88.1 Allergy status to other antibiotic agents; Z88.6 Allergy status to analgesic agent; Z88.8 Allergy status to other drugs, medicaments and biological substances; Z79.899 Other long term (current) drug therapy; Z75.8 Other problems related to medical facilities and other health care
CPT/HCPCS: 36415; 70450; 71046; 80053; 83690; 83735; 84484; 85025; 93005; 99285; A9270; 93010; 99284

== ENCOUNTER 2024-08-17 16:00 | Emergency (ER) | payer MEDICAID ==
[2024-08-17 16:43] VITALS: BP 150/94
[2024-08-17 17:56] LABS: APPEARANCE,URINE CLEAR; BILIRUBIN,URINE NEGATIVE; COLOR,URINE YELLOW; GLUCOSE,URINE NEGATIVE; KETONES,URINE NEGATIVE; LEUKOCYTE ESTERASE,URINE NEGATIVE (NEGATIVE); NITRITE,URINE NEGATIVE (NEGATIVE); OCCULT BLOOD,URINE NEGATIVE; PROTEIN,URINE NEGATIVE; UROBILINOGEN,URINE 0.2 (<1.0)
[2024-08-17 17:57] LABS: BACTERIA,URINE NOT SEEN (NEGATIVE); EPITHELIAL CELLS,URINE NOT SEEN (NONE-FEW); RBC,URINE NONE SEEN (0-2/HPF); WBC,URINE NONE SEEN (0-5/HPF)
[2024-08-17 18:46] LABS: BASOPHILS ABSOLUTE AUTO 0.04 K/uL (0.00-0.20); BASOPHILS PERCENT AUTO 0.6 % (0.0-1.0); HEMATOCRIT 40.4 % (37.0-47.0); HEMOGLOBIN 13.2 g/dL (12.0-16.0); IMMATURE GRAN ABSOLUTE AUTO 0.01 K/uL (0.00-0.05); IMMATURE GRAN PERCENT AUTO 0.1 % (0.0-0.4); MEAN CORPUSCULAR HGB CONC 32.7 g/dL (32.0-36.0); MEAN CORPUSCULAR VOLUME 88.8 fL (83.0-99.0); MEAN PLATELET VOLUME 8.6 fL (9.4-12.3); MONOCYTES ABSOLUTE AUTO 0.38 K/uL (0.00-0.80); MONOCYTES PERCENT AUTO 5.7 % (0.0-8.0); NEUTROPHILS ABSOLUTE AUTO 4.84 K/uL (1.80-7.70); NEUTROPHILS PERCENT AUTO 72.6 % (41.0-71.0); PLATELET COUNT,PLT 231 K/uL (150-400); RED BLOOD CELL COUNT 4.55 M/uL (4.10-5.30); WHITE BLOOD CELL COUNT,WBC 6.67 K/uL (3.9-11.3)
[2024-08-17 19:16] LABS: A/G RATIO 1.1 (0.9-1.6); ALBUMIN 3.7 g/dL (3.4-5.0); BILIRUBIN TOTAL 0.3 mg/dL (0.2-1.0); CALCIUM 8.9 mg/dL (8.5-10.1); CARBON DIOXIDE,CO2 27.3 mmol/L (21.0-32.0); CREATININE 1.1 mg/dL (0.6-1.0); EST CRCL DRUG DOSING (CG) 50.16 mL/min; POTASSIUM,K 4.1 mmol/L (3.5-5.1); PROTEIN TOTAL,TP 7.1 g/dL (6.4-8.2)
[2024-08-17] MEDS: Acetaminophen/oxyCODONE 325-5 MG Tab PO ONE (20:29)
[2024-08-17 20:34] VITALS: PULSE 78
== END 2024-08-17 20:34 | disposition home or self-care (01) ==
LOC: MW.ED 16:00
DX: M54.41 Lumbago with sciatica, right side (principal); M54.42 Lumbago with sciatica, left side; G89.29 Other chronic pain; E78.00 Pure hypercholesterolemia, unspecified; J45.909 Unspecified asthma, uncomplicated; K21.9 Gastro-esophageal reflux disease without esophagitis; E66.9 Obesity, unspecified; Z68.42 Body mass index [BMI] 45.0-49.9, adult; Z98.84 Bariatric surgery status; Z90.49 Acquired absence of other specified parts of digestive tract; Z88.0 Allergy status to penicillin; Z88.1 Allergy status to other antibiotic agents; Z88.5 Allergy status to narcotic agent; Z88.8 Allergy status to other drugs, medicaments and biological substances; Z79.899 Other long term (current) drug therapy
CPT/HCPCS: 36415; 72131; 80053; 81001; 83690; 85025; 99284; A9270

== ENCOUNTER 2024-09-15 13:47 | Emergency (ER) | payer MEDICAID ==
[2024-09-15] MEDS: Ondansetron 4 MG Tab.DIS PO ONE (14:30)
[2024-09-15] MEDS: Acetaminophen/HYDROcodone 325-5 MG Tab PO ONE (14:30)
[2024-09-15] MEDS: Lidocaine 4% Patch TOP STA (14:30)
[2024-09-15 15:02] VITALS: BP 153/98; PULSE 80
== END 2024-09-15 15:01 | disposition home or self-care (01) ==
LOC: MW.ED 13:47
DX: S39.012A Strain of muscle, fascia and tendon of lower back, initial encounter (principal); M54.41 Lumbago with sciatica, right side; E78.00 Pure hypercholesterolemia, unspecified; K21.9 Gastro-esophageal reflux disease without esophagitis; E66.9 Obesity, unspecified; Z79.899 Other long term (current) drug therapy; Z88.5 Allergy status to narcotic agent; Z88.8 Allergy status to other drugs, medicaments and biological substances; Z88.1 Allergy status to other antibiotic agents; Z88.0 Allergy status to penicillin; Z68.42 Body mass index [BMI] 45.0-49.9, adult; Z88.6 Allergy status to analgesic agent; Z75.8 Other problems related to medical facilities and other health care; X58.XXXA Exposure to other specified factors, initial encounter
CPT/HCPCS: 99283; A9270

== ENCOUNTER 2024-11-18 12:10 | Emergency (ER) | payer MEDICAID ==
[2024-11-18 12:57] LABS: BASOPHILS ABSOLUTE AUTO 0.02 K/uL (0.00-0.20); BASOPHILS PERCENT AUTO 0.3 % (0.0-1.0); HEMATOCRIT 37.9 % (37.0-47.0); HEMOGLOBIN 12.6 g/dL (12.0-16.0); IMMATURE GRAN ABSOLUTE AUTO 0.01 K/uL (0.00-0.05); IMMATURE GRAN PERCENT AUTO 0.2 % (0.0-0.4); MEAN CORPUSCULAR HEMOGLOBIN 29.9 pg (28.0-32.0); MEAN CORPUSCULAR HGB CONC 33.2 g/dL (32.0-36.0); MEAN CORPUSCULAR VOLUME 89.8 fL (83.0-99.0); MEAN PLATELET VOLUME 8.8 fL (9.4-12.3); MONOCYTES ABSOLUTE AUTO 0.39 K/uL (0.00-0.80); MONOCYTES PERCENT AUTO 6.1 % (0.0-8.0); NEUTROPHILS PERCENT AUTO 79.4 % (41.0-71.0); PLATELET COUNT,PLT 229 K/uL (150-400); RED BLOOD CELL COUNT 4.22 M/uL (4.10-5.30); WHITE BLOOD CELL COUNT,WBC 6.42 K/uL (3.9-11.3)
[2024-11-18 13:31] LABS: A/G RATIO 1.4 (0.9-1.6); ALBUMIN 3.9 g/dL (3.4-5.0); BILIRUBIN TOTAL 0.4 mg/dL (0.2-1.0); CALCIUM 8.7 mg/dL (8.5-10.1); CARBON DIOXIDE,CO2 27.8 mmol/L (21.0-32.0); CREATININE 1.1 mg/dL (0.6-1.0); EST CRCL DRUG DOSING (CG) 52.19 mL/min; POTASSIUM,K 3.8 mmol/L (3.5-5.1); PROTEIN TOTAL,TP 6.7 g/dL (6.4-8.2)
[2024-11-18] MEDS: Acetaminophen 500 MG Tab PO ONE (14:15)
[2024-11-18 15:11] VITALS: BP 135/82; PULSE 66
== END 2024-11-18 15:19 | disposition home or self-care (01) ==
LOC: MW.ED 12:10
DX: R60.0 Localized edema (principal); E78.00 Pure hypercholesterolemia, unspecified; Z75.3 Unavailability and inaccessibility of health-care facilities; Z88.5 Allergy status to narcotic agent; Z88.1 Allergy status to other antibiotic agents; Z88.8 Allergy status to other drugs, medicaments and biological substances; Z79.899 Other long term (current) drug therapy
CPT/HCPCS: 36415; 80053; 83690; 83735; 83880; 84484; 85025; 93970; 99284; A9270; 99283

== ENCOUNTER 2025-03-09 11:02 | Emergency (ER) | payer MEDICAID ==
[2025-03-09 11:50] LABS: BASOPHILS ABSOLUTE AUTO 0.02 K/uL (0.00-0.20); BASOPHILS PERCENT AUTO 0.3 % (0.0-1.0); EOSINOPHILS ABSOLUTE AUTO 0.00 K/uL (0.00-0.45); EOSINOPHILS PERCENT AUTO 0.0 % (0.0-6.0); IMMATURE GRAN ABSOLUTE AUTO 0.01 K/uL (0.00-0.05); IMMATURE GRAN PERCENT AUTO 0.1 % (0.0-0.4); LYMPHOCYTES ABSOLUTE AUTO 0.80 K/uL (1.00-4.80); LYMPHOCYTES PERCENT AUTO 11.9 % (24.0-44.0); MEAN PLATELET VOLUME 8.7 fL (9.4-12.3); MONOCYTES ABSOLUTE AUTO 0.40 K/uL (0.00-0.80); MONOCYTES PERCENT AUTO 5.9 % (0.0-8.0); NEUTROPHILS ABSOLUTE AUTO 5.52 K/uL (1.80-7.70); NEUTROPHILS PERCENT AUTO 81.8 % (41.0-71.0); NRBC ABSOLUTE 0.00 K/uL (0.00-0.02); NRBC PERCENT 0.0 /100WBC (0.0-0.2); PLATELET COUNT,PLT 210 K/uL (150-400); RED BLOOD CELL COUNT 4.57 M/uL (4.10-5.30); WHITE BLOOD CELL COUNT,WBC 6.75 K/uL (3.9-11.3)
[2025-03-09 11:53] LABS: APPEARANCE,URINE CLEAR; GLUCOSE,URINE NEGATIVE (NEGATIVE); OCCULT BLOOD,URINE TRACE-LYSED (NEGATIVE)
[2025-03-09 12:00] LABS: EPITHELIAL CELLS,URINE RARE (NONE-FEW)
[2025-03-09 12:05] LABS: INR 1.0 (0.86-1.11); PTT,PARTIAL THROMBOPLSTIN TIME 24.1 SEC (23.9-30.7)
[2025-03-09 12:12] LABS: A/G RATIO 1.2 (0.9-1.6); ALANINE AMINOTRANSFERASE,ALT 49.0 IU/L (14-63); ASPARTATE AMNIOTRANSFERASE,AST 36.0 IU/L (15-37); BILIRUBIN TOTAL 0.4 mg/dL (0.2-1.0); BLOOD UREA NITROGEN,BUN 12.0 mg/dL (7.0-18.0); CARBON DIOXIDE,CO2 28.8 mmol/L (21.0-32.0); CHLORIDE,CL 105.0 mmol/L (98-107); CREATININE 1.1 mg/dL (0.6-1.0); EST CRCL DRUG DOSING (CG) 52.19 mL/min; GLUCOSE RANDOM 69.0 mg/dL (74-106); POTASSIUM,K 3.8 mmol/L (3.5-5.1); PROTEIN TOTAL,TP 7.3 g/dL (6.4-8.2); SODIUM,NA 141.0 mmol/L (136-145)
[2025-03-09 12:14] LABS: ESTIMATED GFR 58.0 mL/min (>60)
[2025-03-09 13:42] VITALS: BP 125/83; PULSE 89
== END 2025-03-09 13:42 | disposition home or self-care (01) ==
LOC: MW.ED 11:02
DX: N93.9 Abnormal uterine and vaginal bleeding, unspecified (principal); R31.9 Hematuria, unspecified; E78.00 Pure hypercholesterolemia, unspecified; J45.909 Unspecified asthma, uncomplicated; Z98.84 Bariatric surgery status; Z90.49 Acquired absence of other specified parts of digestive tract; Z88.5 Allergy status to narcotic agent; Z88.1 Allergy status to other antibiotic agents; Z88.8 Allergy status to other drugs, medicaments and biological substances; Z79.899 Other long term (current) drug therapy
CPT/HCPCS: 36415; 74176; 74176-26; 80053; 81001; 82947; 83690; 83735; 85025; 85610; 85730; 86850; 86900; 86901; 99284

== ENCOUNTER 2025-03-31 16:03 | Emergency (ER) | payer MEDICAID ==
[2025-03-31] MEDS: Acetaminophen/HYDROcodone 325-5 MG Tab PO ONE (16:47)
[2025-03-31 18:16] VITALS: BP 124/76; PULSE 63
== END 2025-03-31 18:27 | disposition home or self-care (01) ==
LOC: MW.ED 16:03
DX: S92.514A Nondisplaced fracture of proximal phalanx of right lesser toe(s), initial encounter for closed fracture (principal); E78.00 Pure hypercholesterolemia, unspecified; K21.9 Gastro-esophageal reflux disease without esophagitis; Z88.8 Allergy status to other drugs, medicaments and biological substances; Z88.5 Allergy status to narcotic agent; Z88.0 Allergy status to penicillin; Z88.1 Allergy status to other antibiotic agents; Z79.899 Other long term (current) drug therapy; W20.8XXA Other cause of strike by thrown, projected or falling object, initial encounter; Y93.89 Activity, other specified
CPT/HCPCS: 73620; 99283; A9270; 99284

== ENCOUNTER 2025-04-08 16:12 | Emergency (ER) | payer MEDICAID ==
[2025-04-08 17:07] VITALS: BP 133/93; PULSE 72
[2025-04-08] MEDS: Ketorolac 30 MG/ML SDV IM ONE (18:52)
== END 2025-04-08 19:01 | disposition home or self-care (01) ==
LOC: MW.ED 16:12
DX: M19.072 Primary osteoarthritis, left ankle and foot (principal); K21.9 Gastro-esophageal reflux disease without esophagitis; J45.909 Unspecified asthma, uncomplicated; E78.00 Pure hypercholesterolemia, unspecified; Z88.5 Allergy status to narcotic agent; Z88.8 Allergy status to other drugs, medicaments and biological substances; Z88.1 Allergy status to other antibiotic agents; Z79.899 Other long term (current) drug therapy
CPT/HCPCS: 73610; 96372; 99283; J1885; J8540

== ENCOUNTER 2025-05-09 18:29 | Emergency (ER) | payer MEDICAID ==
[2025-05-09 19:08] LABS: BASOPHILS ABSOLUTE AUTO 0.04 K/uL (0.00-0.20); BASOPHILS PERCENT AUTO 0.5 % (0.0-1.0); EOSINOPHILS ABSOLUTE AUTO 0.01 K/uL (0.00-0.45); EOSINOPHILS PERCENT AUTO 0.1 % (0.0-6.0); IMMATURE GRAN ABSOLUTE AUTO 0.03 K/uL (0.00-0.05); IMMATURE GRAN PERCENT AUTO 0.4 % (0.0-0.4); LYMPHOCYTES ABSOLUTE AUTO 1.61 K/uL (1.00-4.80); LYMPHOCYTES PERCENT AUTO 21.6 % (24.0-44.0); MEAN PLATELET VOLUME 8.3 fL (9.4-12.3); MONOCYTES ABSOLUTE AUTO 0.56 K/uL (0.00-0.80); MONOCYTES PERCENT AUTO 7.5 % (0.0-8.0); NEUTROPHILS ABSOLUTE AUTO 5.21 K/uL (1.80-7.70); NEUTROPHILS PERCENT AUTO 69.9 % (41.0-71.0); NRBC ABSOLUTE 0.00 K/uL (0.00-0.02); NRBC PERCENT 0.0 /100WBC (0.0-0.2); PLATELET COUNT,PLT 231 K/uL (150-400); RED BLOOD CELL COUNT 4.42 M/uL (4.10-5.30); WHITE BLOOD CELL COUNT,WBC 7.46 K/uL (3.9-11.3)
[2025-05-09 19:43] LABS: A/G RATIO 1.2 (0.9-1.6); ALANINE AMINOTRANSFERASE,ALT 51 IU/L (14-63); ASPARTATE AMNIOTRANSFERASE,AST 30 IU/L (15-37); BILIRUBIN TOTAL 0.3 mg/dL (0.2-1.0); BLOOD UREA NITROGEN,BUN 9 mg/dL (7.0-18.0); CARBON DIOXIDE,CO2 31.3 mmol/L (21.0-32.0); CHLORIDE,CL 106 mmol/L (98-107); CREATININE 1.2 mg/dL (0.6-1.0); GLUCOSE RANDOM 86 mg/dL (74-106); POTASSIUM,K 3.6 mmol/L (3.5-5.1); PROTEIN TOTAL,TP 7.4 g/dL (6.4-8.2); SODIUM,NA 144 mmol/L (136-145)
[2025-05-09 19:46] LABS: ESTIMATED GFR 52 mL/min (>60)
[2025-05-09 20:05] VITALS: BP 133/75; PULSE 61
== END 2025-05-09 20:15 | disposition home or self-care (01) ==
LOC: MW.ED 18:29
DX: M79.662 Pain in left lower leg (principal); K21.9 Gastro-esophageal reflux disease without esophagitis; E78.00 Pure hypercholesterolemia, unspecified; E66.9 Obesity, unspecified; Z88.1 Allergy status to other antibiotic agents; Z88.5 Allergy status to narcotic agent; Z88.8 Allergy status to other drugs, medicaments and biological substances; Z79.899 Other long term (current) drug therapy; Z90.49 Acquired absence of other specified parts of digestive tract
CPT/HCPCS: 36415; 80053; 83735; 85025; 93971; 99284; A9270; 99283